=== PATIENT | male | born 1955 | race Caucasian/White ===

== ENCOUNTER → 2020-10-01 14:13 | Outpatient (REF) | payer MEDICARE, SELFPAY ==
--- NOTE | 2020-10-01 15:00 | CA_ITS ---
Transthoracic Echocardiogram Patient (Last, First, Middle): David Gallagher, Gender: Male Date of : 1955 Age: 65 Procedure Date: 10/01/2020 Procedure Type: Transthoracic Echocardiogram Location: OP Height: 167.64 cm Weight: 90.72 kg BSA: 2.00 m2 Heart Rate: bpm BP: 126 / 80 mmHg Abstract Writer: KEYSHAWN Referring MD: Kb Birmingham MD Safety Sealer: Kb Birmingham MD Symptoms: I25.10 CAD I10 HTN E78.5 Study Quality: Fair ECG Rhythm: Sinus Conclusions: - 1. Low normal LV systolic function with mild LVH with underlying wall motion abnormality suggestive of coronary artery disease with impaired relaxation filling pattern 2. Mildly dilated left atrium 3. Trivial aortic regurgitation 4. Normal RV systolic pressure 5. No pericardial effusion Findings Left Ventricle Normal left ventricular cavity size. There is mildly increased left ventricular wall thickness. The left ventricular systolic function is low normal. The visually estimated ejection fraction is between 50-55%. Spectral Doppler is indicative of an impaired relaxation filling pattern. E/E prime ratio is between 8 and 15 consistent with indeterminate filling pressures. Wall Motion Rest Echo Findings The apical inferior and mid inferoseptal segments are hypokinetic. The apical septum is akinetic. All other scored wall segments showed normal motion. Right Ventricle Normal right ventricular cavity size and systolic function. Atria The left atrium is mildly dilated. There is no evidence of interatrial shunt. The right atrium is normal in size. Aortic Valve Normal aortic valve structure and function. There is no aortic valve stenosis. There is trace (trivial) aortic valve regurgitation. Mitral Valve Normal mitral valve structure and function. There is trace mitral valve regurgitation. There is no mitral valve stenosis. Pulmonic Valve The pulmonic valve was not well visualized. Tricuspid Valve Likely normal tricuspid valve structure and function. There is trace tricuspid valve regurgitation. The right ventricular systolic pressure is normal. There is no evidence of pulmonary hypertension. Great Vessels All visible segments of the aorta are normal in size. The pulmonary artery was not well visualized. Venous The inferior vena cava is normal in size and collapses greater than 50% with inspiration. Pericardium/Pleural There is no evidence of pericardial effusion. Prior Study Comparison Changes noted compared to prior study. LV systolic function is marginally reduced Measurements 2D Linear Measurements IVSd: 1.25 0.6-0.9/0.6-1.0 cm LVIDd: 4.08 3.9-5.3/4.2-5.9 cm LVIDd Index: 2.04 2.4-3.2/2.2-3.1 cm/m2 LVIDs: 2.92 2.0-3.6 cm LVPWd: 1.25 0.7-1.1 cm Ao Root: 3.40 2.1-3.5 cm LA Diam: 4.10 2.7-3.8/3.0-4.0 cm LAIDs Index: 2.05 1.5-2.3 cm/m2 LV Mass: 225.65 67-162/88-224 g LV Mass Index: 112.83 43-95/49-115 g/m2 LVOT Diam: 2.00 3.0+(-)1.3 cm 2D Systolic Function EF 4C: 54.90 >55% EF 2C: 53.90 >55% EF BiP: 52.60 >55% Mitral Valve MV Pk E: 0.54 MV PK A: 0.78 MV Decel Time: 187.00 E/A: 0.70 E'Lateral: 9.77 E'Medial: 5.80 E/E' Med: 9.30 E/E' Lat: 5.50 PHT: 55.00 MVA PHT: 4.00 Decel [place]: 2.89 Aortic Valve AoV Pk Carlos: 1.60 AoV Mn Carlos: 1.18 AoV VTI: 0.36 AoV Pk Grad: 10.00 Aov Mn Grad: 6.00 BRAEDEN Cont.VTI: 2.03 LVOT LVOT Pk Carlos: 1.03 LVOT Mn Carlos: 0.73 LVOT VTI: 0.24 LVOT Pk Grad: 4.00 LVOT Mn Grad: 2.00 LVOT Diam: 2.00 LVOT Area: 3.14 Diastolic Function MV Pk E: 0.54 MV Pk A: 0.78 E/A: 0.70 E'Medial: 5.80 E/E' Med: 9.30 E' Laterial: 9.77 E/E' Lat: 5.50 Tricuspid Valve TR Pk Carlos: 1.81 TR Pk Grad: 13.00 RA Press: 3.00 RVSP: 16.00 Great Vessels Aorta Ao Root-2D: 3.40 2.0-3.7 cm Ao Asc: 3.60 2.1-3.4 cm Pulmonary Valve PV Pk Carlos: 1.26 Peak PV Grad: 6.00 Updated in Other Vendor System with Status of Final Kb Birmingham MD electronically signed on 10/02/2020 8:41:57 AM with status of Final
== END ==
LOC: HO.CARD 14:13
PROVIDERS: Visit Provider Internal Medicine Cardiovascular Disease
DX: I25.119 Atherosclerotic heart disease of native coronary artery with unspecified angina pectoris (principal); I10 Essential (primary) hypertension; E78.5 Hyperlipidemia, unspecified
CPT/HCPCS: 93306

== ENCOUNTER → 2021-01-08 12:15 | Outpatient (BNVA) | payer MEDICARE, SELFPAY | PROVIDERS: PCP Internal Medicine; Visit Provider Internal Medicine Cardiovascular Disease | DX: I25.10 Atherosclerotic heart disease of native coronary artery without angina pectoris (principal); I10 Essential (primary) hypertension; R06.02 Shortness of breath | CPT/HCPCS: 93005; 99212 ==

== ENCOUNTER → 2021-03-12 08:57 | Outpatient (BNVA) | payer MEDICARE, SELFPAY | PROVIDERS: PCP Nurse Practitioner Primary Care; Visit Provider Urology | DX: E11.69 Type 2 diabetes mellitus with other specified complication (principal); N52.1 Erectile dysfunction due to diseases classified elsewhere | CPT/HCPCS: 99202 ==

== ENCOUNTER → 2021-03-24 13:38 | Outpatient (BNVA) | payer MEDICARE, MEDICAID, SELFPAY | PROVIDERS: PCP Nurse Practitioner Primary Care; Visit Provider Nurse Practitioner Family | DX: I25.10 Atherosclerotic heart disease of native coronary artery without angina pectoris (principal); I10 Essential (primary) hypertension; R06.02 Shortness of breath; Z86.79 Personal history of other diseases of the circulatory system | CPT/HCPCS: 99212 ==

== ENCOUNTER → 2021-06-11 10:04 | Outpatient (BNVA) | payer MEDICARE, MEDICAID, SELFPAY | PROVIDERS: PCP Nurse Practitioner Primary Care; Visit Provider Urology | DX: N52.9 Male erectile dysfunction, unspecified (principal); I25.10 Atherosclerotic heart disease of native coronary artery without angina pectoris; I25.2 Old myocardial infarction; I10 Essential (primary) hypertension; E11.69 Type 2 diabetes mellitus with other specified complication; I42.9 Cardiomyopathy, unspecified; E78.5 Hyperlipidemia, unspecified; Z87.891 Personal history of nicotine dependence; Z95.5 Presence of coronary angioplasty implant and graft; Z98.890 Other specified postprocedural states; Z79.899 Other long term (current) drug therapy | CPT/HCPCS: 99212 ==

== ENCOUNTER → 2021-09-10 10:51 | Outpatient (BNVA) | payer MEDICARE, MEDICAID, SELFPAY | PROVIDERS: PCP Nurse Practitioner Primary Care; Visit Provider Urology | DX: Z13.89 Encounter for screening for other disorder (principal) | CPT/HCPCS: Q3014 ==

== ENCOUNTER → 2022-01-20 10:20 | Outpatient (BNVA) | payer OTHER, MEDICAID, SELFPAY | PROVIDERS: PCP Nurse Practitioner Primary Care; Referring Provider Nurse Practitioner Primary Care; Visit Provider Internal Medicine Cardiovascular Disease | DX: I25.10 Atherosclerotic heart disease of native coronary artery without angina pectoris (principal); I10 Essential (primary) hypertension | CPT/HCPCS: 93005 ==

== ENCOUNTER 2023-02-09 11:32 | Outpatient (AMB) | payer OTHER, MEDICAID, SELFPAY ==
--- NOTE | 2023-02-09 11:36 | MHC.OFFVIS ---
Intake Vital Signs 02/09/23 11:37 Height 5 ft 6 in Weight 182 lb 15.739 oz BMI 29.5 BP 120/80 Blood Pressure Location Lt brachial Position Sitting Pulse 70 Intake Visit Reasons: 1 year follow up Intake Note: 1 year follow-up with ekg feeling ok [employer] Acquisition Project Manager Required: Yes Talent Acquisition Project Manager Name: daughter Infusion Nurse: Infusion Nurse Present Accompanied by: Daughter Allergies No Known Allergies Allergy (Verified 03/15/22 15:42) Medication List - Last Reconciled 02/09/23 by Kb Birmingham MD albuterol sulfate 90 mcg/actuation 2 puffs PO Q4-6H PRN alcohol swabs (BD Alcohol Swabs) 0 pad topical QID amlodipine 5 mg PO aspirin 81 mg PO DAILY 90 days blood sugar diagnostic (Oppten Ultra Test strips) As directed dulaglutide 0.75 mg subcut QWEEK dulaglutide (Trulicity) mg subcut fenofibrate nanocrystallized 145 mg PO DAILY 30 days insulin aspart U-100 (Novolog FlexPen U-100 Insulin aspart) subcut insulin degludec (Tresiba FlexTouch U-100 insulin) units subcut insulin glargine units subcut insulin lispro units subcut lancets (VoucherlinkTouch Delica Lancets) As directed lisinopril 40 mg PO DAILY 90 days metformin 1,000 mg PO BID metoprolol succinate ER 25 mg PO DAILY 90 days omeprazole 40 mg PO QAM pen needle, diabetic (Comfort EZ Pen [place]) As directed ranolazine ER 1,000 mg PO BID 90 days rosuvastatin 40 mg PO DAILY 90 days sildenafil 100 mg PO DAILY PRN 30 days tadalafil 10 mg PO DAILY 90 days HPI HPI Comments History of Present Illness Details David comes for follow-up, accompanied by her daughter who is traffic controller cable. Did declined a certified traffic controller cable. Patient complains of is significant exertional shortness of breath with walking short distances than before. Says that he was told that he has asthma. He denies any clear anginal symptoms. Denies any orthopnea, PND, leg edema. Denies any prolonged palpitations, lightheadedness, syncope. Takes all his medications. No recent lipid panel. [facility] Medical History CAD (coronary artery disease) History of ischemic cardiomyopathy HTN (hypertension) Hyperlipidemia LVH (left ventricular hypertrophy) Old myocardial infarction Type 2 diabetes mellitus without complications Surgical History History of lung surgery Hx of cardiac cath Stented coronary artery Family History Father Bone cancer Mother No problems noted. Social History Patient Tobacco Use Status: Former Tobacco user Years Smoked: stopped 2011 Review of Systems Const Denies chills, Denies fatigue, Denies fever(s), Denies frequent falls, Denies weakness, Denies weight gain and Denies weight loss ENT Denies dizziness Card Denies chest pain, Denies leg edema, Denies lightheadedness, Denies palpitations, Denies dyspnea, Denies dyspnea on exertion, Denies orthopnea and Denies other (loss of consciousness) Resp Denies cough, Denies dyspnea and Denies dyspnea on exertion GI Denies hematochezia and Denies change in stool character Musc Denies abnormal gait, Denies muscle weakness, Denies numbness, Denies radiating pain into limb and Denies tingling Neuro Denies abnormal gait, Denies dizziness, Denies frequent falls, Denies numbness, Denies tingling and Denies weakness Endo Denies fatigue and Denies palpitations Physical Exam Vital Signs: Last Vital Signs Pulse 70 02/09/23 11:37 BP 120/80 02/09/23 11:37 BMI result Body Mass Index 29.5 Const General: cooperative, comfortable, no acute distress, alert and awake Nutritional Appearance: overweight Orientation/consciousness: patient oriented x3 Limitations: no limitations Neck Neck: Yes trachea midline, Yes supple and Yes no JVD Resp Effort & Inspection: normal respiratory effort Auscultation: clear to auscultation bilaterally Cardio Jugular venous distension: no JVD Palpation: normal PMI Rate: regular rate Rhythm: regular rhythm Heart sounds: S1 normal heart sound present and S2 normal heart sound present GI Auscultation: normal bowel sounds Skin General skin exam: no rashes or lesions noted Neuro General: patient oriented x3 and no focal motor deficits Extrem General: Yes no clubbing, cyanosis or edema Psych Appearance: grossly normal Office Procedures EKG Details: EKG shows normal sinus rhythm with moderate LVH criteria with QS pattern in lead V1 V2 suggestive septal infarct. No acute ST T wave changes [id number], Complete Assessment & Plan Assessment & Plan (1) SOB (shortness of breath) on exertion: Code(s): R06.02 - Shortness of breath Plan: Patient with exertional shortness of breath with prior coronary artery disease with LAD stenting. Possible that this is related to underlying bronchospastic airway disease. Although progressive cardiac issues cannot be entirely ruled out. Will obtain exercise myocardial perfusion imaging to evaluate for myocardial ischemia as well as echocardiogram to evaluate LV systolic and diastolic function to evaluate for pulmonary hypertension. These tests will be scheduled in near future. Further treatment based on the findings. Encouraged to continue to participate in physical activity as tolerated. (2) CAD (coronary artery disease): Code(s): I25.10 - Atherosclerotic heart disease of [place] coronary artery without angina pectoris Plan: CAD with remote stenting of the LAD. Currently no obvious symptoms of angina but having exertional shortness of breath. Advise workup as above. Also advise follow-up lipid panel near future. Continue low-dose aspirin therapy for life. Continue dual therapy with high-intensity statin therapy and fenofibrate therapy. Target goal LDL closer to 60 mg/dL and triglycerides less than 200 mg/dL. Continue aggressive management diabetes. Goal hemoglobin A1c less than 7%. Blood pressure is currently well optimized advised to continue current therapy. Currently on multiple antianginal agents. Advised to monitor blood pressure at home maintain a log. Goal blood pressure less than 130/84. Follow up in the clinic in 1 year's time, sooner p.r.n.. Thank you for allowing me to partake in his care Orders: Orders Lipid Panel Today I25.10 - Atherosclerotic heart disease of [place] coronary artery without angina pectoris CA stress test Today I25.10 - Atherosclerotic heart disease of [place] coronary artery without angina pectoris CA echo transthoracic complete Today I25.10 - Atherosclerotic heart disease of [place] coronary artery without angina pectoris NM cardiolite stress test 2 Weeks I25.10 - Atherosclerotic heart disease of [place] coronary artery without angina pectoris, R07.9 - Chest pain, unspecified Coding Level of Care Code Est Pt Level 4 (88023) Diagnoses SOB (shortness of breath) on exertion R06.02 CAD (coronary artery disease) I25.10 CPT Codes EKG - CPT: 46728-[id number], Complete ([id number])
[2023-02-09 11:37] VITALS: BP 120/80; PULSE 70; BMI 29.5
== END 2023-02-09 11:57 | disposition home or self-care (01) ==
PROVIDERS: PCP Nurse Practitioner Primary Care; Visit Provider Internal Medicine Cardiovascular Disease
DX: R06.02 Shortness of breath (principal); I25.10 Atherosclerotic heart disease of native coronary artery without angina pectoris
CPT/HCPCS: 93010; 99214

== ENCOUNTER → 2023-02-09 11:32 | Outpatient (BNVA) | payer OTHER, MEDICAID, SELFPAY | PROVIDERS: PCP Nurse Practitioner Primary Care; Visit Provider Internal Medicine Cardiovascular Disease | DX: R07.9 Chest pain, unspecified (principal); I25.10 Atherosclerotic heart disease of native coronary artery without angina pectoris; I10 Essential (primary) hypertension; I25.2 Old myocardial infarction; Z87.891 Personal history of nicotine dependence; Z95.5 Presence of coronary angioplasty implant and graft; Z98.890 Other specified postprocedural states | CPT/HCPCS: 93005; 99212 ==

== ENCOUNTER → 2023-03-22 09:09 | Outpatient (REF) | payer OTHER, MEDICAID, SELFPAY ==
--- NOTE | ~2023-03-22 | NM_ITS ---
Lexiscan Myocardial perfusion study Indication: Coronary artery disease, assess for ischemia Technique: The patient was brought in for a Lexiscan perfusion study on 03/22/2023 and was injected 0.4 mg of Lexiscan intravenously. Within a minute of this injection 25 mCi of sestamibi was given intravenously. Images were obtained using the SPECT gamma camera interlaced with the gating device. Images were obtained in supine position. Resting perfusion study was performed on 03/23/2023. Patient was administered 25 mCi of sestamibi intravenously at rest. Images were then obtained in supine position. Images were processed with the software and compared side to side in short axis, horizontal long axis and vertical long axis views. Total DLP 147mGy-cm. Findings: Raw acquisition reviewed. The stress perfusion study showed diminished tracer uptake in the distal part of anterior wall and adjacent apex.. No significant improvement with CT attenuation correction. The gated study shows mildly diminished LV systolic function with calculated LVEF of 45%. LV cavity is normal in size. The gated study shows mildly reduced thickening in the apical part of anterior wall. Resting study shows mildly reduced tracer uptake at the anterior apex and adjacent apex. No significant change with CT attenuation correction. Gating at rest reveals mildly reduced LVEF at 50%. Apical anterior wall with reduced thickening. The findings are consistent with mixed defect in the apical anterior wall with mostly fixed but some reversible components. NM/AK cardiolite stress test Impression: 1. Myocardial perfusion imaging study shows mixed ischemia/infarct pattern in the apical anterior wall, more towards infarct. 2. Gated LVEF is 45% during stress and 50% during rest. 3. Transient ischemic dilatation not present. EKG component of the test reported separately.
--- NOTE | 2023-03-22 09:13 | CA_ITS ---
Acquisition Time: 2023-03-22 09:16:16 Total Exercise Time: 00:05:08 Test Indications: SOB Medications: SEE H Protocol: JOHNATHAN Max HR: 115 BPM 75% of Pred: 153 BPM Max BP: 160/058 mmHG Max Work Load: 6.9 METS Exercise stress test exercise 5 nmin 8 sec of Johnathan protocol achieving 74% MPHR with need to stop due to fatigue and moderate SOB, without arrhythmias, with normotensive response to exercise, without EKG changes. Patient assisted to chair and breathing returned to normal. Test changed to pharmacological stress test with Lexiscan injection. Pharmacolgical stress test with Lexiscan injection while sitting and kicking his legs, without anginal symptoms, with isolated PVC, with normotensive response to injection, with nondiagnositic EKGs. Nuclear images pending, Test reviewed with Dr. Paul. Referred By: Kb Birmingham Overread By: Adriana Rodrigez
== END ==
LOC: HO.CARD 09:09
PROVIDERS: PCP Nurse Practitioner Primary Care; Visit Provider Internal Medicine Cardiovascular Disease
DX: R07.9 Chest pain, unspecified (principal); I25.10 Atherosclerotic heart disease of native coronary artery without angina pectoris
CPT/HCPCS: 78452; 93017; A9500; J0280; J2785

== ENCOUNTER → 2023-03-22 09:13 | Outpatient (BNV) | payer OTHER, MEDICAID, SELFPAY | PROVIDERS: PCP Nurse Practitioner Primary Care; Visit Provider Nurse Practitioner | DX: I25.10 Atherosclerotic heart disease of native coronary artery without angina pectoris (principal) | CPT/HCPCS: 78452; 93016; 93018 ==

== ENCOUNTER 2023-04-14 09:02 | Outpatient (REF) | payer OTHER, MEDICAID, SELFPAY ==
[2023-04-14 12:07] LABS: Alanine Aminotransferase 15 U/L (0-40); Alkaline Phosphatase 27 U/L (39-117); Amylase 85 U/L (28-100); Anion Gap 11 (12-20); Aspartate Amino Transferase 12 U/L (5-37); Bilirubin Total 0.3 mg/dL (0.0-1.0); Blood Urea Nitrogen 19 mg/dL (9-16); Calcium 9.5 mg/dL (8.4-10.2); Carbon Dioxide 24 mmol/L (22-29); Chloride 112 mmol/L (96-108); Cholesterol 97 mg/dL (<200); Estimated Glomerular Filt Rate 58; Glucose Random 138 mg/dL (60-115); HDL Cholesterol 37 mg/dL (>40); LDL Cholesterol Calculated 40 mg/dL (<100); Lipase 20 U/L (8-78); Potassium 4.7 mmol/L (3.3-5.1); Sodium 142 mmol/L (135-145); Total Protein 6.8 g/dL (6.5-8.0); Triglycerides 100 mg/dL (<150)
[2023-04-14 12:46] LABS: Creatinine Urine 108.17 mg/dL; Microalbum/Creatinine Ratio Ur 77.6 ug/mg cr (<30)
== END 2023-04-14 09:03 | disposition home or self-care (01) ==
LOC: HO.HHCL 09:02
PROVIDERS: Visit Provider Nurse Practitioner Primary Care
DX: E11.69 Type 2 diabetes mellitus with other specified complication (principal); R10.12 Left upper quadrant pain; E78.5 Hyperlipidemia, unspecified
CPT/HCPCS: 36415; 80053; 80061; 82043; 82150; 82570; 83690

== ENCOUNTER → 2023-04-15 09:05 | Outpatient (REF) | payer OTHER, MEDICAID, SELFPAY ==
--- NOTE | 2023-04-15 09:07 | CA_ITS ---
Transthoracic Echocardiogram Patient (Last, First, Middle): David Gallagher, Gender: Male Date of : 1955 Age: 67 Procedure Date: 04/15/2023 Procedure Type: Transthoracic Echocardiogram Location: OP Height: 167.64 cm Weight: 86.18 kg BSA: 1.96 m2 Heart Rate: 66 bpm BP: 110 / 55 mmHg Speech Writer: TAMMI Referring MD: Kb Birmingham MD Symptoms: I25.10 - Atherosclerotic heart disease of [place] coronary artery without... Study Quality: Fair ECG Rhythm: Sinus Conclusions: - Normal left ventricular cavity size. There is mildly increased left ventricular wall thickness. The left ventricular systolic function is low normal. The visually estimated ejection fraction is between 50-55%. - The apical anterior, apical inferior, apical septum, and mid anteroseptal segments are hypokinetic. - The apex segment is akinetic. - There is mild dilatation of the ascending aorta measuring 3.60 cm. Findings Left Ventricle Normal left ventricular cavity size. There is mildly increased left ventricular wall thickness. The left ventricular systolic function is low normal. The visually estimated ejection fraction is between 50-55%. There is evidence of regional wall motion abnormalities. Abnormal diastolic function is noted. Spectral Doppler is indicative of an impaired relaxation filling pattern. E/E prime ratio is between 8 and 15 consistent with indeterminate filling pressures. Wall Motion Rest Echo Findings The apical anterior, apical inferior, apical septum, and mid anteroseptal segments are hypokinetic. The apex segment is akinetic. Right Ventricle Normal right ventricular cavity size and systolic function. Atria The left atrium is normal in size. The right atrium is normal in size. Aortic Valve There is a normal trileaflet aortic valve. There is mild calcification of the aortic valve. There is no aortic valve stenosis. There is no aortic valve regurgitation. Mitral Valve Normal mitral valve structure and function. There is no mitral valve regurgitation. There is no mitral valve stenosis. Pulmonic Valve Normal pulmonic valve structure and function. There is trace pulmonic valve regurgitation. Tricuspid Valve Normal tricuspid valve structure and function. There is trace tricuspid valve regurgitation. Normal right atrial pressure. There is no evidence of pulmonary hypertension. Great Vessels There is mild dilatation of the ascending aorta measuring 3.60 cm. The visualized portions of the pulmonary artery and branches are normal. Venous The inferior vena cava is normal in size and collapses greater than 50% with inspiration. Pericardium/Pleural There is no evidence of pericardial effusion. Prior Study Comparison No significant change compared to prior study dated: 10/01/2020. Measurements 2D Linear Measurements IVSd: 1.11 0.6-0.9/0.6-1.0 cm LVIDd: 4.26 3.9-5.3/4.2-5.9 cm LVIDd Index: 2.17 2.4-3.2/2.2-3.1 cm/m2 LVIDs: 2.66 2.0-3.6 cm LVPWd: 1.10 0.7-1.1 cm LA Diam: 4.50 2.7-3.8/3.0-4.0 cm LAIDs Index: 2.30 1.5-2.3 cm/m2 LV Mass: 201.27 67-162/88-224 g LV Mass Index: 102.69 43-95/49-115 g/m2 LVOT Diam: 2.00 3.0+(-)1.3 cm 2D Systolic Function EF 4C: 52.80 >55% EF 2C: 56.50 >55% EF BiP: 55.20 >55% Mitral Valve MV Pk E: 0.60 MV PK A: 0.91 MV Decel Time: 268.00 E/A: 0.70 E'Lateral: 8.92 E'Medial: 6.53 E/E' Med: 9.20 E/E' Lat: 6.80 PHT: 78.00 MVA PHT: 2.82 Decel [place]: 2.26 Aortic Valve AoV Pk Carlos: 1.49 AoV Mn Carlos: 1.06 AoV VTI: 0.35 AoV Pk Grad: 9.00 Aov Mn Grad: 5.00 BRAEDEN Cont.VTI: 2.25 LVOT LVOT Pk Carlos: 1.25 LVOT Mn Carlos: 0.77 LVOT VTI: 0.25 LVOT Pk Grad: 6.00 LVOT Mn Grad: 3.00 LVOT Diam: 2.00 LVOT Area: 3.14 Diastolic Function MV Pk E: 0.60 MV Pk A: 0.91 E/A: 0.70 E'Medial: 6.53 E/E' Med: 9.20 E' Laterial: 8.92 E/E' Lat: 6.80 Right Ventricle TAPSE (mm): 24.00 TVS' Carlos: 13.50 Tricuspid Valve TR Pk Carlos: 2.64 TR Pk Grad: 28.00 RA Press: 3.00 RVSP: 31.00 Great Vessels Aorta Sinus of Valsalva: 3.50 2.0-3.5 cm Ao Asc: 3.60 2.1-3.4 cm Pulmonary Valve PV Pk Carlos: 1.19 Peak PV Grad: 6.00 Updated in Other Vendor System with Status of Final Jett Paul MD electronically signed on 04/17/2023 9:22:56 PM with status of Final
== END ==
LOC: HO.CARD 09:05
PROVIDERS: PCP Nurse Practitioner Primary Care; Visit Provider Internal Medicine Cardiovascular Disease
DX: I25.10 Atherosclerotic heart disease of native coronary artery without angina pectoris (principal)
CPT/HCPCS: 93306

== ENCOUNTER → 2023-04-15 09:07 | Outpatient (BNV) | payer OTHER, MEDICAID, SELFPAY | PROVIDERS: PCP Nurse Practitioner Primary Care; Visit Provider Internal Medicine Cardiovascular Disease | DX: I25.10 Atherosclerotic heart disease of native coronary artery without angina pectoris (principal) | CPT/HCPCS: 93306 ==

== ENCOUNTER 2023-04-18 10:20 | Outpatient (REF) | payer OTHER, MEDICAID, SELFPAY ==
[2023-04-18 11:39] LABS: MANUAL DIFF FLAG NO
[2023-04-18 12:14] LABS: INTERNATIONAL NORM RATIO 0.8 (0.9-1.1); Prothrombin Time 9.9 SEC (11.1-13.3)
[2023-04-18 12:17] LABS: Basophils Absolute Auto 0.1 X10*3/uL (0.0-0.2); Eosinophils Absolute Auto 0.3 X10*3/uL (0.0-0.4); Eosinophils Percent Auto 3.9 % (0-4); Hematocrit 33.1 % (42.0-52.0); Hemoglobin 10.9 g/dl (14.0-18.0); Imm Gran Abs Auto 0.07 X10*3/uL (0.00-0.03); Lymphocytes Absolute Auto 1.8 X10*3/uL (1.2-4.9); Lymphocytes Percent Auto 26.4 % (20-40); Mean Corpuscular HGB Conc 32.9 g/dl (31.0-36.0); Mean Corpuscular Hemoglobin 31.2 pg (27.0-33.0); Mean Corpuscular Volume 94.8 fL (80.0-98.0); Mean Platelet Volume 10.1 fL (9.4-12.4); Monocytes Absolute Auto 0.5 X10*3/uL (0.1-1.2); Monocytes Percent Auto 7.1 % (2-11); Neutrophils Absolute Auto 4.1 x10*3/uL (2.0-8.3); Neutrophils Percent Auto 60.6 % (45-73); Platelet Count 327 X10*3/uL (160-400); Red Blood Count 3.49 X10*6/uL (4.60-5.80); Red Cell Distribution Width 12.8 % (11.0-16.0); White Blood Count 6.7 X10*3/uL (4.8-10.8)
== END 2023-04-18 10:21 | disposition home or self-care (01) ==
LOC: HO.HHCL 10:20
PROVIDERS: Visit Provider Internal Medicine Cardiovascular Disease
DX: I25.10 Atherosclerotic heart disease of native coronary artery without angina pectoris (principal); R06.02 Shortness of breath; I10 Essential (primary) hypertension; Z86.79 Personal history of other diseases of the circulatory system
CPT/HCPCS: 36415; 85025; 85610

== ENCOUNTER → 2023-04-19 23:59 | Outpatient (BNV) | payer OTHER, MEDICAID, SELFPAY | PROVIDERS: PCP Nurse Practitioner Primary Care; Visit Provider Internal Medicine Cardiovascular Disease | DX: I20.8 Other forms of angina pectoris (principal); R93.1 Abnormal findings on diagnostic imaging of heart and coronary circulation | CPT/HCPCS: 93458; 99152 ==

== ENCOUNTER 2023-05-03 14:27 | Outpatient (AMB) | payer OTHER, MEDICAID, SELFPAY ==
[2023-05-03 14:44] VITALS: BP 112/52; PULSE 70; RESP 18; O2SAT 97
--- NOTE | 2023-05-03 14:44 | MHC.OFFVIS ---
Intake Vital Signs 05/03/23 14:44 Height 5 ft 6 in Weight 185 lb 10.067 oz BMI 30.0 BP 112/52 L Blood Pressure Location Rt brachial Position Sitting Respiration 18 Pulse 70 Pulse Source Pulse Oximeter Pulse Oximetry (%) 97 Oxygen Delivery Method Room Air Intake Visit Reasons: Follow up post cardiac cath Pastoral Ministries Professor Required: Yes Pastoral Ministries Professor Language: Eligibility Technician Name: daughter Fabiola - form signed Information Interpreted: non-clinical & clinical Accompanied by: emmett Allergies No Known Allergies Allergy (Verified 05/03/23 14:46) Medication List - Last Reconciled 05/03/23 by Adriana Rodrigez NP albuterol sulfate 90 mcg/actuation 2 puffs PO Q4-6H PRN alcohol swabs (BD Alcohol Swabs) 0 pad topical QID amlodipine 5 mg PO aspirin 81 mg PO DAILY 90 days blood sugar diagnostic ([employer] Ultra Test strips) As directed dulaglutide 0.75 mg subcut QWEEK dulaglutide (Trulicity) mg subcut fenofibrate nanocrystallized 145 mg PO DAILY 30 days insulin aspart U-100 (Novolog FlexPen U-100 Insulin aspart) subcut insulin degludec (Tresiba FlexTouch U-100 insulin) units subcut insulin glargine units subcut insulin lispro units subcut lancets (SpindleTouch Delica Lancets) As directed lisinopril 40 mg PO DAILY 90 days metformin 1,000 mg PO BID metoprolol succinate ER 25 mg PO DAILY 90 days omeprazole 40 mg PO QAM pen needle, diabetic (Comfort EZ Pen [place]) As directed ranolazine ER 1,000 mg PO BID rosuvastatin 40 mg PO DAILY 90 days sildenafil 100 mg PO DAILY PRN 30 days tadalafil 10 mg PO DAILY 90 days HPI HPI Comments History of Present Illness Details 67year-old male presents for a follow-up with his daughter post cardiac cath on 04/19/[address] Paul for shortness of breath on exertion and a nuclear stress test showing abnormalities. Patient has a history of stent placement in LAD. Patient reports his breathing has improved greatly since the cathertization. He reports prior walking even on flat surfaces he would become short of breath but now it is only with stairs which he has had for years. He reports his albuterol inhaler improves the shortness of breath when he walks up stairsa. He continues all medications with no complaints or concerns. He denies chest pain or swelling in his legs. He continues to not smoke and does not drink alcohol. Certified shipping technician declined - daughter is interpreting. Form was signed. Right radial site: healing, with no redness, bruising, or tenderness noted. LMCA - Mild disease LAD: Mild luminal irregularities (<30%). Patent proximal LAD stent. LCx: Mild luminal irregularities (<30%) RCA: Mild luminal irregularities (<30%) COUNT INCLUDES THE [facility] Medical History (Updated 05/03/23 @ 15:19 by Adriana Rodrigez NP) Type 2 diabetes mellitus without complications LVH (left ventricular hypertrophy) History of ischemic cardiomyopathy Hyperlipidemia Old myocardial infarction HTN (hypertension) CAD (coronary artery disease) Surgical History (Updated 05/03/23 @ 15:16 by Adriana Rodrigez NP) Stented coronary artery History of lung surgery Hx of cardiac cath Family History Father Bone cancer Mother No problems noted. Social History Patient Tobacco Use Status: Former Tobacco user Years Smoked: stopped 2011 Review of Systems Const Denies chills, Denies fatigue, Denies fever(s), Denies frequent falls, Denies weakness, Denies weight gain and Denies weight loss ENT Denies dizziness Card Denies chest pain, Denies chest pain with activity, Denies syncope, Denies rapid heart rate, Denies pedal edema, Denies irregular heart rhythm, Denies leg edema, Denies lightheadedness, Denies palpitations, Denies dyspnea, Denies dyspnea on exertion, Denies orthopnea and Denies other (LOC) Resp Denies cough, Denies dyspnea and Denies dyspnea on exertion GI Denies hematochezia and Denies change in bowel habits Musc Denies abnormal gait, Denies arthralgias, Denies muscle weakness, Denies numbness, Denies radiating pain into limb and Denies tingling Neuro Denies abnormal gait, Denies dizziness, Denies syncope, Denies frequent falls, Denies numbness, Denies tingling and Denies weakness Endo Denies fatigue and Denies palpitations Physical Exam Vital Signs: Last Vital Signs Pulse 70 05/03/23 14:44 Resp 18 05/03/23 14:44 BP 112/52 L 05/03/23 14:44 Pulse Ox 97 05/03/23 14:44 Oxygen Delivery Method Room Air 05/03/23 14:44 BMI result Body Mass Index 30.0 Const General: healthy appearing and no acute distress Orientation/consciousness: patient oriented x3 HEENT Head: Yes normal to inspection Eyes General: appearance normal, both eyes and all related structures Neck Neck: Yes normal visual inspection Chest Chest palpation & inspection: normal inspection of the chest Resp Effort & Inspection: normal respiratory effort Auscultation: clear to auscultation bilaterally Cardio Jugular venous distension: no JVD Palpation: normal PMI Rate: regular rate Rhythm: regular rhythm Heart sounds: S1 normal heart sound present, S2 normal heart sound present, no click, no gallops, no murmurs and no rubs GI Inspection: Yes normal to inspection Palpation (GI): Soft to palpation Skin General skin exam: no rashes or lesions noted Neuro General: patient oriented x3 Extrem General: Yes normal to inspection Right upper extremity: normal to inspection, normal capillary refill and wrist Details: normal to inspection and radial pulse present; no tenderness and no swelling; no cyanosis and no edema Psych Appearance: grossly normal Assessment & Plan Assessment & Plan (1) SOB (shortness of breath) on exertion: Code(s): R06.02 - Shortness of breath (2) CAD (coronary artery disease): Code(s): I25.10 - Atherosclerotic heart disease of [place] coronary artery without angina pectoris (3) Type 2 diabetes mellitus without complications: Code(s): E11.9 - Type 2 diabetes mellitus without complications Plan Shortness of breath has improved. Cath showed non-obstructive coronary disease. Continue all medications at this time. Aspirin 81mg will be indefinitely. Discussed with patient and daughter the importance of heart healthy diet, blood sugar control, weight control. and medication compliance. Blood pressure is within goal today. If his shortness of breath worsens to consider pulmonary pathologies. Coding Level of Care Code Est Pt Level 3 (52680) Diagnoses SOB (shortness of breath) on exertion R06.02 CAD (coronary artery disease) I25.10 Type 2 diabetes mellitus without complications E11.9
== END 2023-05-03 15:07 | disposition home or self-care (01) ==
PROVIDERS: PCP Nurse Practitioner Primary Care; Visit Provider Nurse Practitioner
DX: R06.02 Shortness of breath (principal); I25.10 Atherosclerotic heart disease of native coronary artery without angina pectoris; E11.9 Type 2 diabetes mellitus without complications
CPT/HCPCS: 99213

== ENCOUNTER → 2023-05-03 14:27 | Outpatient (BNVA) | payer OTHER, MEDICAID, SELFPAY | PROVIDERS: PCP Nurse Practitioner Primary Care; Visit Provider Nurse Practitioner | DX: I25.10 Atherosclerotic heart disease of native coronary artery without angina pectoris (principal); R06.02 Shortness of breath; E11.9 Type 2 diabetes mellitus without complications; Z79.82 Long term (current) use of aspirin | CPT/HCPCS: 99212 ==

== ENCOUNTER 2023-10-28 09:10 | Outpatient (AMB) | payer OTHER, MEDICAID, SELFPAY ==
--- NOTE | 2023-10-28 08:16 | MHC.OFFVIS ---
Intake Intake Visit Reasons: Former Smoker Allergies No Known Allergies Allergy (Verified 05/03/23 14:46) HPI Former Smoker HPI Details Initial visit for this 68yo former smoker with a 60PYH. Patient started smoking at age 15 for 41years at 1-2ppd. He quit 12 years ago in 2011. . Denies marijuana use. Reports social second hand smoke exposure. 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 . Denies known family history of lung cancer. Denies personal history of cancers. Denies chest CT in last year. . Denies recent travel outside the [place]. Denies recent respiratory illness or recent hospitalization for respiratory issues. Denies testing positive for COVID. Admits receiving COVID Vaccine. . Denies fever, chills, new/worsening cough, hemoptysis, hoarseness or dysphagia. Denies significant chest pain, significant dyspnea or unintentional weight loss. Patient Lung Cancer Screening Questionnaire reviewed with patient by provider. . Shared Decision Making Completed. Patient meets criteria. Discussed in detail with patient, the risk vs benefit of LDCT screening. Patient consents to proceed with scan. Discussed and encouraged continue smoking cessation. PFSH Medical History CAD (coronary artery disease) Old myocardial infarction History of ischemic cardiomyopathy LVH (left ventricular hypertrophy) HTN (hypertension) Hyperlipidemia Type 2 diabetes mellitus without complications Personal history of tobacco use Surgical History (Updated 10/28/23 @ 08:10 by Cortney Carrera PA-C) Stented coronary artery Hx of cardiac cath History of lung surgery Family History Father Bone cancer Mother No problems noted. Social History (Updated 10/28/23 @ 10:07 by Cortney Carrera PA-C) Patient Tobacco Use Status: Former Tobacco user Years Smoked: onset 15yo, 1-2ppd x 41yrs, 60PYH - quit 2011 Assessment & Plan Assessment & Plan (1) Personal history of tobacco use: Comment: (former smoker, onset 15yo, 1-2ppd x 41yrs, 60PYH - quit 2011) Code(s): Z87.891 - Personal history of nicotine dependence Plan: - SDM visit completed today in office. - Patient meets criteria for LDCT for lung cancer screening purposes and is asymptomatic. - Smoking cessation counseling offered. Patients can always call [phone]. - Will arrange for a LDCT scan of the chest for screening purposes at [facility]. - Risks, benefits, and alternatives were discussed in detail and the patient agrees to proceed. - Risks discussed include but are not limited to: radiation exposure, anxiety during testing and while awaiting results, false negatives, false positives and possibility of additional intervention such as further imaging or surgical procedures for benign disease. - Benefits are obviously detection of lung cancer at an early stage which can lead to improved outcomes. - Discussed the importance of screening program compliance with adherence to yearly LDCT scan as scheduled - or sooner interval scans for personalized screening regimen. - Discussed follow up plan. Our office will send a letter discussing results and if needed set up phone call and office visit based on CT findings. - Patient educated on results categorization and the management decisions for suspicious findings potentially found on the screening LDCT scan. Any patient with a Lung RADS score of 3 or 4 will be reviewed by a multidisciplinary team at [facility] to form a plan of action in regards to scan findings. - If further work up is warranted for a suspicious lung finding this will be followed by the Lung Cancer Screening program in conjunction with the Thoracic Surgery Department at [facility]. - A copy of the office note and LDCT will be sent to the patient's PCP - as well as documentation on any associated further plans of care. - Incidental findings on LDCT are the PCP's responsibility. These findings are indicated with an S finding on the LDCT Assessment. A note discussing the findings will be sent to the PCP who is then responsible for further management. - All questions answered.? Coding Level of Care Code Lung Cancer Screening G0296 Diagnoses Personal history of tobacco use Z87.891
== END 2023-10-28 09:38 | disposition home or self-care (01) ==
PROVIDERS: PCP Nurse Practitioner Primary Care; Referring Provider Nurse Practitioner Primary Care; Visit Provider Physician Assistant Medical
DX: Z87.891 Personal history of nicotine dependence (principal)
CPT/HCPCS: G0296

== ENCOUNTER 2023-10-28 09:43 | Outpatient (REF) | payer OTHER, SELFPAY ==
--- NOTE | ~2023-10-28 | CT_ITS ---
EXAMINATION: CT CHEST SCREENING CLINICAL INFORMATION: Personal history of nicotine dependence. The patient has a 40 pack-year history of smoking, having quit 15 years ago. COMPARISON: None available. TECHNIQUE: Multidetector volumetric CT imaging of the chest is performed without contrast using low dose technique. Additional 2D coronal and sagittal reformatted images and axial 3D maximum intensity projection (MIP) images are generated on the CT workstation. This CT examination was performed using dose optimization techniques as appropriate, variously including the following: *Automated exposure control. *Adjustment of mA and/or kV according to patient size (this includes techniques or standardized protocols for targeted exams where dose is matched to indication/reason for exam; i.e. extremities or head). *Use of iterative reconstruction technique. DLP: 51 mGy-cm FINDINGS: LUNGS: Emphysematous changes are present. Mild bronchial thickening is present. Mucous stranding is present in the right mainstem bronchus. There is a 4 mm pleural-based pulmonary nodule in the left lower lobe (5:231). A plaque-like density present along the right upper lobe lateral chest wall measuring 12 x 6 x 4 mm. MEDIASTINUM: The mediastinum is normal. CORONARY ARTERY CALCIFICATION: Extensive. PLEURA: There is no pleural effusion. No pleural mass or thickening. AXILLA: No lymphadenopathy. UPPER ABDOMEN: Hepatic steatosis is present. Fat density left adrenal mass is present consistent with a benign adenoma. OSSEOUS STRUCTURES: Degenerative changes are present in the thoracic spine. CT/CT lung screening IMPRESSION: 1. Emphysema. 2. A 4 mm pleural-based left lower lobe pulmonary nodule. 3. Plaque-like density right upper lobe with maximal dimension of 12 mm. As this is the patient's initial study, I would consider this 4A. 4. Incidental note made of hepatic steatosis and left adrenal adenoma. ASSESSMENT: Lung-RADS category 4A: Suspicious. RECOMMENDATION: Short interval 3 month follow up low dose CT chest.
== END 2023-10-28 09:44 | disposition home or self-care (01) ==
LOC: HO.CT 09:43
PROVIDERS: Visit Provider Nurse Practitioner Family
DX: Z87.891 Personal history of nicotine dependence (principal)
CPT/HCPCS: 71271; G0296

== ENCOUNTER 2024-01-09 14:53 | Outpatient (AMB) | payer OTHER, SELFPAY ==
[2024-01-09 15:37] VITALS: BP 114/58; PULSE 69; BMI 29.5
--- NOTE | 2024-01-09 15:37 | A.OFFVIS_ITS ---
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: Putty And Patch Worker Present Accompanied by: Daughter Allergies No Known Allergies Allergy (Verified 05/03/23 14:46) Medication List - Last Reconciled 01/09/24 by Kb [place] MD albuterol sulfate 90 mcg/actuation 2 puffs PO Q4-6H PRN alcohol swabs (BD Alcohol Swabs) 0 pad topical QID amlodipine 5 mg PO aspirin 81 mg PO DAILY 90 days blood sugar diagnostic ([employer] Ultra Test strips) As directed dulaglutide (Trulicity) mg subcut fenofibrate nanocrystallized 145 mg PO DAILY 30 days insulin aspart U-100 (Novolog FlexPen U-100 Insulin aspart) subcut insulin degludec (Tresiba FlexTouch U-100 insulin) units subcut insulin glargine units subcut insulin lispro units subcut lancets ([employer] Delica Lancets) As directed lisinopril 40 mg PO DAILY 90 days metformin 1,000 mg PO BID metoprolol succinate ER 25 mg PO DAILY 90 days omeprazole 40 mg PO QAM pen needle, diabetic (Comfort EZ Pen [place]) As directed ranolazine ER 1,000 mg PO BID rosuvastatin 40 mg PO DAILY 90 days sildenafil 100 mg PO DAILY PRN 30 days tadalafil 10 mg PO DAILY 90 days HPI Comments Details: David Comes for follow-up. Denies any significant cardiac complaints at this point time. As per the daughter who acts as interpreter deaf, his shortness of breath is improved. He has been active and walking a lot more. Currently not having any chest pain syndrome. Takes all his medications. No orthopnea, PND, leg edema. No prolonged palpitations. Cardiac catheterization showed nonobst ructive CAD with normal filling pressures. PFSH Medical History CAD (coronary artery disease) Old myocardial infarction History of ischemic cardiomyopathy LVH (left ventricular hypertrophy) HTN (hypertension) Hyperlipidemia Type 2 diabetes mellitus without complications Personal history of tobacco use Surgical History (Updated 10/28/23 @ 08:10 by Cortney Carrera PA-C) Stented coronary artery Hx of cardiac cath History of lung surgery Family History Father Bone cancer Mother No problems noted. Social History (Updated 10/28/23 @ 10:07 by Cortney Carrera PA-C) Patient Tobacco Use Status: Former Tobacco user Years Smoked: onset 15yo, 1-2ppd x 41yrs, 60PYH - quit 2011 Review of Systems Const Denies chills, Denies fatigue, Denies fever(s), Denies frequent falls, Denies weakness, Denies weight gain and Denies weight loss ENT Denies dizziness Card Denies chest pain, Denies leg edema, Denies lightheadedness, Denies palpitations , Denies dyspnea, Denies dyspnea on exertion, Denies orthopnea and Denies other (loss of consciousness) Resp Denies cough, Denies dyspnea and Denies dyspnea on exertion GI Denies hematochezia and Denies change in stool character Musc Denies abnormal gait, Denies muscle weakness, Denies numbness, Denies radiating pain into limb and Denies tingling Neuro Denies abnormal gait, Denies dizziness, Denies frequent falls, Denies numbness, Denies tingling and Denies weakness Endo Denies fatigue and Denies palpitations Physical Exam Vital Signs: Last Vital Signs Pulse 69 01/09/24 15:37 BP 114/58 L 01/09/24 15:37 BMI result Body Mass Index 29.5 Const General: cooperative, comfortable, no acute distress, alert and awake Nutritional Appearance: overweight Orientation/consciousness: patient oriented x3 Limitations: no limitations Neck Neck: Yes trachea midline, Yes supple and Yes no JVD Resp Effort & Inspection: normal respiratory effort Auscultation: clear to auscultation bilaterally Cardio Jugular venous distension: no JVD Palpation: normal PMI Rate: regular rate Rhythm: regular rhythm Heart sounds: S1 normal heart sound present and S2 normal heart sound present GI Auscultation: normal bowel sounds Skin General skin exam: no rashes or lesions noted Neuro General: patient oriented x3 and no focal motor deficits Extrem General: Yes no clubbing, cyanosis or edema Psych Appearance: grossly normal Office Procedures EKG Details: EKG shows normal sinus rhythm with LVH with nonspecific ST T wave changes [id number], Complete Assessment & Plan Assessment & Plan (1) CAD (coronary artery disease): Code(s): I25.10 - Atherosclerotic heart disease of [place] coronary artery without angina pectoris Category: Medical Plan: CAD with remote LAD stenting with most recent cardiac catheterization showing nonobstructive CAD. His shortness of breath is improved with increase exercise and most likely suggestive of deconditioning. At this point time there is no role for Ranexa therapy given that he has nonobstructive CAD. Will advised to stop Ranexa therapy. Continue other therapy. Continue lifelong aspirin therapy. Continue high-intensity statin therapy with target goal LDL less than 70 mg/dL. Continue aggressive blood pressure control. Currently well optimized target goal blood pressure less than 130/84. Encouraged to continue to participate in physical activity as tolerated. Will follow up in the clinic in 1 year's time, sooner p.r.n.. Thank you for a llowing me to partake in his care Medications: Discontinued ranolazine ER Discontinued Reason: Doctor's Order 1,000 mg PO BID 180 tabs 3RF Coding Level of Care Code Est Pt Level 4 (23813) Diagnoses CAD (coronary artery disease) I25.10 CPT Codes EKG - CPT: 14983-[id number], Complete ([id number])
== END 2024-01-09 16:02 | disposition home or self-care (01) ==
PROVIDERS: PCP Nurse Practitioner Primary Care; Visit Provider Internal Medicine Cardiovascular Disease
DX: I25.10 Atherosclerotic heart disease of native coronary artery without angina pectoris (principal)
CPT/HCPCS: 93010; 99214

== ENCOUNTER → 2024-01-09 14:53 | Outpatient (BNVA) | payer OTHER, SELFPAY | PROVIDERS: PCP Nurse Practitioner Primary Care; Visit Provider Internal Medicine Cardiovascular Disease | DX: I25.10 Atherosclerotic heart disease of native coronary artery without angina pectoris (principal); I10 Essential (primary) hypertension; I50.1 Left ventricular failure, unspecified; Z98.890 Other specified postprocedural states; Z95.5 Presence of coronary angioplasty implant and graft | CPT/HCPCS: 93005; 99212 ==

== ENCOUNTER 2024-01-31 08:06 | Outpatient (REF) | payer OTHER, SELFPAY ==
--- NOTE | ~2024-01-31 | CT_ITS ---
EXAMINATION: CT LOW-DOSE SCREENING CHEST WITHOUT CONTRAST CLINICAL INFORMATION: Personal history of nicotine dependence. 3 month follow-up. The patient has a 60 pack-year history of smoking, having quit 12 years ago. COMPARISON: CT chest 10/28/2023. TECHNIQUE: Multidetector volumetric CT imaging of the chest is performed on a Siemens SOMATOM Definition scanner without contrast using low dose technique. Additional 2D coronal and sagittal reformatted images and axial 3D maximum intensity projection (MIP) images are generated on the CT workstation. This CT examination was performed using dose optimization techniques as appropriate, variously including the following: *Automated exposure control *Adjustment of mA and/or kV according to patient size (this includes techniques or standardized protocols for targeted exams where dose is matched to indication/reason for exam; i.e. extremities or head) *Use of iterative reconstruction technique TOTAL EXAM DLP: 50 mGy-cm. CTDIvol: 1.66 mGy. FINDINGS: PULMONARY NODULES: Tiny pleural-based 2 mm nodule left upper lobe unchanged (5:105 compare prior 5:98). The plaque-like density seen along the right upper lobe lateral pleura is entirely unchanged measuring 12 x 5 mm (5:213 compare prior 5:182). 4 mm pleural-based left lower lobe nodule is unchanged (5:231 compare prior 5:231). LUNGS: Lungs bilaterally symmetrically expanded. Mild emphysematous changes are present. Diffuse [id number] bronchial thickening is seen without bronchiectasis. There is some dependent mucus seen in the trachea (5:107). No effusion or pneumothorax. Central airways patent. MEDIASTINUM: No mediastinal, hilar or axillary adenopathy or free fluid collection. CORONARY ARTERY CALCIFICATION: Extensive. THYROID GLAND: Unremarkable to the extent seen. CARDIOVASCULAR STRUCTURES: Aortic and heart size normal. No pericardial effusion. CHEST WALL/AXILLA: Unremarkable. UPPER ABDOMEN: There is a 1.6 cm nodule in the left adrenal gland which is unchanged. Included portions of the solid organs in the upper abdomen are otherwise unremarkable on noncontrast imaging. OSSEOUS STRUCTURES: No suspicious focal findings. CT/CT lung screen follow up IMPRESSION: 1. Pulmonary nodules are unchanged. 2. Mild emphysema and bronchial thickening. 3. Stable left adrenal nodule. 4. Incidental findings (s category): No significant new incidental findings. ASSESSMENT: 1. Lung-RADS Category 2: Benign appearance or behavior of nodules. N/A RECOMMENDATION: Continued routine annual low-dose CT lung screening in 1 year is recommended. An order for CT CHEST LOW DOSE CANCER SCREENING ([id number]) can be placed.
[2024-01-31 16:27] LABS: Appearance Urine Clear; Color Urine Yellow; Glucose Urine UA Negative (Negative); Leukocyte Esterase Urine Negative (Negative); Nitrite Urine Negative (Negative); PH 5.5 (5.0-9.0); UMIC TRIGGER UACC YES; Urine Blood Negative (Negative); Urine Ketones Trace mg/dL (Negative); Urine Protein 30 (1+) mg/dL (Neg-Trace)
[2024-01-31 16:29] LABS: Bacteria Urine None Seen (None Seen); RBC Urine 0-2 /HPF (0-2); Squamous Epithelial Cell Urine 0-2 /HPF (0-2); WBC Urine 0-5 /HPF (0-5)
[2024-01-31 17:09] LABS: Creatinine Urine 155.82 mg/dL; Microalbum/Creatinine Ratio Ur 71.8 ug/mg cr (<30)
== END 2024-01-31 08:07 | disposition home or self-care (01) ==
LOC: HO.CT 08:06
PROVIDERS: PCP Nurse Practitioner Primary Care; Visit Provider Physician Assistant Medical
DX: R91.1 Solitary pulmonary nodule (principal); I10 Essential (primary) hypertension; R30.0 Dysuria; R35.1 Nocturia; Z87.891 Personal history of nicotine dependence
CPT/HCPCS: 71250; 81001; 82043; 82570

== ENCOUNTER 2024-01-31 16:17 | Outpatient (REF) | payer OTHER, SELFPAY | END 2024-01-31 16:18 | disposition home or self-care (01) | LOC: HO.HHCLNP 16:17 | PROVIDERS: Visit Provider Nurse Practitioner Primary Care | DX: Z13.89 Encounter for screening for other disorder (principal) ==

== ENCOUNTER 2024-07-03 11:59 | Outpatient (REF) | payer OTHER, SELFPAY ==
[2024-07-03 13:31] LABS: Anion Gap 14 (12-20); Blood Urea Nitrogen 33 mg/dL (9-16); Calcium 10.1 mg/dL (8.4-10.2); Carbon Dioxide 25 mmol/L (22-29); Chloride 105 mmol/L (96-108); Cholesterol 113 mg/dL (<200); Estimated Glomerular Filt Rate 36; Glucose Random 300 mg/dL (60-115); HDL Cholesterol 35 mg/dL (>40); LDL Cholesterol Calculated 49 mg/dL (<100); Potassium 4.9 mmol/L (3.3-5.1); Sodium 139 mmol/L (135-145); Triglycerides 148 mg/dL (<150)
[2024-07-03 13:35] LABS: Estimated Average Glucose 243 mg/dL; Hemoglobin A1C 261.5742 umol/L; Hemoglobin A1c % 10.1 % (<6.0); Total Hemoglobin (HGBA1C) 3024.4647 umol/L
[2024-07-03 13:59] LABS: Prostate Specific Antigen 1.63 ng/mL (<0.05-4.0); Vitamin B12 680 pg/mL (200-900)
--- OUTSIDE RECORDS SUMMARY | 2024-07-04 21:03 | XMS_ITS | Continuity of Care Document ---
Author Organization [facility] ter Address [address] [place] [id number]- Care Team Providers Care Rubber Compounder Mixer Name Role Phone Marlyn WHOLESALE BUYER, Hilda Menard Primary Care Physician [phone] Encounter [facility] Date(s): 06/25/24 - 06/26/[address] [address]- Encounter Diagnosis Asthma exacerbation(Final) - 06/25/24 Hypertension(Final) - 06/25/24 Discharge Disposition: A-D/C Home Attending Physician: Chris Meraz MD Admitting Physician: Gretta Kim MD Referring Physician: Not on Staff, Referring MD Encounter Type: Disch Obv Allergies, Adverse Reactions, Alerts No Known Medication Allergies Immunizations Given and Recorded Vaccine Date Status Refusal Reason SARS-CoV-2 (COVID-19) mRNA-1273 vaccine 10/30/20 G iven SARS-CoV-2 (COVID-19) mRNA-1273 vaccine 10/02/20 G iven influenza virus vaccine, inactivated 05/17/18 Give n influenza virus vaccine, inactivated 10/18/17 Give n influenza virus vaccine, inactivated 06/24/16 Give n influenza virus vaccine, inactivated 05/09/15 Give n influenza virus vaccine, inactivated 05/17/14 Give n influenza virus vaccine, inactivated 10/06/13 Give n Zoster Vaccine Live 1 06/24/16 Given pneumococcal 13-valent vaccine 09/19/15 Given tetanus/diphtheria/pertussis, acel(Tdap) 01/15/14 Given pneumococcal 23-valent vaccine 10/06/13 Given 1Result Comment: [06/24/2016] Sterile Diluent Lot#[id number] Exp: 03/07/2018 Medications Acetaminophen Tablet 650 mg, Tablet, By Mouth, Every 4 hours, PRN for Pain , Mild, Temperature Greater than 100.5, Routine, 06/25/24 3:22:00 PM EST Start Date: 06/25/24 Stop Date: 07/25/24 Status: Ordered Repeat number: 1 Admyasmeenog SoloStar 100 units/mL injectable solution 5 - 17 units, Subcutaneous Infusion, 3 times a day with meals, max 51U daily, E11.9, # 30 mL, 11 Refills, Maintenance, 09/07/19 11:39:00 AM EST, [place], [place] -, E11.65, 167, cm, 07/17/19 12:43:00 EST, Height, 88.5, kg, 04/19/19 23:12:00 EDT, Dry Weight Start Date: 09/07/19 Status: Ordered Quantity: 30.0 Unit: mL Repeat number: 12 amLODIPine 5 mg oral tablet 1 tablet, By Mouth, Daily, # 30 tablet, 11 Refills, Maintenance, 04/09/24 11:25:00 AM EDT, [facility], 167, cm, 04/19/23 9:14:00 EDT, Height Start Date: 04/09/24 Status: Ordered Quantity: 30.0 Unit: tablet Repeat number: 1 amLODIPine 5 mg oral tablet 5 mg, Tablet, By Mouth, 06/26/24 9:00:00 AM EST Start Date: 06/26/24 Stop Date: 06/26/24 Status: Completed Repeat number: 1 Aspir-Low 81 mg oral delayed release tablet 1 tablet = 81 mg, By Mouth, Daily, # 30 tablet, 11 Refills, Maintenance, 11/29/18 5:38:09 PM EDT, EC Tablet, [place], [place] - Start Date: 11/29/18 Status: Ordered Quantity: 30.0 Unit: tablet Repeat number: 12 diclofenac 1% topical gel = 2 Gm, Topically, 2 times a day, PRN Pain , Moderate, # 50 Gm, 0 Refills, Maintenance, 07/05/19 1:42:34 PM EST Start Date: 07/05/19 Status: Ordered Quantity: 50.0 Unit: g Repeat number: 1 fenofibrate 145 mg oral tablet 1 tablet, By Mouth, Daily, # 30 tablet, 11 Refills, Maintenance, 04/09/24 11:25:00 AM EDT, [facility], 167, cm, 04/19/23 9:14:00 EDT, Height Start Date: 04/09/24 Status: Ordered Quantity: 30.0 Unit: tablet Repeat number: 1 Flovent HFA 110 mcg/inh inhalation aerosol 2 puffs, Inhalation, 2 times a day, rinse mouth and throat after use; label in serbian, # 12 Gm, 4 Refills, Maintenance, 10/18/17 1:29:28 PM EDT, Aerosol, [facility] [place], [place] - Start Date: 10/18/17 Status: Ordered Quantity: 12.0 Unit: g Repeat number: 5 Freestyle Lite Test Strips See Instructions, # 150 each, Refills 11, Tot. Refills 11, Maintenance, TEST 4 X A DAY, 09/07/19 11:41:00 AM EST, E11.65, Compound, 167, cm, 07/17/19 12:43:00 EST, Height, 88.5, kg, 04/19/19 23:12:00 EDT, Dry Weight Start Date: 09/07/19 Status: Ordered Quantity: 150.0 Unit: each Repeat number: 12 insulin glargine 100 units/mL subcutaneous solution = 65 units, Subcutaneous Injection, Daily at bedtime, INSTRUCTIONS IN [place], # 30 mL, 11 Refills,Maintenance, 05/31/19 9:31:45 AM EST, Injection, [facility], E11.65 Start Date: 05/31/19 Status: Ordered Quantity: 30.0 Unit: mL Repeat number: 12 Lasix 20 mg oral tablet 20 mg, 1, tablet, By Mouth, Daily, PRN, weight gain of 2 pounds in one day or 5 pounds in 3 days, #10 tablet, Refills 0, Tot. Refills 0, Maintenance, Other, 06/26/24 2:47:00 PM EST, Route to PharmacyElectronically, [facility] 3, Partial fill upon patient request if the prescription is for a schedule II opioid drug., 166, cm, 06/26/24 3:16:00 EST, Height, 82, kg, 06/25/24 9:20:00 EST,Dry Weight Start Date: 06/26/24 Status: Ordered Quantity: 10.0 Unit: tablet Repeat number: 1 lisinopril 20 mg oral tablet 40 mg, Tablet, By Mouth, 06/26/24 9:00:00 AM EST Start Date: 06/26/24 Stop Date: 06/26/24 Status: Completed Repeat number: 1 lisinopril 40 mg oral tablet 1 tablet = 40 mg, By Mouth, Daily, # 30 tablet, 11 Refills, Maintenance, 05/02/18 1:28:23 PM EDT, Tablet, [facility] Start Date: 05/02/18 Status: Ordered Quantity: 30.0 Unit: tablet Repeat number: 12 Medrol 4 mg oral tablet See Instructions, as directed on package labeling, # 1 pack/packet, 0 Refills, Maintenance, :48:00 PM EST, Tablet, [facility], Partial fill upon patient request if the prescription is for a schedule II opioid drug., 166, cm, 06/26/24 3:16:00 EST, Height, 82, kg, 06/25/24 9:20:00 EST, Dry Weight Start Date: 06/26/24 Status: Ordered Quantity: 1.0 Unit: pack/packet Repeat number: 1 metFORMIN 1000 mg oral tablet 1 tablet = 1,000 mg, By Mouth, 2 times a day, serbian label, # 60 tablet, 11 Refills, Maintenance, 09/07/19 11:38:00 AM EST, Tablet, [place], [place] -, E11.65, 167, cm, 07/17/19 12:43:00 EST, Height, 88.5, kg, 04/19/19 23:12:00 EDT, Dry Weight Start Date: 09/07/19 Stop Date: 09/01/20 Status: Ordered Quantity: 60.0 Unit: tablet Repeat number: 12 metoprolol 25 mg oral tablet, extended release 25 mg, XL Tablet, By Mouth, 06/26/24 9:00:00 AM EST Start Date: 06/26/24 Stop Date: 06/26/24 Status: Completed Repeat number: 1 metoprolol 25 mg oral tablet, extended release 25 mg, 1, tablet, By Mouth, Daily, # 30 tablet, Refills 5, Tot. Refills 5, Maintenance, 11/29/18 5:38:10 PM EDT, Route to Pharmacy Electronically, [facility] Start Date: 11/29/18 Stop Date: 05/28/19 Status: Ordered Quantity: 30.0 Unit: tablet Repeat number: 6 omeprazole 40 mg oral enteric coated capsule 1 capsule = 40 mg, By Mouth, Daily, # 30 capsule, 0 Refills, Maintenance, 10/18/18 4:09:02 PM EDT, EC Capsule, [place], [place] - Start Date: 10/18/18 Status: Ordered Quantity: 30.0 Unit: capsule Repeat number: 1 Pen Ovid, 32 G x 4 mm BD Ultra Fine III See Instructions, # 150 each, Refills 11, Tot. Refills 11, Maintenance, 4 X A DAY INJECTOIN OF LANTUS AND ADMELOG, 09/07/19 11:40:00 AM EST, E11.65, Compound, 167, cm, 07/17/19 12:43:00 EST, Height, 88.5, kg, 04/19/19 23:12:00 EDT, Dry Weight Start Date: 09/07/19 Status: Ordered Quantity: 150.0 Unit: each Repeat number: 12 ProAir HFA 90 mcg/inh inhalation aerosol with adapter 2, puffs, Inhalation, Every 4 hours, PRN, # 18 Gm, Refills 0, Tot. Refills 0, Maintenance, 04/22/19 9:20:36 AM EDT, Aerosol, Route to Pharmacy Electronically, [id number], [facility] 3 Start Date: 04/22/19 Stop Date: 05/22/19 Status: Ordered Quantity: 18.0 Unit: g Repeat number: 1 rosuvastatin 40 mg oral tablet See Instructions, # 30 tablet, Refills 4 Tot. Refills 4, TAKE ONE TABLET BY MOUTH DAILY, [place], [place] - Start Date: 04/09/19 Status: Ordered Quantity: 30.0 Unit: tablet Repeat number: 5 Rybelsus 14 mg oral tablet TAKE 1 TABLET BY MOUTH ONCE DAILY 30 MINUTES BEFORE A MEAL OR other medicamentos Start Date: 06/25/24 Status: Ordered Repeat number: 1 Tamiflu 30 mg oral capsule 1 capsule = 30 mg, By Mouth, 2 times a day, for 4 days, # 8 capsule, 0 Refills, Acute 06/30/24 2:49:00 PM EST, 06/26/24 2:49:00 PM EST, Capsule, [facility], Partial fill upon patient request if the prescription is for a schedule II opioid drug., 166, cm, 06/26/24 3:16:00 EST, Height, 82, kg, 06/25/24 9:20:00 EST, Dry Weight Start Date: 06/26/24 Stop Date: 06/30/24 Status: Ordered Quantity: 8.0 Unit: capsule Repeat number: 1 Problem List Condition Confirmation Course Effective Dates Status H ealth Status Informant Adrenal adenoma Confirmed Active Asthma Confirmed Active CAD (coronary artery disease) Confirmed Active Diabetes mellitus Confirmed Active Shortness of breath Confirmed Active Essential hypertension Confirmed Active Radius distal fracture 1 Confirmed Active GERD (gastroesophageal reflux disease) Confirmed Active Ischemic cardiomyopathy Confirmed Active HTN (hypertension) Confirmed Active Obese class I Confirmed Active NATI (obstructive sleep apnea) Confirmed Active Care Management, [facility] Nurse Manager Coding Wilfredo West RN [phone] Confirmed Active *Gurvinder Iraheta, Cra Officer, [facility] [phone] Confirmed Active Fatty liver Confirmed Active 1dec 2013 Results Radiology Reports * Exam Date Time Procedure Performing Provider Status 06/25/24 10:36 AM Chest 2 Views Frontal and Lat Salvatore , Marilia; Auth (Verified) Notes: (Chest 2 Views Frontal and Lat) Reason For Exam: Shortness of Breath, Fever;Other: RESULT: Chest 2 Views Frontal and Lat Chest 2 Views Frontal and Lat Reason: Shortness of Breath, Fever; Clinical Question(s): Pneumonia COMPARISON: Low-dose chest CT-06/20/2020 and chest radiograph-07/02/2019. FINDINGS: LINES AND TUBES: None. LUNGS AND PLEURA: Slightly low lung volumes with mild basilar atelectasis. Lungs are otherwise clear with no consolidation. No pleural effusion. No pneumothorax. HEART, MEDIASTINUM AND MEIR: Heart is normal in size. Normal mediastinal and hilar contour. BONES AND SOFT TISSUES: No acute osseous abnormality. Mild-moderate multilevel degenerative changes of the visualized spine. IMPRESSION: No acute abnormality. I have personally reviewed the images and I agree with this report. WSN: [id number] Ordering Physician: Neil Thompson Dictated By: Jadon Cohen MD Dictated Date/Time: 06/25/24 11:04 a Reviewed By: Esau La MD, V Signed By: Esau La MD, V Signed Date/Time: 06/25/24 11:09 am Transcribed By: TAMMY Transcribed Date/Time: 06/25/24 11:02 am Vital Signs Most recent to oldest [Reference Range]: 1 2 3 Height 166 cm (06/26/24 3:16 AM) 166 cm (06/25/24 9:32 PM) 166 cm (06/25/24 9:20 AM) Weight 85.2 kg (06/25/24 9:32 PM) 82 kg (06/25/24 9:20 AM) Oxygen Saturation [94-100 %] 96 % (06/26/24 3:16 AM) 97 % (06/25/24 9:32 PM) 99 % (06/25/24 7:40 PM) Pulse Rate [55-90 bpm] 80 bpm (06/26/24 8:05 AM) 81 bpm (06/26/24 3:16 AM) 84 bpm (06/25/24 9:32 PM) Body Mass Index [18.5-24.99 kg/m2] 30.92 kg/m2 *>HHI* (06/25/24 9:32 PM) Blood Pressure [90-138/55-84 mm Hg] 142/69mm Hg *H* (06/26/24 8:05 AM) 140/69mm Hg *H* (06/26/24 8:05 AM) 142/69mm Hg *H* (06/26/24 8:04 AM) Respiratory Rate [16-30 br/min] 16 br/min (06/26/24 9:02 AM) 18 br/min (06/26/24 3:16 AM) 20 br/min (06/25/24 9:32 PM) Temperature [96.8-100.4 DegF] 98.1 DegF (06/26/24 3:16 AM) 98.3 DegF (06/25/24 9:32 PM) 98.2 DegF (06/25/24 7:40 PM) Mode of Delivery (Oxygen) Room air (06/26/24 3:16 AM) Room air (06/25/24 9:32 PM) Room air (06/25/24 7:40 PM) Blood pressure sites Arm, right (06/26/24 3:16 AM) Arm, left (06/25/24 9:32 PM) Arm, left (06/25/24 7:40 PM) Temperature Route Oral (06/26/24 3:16 AM) Oral (06/25/24 9:32 PM) Oral (06/25/24 7:40 PM) Dry Weight 82 kg (06/25/24 9:20 AM) Weight Obtained Via Standing scale (06/25/24 9:32 PM) Patient/family stated (06/25/24 9:20 AM) Dry Weight Obtained Via Patient/family s tated (06/25/24 9:20 AM) Social History Social History Type Response Smoking Status Former smoker; Type: Cigarettes; Other: 2012 quit; Tobacco use times per day: 2 ppd; Started at age: 16; Stopped at age: 57; entered on: 05/17/18 Sex Sex Representation Male (finding) History and physical note * Kt PURCELL, Chris: PERFORM Event Display: History and Physical Hospital Authored Date: Patient: ??AMALIA TROTTER ? Age:??69 Years?Sex:??Male?:??1955?? Chief Complaint/Reason for Consultation BIBA from home c/o SOB that began Tuesday night but has since worsened. Hx of asthma. +Tachypnea and 4/10 chest pain with coughing. Reports taking his albuterol inhalers at home but does not say howoften. Coughing up brown thick mucus. History of Present Illness ? 69-year-old male presented to ED with complaint of shortness of breath along with cough and wheezing ?? Patient told me that for past several days he has been having shortness of breath along with cough which is productive of brown phlegm.?? Associate with wheezing.?? Symptoms are progressive without any particular aggravating or relieving factor. About chest pain whenever he coughs on the sides of the chest.?? He denied any numbness, tingling or focal weakness.?? No nausea vomiting.?? No sick contact ?? No dysuria hematuria ?? Review of Systems ?? ROS: All systems reviewed and negative except as in HPI ? Past medical history:, Diabetes mellitus, hyperlipidemia, hypertension, GERD, asthma/COPD ?? Social history: History of smoking and alcohol use in the past ?? : Mother with history of coronary artery disease Objective Vital Signs?? Temperature: 99.6 DegF (06/25/24 09:13:00) Temperature Route: Oral (06/25/24 09:13:00) Pulse Rate:??93 bpm??High (06/25/24 09:20:00) Respiratory Rate: 22 br/min (06/25/24 09:00:00) Systolic Blood Pressure:??148 mm Hg??High (06/25/24 09:20:00) Diastolic Blood Pressure: 77 mm Hg (06/25/24 09:20:00) Blood pressure sites: Arm, right (06/25/24 09:20:00) Mean Arterial Pressure: 101 mm Hg (06/25/24 09:20:00) Pulse Pressure: 71 mm Hg (06/25/24 09:20:00) Oxygen Saturation:??93 %??Low (06/25/24 09:13:00) Mode of Delivery (Oxygen): Room air (06/25/24 09:13:00) Early Warning Score: 4 (06/25/24 14:44:08) ? Physical Exam JOINERS SUPERVISOR: AA0 3, no focal motor or sensory deficit, cranial nerves II to XII intact CVS: RRR, S1, S2, No gallop, murmur or rub Resp: b/l?? wheezing?? GI: Soft, NT, ND, BS +ve EXT: no pedal edema Skin: no rash Neck: supple, Eyes: PERRLA, EOMI?? Head: atraumatic, normocephalic ENMT: moist mucus membranes, nares patent with no discharge Musculoskeletal: no joint tenderness, swelling or limitation of movement ?? Assessment/Plan 69-year-old male with past medical history of coronary artery disease, hypertension, diabetes mellitus and hypertension concern for asthma/COPD exacerbation ? Acute exacerbation of COPD/asthma: Patient presented with complaint of cough and shortness of breath and wheezing Presentation concerning for exacerbation of COPD/asthma Troponin no acute Pulmonary embolism unlikely Chest x-ray no acute Patient has been given nebs and magnesium in the ED I will start patient on DuoNebs were scheduled and as needed IV fluids for now Azithromycin Monitor closely ?? Abnormal creatinine: CKD versus acute kidney injury.?? Last creatinine was several years ago and was 1.1.?? It is likely patient might have developed CKD.?? Avoid NSAIDs.?? Continue with lisinopril.?? Monitor creatinine Advised adequate p.o. hydration ?? History of coronary disease: Aspirin and statin will be continued ?? Hyperlipidemia: Statin along with fenofibrate ?? Hypertension: Metoprolol and lisinopril will be continued along with amlodipine ?? Diabetes mellitus: Lantus and sliding scale insulin GERD: PPI DVT prophylaxis: Pneumoboots ?? CODE STATUS: Full ?? Histories Allergies Allergies ?(Active and Proposed Allergies Only) No Known Medication Allergies? (Severity: Unknown severity, Onset: Unknown) ? Medications Home Medications Albuterol (ProAir HFA 90 mcg/inh inhalation aerosol with adapter)?2?puff(s)?Inhalation?Every 4 hours?as needed?for 30?Days?for wheezing Amlodipine (amLODIPine 5 mg oral tablet)?1?tab(s)?By Mouth?Daily Aspirin (Aspir-Low 81 mg oral delayed release tablet)?1?tab(s)?81?Milligram?By Mouth?Daily Diclofenac Topical (diclofenac 1% topical gel)?2?gram?Topically?2 times a day?as needed?Pain , Moderate Durable Medical Equipment (Pen Ovid, 32 G x 4 mm BD Ultra Fine III)?See Instructions?4 X ADAY INJECTOIN OF LANTUS AND ADMELOG Durable Medical Equipment (Freestyle Lite Test Strips)?See Instructions?TEST 4 X A DAY Fenofibrate (fenofibrate 145 mg oral tablet)?1?tab(s)?By Mouth?Daily Fluticasone (Flovent HFA 110 mcg/inh inhalation aerosol)?2?puff(s)?Inhalation?2 times aday?rinse mouth and throat after use; label in serbian Insulin Glargine (insulin glargine 100 units/mL subcutaneous solution)?74?unit(s)?Subcutaneous Injection?Daily at bedtime?INSTRUCTIONS IN [place]?60 Insulin Lispro (Admelog SoloStar 100 units/mL injectable solution)?5 - 17 units?Subcutaneous Infusion?3 times a day with meals?max 51U daily, E11.9 Lisinopril (lisinopril 40 mg oral tablet)?1?tab(s)?40?Milligram?By Mouth?Daily Metformin (metFORMIN 1000 mg oral tablet)?1?tab(s)?1,000?Milligram?By Mouth?2 times a day?for 30?Days?serbian label Metoprolol (metoprolol 25 mg oral tablet, extended release)?25?Milligram?1?tablet?ByMouth?Daily?for 30?Days Omeprazole (omeprazole 40 mg oral enteric coated capsule)?1?capsule?40?Milligram?By Mouth?Daily Rosuvastatin (rosuvastatin 40 mg oral tablet)?See Instructions?TAKE ONE TABLET BY MOUTH DAILY semaglutide (Rybelsus 14 mg oral tablet)?TAKE 1 TABLET BY MOUTH ONCE DAILY 30 MINUTES BEFORE A MEAL OR other medicamentos ? Results ? CBC, CBC w/Diff?? CBC?? Differential?? WBC: 6.4 k/mm3 (:46) Abs. Neut: 4.8 k/mm3 (:46) RBC:??3.88 m/mm3??Low (:) Abs. Lymph: 1.1 k/mm3 (:46) Hct:??35.3 %??Low (:) Abs. [place]: 0.4 k/mm3 (:46) RDW-SD: 44.2 femtoliters (:) Abs. Eo: 0 k/mm3 (:) Nucleated RBC (Automated): 0 #/100 WBC'S (:) Abs. Baso: 0 k/mm3 (:) Abs. NRBC: 0 k/mm3 (:) Neut %: 74.9 % (:) ?? Lymph %: 17 % (:) ?? [place] %: 6.7 % (:) ?? Eos %: 0.5 % (:) ?? Baso %: 0.6 % (:) ?? Imm Gran: 0.3 % (:) ?? Abs. Imm Gran: 0 k/mm3 (:) ? BMP, Mg, and Phos Anion Gap: 14 () Bicarbonate Level:??20 mmol/L??Low (:) BUN: 17 mg/dL (:46) Calcium: 9.3 mg/dL (:) Chloride: 104 mmol/L (:) Creatinine-Blood:??1.39 mg/dL??High () Estimated GFR Creatinine: 55 ML/MIN/1.73 M2 (:) Glucose Level:??291 mg/dL??High (:) Potassium: 4.3 mmol/L (:) Sodium: 138 mmol/L (:) ?? Coagulation Profile?? No qualifying data available. ?? LFT Albumin: 3.9 Gm/dL (:46) Alkaline Phosphatase: 44 units/L (:46) ALT (SGPT): 17 units/L (:46) AST (SGOT): 14 units/L (:) Bilirubin, Total: 0.2 mg/dL (09:46) ?? Urinalysis Est Creatinine Clearance: 44.21 mL/min (11:04) ?? Microbiology ?? COVID-19 (Novel Coronavirus), Rapid PCR?? Completed?? Source: Nasal Body Site: Nose Collected Dt/Tm: 06/25/2024 09:41 Last Updated Dt/Tm: 06/25/2024 11:11 ? Cardiology Labs High Sensitivity Troponin (HSTnT): 16 ng/L (06/25/24 12:59:00) High Sensitivity Troponin (HSTnT): 17 ng/L (06/25/24 09:46:00) ?? Blood Gases?? No qualifying data available. ?? Uric/LDH?? No qualifying data available. ? EKG study * Event Display: ECG 12-Lead Authored Date: Please click on pdf link to open report * Event Display: ECG 12-Lead Authored Date: Ventricular Rate: 95 BPM Atrial Rate: 95 BPM P-R Interval: 144 ms QRS Duration: 76 ms Q-T Interval: 338 ms QTC Calculation(Bazett): 424 ms P Deridder: 61 degrees R Deridder: -11 degrees T Deridder: 82 degrees Normal sinus rhythm Minimal voltage criteria for LVH, may be normal variant ( R in aVL ) Possible septal infarct Borderline ECG When compared with ECG of 19-Apr-2023 06:44, Possible septal infarct is now present Confirmed by LILLY TAYLOR MD ([id number]) on 06/25/2024 12:34:04 PM [place]: LILLY TAYLOR MD Heart * Event Display: Echocardiogram - Complete Authored Date: Transthoracic Echocardiography Report (TTE) Patient Demographics Patient Name AMALIA TROTTER Date of Study 06/26/2024 Corporate Gender Male Facility Race Ethnicity or Date of 1955 Height: 65.35 inches Age 69 year(s) Weight: 187.39 pounds Accession Number [id number] BSA: 1.93 m2 Room Number [id number] BMI: 30.85 kg/m2 Referring Physician Not on Staff Interpreting Kraig Leon MD Referring MD Physician UNASSIGNED UNASSIGNED Associate Professor Of Biblical Studies Lucas Kaye Indications Chest pain. Clinical History CAD HTN DM COPD Study Data Type of Study TTE procedure:Echo Complete-(Doppler, Colorflow) with Contrast. Procedure Information:Definity was administered by Olive Grower . Study Date06/26/2024 Start Time: 08:51 AM Study Location: [facility] [place] Study Status: Echo lab Patient Status: SACHIN Technical Quality: Fair due to rib artifact. Blood Pressure:140/69 mmHg EKG: Normal sinus rhythm HR: 76 bpm Contrast Medium: Definity. Amount - 2 ml Allergies - No known allergies. 2D Measurements LV Diastolic Dimension: 5.1 cm LV Systolic Dimension: 3.9 cm LV Septum Diastolic: 1 cm LV PW Diastolic: 1 cm AO Root Dimension: 3 cm LA Dimension: 4.5 cm LA ESV (BP):63.2 ml LVOT Stroke Volume: 79.76 ml LA ESV Index: 33 ml/m2 Stroke Volume Index41.33 ml/m2 LVOT: 2 cm Cardiac Index:3.14 l/min/m2 Ascending Aorta:3.4 cm Doppler Measurements AV Peak Velocity: 153 cm/s MV Peak E-Wave: 86.4 cm/s AV Peak Gradient: 9.36 mmHg MV Peak A-Wave: 86.4 cm/s AV Mean Gradient: 6 mmHg MV E/A Ratio: 1 AV VTI:33.7 cm MV P1/2t: 68 msec LVOT Peak Velocity: 110 cm/s LVOT VTI25.4 cm MV Deceleration Time: 232 msec AV Area (Continuity):2.37 cm2 MV Area (PHT): 3.24 cm2 PV Peak Velocity: 147 cm/s PV Peak Gradient: 8.64 mmHg E' Septal Velocity: 8.49 cm/s E' Lateral Velocity: 7.83 cm/s E/Med E':10.93629 E/Lat E':11.31820 Cardiac Anatomy Left Ventricle/Interventricular Septum The left ventricular size is normal. The left ventricular wall thickness is upper normal. The LV systolic function is mildly to moderately reduced . The left ventricular ejection fraction is 35-45 %. The distal septal wall is akinetic. The apex is akinetic . The distal anterior wall is severely hypokinetic . Left Atrium/Interatrial Septum The left atrium is mildly to moderately dilated. Aortic Valve The aortic valve leaflet opening is normal . There is no aortic stenosis. There is no significant aortic regurgitation. Mitral Valve The mitral valve appears mildly thickened. There is mild mitral regurgitation. Aorta The aortic root is normal in size. Right Ventricle The right ventricular size and function appears grossly normal. Right Atrium The right atrial size is at the upper limit of normal. Pulmonic Valve The pulmonic valve velocity is normal. Tricuspid Valve There is trace tricuspid valve regurgitation. Pumonary Artery An accurate pulmonary artery pressure could not be obtained. Venous Structures The inferior vena cava appears mildly dilated. Pericardium/Extracardiac There is no significant pericardial effusion. Summary The left ventricular size is normal. The left ventricular wall thickness is upper normal. The LV systolic function is mildly to moderately reduced . The left ventricular ejection fraction is 35-45 %. The distal septal wall is akinetic. The apex is akinetic . The distal anterior wall is severely hypokinetic . The left atrium is mildly to moderately dilated. The right ventricular size and function appears grossly normal. The right atrial size is at the upper limit of normal. An accurate pulmonary artery pressure could not be obtained. Comparison Comparison is made to the study of February 10, 2022. Mild to moderate LV systolic function abnormality with distal septal and apical regional wall motion abnormality is again noted. Signature * Event Display: Echocardiogram - Complete Authored Date: Hospital Progress note * Kevin MAE, Savannah Pedroza: MODIFY, PERFORM, MODIFY Event Display: Progress Note Hospital Authored Date: Patient: ??AMALIA TROTTER ? Age:??69 Years?Sex:??Male?:??1955?? Paged by ED RN when POC repeatedly came back at >500. Upon review, it appears patient had not had his blood sugar checked since 9am and has not received any mealtime insulin. Ordered 10 units of Lispro and Stat labs, which were concerning for??early DKA--AG 19, Bicarb 17, venous pH 7.29. Beta Hydroxy butyrate was only 0.09. Ordered 1L of NS and another 12 units of Lispro. Repeated labs at 1am, which showed improving anion gap. Will continue checking POC q 4 for two moretimes. Trop is trending up, but patient has not been reporting any chest pain. More likely due to demand in setting of respiratory failure and poor renal clearance. Will continue to trend. ?? Respiratory Panel also came back with indeterminate result for Influenza A-- presence of target cannot be determined . Discussed with ID, will keep on isolation as patient is symptomatic and retest. ? Consult note * Aristeo PURCELL, [place]: PERFORM Event Display: Consultation Note Authored Date: Patient: ??AMALIA TROTTER ? Age:??69 Years?Sex:??Male?:??1955?? Indication for Consult BIBA from home c/o SOB that began Tuesday night but has since worsened. Hx of asthma. +Tachypnea and 4/10 chest pain with coughing. Reports taking his albuterol inhalers at home but does not say howoften. Coughing up brown thick mucus. History of Present Illness/Interval History Pleasant 69-year-old bilingual gentleman with history significant for hypertension, hyperlipidemia, obesity,??type 2 diabetes on insulin,??prior tobacco use, chronic??reactive airway disease/asthma,??known CAD s/p??remote anterior wall ND status post PCI to LAD with no other obstructive coronary disease,??persistent ischemic cardiomyopathy with LV dysfunction with ejection fraction around 40%,??follows up with??Dr. Birmingham in [place] cardiology, presents with progressive??shortness of breath and wheeze. ?? Patient??has been on??good medical regimen. ??Doing well from??CAD??and cardiomyopathy standpoint.?? Tells me he has not required??diuretics lately.?? Denies any worsening lower extremity edema orthopnea or PND symptoms.?? He developed??few days symptoms of??upper respiratory symptoms with cough cor yza??with increased sputum production. ??Denies any??fevers chills.?? Worsening cough with??reproducible precordial pain??with coughing spells with some??chest pressure with wheezing. ??Denies any preceding exertional angina. ??Denies any headache visual changes neurosymptoms. ?? EKG with normal sinus rhythm with anteroseptal Q's??delayed R wave progression with mild IVCD and left axis deviation??and voltage criteria for LVH.?? Troponins are minimally elevated but appear flat.?? Currently denies any??anginal symptoms with improving cough.?? Found to be hyperglycemic with? ?elevated lactate??treated per DKA protocol.?? Echocardiogram with??stable LV function with ejection fraction 40 to 45% with??anteroseptal apical??wall motion abnormalities.?? Creatinine 1.3??with stable LFTs. Review of Systems 12 point review of symptoms as noted in the??HPI and reviewed in detail with the patient; pertinentpositives noted otherwise??negative. Physical Exam Vitals & Measurements Weight lb/oz: 187 lb 13 oz General:??Pleasant, No apparent??distress; VS as noted HEENT: Pupils equal and reactive, extraocular muscles intact, no pallor no icterus Neck:??Supple, no JVD, no adenopathy,??no thyromegaly,??2+ carotid upstroke,??no carotid bruit Lungs:??Poor air entry bilaterally,??no significant crackles, No rales, + wheeze. Chest:??Normal appearance and symmetric??without deformity Cardiac:??Regular rate and rhythm, no significant??murmur, no??rubs, no??gallops Abdomen:??Soft, nontender, nondistended, positive bowel sounds, no significant??guarding rigidity or rebound, no organomegaly appreciated Extremity:??+ distal pulses, no significant clubbing cyanosis, trace??edema Skin:??Warm well perfused, no rashes noted Musculoskeletal:??No significant deformity with normal range of motion, no CVA tenderness Neuro:??Alert awake oriented x3, no focal neuro deficits,??cranial nerves grossly intact,??remainder exam deferred Psych:??Normal affect, cognition grossly intact Assessment/Plan Asthma exacerbation (Provisional) Hypertension (Provisional) + Trop CAD Ischemic CMP ?? Pleasant 69-year-old bilingual gentleman with history significant for hypertension, hyperlipidemia, obesity,??type 2 diabetes on insulin,??prior tobacco use, chronic??reactive airway disease/asthma,??known CAD s/p??remote anterior wall ND status post PCI to LAD with no other obstructive coronary disease,??persistent ischemic cardiomyopathy with LV dysfunction with ejection fraction around 40%,??follows up with??Dr. Birmingham in [place] cardiology, presents with progressive??shortness of breath and wheeze. ?? EKG with normal sinus rhythm with anteroseptal Q's??delayed R wave progression with mild IVCD and left axis deviation??and voltage criteria for LVH.?? Troponins are minimally elevated but appear flat.?? Currently denies any??anginal symptoms with improving cough.?? Found to be hyperglycemic with??el evated lactate??treated per DKA protocol.?? Echocardiogram with??stable LV function with ejection fraction 40 to 45% with??anteroseptal apical??wall motion abnormalities.?? Creatinine 1.3??with stable LFTs. Flu +. ?? Recommendations: 1.?? Positive troponin in the context of acute??asthma exacerbation Flu + with??hypoxemic respiratory failure with wheeze as well as with significant hyperglycemia??question DKA.?? Continue??medications for??asthma as well as diabetes per primary team. 2.?? No evidence of acute coronary syndrome. ??Stable EKG. ??Stable LV function??on??echocardiogramwith known cardiomyopathy.?? No need for systemic heparinization. 3. ??Continue his chronic cardiac meds with aspirin, fenofibrate,??Crestor. 4. ??Known cardiomyopathy with CAD??with prior anterior wall ND. ??Continue??metoprolol as well as lisinopril. 5.?? Check lipids A1c etc.??follow-up??blood sugar.?? Caution with hyperglycemia??given steroid??requirement. 6.?? If blood sugar eventually stabilized he can be considered for outpatient SGLT2 therapy??if no prior history of recurrent??DKA etc. 7.?? Currently appears euvolemic. ??If sent home on steroid taper will discharge on Lasix 20 mg p.o. daily to be used as needed for??weight gain with instructions. ?? Primary wheel truer: Dr. Birmingham in [facility] ?? -- [place] Alberts MD [facility], Interventional Cardiology Beeper: # [phone] Allergies No Known Medication Allergies Home Medications Albuterol: 2 puffs, Inhalation, Every 4 hours, PRN (for wheezing) Amlodipine: 1 tablet, By Mouth, Daily Aspirin: 81 mg = 1 tablet, By Mouth, Daily Diclofenac Topical: 2 Gm, Topically, 2 times a day, PRN (Pain , Moderate) Durable Medical Equipment: See Instructions, 4 X A DAY INJECTOIN OF LANTUS AND ADMELOG Durable Medical Equipment: See Instructions, TEST 4 X A DAY Fenofibrate: 1 tablet, By Mouth, Daily Fluticasone: 2 puffs, Inhalation, 2 times a day, rinse mouth and throat after use; label in serbian Insulin Glargine: 60 units, Subcutaneous Injection, Daily at bedtime, INSTRUCTIONS IN [place] Insulin Lispro: 5 - 17 units, Subcutaneous Infusion, 3 times a day with meals, max 51U daily, E11.9 Lisinopril: 40 mg = 1 tablet, By Mouth, Daily Metformin: 1,000 mg = 1 tablet, By Mouth, 2 times a day, serbian label Metoprolol: 25 mg = 1 tablet, By Mouth, Daily Omeprazole: 40 mg = 1 capsule, By Mouth, Daily Rosuvastatin: See Instructions, TAKE ONE TABLET BY MOUTH DAILY semaglutide: TAKE 1 TABLET BY MOUTH ONCE DAILY 30 MINUTES BEFORE A MEAL OR other medicament[facility] Hospital Medications Medications (26) Active SCHEDULED: (13) Albuterol/Ipratropium Inhalation Jodi 3mL (Duoneb Inhalation Solution) ??1 vials, BAND Nebulizer, 4 times a day Amlodipine 5 mg Tablet (amLODIPine 5 mg oral tablet) ??5 mg, By Mouth, Daily Aspirin 81 mg EC Tablet (aspirin 81 mg oral delayed release tablet) ??81 mg, By Mouth, Daily Fenofibrate 130 mg Capsule (fenofibrate 130 mg oral capsule) ??130 mg, By Mouth, Daily Insulin Glargine 100 units/mL Inj (Insulin Glargine Inj) ??60 units 0.6 mL, Subcutaneous Injection,Daily at bedtime Insulin Lispro 100 units/mL Inj (Insulin LISPRO Sliding Scale) ??3-15 units, Subcutaneous Injection, 3 times a day before meals Lisinopril 20 mg Tablet (lisinopril 20 mg oral tablet) ??40 mg, By Mouth, Daily Metoprolol 25 mg XL Tablet (metoprolol 25 mg oral tablet, extended release) ??25 mg, By Mouth, Daily NaCl 0.9% Flush 3ml (NaCL 0.9% Flush) ??3 mL, IV Push, Every 8 hours Oseltamivir 75 mg Capsule (Tamiflu Capsule) ??75 mg, By Mouth, Daily Pantoprazole 40 mg EC Tablet (Protonix 40 mg oral delayed release tablet) ??40 mg, By Mouth, Daily PredniSONE 50 mg Tablet (predniSONE 50 mg oral tablet) ??50 mg, By Mouth, Daily Rosuvastatin 20 mg Tablet (Crestor 20 mg oral tablet) ??40 mg, By Mouth, Daily CONTINUOUS: (0) PRN: (13) Acetaminophen 325 mg Tablet (Acetaminophen Tablet) ??650 mg, By Mouth, Every 4 hours Albuterol/Ipratropium Inhalation Jodi 3mL (Duoneb Inhalation Solution) ??1 vials, BAND Nebulizer, Every 4 hours Dextromethorphan-Guaifenesin 20 mg-200 mg/10 mL Liqu UD (Robitussin DM Liquid) ??10 mL, By Mouth, Every 4 hours Dextrose Inj Syringe (Dextrose 50% Inj Syringe (25Gm)) ??12.5 Gm, IV Push Slowly, Every 20 minutes Dextrose Inj Syringe (Dextrose 50% Inj Syringe (25Gm)) ??25 Gm, IV Push Slowly, Every 15 minutes Docusate Sodium 100 mg Capsule (Docusate Sodium Capsule) ??100 mg 1 capsule, By Mouth, 2 times a day Glucagon 1 mg Inj (Glucagon Inj) ??1 mg, Intramuscular, Once Glucose 40% Gel (15 Gm) (Glucose Gel) ??15 Gm, By Mouth, Every 20 minutes Glucose 40% Gel (15 Gm) (Glucose Gel) ??30 Gm, By Mouth, Every 20 minutes Melatonin 3 mg Tablet (Melatonin Tablet) ??3 mg, By Mouth, Daily at bedtime NaCl 0.9% Flush 3ml (NaCL 0.9% Flush) ??3 mL, IV Push, Every 8 hours Polyethylene Glycol 17 Gm Powder (MiraLax Powder) ??17 Gm 1 pack/packet, By Mouth, Daily Senna Tablet ??8.6 mg 1 tablet, By Mouth, 2 times a day Lab Results Cardiology Labs WBC: 6.4 k/mm3 (06/25/24) RBC:??3.88 m/mm3??Low (06/25/24) Hgb:??11.4 Gm/dL??Low (06/25/24) Hct:??35.3 %??Low (06/25/24) MCV: 91 femtoliters (06/25/24) MCH: 29.4 pg (06/25/24) MCHC:??32.3 Gm/dL??Low (06/25/24) Platelet Count: 267 k/mm3 (06/25/24) RDW-SD: 44.2 femtoliters (06/25/24) Nucleated RBC (Automated): 0 #/100 WBC'S (06/25/24) Abs. Neut: 4.8 k/mm3 (06/25/24) Abs. Lymph: 1.1 k/mm3 (06/25/24) Abs. [place]: 0.4 k/mm3 (06/25/24) Abs. Eo: 0 k/mm3 (06/25/24) Abs. Baso: 0 k/mm3 (06/25/24) Neut %: 74.9 % (06/25/24) [place] %: 6.7 % (06/25/24) Eos %: 0.5 % (06/25/24) Baso %: 0.6 % (06/25/24) Imm Gran: 0.3 % (06/25/24) Abs. Imm Gran: 0 k/mm3 (06/25/24) Sodium: 139 mmol/L (06/26/24) Potassium: 4.3 mmol/L (06/26/24) Chloride: 106 mmol/L (06/26/24) Bicarbonate Level:??20 mmol/L??Low (06/26/24) Glucose Level:??274 mg/dL??High (06/26/24) BUN:??28 mg/dL??High (06/26/24) Creatinine-Blood:??1.36 mg/dL??High (06/26/24) Calcium: 8.8 mg/dL (06/26/24) Protein, Total: 6.8 Gm/dL (06/25/24) Albumin: 3.9 Gm/dL (06/25/24) Alkaline Phosphatase: 44 units/L (06/25/24) AST (SGOT): 14 units/L (06/25/24) ALT (SGPT): 17 units/L (06/25/24) Bilirubin, Total: 0.2 mg/dL (06/25/24) Diagnostic Impression ECG ECG 12-Lead ?? 09:04:21 Please click on pdf link to open report ?? Signed By: Lilly Taylor MD ?? ECG 12-Lead ?? 09:04:21 Ventricular Rate: 95 BPM Atrial Rate: 95 BPM P-R Interval: 144 ms QRS Duration: 76 ms Q-T Interval: 338 ms QTC Calculation(Bazett): 424 ms P Deridder: 61 degrees R Deridder: -11 degrees T Deridder: 82 degrees Normal sinus rhythm Minimal voltage criteria for LVH, may be normal variant ( R in aVL ) Possible septal infarct Borderline ECG When compared with ECG of 19-Apr-2023 06:44, Possible septal infarct is now present Confirmed by LILLY TAYLOR MD ([id number]) on 06/25/2024 12:34:04 PM ?? [place]: LILLY TAYLOR MD ?? Signed By: Lilly Taylor MD Stress Test NM Myocard Perf SPECT Multi ?? 08:30:00 Summary 1. Myocardial perfusion imaging is abnormal. There are large sized moderate to severe intensity fixed perfusion defects involving majority of the left ventricle with preservation of the lateral wall, and relatively preserved distal inferoseptal wall with corresponding mild to moderate hypokinesis, suggestive of scars. There is no reversible perfusion defect after exercise stress test at a poor functional capacity with modified Herbert protocol. Please note that only 64% of maximum predicted heart rate was achieved reducing the sensitivity of the stress test. 2. LV function is borderline with an E.F. of 55% at rest and 50% with stress. 3. EKG portion of the stress test is reported separately. ?? Signatures _ _ ?? Signed By: Fabian Moncada MD Echo Echocardiogram - Complete ?? 08:51:47 Summary The left ventricular size is normal. The left ventricular wall thickness is upper normal. The LV systolic function is mildly to moderately reduced . The left ventricular ejection fraction is 35-45 %. The distal septal wall is akinetic. The apex is akinetic . The distal anterior wall is severely hypokinetic . The left atrium is mildly to moderately dilated. The right ventricular size and function appears grossly normal. The right atrial size is at the upper limit of normal. An accurate pulmonary artery pressure could not be obtained. ?? Comparison Comparison is made to the study of February 10, 2022. Mild to moderate LV systolic function abnormality with distal septal and apical regional wall motion abnormality is again noted. ?? Signature ?? Signed By: Kraig Leon MD Problem List/Past Medical History Ongoing *Gurvinder Iraheta, Cra Officer, [facility] [phone] Adrenal adenoma Asthma CAD (coronary artery disease) Care Management, [facility] Nurse Manager Coding Wilfredo West, RN [phone] Diabetes mellitus Essential hypertension Fatty liver GERD (gastroesophageal reflux disease) HTN (hypertension) Ischemic cardiomyopathy Obese class I NATI (obstructive sleep apnea) Radius distal fracture Shortness of breath Procedure/Surgical History Colonoscopy: 01/02/15 Social History Alcohol Use: Past. Frequency: 1-2 times per week. Type: Beer. Tobacco Former smoker, Other: 2012 quit. Type: Cigarettes. Tobacco use times per day: 2 ppd. Started at age: 16 Years. Stopped at age: 57 Years. Family History No family history recorded. Note * Julito Flores RN: PERFORM Event Display: Discharge/Transfer Note Hospital Authored Date: [id number] Nursing Discharge Note Entered On: 06/26/2024 16:33 EST Performed On: 06/26/2024 16:32 EST by Julito Flores RN Nursing Discharge Note 2 Discharge Time : 06/25/2024 16:30 EST Discharge Level of Care at Discharge : Home/Retirement/Foster Care Patient Left Unit Via : Ambulatory Patient Accompanied Off Unit with : Responsible adult DC Instructions Provided & Signed by Pt : Yes Patient Understands D/C Instructions : Yes Patient Instructions Discharge Signed : Yes Did Pt have Specialty Bed or Wound Vac : No Julito Flores RN - 06/26/2024 16:32 EST * Chris Meraz MD: PERFORM Event Display: Discharge/Transfer Note Hospital Authored Date: [id number] Patient: ??TROTTER, AMALIA ? Age:??69 Years?Sex:??Male?:??1955?? Patient Information Discharge Location: B Primary Care Physician: Hilda Cline NP Admit Date/Time: 06/25/2024 09:00 Discharge Disposition Discharge Disposition: ?? Discharge Diagnosis General medical ([id number]) Asthma exacerbation (J45.901) Hypertension (I10) FLu _ Discharge Medications Albuterol (ProAir HFA 90 mcg/inh inhalation aerosol with adapter)?2?puff(s)?Inhalation?Every 4 hours?as needed?for 30?Days?for wheezing Amlodipine (amLODIPine 5 mg oral tablet)?1?tab(s)?By Mouth?Daily Aspirin (Aspir-Low 81 mg oral delayed release tablet)?1?tab(s)?81?Milligram?By Mouth?Daily Diclofenac Topical (diclofenac 1% topical gel)?2?gram?Topically?2 times a day?as needed?Pain , Moderate Durable Medical Equipment (Pen Ovid, 32 G x 4 mm BD Ultra Fine III)?See Instructions?4 X ADAY INJECTOIN OF LANTUS AND ADMELOG Durable Medical Equipment (Freestyle Lite Test Strips)?See Instructions?TEST 4 X A DAY Fenofibrate (fenofibrate 145 mg oral tablet)?1?tab(s)?By Mouth?Daily Fluticasone (Flovent HFA 110 mcg/inh inhalation aerosol)?2?puff(s)?Inhalation?2 times aday?rinse mouth and throat after use; label in serbian Furosemide (Lasix 20 mg oral tablet)?20?Milligram?1?tablet?By Mouth?Daily?as needed?weight gain of 2 pounds in one day or 5 pounds in 3 days?Other Insulin Glargine (insulin glargine 100 units/mL subcutaneous solution)?74?unit(s)?Subcutaneous Injection?Daily at bedtime?INSTRUCTIONS IN [place]?60 Insulin Lispro (Admelog SoloStar 100 units/mL injectable solution)?5 - 17 units?Subcutaneous Infusion?3 times a day with meals?max 51U daily, E11.9 Lisinopril (lisinopril 40 mg oral tablet)?1?tab(s)?40?Milligram?By Mouth?Daily Metformin (metFORMIN 1000 mg oral tablet)?1?tab(s)?1,000?Milligram?By Mouth?2 times a day?for 30?Days?serbian label MethylPREDNISolone (Medrol 4 mg oral tablet)?See Instructions?as directed on package labeling Metoprolol (metoprolol 25 mg oral tablet, extended release)?25?Milligram?1?tablet?ByMouth?Daily?for 30?Days Omeprazole (omeprazole 40 mg oral enteric coated capsule)?1?capsule?40?Milligram?By Mouth?Daily Oseltamivir (Tamiflu 30 mg oral capsule)?1?capsule?30?Milligram?By Mouth?2 times a day?for 4?Days Rosuvastatin (rosuvastatin 40 mg oral tablet)?See Instructions?TAKE ONE TABLET BY MOUTH DAILY semaglutide (Rybelsus 14 mg oral tablet)?TAKE 1 TABLET BY MOUTH ONCE DAILY 30 MINUTES BEFORE A MEAL OR other medicamentos ? Medications Started Lasix as needed Tamiflu??renally dosing Medrol Dosepak Medications Discontinued none Doses Changed none Allergies Allergies ?(Active and Proposed Allergies Only) No Known Medication Allergies? (Severity: Unknown severity, Onset: Unknown) ? PCP Follow-Up/Heads-Up Anemia Final results of blood culture Diabetes mellitus Repeat check of BMP Start the Farxiga??if needed Hospital Course ??69-year-old male with past medical history of coronary artery disease, hypertension, diabetes mellitus and hypertension concern for asthma/COPD exacerbation ? Influenza Acute exacerbation of COPD/asthma: Patient presented with complaint of cough and shortness of breath and wheezing Presentation concerning for exacerbation of COPD/asthma??in the setting of flu Respiratory pathogen panel positive for influenza.?? Tamiflu started as per renal dose Pulmonary embolism unlikely Chest x-ray no acute Patient has been given nebs and magnesium in the ED Significant improvement with nebs and steroids Discharging patient on steroids and Tamiflu Discontinued azithromycin??as??flu positive This morning??significantly better with minimal shortness of breath.?? Occasional wheezing on my examination ?? Elevated troponin:??No chest pain.?? Uptrending??troponin likely in the setting of??flu and COPD exacerbation. ??Echo as below ?Summary ??The left ventricular size is normal. The left ventricular wall thickness is ??upper normal. The LV systolic function is mildly to moderately reduced . The ??left ventricular ejection fraction is 35-45 %. The distal septal wall is ??akinetic. The apex is akinetic . The distal anterior wall is severely ??hypokinetic . ??The left atrium is mildly to moderately dilated. ??The right ventricular size and function appears grossly normal. ??The right atrial size is at the upper limit of normal. ??An accurate pulmonary artery pressure could not be obtained. ?Comparison ??Comparison is made to the study of February 10, 2022. ??Mild to moderate LV systolic function abnormality with distal septal and apical regional wall motion abnormality is again noted. Discussed with cardiology. ??No intervention??inpatient but outpatient follow- up. ??As needed Waqar advised Also cardiology advised outpatient follow-up for discussion regarding Farxiga ? Abnormal creatinine: Likely stage III chronic kidney disease.?? Last creatinine was several years ago and was 1.1.?? It is likely patient might have developed CKD.?? Avoid NSAIDs.?? Continue with lisinopril.?? PCP follow-up Advised adequate p.o. hydration ?? History of coronary disease: Aspirin and statin will be continued ?? Hyperlipidemia: Statin along with fenofibrate ?? Hypertension: Metoprolol and lisinopril will be continued along with amlodipine ?? Diabetes mellitus: Blood sugars elevated likely in the setting of steroid use.?? Blood sugars improved today.?? Resumed all home medication and PCP follow-up ?? Today feels much better.?Having stable vitals. ??Occasional??wheezing BL, S1, S2 no GMR.Abd SOft, NT, BS+ve, AAO3. no pedal edema ?? Objective . Physical Exam Pending Results Add On Lab Order ordered on 06/25/2024 Comprehensive Metabolic Panel ordered on 06/25/2024 Patient Education Titles [employer] Patient Education - Methylprednisolone?? [employer] Patient Education - Oseltamivir?? [employer] Patient Education - Chronic Kidney Disease (CKD)?? [employer] Patient Education - Discharge Instructions for Chronic Kidney Disease (CKD)?? [employer] Patient Education - The Flu (Influenza)?? [employer] Patient Education - Influenza (Adult)?? [employer] Patient Education - Understanding Asthma?? Follow-Up Appointments Added Follow Up ?Time Frame ?Comments Prescription has been sent to pharmacy in [place] Dose of Lantus has been increased to 65 units as your blood sugar has been running high. Kb Birmingham?2 to 3 weeks?Also to discuss about Efrem if needed Hilda Cline?1 to 2 weeks?Further follow- upAnemiaRepeat check of kidney functionDiabetes mellitus managementFinal results of blood culture Patient Instructions Please check your weight daily??and take Lasix??20 mg??once??only??if your weight gain is more than2 pounds in 1 day??or more than 5 pounds in 3 days Post Discharge Care Discharge ?06/26/24 14:49:00 EST ?Order Comment:?? Discharge Prescriptions ?ePrescribed, 06/26/24 14:49:00 EST ?Order Comment:?? Home Health Face to Face ^HomeHealthFTF 40??minutes spent on discharge * Julito Flores RN: PERFORM Event Display: Patient Education/Instruction Authored Date: [id number] Inpatient Adult Discharge Instructions. [address] [address] Name: AMALIA TROTTER : 1955?? Visit: 06/25/2024 09:00?? Current Date: 06/26/2024 14:59 ?? Account: [id number]?? Inpatient Adult Discharge Instructions We would like to thank you for allowing us to assist you with your healthcare needs. The following includes patient education materials and information regarding your injury/illness. Our entire staffstrives to provide an excellent experience for our patients and their families. PLEASE ENSURE YOU FOLLOW-UP PER THE INSTRUCTIONS BELOW! ?? YOUR OPINION IS IMPORTANT TO US! Please complete the survey you may receive by mail or email. Your feedback will be used to make improvements to the healthcare experiences of our patients and their families. Surveys are administered by [employer] ?? If further treatment with your primary care physician or another doctor is recommended, it is important for you to keep the appointment. Call your primary care physician or return to the Emergency Department immediately if your condition worsens, fails to improve, or new symptoms develop. If you need to find a doctor, you can call [facility] Link for a referral at [phone] or toll free at [phone]) or log in to [email or web address].. ?? [facility], in keeping with [facility] guidance, no longer requires face masks for staff, patientsor visitors in most situations. Similiar to time spent indoors at other locations, there is the chance that you were exposed to repiratory viruses during your time with us (such as flu or COVID-19). If you develop symptoms concerning for a viral respiratory infection, please seek testing (and treatment if indicated) from your medical provider or home test kit. ?? You can view and manage your care through the patient portal or by using a health care hubert of your choosing. [employer] is a website that allows you to securely view your medical information including your hospital discharge summary, office visit summaries, medications and follow-up visits. You can also request appointments, renew medications, and request access to your medical information using a health care hubert of your choosing, or just ask a question. You can enroll at [email or web address] or register during your next office visit. You have been discharged from [facility], Patient Care Unit: D3B??. If you have any questions regarding these instructions, including results of studies pending, afteryou leave, please call us and we will be happy to assist you 14/02. [facility] Your Care Team Attending Physician Chris Meraz MD?? Consulting Providers Chris Meraz MD?? Discharging Providers Chris Meraz MD Reason for Your Visit BIBCodi from home c/o SOB that began Tuesday night but has since worsened. Hx of asthma. +Tachypnea and 4/10 chest pain with coughing. Reports taking his albuterol inhalers at home but does not say howoften. Coughing up brown thick mucus.?? Your Diagnosis General medical Tests Performed Below is a partial list of the tests performed during your hospitalization. You may have had other tests and procedures not included in this list. Please discuss all test results with your provider. Basic Metabolic Panel BETA HYDROXYBUTYRATE Blood Culture Blood Culture #2 Blood Culture 2 Results Blood Culture Result CBC w/ Differential COMPREHENSIVE METABOLIC PANL COVID-19 (Novel Coronavirus), Rapid PCR Glucose Level GLUCOSE POC High??Sensitivity??Troponin T HOLD LAVENDER TUBE Lactate Level Lytes Osmolality pH Venous Respiratory Pathogen PCR with COVID-19 Troponin T, High Sensitivity XR Chest 2 Views Frontal and Lat Add On Lab Order?? Basic Metabolic Panel?? Beta Hydroxybutyrate?? Blood Culture?? Blood Culture #2?? Blood Culture 2 Results?? Blood Culture Result?? CBC w/ Differential?? COVID-19 (Novel Coronavirus), Rapid PCR?? Comprehensive Metabolic Panel (COMPREHENSIVE METABOLIC PANL)?? Electrolytes (Lytes)?? Glucose Level?? Glucose POC?? High??Sensitivity??Troponin T (Troponin T, High Sensitivity)?? Hold Lavender Top Tube (HOLD LAVENDER TUBE)?? Lactic Acid Level (Lactate Level)?? Osmolality?? Respiratory Pathogen PCR with COVID-19?? Chest 2 Views Frontal and Lat (XR Chest 2 Views Frontal and Lat)?? pH Venous?? Primary Care Provider Marlyn OLEMDO, Hilad Menard? Advance Directive Health Care Proxy on File No Discharge Vitals Temperature: 98.1 DegF Height: 166 cm Pulse Rate: 80 bpm Weight: 85.2 kg Respiratory Rate: 16 br/min Body Mass Index:??30.92 kg/m2??Critical Systolic Blood Pressure:??142 mm Hg??High Body surface area: 1.98 Systolic Blood Pressure:??140 mm Hg??High ?? Diastolic Blood Pressure: 69 mm Hg ?? Diastolic Blood Pressure: 69 mm Hg ?? Oxygen Saturation: 96 % ?? Studies Pending All studies ordered during this hospital stay have been completed unless listed below. Please discuss all pending results with your provider listed above in these instructions. ?? Add On Lab Order?? Comprehensive Metabolic Panel?? What to do next Instructions From Your Doctor Please check your weight daily??and take Lasix??20 mg??once??only??if your weight gain is more than2 pounds in 1 day??or more than 5 pounds in 3 days ?? Orders? 06/26/24 14:49:00 EST?? Prescriptions??, ??06/26/24 14:49:00 EST?? You Need to Schedule the Following Appointments Follow Up with??Prescription has been sent to pharmacy in [place] [facility] Follow Up with??Dose of Lantus has been increased to 65 units as your blood sugar has been running high. Follow Up with??Kb [place] When:??Within 2 to 3 weeks Why: Also to discuss about Farxiga if needed Where: [address] [employer] [place] [address]- [facility] (1) Follow Up with??Hilda Cline When:??Within 1 to 2 weeks Why: Further follow-up Anemia Repeat check of kidney function Diabetes mellitus management Final results of blood culture Where: [address] [facility], [place] [address]- [facility] (1) Discharge Medications AMALIA TROTTER :1955 Visit Date:06/25/2024 Medications: Please continue your medications until treatment is completed or stopped by your provider. Medications not listed below should be discontinued. Discuss any questions related to medications with your provider. What How Much When Instructions Next Dose New Furosemide (Lasix 20 mg oral tablet) 1 tab(s) Oral Daily as needed for Other weight gain of 2 pounds in one day or 5 pounds in 3 days ?? Pickup at [place] [address] As ordered New MethylPREDNISolone (Medrol 4 mg oral tablet) See instructions as directed on package labeling ?? Pickup at [place] [address] As ordered New Oseltamivir (Tamiflu 30 mg oral capsule) 1 capsule Oral Twice a day Duration: 4 Days Pickup at [place] [address] as?? ordered Changed Insulin Glargine (insulin glargine 100 units/ mL subcutaneous solution) 65 unit(s) Subcutaneous Injection Daily at Bedtime INSTRUCTIONS IN [place] ?? tonight Unchanged Albuterol (ProAir HFA 90 mcg/ inh inhalation aerosol with adapter) 2 puff(s) Inhalation Every 4 hours as needed for for wheezing Duration: 30 Days Unchanged Amlodipine (amLODIPine 5 mg oral tablet) 1 tab(s) Oral Daily Unchanged Aspirin (Aspir-Low 81 mg oral delayed release tablet) 1 tab(s) Oral Daily Unchanged Diclofenac Topical (diclofenac 1% topical gel) 2 gram Topically Twice a day as needed for Pain , Moderate Unchanged Durable Medical Equipment (Freestyle Lite Test Strips) See instructions TEST 4 X A DAY ?? Unchanged Durable Medical Equipment (Pen Ovid, 32 G x 4 mm BD Ultra Fine III) See instructions 4 X A DAY INJECTOIN OF LANTUS AND ADMELOG ?? Unchanged Fenofibrate (fenofibrate 145 mg oral tablet) 1 tab(s) Oral Daily Unchanged Fluticasone (Flovent HFA 110 mcg/ inh inhalation aerosol) 2 puff(s) Inhalation Twice a day rinse mouth and throat after use; label in serbian ?? Unchanged Insulin Lispro (Admelog SoloStar 100 units/ mL injectable solution) 5 - 17 units Subcutaneous Infusion 3 times a day with meals max 51U daily, E11.9 ?? Unchanged Lisinopril (lisinopril 40 mg oral tablet) 1 tab(s) Oral Daily Unchanged Metformin (metFORMIN 1000 mg oral tablet) 1 tab(s) Oral Twice a day Duration: 30 Days serbian label ?? Unchanged Metoprolol (metoprolol 25 mg oral tablet, extended release) 1 tab(s) Oral Daily Duration: 30 Days Unchanged Omeprazole (omeprazole 40 mg oral enteric coated capsule) 1 capsule Oral Daily Unchanged Rosuvastatin (rosuvastatin 40 mg oral tablet) See instructions TAKE ONE TABLET BY MOUTH DAILY ?? Unchanged semaglutide (Rybelsus 14 mg oral tablet) TAKE 1 TABLET BY MOUTH ONCE DAILY 30 MINUTES BEFORE A MEAL OR other medicamentos ?? Pharmacy Information [facility]: [address] [place] [address] [phone] ?? What How Much When Comments Stop Taking canagliflozin (Invokana 300 mg oral tablet) 1 tab(s) Oral Daily INSTRUCTIONS IN [place] DRINK PLENTY OF WATER ?? Stop Taking ranolazine (Ranexa 500 mg oral tablet, extended release) 2 tab(s) Oral Twice a day Prescription Given During Visit Furosemide (Lasix 20 mg oral tablet) - 1 tablet = 20 mg, By Mouth, Daily, # 10 tablet, 0 Refills, weight gain of 2 pounds in one day or 5 pounds in 3 days, [facility], [address] [place] [address] [phone]?? MethylPREDNISolone (Medrol 4 mg oral tablet) - , # 1 pack/packet, 0 Refills, as directed on packagelabeling, [place] [address] [phone]?? Oseltamivir (Tamiflu 30 mg oral capsule) - 1 capsule = 30 mg, By Mouth, 2 times a day, # 8 capsule,0 Refills, [facility] [address] [address] [phone]?? Laboratory Results Below is a partial list of the most recent Laboratory test results done prior to this discharge. You may have had other tests and procedures not included in this list. Please discuss all test resultswith your provider. Est Creatinine Clearance - 45.18 mL/min (06/26/2024) Basic Metabolic Panel (06/26/2024) ???Sodium - 140 mmol/L???Potassium - 4.4 mmol/L???Chloride - 106 mmol/L???Bicarbonate Level - 18 mmol/L???Anion Gap - 16???Glucose Level - 274 mg/dL???BUN - 28 mg/dL???Creatinine-Blood - 1.36 mg/dL???Estimated GFR Creatinine - 56 ML/MIN/1.73 M2???Calcium - 8.8 mg/dL BETA HYDROXYBUTYRATE (06/26/2024) ???Beta Hydroxybutyrate - 0.06 mmol/L Blood Culture (06/25/2024) ???Blood Culture Results - Preliminary report???Blood Culture Specimen Source - BLOOD Blood Culture #2 (06/25/2024) ???Blood Cult 2 Results - Preliminary report???Blood Culture 2 Specimen Source - BLOOD Blood Culture 2 Results (06/25/2024) ???Blood Culture 2 Isolate 1 - Comment Blood Culture Result (06/25/2024) ???Blood Culture Isolate 1 - Comment CBC w/ Differential (06/25/2024) ???WBC - 6.4 k/mm3???RBC - 3.88 m/mm3???Hgb - 11.4 Gm/dL???Hct - 35.3 %???MCV - 91.0 femtoliters???MCH - 29.4 pg???MCHC - 32.3 Gm/dL???Platelet Count - 267 k/mm3???RDW-SD - 44.2 femtoliters???MPV - 10.6 femtoliters???Nucleated RBC (Automated) - 0.0 #/100 WBC'S???Abs. NRBC - 0.0 k/mm3???Abs. Neut - 4.8 k/mm3???Abs. Lymph - 1.1 k/mm3???Abs. [place] - 0.4 k/mm3???Abs. Eo - 0.0 k/mm3???Abs. Baso - 0.0 k/mm3???Neut % - 74.9 %???Lymph % - 17.0 %???[place] % - 6.7 %???Eos % - 0.5 %???Baso % - 0.6 %???Imm Gran - 0.3 %???Abs. Imm Gran - 0.0 k/mm3 COMPREHENSIVE METABOLIC PANL (06/25/2024) ???Sodium - 138 mmol/L???Potassium - 4.3 mmol/L???Chloride - 104 mmol/L???Bicarbonate Level - 20 mmol/L???Anion Gap - 14???Glucose Level - 291 mg/dL???BUN - 17 mg/dL???Creatinine-Blood - 1.39 mg/dL???Estimated GFR Creatinine - 55 ML/MIN/1.73 M2???Calcium - 9.3 mg/dL???Protein, Total - 6.8 Gm/dL???Albumin - 3.9 Gm/dL???AG Ratio - 1.3???Alkaline Phosphatase - 44 units/L???AST (SGOT) - 14 units/L???ALT (SGPT) - 17 units/L???Bilirubin, Total - 0.2 mg/dL COVID-19 (Novel Coronavirus), Rapid PCR (06/25/2024) ???COVID-19 by RT-PCR - NEGATIVE Glucose Level (06/25/2024) ???Glucose Level - 517 mg/dL GLUCOSE POC (06/26/2024) ???Glucose, POC - 277 mg/dL High??Sensitivity??Troponin T (06/25/2024) ???High Sensitivity Troponin (HSTnT) - 37 ng/L HOLD LAVENDER TUBE (06/26/2024) ???Hold Lavender Top - SPECIMEN DISCARDED AFTER 24 HOURS. Lactate Level (06/26/2024) ???Lactate - 3.2 mmol/L Lytes (06/26/2024) ???Sodium - 139 mmol/L???Potassium - 4.3 mmol/L???Chloride - 106 mmol/L???Bicarbonate Level - 20 mmol/L???Anion Gap - 13 Osmolality (06/25/2024) ???Osmolality - 311 mOs/kg pH Venous (06/25/2024) ???pH, Venous - 7.29 Respiratory Pathogen PCR with COVID-19 (06/26/2024) ???Adenovirus by PCR - NEGATIVE???Coronavirus 229E by PCR (not COVID-19) - NEGATIVE???Coronavirus HKU1 by PCR (not COVID-19) - NEGATIVE???Coronavirus NL63 by PCR (not COVID-19) - NEGATIVE???Coronavirus OC43 by PCR (not COVID-19) - NEGATIVE???Human Metapneumovirus by PCR - NEGATIVE???Rhinovirus/Enterovirus by PCR - NEGATIVE???Influenza A by PCR - INFLUENZA A H1 2009 TARGET NUCLEIC ACID DETECTED.???Influenza B by PCR - NEGATIVE???Parainfluenza 1 by PCR - NEGATIVE???Parainfluenza 2 by PCR - NEGATIVE???Parainfluenza 3 by PCR - NEGATIVE???Parainfluenza 4 by PCR - NEGATIVE???RSV by PCR - NEGATIVE??? Bordetella Pertussis by PCR - NEGATIVE???Chlamydophila Pneumoniae by PCR - NEGATIVE???Mycoplasma Pneumoniae by PCR - NEGATIVE???COVID-19 (SARS-CoV-2) by PCR - NEGATIVE???Bordetella Parapertussis by PCR - NEGATIVE Troponin T, High Sensitivity (06/26/2024) ???High Sensitivity Troponin (HSTnT) - 75 ng/L You will be contacted within 72 hours with your results. Allergies (NKA means No Known Allergies) No Known Medication Allergies Problems Active Problems??(15) *Gurvinder Iraheta, Cra Officer, [facility] [phone]?? Adrenal adenoma?? Asthma?? CAD (coronary artery disease)?? Care Management, [facility] Nurse Manager Coding Wilfredo West RN [phone]?? Diabetes mellitus?? Essential hypertension?? Fatty liver?? GERD (gastroesophageal reflux disease)?? HTN (hypertension)?? Ischemic cardiomyopathy?? Obese class I?? NATI (obstructive sleep apnea)?? Radius distal fracture?? Shortness of breath?? Education Materials Below is the list of Educational Leaflet Providered with your Discharge Instructions. WebMD Ignite Patient Education - Methylprednisolone?? WebMD Ignite Patient Education - Oseltamivir?? WebMD Ignite Patient Education - Chronic Kidney Disease (CKD)?? WebMD Ignite Patient Education - Discharge Instructions for Chronic Kidney Disease (CKD)?? WebMD Ignite Patient Education - The Flu (Influenza)?? WebMD Ignite Patient Education - Influenza (Adult)?? WebMD Ignite Patient Education - Understanding Asthma?? Valuables and Belongings I fully understand and agree that [facility] accepts no responsibility for all my personal property including clothing, toilet articles, radios, jewelry, dentures, hearing aids, rings, money, or any other property that is in my possession or is brought to me after admission. I understand certain valuables may be placed in a hospital safe for a short period of time. I understand that the hospital is not liable for loss or damage due to accident, fire, or other natural occurrence while said property is in the safe. I accept full responsibility for any personal property that I keep with me, and will not hold the hospital responsible in case of loss or disappearance. I acknowledge that i have been encouraged to send valuables and belongings home. ?? Review of Valuable and Belonging List: With patient Date for Pt to Sign Valuables/Belongings: 06/25/24 19:46:00 ?? Other Discharge Information ? Pulmonary Rehab Status?? Pulmonary Rehab Discharge Status?? Respiratory Rate: 16 br/min ? Common Emergency Awareness Tips IS IT A STROKE? Act FAST and Check for these signs: FACE Does the face look uneven? ARM Does one arm drift down? SPEECH Does their speech sound strange? TIME Call at any sign of stroke ?? Heart Attack Signs Chest discomfort: Most heart attacks involve discomfort in the center of the chest and lasts more than a few minutes, or goes away and comes back. It can feel like uncomfortable pressure, squeezing, fullness or pain. Discomfort in upper body: Symptoms can include pain or discomfort in one or both arms, back, neck, jaw or stomach. Shortness of breath: With or without discomfort. Other signs: Breaking out in a cold sweat, nausea, or lightheaded. Remember, MINUTES DO MATTER. If you experience any of these heart attack warning signs, call to get immediate medical attention! ?? Smoking can increase your chances of developing chronic health problems and can cause harmful effects to other family members in your house. If you smoke, you are strongly encouraged to quit. Please call [facility] Link at [phone] or [phone] ([phone]) or log in to [email or web address] for referrals to smoking cessation programs. ?? 333 Suicide & Crisis Lifeline is available 14/02 if you or someone you know needs to find a reason to keep living. By calling 904 you'll be connected to a skilled, trained counselor at a crisis center in your area. INPATIENT DISCHARGE INSTRUCTIONS SIGNATURE PAGE AMALIA TROTTER Location:[facility] Registration Date and Time:06/25/2024 09:00 EST Primary Care Physician: Hilda Cline NP, Attending Physician: Chris Meraz MD, I RAHEEM TROTTERAIAS, have received the above patient education materials/instructions and have verbalized understanding. If ambulance or transport services are being used I further acknowledge being given a choice of service. ?? If you need to contact me, please call me at this number: . Patient/Credit Collections Specialist Name: Patient/Credit Collections Specialist Signature: Relationship to Patient: Witness Name/Signature: Date: * Chris Meraz MD: SIGN, PERFORM, SIGN, VERIFY Event Display: Patient Education Handout Authored Date: * Chris Meraz MD: PERFORM Event Display: Patient Education Leaflets Authored Date: Methylprednisolone ?? [id number] Metilprednisolona Nombres comercial(es): Medrol?PARA CU? LES condiciones o enfermedades se prescribe blessing medicamento? La metilprednisolona, un corticosteroide, es similar a socrates hormona natural producida por las gl??ndulas suprarrenales. A menudo se utiliza para sustituir a esta sustancia qu??haydee cuando el organismono la produce en cantidad suficiente. Dilma la inflamaci??n (hinchaz??n, calor, enrojecimiento y dolor) y se usa para tratar ciertas formas de artritis; trastornos cut??neos, sangu??neos, renales, oculares, tiroideos e intestinales (por ejemplo, colitis); alergias graves y asma. La metilprednisolona tambi??n se usa para tratar ciertos tipos de c??ncer. A veces se receta blessing medicamento para otros usos; p??darshan m??s informaci??n a thomas m??dico o a thomas farmac??utico. ??C??MO se debe usar blessing medicamento? La presentaci??n de la metilprednisolona es en tabletas para administrarse por v??a oral. Thomas m??dico le recetar?? el programa de dosificaci??n m??s adecuado para usted. Siga cuidadosamente las instrucciones en la etiqueta del medicamento y preg??ntele a thomas m??dico o farmac??utico cualquier cosa queno comprenda. Use el medicamento exactamente gayla se lo indicaron. No tome socrates cantidad mayor ni derrick del medicamento ni lo tome con m??s frecuencia de lo que indica la receta de thomas m??dico. No deje de kandace la metilprednisolona sin consultarlo antes con thomas m??dico. Suspender bruscamente el medicamento puede causar p??rdida de apetito, malestar estomacal, v??mitos, somnolencia, confusi??n, dolor de ronal, fiebre, dolor articular y muscular, descamaci??n de la piel y p??rdida de peso. Si rudolph grandes dosis andrés mucho tiempo, es probable que thomas m??dico disminuya la dosis gradualmente para permitir que thomas cuerpo se adapte antes de dejar de kandace el medicamento por completo. Est?? atento a estos efectos secundarios si disminuye gradualmente la dosis y despu??s de dejar de kandace las tabletas. Si se producen estos problemas, llame a thomas m??dico inmediatamente. Es posible que necesite aumentar temporalmente thomas dosis de tabletas o empezar a tomarla de nuevo. ??Cu??les son las PRECAUCIONES ESPECIALES que mehreen seguir? Antes de kandace metilprednisolona, ??? informe a thomas m??dico y a thomas farmac??utico si es al??rgico a la metilprednisolona, a la aspirina, a la tartrazina (un colorante amarillo presente en algunos alimentos procesados y medicamentos) o a otros medicamentos. ??? informe a thomas m??dico y farmac??utico qu?? medicamentos con y sin receta m?? dica, vitaminas, suplementos nutricionales y productos a base de plantas rudolph o tiene planeado kandace mientras est?? en tratamiento con metilprednisolona. Es posible que thomas m??dico deba cambiar la dosis de tessy medicamentos o mantenerlo bajo socrates cuidadosa supervisi??n en tyrel de que presente efectos secundarios. ??? los siguientes productos de venta sin receta pueden interactuar con la metilprednisolona: aspirirna Aseg??rese de informar a thomas m??dico y farmac??utico que est?? tomando blessing medicamento antes de empezar a kandace metilprednisolona. No empiece a kandace blessing medicamento mientras est?? tomando metilprednisolona sin consultarlo antes con thomas m??dico. ??? si tiene socrates infecci??n tobi??aminah(que no sea en la piel), no tome metilprednisolona sin consultarlo antes con thomas m??dico. ??? informe a thomas m??dico si tiene o loaiza tenido alguna enfermedad hep??aminah, renal, intestinal o card??jen; diabetes; gl??ndula tiroides hipoactiva; presi??n arterial clint; enfermedad mental; miastenia grave; osteoporosis; infecci??n ocular por herpes; convulsiones; tuberculosis (TB) o ??lceras. ??? informe a thomas m??dico si est?? embarazada, planea quedar embarazada o est?? amamantando. Llame a thomas m??dico si queda embarazada mientras rudolph metilprednisolona. ??? si se someter?? a socrates cirug??a, incluida socrates cirug??a dental, informe a thomas m??dico o dentista que rudolph actualmente metilprednisolona. ??? si tiene antecedentes de ??lceras o rudolph grandes dosis de aspirina u otros medicamentos para la artritis, limite el consumo de bebidas alcoh??licas mientras tome blessing f??rmaco. La metilprednisolona hace que suest??keagan e intestinos truman m??s susceptibles a los efectos irritantes del alcohol, la aspirina y ciertos medicamentos para la artritis. Blessing efecto aumenta el riesgo de ??lceras. ??Qu?? DIETA ESPECIAL mehreen seguir mientras monie blessing medicamento? Thomas m??dico puede indicarle que siga socrates dieta baja en sodio, baja en miley, thuan en potasio o thuan enprote??nuha. Siga estas instrucciones. La metilprednisolona puede provocar malestar estomacal. [place] la metilprednisolona con alimentos o leche. ??Qu?? tengo que hacer SI ME OLVIDO de kandace socrates dosis? Cuando empiece a kandace metilprednisolona, pregunte a thomas m??dico qu?? debe hacer si olvida socrates dosis. Escriba estas instrucciones para que pueda consultarlas posteriormente. Si omite socrates dosis de metilprednisolona socrates vez al d??a, tome la dosis que omiti?? guillaume pronto gayla lo recuerde. Sin embargo, si ya maldonado es hora de la dosis siguiente, omita la que olvid?? y contin??econ thomas horario de medicaci??n habitual. No duplique la dosis para compensar la que omiti??. ??Cu??les son los EFECTOS SECUNDARIOS que podr??a provocar blessing medicamento? La metilprednisolona puede ocasionar efectos secundarios. Informe a thomas m??dico si cualquiera de estos s??ntomas se vuelve oniel o no desaparece: ??? molestias estomacales ??? irritaci??n estomacal ??? v??mitos ??? dolor de ronal ??? mareos ???insomnio ??? intranquilidad ??? depresi??n ??? ansiedad ??? acn? crecimiento de vello no deseado ??? formaci??n de hematomas con facilidad ??? periodos menstruales irregulares o ausentes Si experimenta alguno de los s??ntomas siguientes, llame a thomas m??dico inmediatamente: ??? erupci??n cut??carmenza ??? fabrizio, parte inferior de las piernas o tobillos inflamados ??? problemas de la vista ??? resfriado o infecci??n de larga duraci??n ??? debilidad muscular ??? heces negras o alquitranadas Si desarrolla un efecto secundario grave, usted o thomas doctor puede enviar un informe al programa de divulgaci??n de efectos adversos 'MedWatch' de la Administraci??n de Alimentos y Medicamentos (FDA, por thomas sigla en ingl??s) en la p??sue de Internet (https://www.fda.gov/Safety/MedWatch) o por tel??fono al . ??C??mo mehreen ALMACENAR o DISPONER de blessing medicamento? Mantenga blessing medicamento en thomas empaque original, ra cerrado y fuera del alcance de los ni??os. Gu??rdelo a temperatura ambiente y lejos del calor excesivo y la humedad (no en el cuarto de ba??o). Es importante que mantenga todos los medicamentos fuera de la vista y el alcance de los ni??os, debido a que muchos envases (tales gayla los pastilleros de uso semanal, y aquellos que contienen gotas oft??lmicas, cremas, parches e inhaladores) no son a prueba de ni??os lashae??os, quienes pueden abrirlos f??cilmente. Con el fin de protegerlos de socrates intoxicaci??n, siempre use tapaderas de seguridade inmediatamente coloque los medicamentos en un lugar seguro, savanah que se encuentre arriba y lejos de thomas vista y alcance. [email or web address]/es/ Los medicamentos que ya no son necesarios se deben desechar de socrates manera apropiada para asegurarsede que las mascotas, los ni??os y otras personas no puedan consumirlos. Sin embargo, no debe desechar estos medicamentos por el inodoro. En thomas lugar, la mejor manera de deshacerse de tessy medicamentoses a demond??s de un programa de devoluci??n de medicamentos. Hable con thomas farmac??utico o p??ngase en contacto con thomas departamento de basura/reciclaje local para conocer acerca de los programas de devoluci??n de medicamentos de thomas comunidad. Consulte el sitio web de la Administraci??n de Medicamentos y Alimentos (FDA), (https://goo.gl/xRXbPn) para obtener m??s informaci??n de c??mo desechar de forma camarillo los medicamentos, si no tiene acceso al programa de devoluci??n de medicamentos. ??Qu?? mehreen hacer en tyrel de socrates SOBREDOSIS? En tyrel de sobredosis, llame a la l??carmenza de ayuda de control de envenenamiento al . La informaci??n tambi??n est?? disponible en l??carmenza en https://www.poisonhelp.org/help. Si la v??ctima se loaiza derrumbado, loaiza tenido socrates convulsi??n, tiene dificultad para respirar, o no puede despertarse, llame inmediamente a los servicios de emergencia al 911. ??Qu?? OTRA INFORMACI??N de importancia deber??a saber? Asista a todas las citas con thomas m??dico y a las de laboratorio. Thomas m??dico ordenar?? algunas pruebas de laboratorio para comprobar thomas respuesta a la metilprednisolona. Las revisiones son especialmente importantes para los ni??os porque la metilprednisolona puede desacelerar el crecimiento ??anastasia. Si thomas afecci??n empeora, llame a thomas m??dico. Thomas dosis podr??a necesitar ser ajustada. Lleve consigo socrates tarjeta de identificaci??n que indique que puede necesitar kandace dosis suplementarias (anote la dosis completa que dora?? antes de disminuirla gradualmente) de metilprednisolona andrés per??odos de estr??s (lesiones, infecciones y ataques de asma graves). Preg??ntele a thomas farmac??utico o m??dico c??mo obtener esta tarjeta. Indique en la tarjeta thomas nombre, problemas m??dicos, medicamentos y dosis, as?? gayla el nombre y n??qiana de tel??fono del m??dico. Blessing medicamento lo hace m??s susceptible a las enfermedades. Si se expone a la varicela, el sarampi??n o la tuberculosis (TB) mientras rudolph metilprednisolona, llame a thomas m??dico. No se vacune, ni seponga kim??n otro tipo de inmunizaci??n, ni se someta a ninguna prueba cut??carmenza mientras est?? tomando metilprednisolona, a menos que thomas m??dico le diga que puede hacerlo. Informe de cualquier lesi??n o se??al de infecci??n (fiebre, dolor de garganta, dolor al orinar y eulalia musculares) que se produzca andrés el tratamiento. Thomas m??dico puede indicarle que se pese todos los d??as. Inf??rmele de cualquier aumento de peso inusual. Si thomas esputo (la materia que expulsa al toser andrés un ataque de asma) se espesa o cambia de color, de liao cheyanne a amarillo, cathleen o claire, llame a thomas m??dico; estos cambios pueden ser se??ales de socrates infecci??n. Si tiene diabetes, la metilprednisolona podr??a aumentar thomas nivel de az??car en la lucas. Si supervisa thomas az??car en lucas (glucosa) en casa, alexa pruebas en lucas u orina con m??s frecuencia de lo usual. Llame a thomas m??dico si thomas nivel de az??car en la lucas es alto o si hay az??car en thomas orina; es posible que sea necesario modificar thomas dosis de medicaci??n para el control de la diabetes y thomas dieta. No deje que nadie m??s tome thomas medicamento. Preg??ntele a thomas farmac??utico cualquier nazario que tengasobre c??mo volver a surtir thomas receta m??dica. Es importante que Ud. mantenga socrates lista escrita de todas las medicinas que Ud. est?? tomando, incluyendo las que recibi?? con receta m??dica y las que Ud. compr?? sin receta, incluyendo vitaminas y suplementos de dieta. Ud. debe tener la lista cada vez que visita thomas m??dico o cuando es admitido a un hospital. Tambi??n es socrates informaci??n importante en casos de emergencia. Blessing informe sobre medicamentos es solo para thomas informaci??n, y no se considera gayla un consejo para el paciente. Debido a la naturaleza de informaci??n sobre drogas, por favor consulte thomas medico o farmac??utico sobre el uso cl??cristóbal espec??fico. La [employer]., afirma que la informaci??n proporcionada a continuaci??n fue formulada con razonable est??ndar de asistencia, y en conformidad con el rod profesional. La [employer], [place]. no provee representaciones o garant??as, expresas o implicadas, incluyendo, oneil no limitado a, cualquiera garant??a de comercializaci??n y/o apropiado para socrates funci??n particular, con respecto a hever informaci??n y niega espec??ficamente tales garant??as. Se avisa a los usuarios que las decisiones con respecto a terapia de drogas son decisiones m??dicas complejas requiriendo decisiones independientes e informadas de un profesional de belén y que la informaci??n se da para prop??sitos de informaci??n solamente. La entera monograf??a de socrates droga debe ser revisada considerando un comprensivo entendimiento de las acciones, usos, y efectos secundarios de la droga. La [employer], [place]. no endosa o recomienda el uso de ninguna medicina. La informaci??n no es un sustituto de asistencia m??dica. AHFS?? Patient Medication Information???. ?? Derechos reservados, 2023. Documento actualizado 15 Dicmb2022, [employer]?? [address] [facility], [address], [address] Todos los derechos reservados. La duplicaci??n de blessing documento para thomas uso comercial, deber?? ser autorizada por [employer]. AHFS?? Patient Medication Information???. ?? Copyright, 2023 ?? * Chris Meraz MD: PERFORM Event Display: Patient Education Leaflets Authored Date: [id number] Oseltamivir ?? [id number] Oseltamivir [place] comercial(es): Tamiflu?PARA CU? LES condiciones o enfermedades se prescribe blessing medicamento? Oseltamivir se utiliza para tratar algunos tipos de infecci??n por influenza (''gripe'') en adultos, ni??os y beb??s (mayores de 2 semanas de edad) que stallworth tenido s??ntomas de gripe no m??s de 2 d??as. Blessing medicamento tambi??n se utiliza para prevenir algunos tipos de influenza en adultos y ni??os(mayores de 1 a??o de edad) cuando stallworth pasado alg??n tiempo con alguien que tiene gripe o cuando hay un brote de gripe. El oseltamivir pertenece a socrates clase de medicamentos llamados inhibidores de laneuraminidasa. Thomas acci??n consiste en detener la propagaci??n del virus de la influenza en el cuerpo. El oseltamivir ayuda a reducir el tiempo que dhillon los s??ntomas de gripe gayla nariz congestionada o secreci??n nasal, dolor de garganta, tos, dolor de m??sculos o articulaciones, cansancio, dolor de ronal, fiebre y escalofr??os. El oseltamivir no previene las infecciones bacterianas, que puedenocurrir gayla socrates complicaci??n de la gripe. ??C??MO se debe usar blessing medicamento? La presentaci??n del oseltamivir es en forma de c??psula y de suspensi??n (l??quido) para kandace porv??a oral. Cuando se utiliza oseltamivir para tratar los s??ntomas de la gripe, usualmente se rudolph dos veces al d??a (por la ma??casey y por la noche) andrés 5 d??as. Cuando se utiliza oseltamivir para prevenir la gripe, usualmente se rudolph socrates vez al d??a por lo menos andrés 10 d??as o hasta 6 semanas andrés un brote de gripe en la comunidad. El oseltamivir se puede kandace con o sin alimentos, oneil es menos probable que ocasione molestias estomacales si se rudolph con alimentos o leche. Siga atentamente las instrucciones que se encuentran en la etiqueta de thomas medicamento, y pida a thomsa m??dico o fa rmac??utico que le explique cualquier parte que no comprenda. [place] el medicamento exactamente gayla se lo indicaron. No tome socrates cantidad mayor ni derrick del medicamento ni lo tome con m??s frecuencia de lo que indica la receta de thomas m??dico. Es importante conocer la dosis del medicamento que recet?? thomas m??dico y utilizar un dispositivo de medici??n que mida la dosis de manera precisa. Si est?? tomando el medicamento usted mismo o se lo est?? dando a un ni??o mayor de 1 a??o de edad, puede utilizar el dispositivo suministrado por el fabricante para medir la dosis de acuerdo con las instrucciones siguientes. Si est?? dando el medicamento a un ni??o derrick a un a??o de edad, no debe utilizar el dispositivo de medici??n suministrado porel fabricante ya que blessing no medir?? dosis lashae??as de manera precisa. En cambio, use el dispositivo que le proporcione thomas farmaceuta. Si la suspensi??n comercial no est?? disponible y el farmaceuta prepara socrates suspensi??n para usted, ??l o tyra le proporcionar??n un dispositivo para medir la dosis. [place] utilice socrates cuchara para caf?? para medir dosis de la suspensi??n oral de oseltamivir. Si est?? dando la suspensi??n comercial a un adulto o a un ni??o mayor de un a??o, siga estos pasospara medir la dosis con la jeringa que se proporciona: ??? Agite ra la suspensi??n andrés al menos 5 segundos antes de cada uso para mezclar uniformemente el medicamento. ??? Favio la botella presionando la tapa hacia abajo y gir??ndola al mismo tiempo. ??? Empuje el ??mbolo del dispositivo de medici??n completamente hasta la punta. ??? Introduzca firmemente la punta del dispositivo de medici??n en la abertura de la parte superior de la botella. ??? Gire la botella boca abajo (con el dispositivo de medici??n introducido). ??? Tire lentamente del ??mbolo hasta que la cantidad de suspensi??n recetada por thomas m??dico llene el dispositivo de medici??n hasta la erin apropiada. Es posible que algunas dosis mayores deban medirse dos veces con el dispositivo de medici??n. Si no est?? seguro de c??mo medir correctamente la dosis que thomas m??dico le harecetado, preg??ntele a thomas m??dico o farmac??utico. ??? Gire la botella hacia arriba (con el dispositivo de medici??n introducido), y retire lentamente el dispositivo de medici??n. ??? [place] el oseltamivir directamente en thomas boca desde el dispositivo de medici??n, no lo combine con kim??n otro l??qu jones. ??? Vuelva a colocar la tapadera del frasco y ci??rrelo ra. ??? Retire el ??mbolo del jimena del dispositivo de medici??n y enjuague ambas partes bajo el grifo. Deje que las piezas se sequen alaire antes de volver a colocarlas para el siguiente uso. Llame a thomas m??dico o farmaceuta para saber c??mo debe medir socrates dosis de oseltamivir suspensi??n sino tiene el dispositivo de medici??n que vino con blessing medicamento. Si tiene dificultad para tragar c??psulas, thomas m??dico puede indicarle que favio la c??psula y mezcleel contenido con un l??quido endulzado. Para preparar la dosis de oseltamivir para personas que no pueden tragar las c??psulas: ??? Sostenga la c??psula sobre un belia??n lashae??o y cuidadosamente favio la c??psula y vac??e todo el polvo de la c??psula en el belia??n. Si el m??dico le indic?? que tome m??s de socrates c??psula para thomas dosis, entonces favio el n??qiana correcto de c??psulas en el belia??n. ??? Agregue socrates lashae??a cantidad de l??quido endulzado, gayla un jarabe de chocolate sin az??car o regular, jarabe de ma??z, cobertura de caramelo o az??car timoteo disuelta en agua al polvo. ??? Agite la mezcla. ??? Trague todo el contenido de esta mezcla de inmediato. Contin??e tomando oseltamivir hasta que se termine la receta m??dica, incluso si se empieza a sentir mejor. No deje de kandace el oseltamivir sin consultar a thomas m??dico. Si bret de kandace oseltamivir muy pronto o si omite algunas dosis, es posible que thomas infecci??n no sea tratada adecuadamente, o posiblemente no est?? protegido contra la gripe. Si se siente peor o desarrolla nuevos s??ntomas mientras rudolph oseltamivir, o si los s??ntomas de lagripe no empiezan a mejorar, llame a thomas m??dico. P??darshan a thomas farmac??utico o a thomas m??dico socrates copia de la informaci??n del fabricante para el paciente. ??Qu?? OTRO USO se le da a blessing medicamento? El oseltamivir se puede utilizar para tratar y prevenir infecciones de influenza aviar (p??jaros) (un virus que usualmente infecta a los p??jaros oneil tambi??n puede ocasionar enfermedades graves en los humanos). El oseltamivir tambi??n se puede utilizar para tratar y prevenir infecciones de influenza A (H1N1). A veces se receta blessing medicamento para otros usos; p??darshan m??s informaci??n a thomas m??dico o a thomas farmac??utico. ??Cu??les son las PRECAUCIONES ESPECIALES que mehreen seguir? Antes de kandace oseltamivir, ??? informe a thomas m??dico y farmac??utico si es al??rgico al oseltamivir, a cualquier otro medicamento o a alguno de los ingredientes de las c??psulas o suspensi??n de oseltamivir. Consulte con thomas farmac??utico o revise la informaci??n del fabricante para el paciente para obtener socrates lista de los ing redientes. ??? informe a thomas m??dico qu?? medicamentos con y sin receta m??dica, vitaminas, suplementos nutricionales y productos a base de plantas rudolph o tiene planeado kandace mientras est?? en tratamiento con oseltamivir. Es posible que thomas m??dico deba cambiar las dosis de tessy medicamentos o supervisarle atentamente para saber si sufre efectos secundarios. ??? informe a thomas m??dico si alguna vez loaiza tomado oseltamivir para tratar o prevenir la gripe. ??? informe a thomas m??dico si padece alguna enfermedad que afecte thomas sistema inmunitario, gayla el virus de la inmunodeficiencia humana (VIH) o el s??ndrome de inmunodeficiencia adquirida (SIDA), o si tiene alguna enfermedad card??jen, pulmonar o renal. ??? informe a thomas m??dico si est?? embarazada planea quedar embarazada o est?? amamantando. Llame a thomas m??dico si queda embarazada mientras rudolph oseltamivir. ??? debe saber que las personas, especialmente los ni??os y adolescentes que tienen gripe, pueden llegar a sentir confusi??n, agitaci??n oansiedad, y pueden comportarse de forma extra??a, tener convulsiones o alucinar (gudelia cosas o escuchar voces que no existen), o podr??an hacerse da??o o quitarse la aris. Usted o thomas hijo pueden desarrollar estos s??ntomas tanto si utilizan oseltamivir gayla si no, y los s??ntomas pueden comenzar pocodespu??s de iniciar el tratamiento si utilizan el medicamento. Si thomas hijo tiene gripe, debe vigilarsu comportamiento con michelle atenci??n y llamar al m??dico de inmediato si se muestra confuso o se comporta de forma anormal. Si tiene gripe, usted, thomas isaac o thomas encargado del cuidado debe llamar al m??dico de inmediato si se siente confundido, thomas comportamiento es anormal, o piensa en hacerse da??o Aseg??rese de que thoams isaac o cuidador conozcan los s??ntomas que pudieran ser graves para que puedan llamar al m??dico si usted no puede buscar tratamiento por thomas cuenta. ??? pregunte a thomas m??dico si deber??a vacunarse contra la gripe cada a??o. El oseltamivir no sustituye a la vacuna anual contra la gripe. Si loaiza recibido o piensa recibir la vacuna antigripal intranasal (FluMist; vacuna antigripal que se pulveriza en la nariz), debe informarlo a thomas m??dico antes de que tome el oseltamivir.El oseltamivir puede hacer que la vacuna antigripal intranasal sea menos eficaz si se rudolph hasta 2 semanas despu??s o hasta 48 horas antes de la administraci??n de la vacuna antigripal intranasal. ??? Si usted tiene intolerancia a la fructosa (socrates condici??n hereditaria en la que al cuerpo le faltala prote??na necesaria para descomponer la fructosa [az??car de la fruta, gayla el sorbitol]), debe saber que la suspensi??n oral se endulza con oseltamivir. Informe a thomas m??dico si padece de intolerancia a la fructosa. ??Qu?? tengo que hacer SI ME OLVIDO de kandace socrates dosis? Si olvida kandace socrates dosis, t??bharat guillaume pronto gayla recuerde hacerlo. Si faltan menos de 2 horas antes de thomas siguiente dosis programada, omita la dosis que le falt?? y contin??e con thomas programa de dosificaci??n regular. Si bret de kandace varias dosis, llame a thomas m??dico para que le d?? instrucciones.No duplique la dosis para compensar la que omiti??. ??Cu??les son los EFECTOS SECUNDARIOS que podr??a provocar blessing medicamento? El oseltamivir puede ocasionar otros efectos secundarios. Informe a thomas m??dico si cualquiera de estos s??ntomas se vuelve grave o no desaparece: ??? n??useas ??? v??mitos ??? dolor de est??keagan ??? diarrea ??? dolor de ronal Algunos efectos secundarios pueden ser graves. Si experimenta cualquiera de estos s??ntomas o cualquiera de los que se mencionan en la secci??n PRECAUCIONES ESPECIALES, llame a thomas m??dico inmediatamente: ??? erupci??n, urticaria o ampollas en la piel ??? aftas en la boca ??? picaz??n ??? hinchaz??n de la harvey o de la lengua ??? dificultad para respirar o tragar ??? ronquera ??? confusi??n ??? problemas del habla ??? movimientos temblorosos ??? alucinaciones (gudelia cosas o escuchar voces que no existen) Si desarrolla un efecto secundario grave, usted o thomas doctor puede enviar un informe al programa de divulgaci??n de efectos adversos 'MedWatch' de la Administraci??n de Alimentos y Medicamentos (FDA, por thomas sigla en ingl??s) en la p??sue de Internet (https://www.fda.gov/Safety/MedWatch) o por tel??fono al . ??C??mo mehreen ALMACENAR o DISPONER de blessing medicamento? Mantenga blessing medicamento en thomas envase original y fuera del alcance de los ni??os. Almacene las c??psulas a temperatura ambiente y lejos del exceso de calor y humedad (no en el cuarto de ba??o). La suspensi??n de oseltamivir comercial se puede mantener a temperatura ambiente por hasta 10 d??as o enel refrigerador por hasta 17. La suspensi??n de oseltamivir que prepara el farmaceuta se puede mantener a temperatura ambiente por hasta 5 d??as o en el refrigerador por hasta 35. No congele la suspensi??n de oseltamivir. Es importante que mantenga todos los medicamentos fuera de la vista y el alcance de los ni??os, debido a que muchos envases (tales gayla los pastilleros de uso semanal, y aquellos que contienen gotas oft??lmicas, cremas, parches e inhaladores) no son a prueba de ni??os lashae??os, quienes pueden abrirlos f??cilmente. Con el fin de protegerlos de socrates intoxicaci??n, siempre use tapaderas de seguridade inmediatamente coloque los medicamentos en un lugar seguro, savanah que se encuentre arriba y lejos de thomas vista y alcance. [email or web address]/ Los medicamentos que ya no son necesarios se deben desechar de socrates manera apropiada para asegurarsede que las mascotas, los ni??os y otras personas no puedan consumirlos. Sin embargo, no debe desechar estos medicamentos por el inodoro. En thomas lugar, la mejor manera de deshacerse de tessy medicamentoses a demond??s de un programa de devoluci??n de medicamentos. Hable con thomas farmac??utico o p??ngase en contacto con thomas departamento de basura/reciclaje local para conocer acerca de los programas de devoluci??n de medicamentos de thomas comunidad. Consulte el sitio web de la Administraci??n de Medicamentos y Alimentos (FDA), (https://goo.gl/xRXbPn) para obtener m??s informaci??n de c??mo desechar de forma camarillo los medicamentos, si no tiene acceso al programa de devoluci??n de medicamentos. ??Qu?? mehreen hacer en tyrel de socrates SOBREDOSIS? En tyrel de sobredosis, llame a la l??carmenza de ayuda de control de envenenamiento al . La informaci??n tambi??n est?? disponible en l??carmenza en https://www.poisonhelp.org/help. Si la v??ctima se loaiza derrumbado, loaiza tenido socrates convulsi??n, tiene dificultad para respirar, o no puede despertarse, llame inmediamente a los servicios de emergencia al 911. Los s??ntomas de la sobredosis pueden incluir: ??? n??useas ??? v??mitos ??Qu?? OTRA INFORMACI??N de importancia deber??a saber? El oseltamivir no impedir?? que usted contagie la gripe a las dem??s personas. Debe lavarse las albertina con frecuencia y evitar pr??cticas gayla compartir vasos y utensilios que pueden transmitir el virus a otros. No deje que otras personas usen thomas medicamento. Es probable que no pueda volver a surtir thomas receta m??dica. Si a??n tiene s??ntomas de influenza despu??s de terminar de kandace oseltamivir, llame a thomas m??dico. Es importante que Ud. mantenga socrates lista escrita de todas las medicinas que Ud. est?? tomando, incluyendo las que recibi?? con receta m??dica y las que Ud. compr?? sin receta, incluyendo vitaminas y suplementos de dieta. Ud. debe tener la lista cada vez que visita thomas m??dico o cuando es admitido a un hospital. Tambi??n es socrates informaci??n importante en casos de emergencia. Blessing informe sobre medicamentos es solo para thomas informaci??n, y no se considera gayla un consejo para el paciente. Debido a la naturaleza de informaci??n sobre drogas, por favor consulte thomas medico o farmac??utico sobre el uso cl??cristóbal espec??fico. La [employer]., afirma que la informaci??n proporcionada a continuaci??n fue formulada con razonable est??ndar de asistencia, y en conformidad con el rod profesional. La [employer], [place]. no provee representaciones o garant??as, expresas o implicadas, incluyendo, oneil no limitado a, cualquiera garant??a de comercializaci??n y/o apropiado para socrates funci??n particular, con respecto a hever informaci??n y niega espec??ficamente tales garant??as. Se avisa a los usuarios que las decisiones con respecto a terapia de drogas son decisiones m??dicas complejas requiriendo decisiones independientes e informadas de un profesional de belén y que la informaci??n se da para prop??sitos de informaci??n solamente. La entera monograf??a de socrates droga debe ser revisada considerando un comprensivo entendimiento de las acciones, usos, y efectos secundarios de la droga. La [employer], [place]. no endosa o recomienda el uso de ninguna medicina. La informaci??n no es un sustituto de asistencia m??dica. AHFS?? Patient Medication Information???. ?? Derechos reservados, 2023. Documento actualizado 15 Diciembre 2022, [employer]?? [address] [facility] [address], [address], [address] Todos los derechos reservados. La duplicaci??n de blessing documento para thomas uso comercial, deber?? ser autorizada por [employer]. [facility]?? Patient Medication Information???. ?? Copyright, 2023 ?? * Chris Meraz MD: PERFORM Event Display: Patient Education Leaflets Authored Date: [id number] Chronic Kidney Disease (CKD) ?? [id number] Enfermedad cr??rosa de los ri??ones La funci??n de los ri??ones es??eliminar los desechos y el exceso de agua de la lucas.??Cuando losri??ones no funcionan gayla deber??an, los desechos empiezan a acumularse en la lucas. [place] se denomina enfermedad cr??rosa de los ri??ones. Se considera que la enfermedad de los ri??ones es cr??nicacuando el da??o renal o la disminuci??n de la funci??n renal dura, al menos, selwyn meses. La insufici encia renal cr??rosa permite que el exceso de agua, desechos y toxinas se acumule en el cuerpo. Conel tiempo, esta enfermedad puede ser potencialmente mortal. Es posible que necesite di??lisis o un trasplante de ri?n para permanecer vivo. Esta forma m??s grave se denomina enfermedad renal terminal. La diabetes es socrates de las causas principales de la insuficiencia renal cr??rosa. Otras causas incluyen la presi??n arterial clint, el endurecimiento de las arterias (aterosclerosis), el lupus, la inflamaci??n de los vasos sangu??neos (vasculitis) y las infecciones virales o bacterianas previas. Ciertos analg??sicos de venta spencer pueden provocar insuficiencia renal si se sisi a menudo andrés un per??odo prolongado. Estos incluyen la aspirina, el ibuprofeno y los medicamentos antinflamatorios relacionados que se denominan TESSIE (medicamentos antinflamatorios no esteroideos). Cuidados en [facility] [facility] lo ayudar??n a cuidarse en [facility] ??? Si tiene diabetes, hable con thomas proveedor de atenci??n m??dica acerca de c??mo mantener el nivel de az??car en la lucas bajo control. Preg??ntele si necesita realizar alg??n cambio en thomas dieta, thomas estilo de aris o tessy medicamentos. ??? Si tienepresi??n arterial clint, alexa lo siguiente: o [place] el medicamento recetado para bajar la presi??n arterial al objetivo recomendado de menos de 130/80??mm??Hg. o Comience un programa de ejercitaci??n danilo??dica que disfrute.??Consulte a thomas proveedor de atenci??n m??dica para estar seguro de que el programa de ejercicios que planific?? es el adecuado para usted. o Consuma menos miley (sodio).??El proveedor de atenci??n m??dica puede decirle cu??nta miley es seguro que consuma por d??a. ??? Si tiene sobrepeso, hable con thomas proveedor de atenci??n m??dica acerca de un plan para adelgazar. ??? Si fuma, debe dejar de hacerlo. Fumar empeora la enfermedad de los ri??ones y lo pone en riesgo de desarrollar otras enfermedades graves.??Hable con thomas proveedor de atenci??n m??dica acerca de las maneras que e xisten para ayudarle a dejar de fumar.??Para obtener m??s informaci??n, visite los siguientes enlaces: o www.Bapul.gov/sites/default/files/pdf/bntgcxlv-uxx-hoe-accessible.pdf o www.Ensightenfree.gov o www.cancer.org/healthy/stayawayfromtobacco/guidetoquittingsmoking ??? La mayor??a de los pacientescon insuficiencia renal cr??rosa deben seguir socrates dieta especial. Aseg??rese de entender c??mo es la suya. En general, necesitar?? restringir thomas consumo de prote??nuha, miley, potasio y f??sforo.??Tambi??n necesitar?? reducir el consumo de l??quidos. ??? La enfermedad cr??rosa de los ri??ones es un factor de riesgo para la enfermedad del coraz??n. Hable con thomas proveedor de atenci??n m??dica sobre cualquier otro factor de riesgo que pueda tener y sobre qu?? puede hacer para reducirlos. ??? Hable con thomas proveedor de atenci??n m??dica sobre cualquier medicamento que est?? tomando para determinar sitiene que reducir la dosis o dejarlo. ??? Por thomas propia seguridad, consulte al proveedor de atenci??n m??dica antes de kandace cualquier medicamento o suplemento. No use los siguientes medicamentos de venta spencer. O consulte a thomas proveedor de atenci??n m??dica antes de usarlos: o Aspirina y medicamentos antinflamatorios no esteroides (TESSIE), gayla el ibuprofeno o el naproxeno. El uso del paracetamolpara la fiebre o el dolor est?? ra. o Laxantes y anti??cidos que contengan magnesio o aluminio o Enema Fleet o enemas con sales de fosfato que contengan f??sforo o Ciertos medicamentos bloqueadoresdel ??cido estomacal, gayla la cimetidina o la ranitidina?? o Descongestivos que contengan pseudoefed cosmo?? o Suplementos de hierbas ?? Atenci??n de seguimiento Programe socrates stephie de seguimiento con el proveedor de atenci??n m??dica gayla se le indique. Visite las siguientes p??ginas web para obtener m??s informaci??n: ??? Asociaci??n Americana de Pacientes Renales (Spanish Association of Kidney Patients): www.aakp.org ??? Fundaci??n Nacional del Ri?n (National Kidney Foundation): www.kidney.org ??? Fondo Estadounidense del Ri?n (Spanish Kidney Fund): www.kidneyfund.org ??? Programa Nacional de Educaci??nsobre Insuficiencia Renal (National Kidney Disease Education Program): www.nkdep.nih.gov Si le realizaron socrates radiograf??a, un electrocardiograma u otro examen de diagn??stico, se le informar?? de cualquier nuevo resultado que pueda afectar thomas cuidado. ?? Cu??ndo llamar al?? 911 Llame al?? 911 de inmediato si tiene alguno de los siguientes s??ntomas: ??? Debilidad grave, mareos, desmayos, somnolencia o confusi??n ??? Dolor de pecho o falta de aire ??? El coraz??n late r??pido, despacio o de manera irregular ?? Cu??ndo debe buscar atenci??n m??dica Llame al proveedor de atenci??n m??dica de inmediato si tiene alguno de estos s??ntomas: ??? Malestar estomacal (n??useas) o v??mitos ??? Fiebre de 100.4?F??(38?C) o superior, o seg??n le haya indicado el proveedor ??? Aumento de peso inesperado o hinchaz??n de las rodillas, los tobillos o alr ededor de los ojos ??? Orinar poco o no orinar ??? S??ntomas nuevos o que empeoran ?? Last Reviewed Date: 2021 ?? [id number] [employer]. Todos los derechos reservados. Esta informaci??n no pretende sustituir la atenci??n m??dica profesional. S??lo thomas m??dico puede diagnosticar y tratar un problema de belén. ?? * Chris Meraz MD: PERFORM Event Display: Patient Education Leaflets Authored Date: [id number] Discharge Instructions for Chronic Kidney Disease (CKD) ?? [address] Instrucciones de clint para la enfermedad renal cr??rosa (ERC) La funci??n de los ri??ones es eliminar los desechos y el exceso de agua de la lucas. Cuando los ri??ones no funcionan gayla deber??an, los desechos empiezan a acumularse en la lucas. [place] se denomina enfermedad renal cr??orsa (ERC).?? Se considera que la enfermedad renal es cr??rosa cuando el da??o renal o la disminuci??n de la funci??n renal dura, al menos, 3??meses. La ERC permite que el exceso de agua, desechos y toxinas se acumule en el cuerpo. [place] puede llegar a ser mortal con el tiempo. Es posible que necesite di??lisis oun trasplante de ri?n para permanecer vivo. Esta forma m??s grave se denomina enfermedad renal terminal. La enfermedad renal cr??rosa puede ocurrir por muchos factores. Entre ellos, se encuentran los siguientes: ??? Infecciones ??? Diabetes ??? Presi??n arterial clint ??? C??lculos renales ??? Problemas circulatorios ??? Reacciones a medicamentos Tener enfermedad renal significa que deber?? hacer muchos cambios en thomas aris. Aprenda todo lo que pueda acerca de la enfermedad renal para adaptarse mejor a esos cambios. Es importante recordar que el objetivo principal del tratamiento es detener la ERC para que no se convierta en insuficiencia renal. Los tratamientos pueden variar seg??n el avance de esta afecci??n. As?? que siga siempre las indicaciones del proveedor de atenci??n m??dica respecto al manejo de la afecci??n. A continuaci??n se detallan algunas cosas que puede hacer para controlar la ERC. Cambios en lo que come y compa Si tiene ERC, el cuerpo tampoco puede procesar ciertas cosas. Necesita hacer cambios en lo que comey compa. Coma comidas lashae??as y frecuentes que tengan michelle fibra y calor??as. Tambi??n es posibleque le recomienden limitar el consumo de l??quidos. Hable con el proveedor de atenci??n m??dica antes de hacer cambios en lo que come y compa. Cualquiercambio en la alimentaci??n puede resultar abrumador y confuso. Puede pedirle al proveedor que lo derive a un nutricionista registrado. Esta persona puede ayudar a planificar y gestionar los cambios en la alimentaci??n. Reduzca el consumo de miley (sodio) Es posible que le indiquen que consuma 1500??mg o menos de sodio al d??a. En esta secci??n encontrar?? informaci??n para lograrlo. Cuando compre alimentos, alexa lo siguiente: ??? Compre gwen y pescados frescos, y verduras y frutas frescas. No tienen sodio a??adido. ??? Nocompre alimentos procesados. Por ejemplo, comidas congeladas y precocidas, carne de res y pescado enlatados y embutidos. ??? No compre alimentos salados, gayla queso, encurtidos o refrigerios salados.??? Hoa todas las etiquetas de los alimentos para verificar el nivel de sodio. ??? No coma comida chatarra. Suele tener un alto contenido de sodio. Al cocinar en el hogar, alexa lo siguiente: ??? No agregue miley a los alimentos mientras cocina ni antes de comer. ??? Sazone los alimentos con hierbas frescas, ajo, cebolla, c??tricos y vinagre aromatizado. Use mezclas de especias sin miley. ???No use sustitutos de la miley con alto contenido de potasio. Preg??ntele al proveedor de atenci??n m??dica o nutricionista qu?? sustitutos de la miley puede usar. Otras duckworth de sodio oculto incluyen las siguientes: ??? Agua ablandada. No elida agua que haya pasado por un ablandador de agua. Tiene sodio. ??? Agua embotellada. Algunos tipos de agua mineral tienen sodio. Hoa las etiquetas. ??? Algunos medicamentos.Algunos medicamentos de venta spencer que contienen bicarbonato de sodio o carbonato de sodio. Hoa las etiquetas atentamente. Si no est?? seguro acerca de un medicamento, consulte al farmac??utico antes de tomarlo. Controle la cantidad de potasio ?? Es posible que le indiquen que consuma menos de 1,500??mg a 2,700??mg de potasio por d??a. Para mantenerse en el objetivo, alexa lo siguiente: ??? Consulte todas las etiquetas de los alimentos para gudelia cu??nto potasio contienen. ??? Escurra siempre los alimentos enlatados antes de servirlos. [place] incluye verduras, frutas y gwen enlatadas.??? No coma albert integral, salvado de marychuy ni granola. ??? No consuma leche, sunny de leche ni yogur. ??? No coma taras secos, semillas, mantequilla de man??, frijoles secos ni guisantes. ??? No coma galletas de higos, chocolate ni melaza. ??? No use sustitutos de la miley con contenido alto de potasio. Preg??ntele al proveedor de atenci??n m??dica o nutricionista qu?? sustitutos de la miley puede usar. Limite el consumo de prote??na Seg??n thomas afecci??n, el proveedor de atenci??n m??dica le explicar?? por qu?? debe limitar las prote??nuha en thomas dieta. Para esto, alexa lo siguiente: ??? Coma menos carne, productos l??cteos, yogur, huevos y queso. ??? Consulte todas las etiquetas de los alimentos para gudelia cu??nta prote??na contienen. Evite el f??sforo Si tiene ERC, los ri??ones no pueden eliminar muy ra el f??sforo de la lucas. Un nivel alto de f??sforo puede causar da??os en el cuerpo y debilitar los huesos. Para evitar el f??sforo en la alimentaci??n, siga los siguientes consejos: ??? No elida cerveza, cacao, refrescos de cola, cerveza tipo carlos eduardo, bebidas de chocolate o t??s fr??os en ishan. ??? No consuma queso, leche, helado, pud??n, yogur ni caramelo. ??? No consuma h??gado (carne de res, armando), gwen de ??rganos (v??sceras), ostras, cangrejos ni sanjana. ??? No coma frijoles (soja, ri?n, annemarie, garbanzo y del norte), arvejas (garbanzos y guisantes partidos), cereales de salvado ni taras secos. ?? Cuidados generales en el hogar ??? Evite fatigarse en exceso o cansarse demasiado. ??? Descanse mucho y aumente la cantidad de horas de ramon??o nocturno. ??? Doble y mueva las piernas con frecuencia. [place] previene la formaci??n de co??gulos de lucas cuando descansa andrés mucho tiempo. ??? Controle thomas peso todos los d??as. H??brittni siempre a la misma hora y con el mismo tipo de ropa. Lleve un registro escrito de thomas peso diario. ??? [place] los medicamentos exactamente gayla se le haya indicado. ???Asista a todas tessy visitas de control. ??? [place] medidas para controlar la presi??n arterial clint??alena diabetes. P??darshan recomendaciones al proveedor de atenci??n m??dica. ??? Hable con el proveedor a cerca de la di??lisis. Es posible que se beneficie de blessing procedimiento si thomas enfermedad renal cr??rosa avanza hacia socrates etapa terminal. ?? Atenci??n de seguimiento Alexa un seguimiento con el proveedor de atenci??n m??dica seg??n le hayan indicado. ?? Cu??ndo debe llamar al proveedor de atenci??n m??dica Llame de inmediato al proveedor de atenci??n m??dica si presenta cualquiera de los siguientes s??ntomas: ??? Dificultad para comer o beber ??? P??rdida de peso mayor a?? 1??kg (2??libras) en?? 24??horas o mayor a los?? 2.25??kg (5??libras) en?? 7 d??as ??? Aumento de peso mayor a los 1.3 kg (3??libras) en 2 d??as o 2.25 kg (5??libras) en 3 d??as ??? Poco o nada de orina ??? Dificultad para respirar ??? Eulalia musculares ??? Fiebre de?? 100.4??F ( 38??C) o superior, o seg??n lo que le haya indicado el proveedor ??? Lucas en la orina o en las heces ??? Secreci??n de l??quidos con lucas que sale de la nariz, la boca o los o??dos ??? Dolor de ronal intenso o convulsiones; ??? V??mitos ??? Hinchaz??n en las piernas o en los tobillos ??? Sentirse deprimido o ansioso ?? Cu??ndo llamar al 911 Llame al 911 de inmediato si presenta los siguientes s??ntomas: ??? Dolor de pecho ?? Last Reviewed Date: 2021 ?? [id number] [employer]. Todos los derechos reservados. Esta informaci??n no pretende sustituir la atenci??n m??dica profesional. S??lo thomas m??dico puede diagnosticar y tratar un problema de belén. ?? Patient Care team information Care Team Personnel Name: Osman Taylor RN Position: [facility] RN Member Role: Primary Care Nurse Name: Jayden Jameson RN Position: [facility] Outreach Member Role: Primary Care Nurse Name: Rani Camacho RN Position: [facility] RN Member Role: Primary Care Nurse Name: Liliane Jacobs RN Position: [facility] RN Member Role: Primary Care Nurse Name: Hilda Cline NP Position: [facility] Outreach Member Role: PCP Address: [address] [place] [address] Telecom: Care Team Related Persons Name: RADHA TROTTER Name: VAUGHN TROTTER Insurance Providers Guarantor name: AMALIA TROTTER Health Plan Information #: 1 Payer: NA Member Number: [id number] Policy Number: NA Group Number: [facility] Plan Information #: 2 Payer: NA Member Number: [id number] Policy Number: NA Group Number: [id number]
== END 2024-07-03 12:00 | disposition home or self-care (01) ==
LOC: HO.HHCL 11:59
PROVIDERS: Visit Provider Nurse Practitioner Primary Care
DX: Z12.5 Encounter for screening for malignant neoplasm of prostate (principal); E11.69 Type 2 diabetes mellitus with other specified complication; I10 Essential (primary) hypertension; R35.1 Nocturia; E78.5 Hyperlipidemia, unspecified
CPT/HCPCS: 36415; 80048; 80061; 82607; 83036; 84153

== ENCOUNTER → 2024-09-04 14:46 | Outpatient (REF) | payer OTHER, SELFPAY ==
--- OUTSIDE RECORDS SUMMARY | 2024-09-04 15:37 | XMS_ITS | Clinical Summary ---
Author Organization [facility] Address [address] [place] [address] Care Team Providers Care Paginator Name Role Phone Unavailable Primary Care Provider Unavailabl e Source Comments PLEASE NOTE, if this patient is a minor, it may be UNLAWFUL to discuss sensitive information that is contained in these records (such as FAMILY PLANNING, MENTAL HEALTH or SUBSTANCE ABUSE) with the minor patient's parent or other person without the patient's specific authorization.[facility] Medications albuterol sulfate 90 mcg/actuation inhalerIndication s:Moderate persistent asthma without complication Inhale 2 Puffs into the lungs every 4 to 6 (four to six) hours as needed for shortness of breath or wheezing 1 Inhaler 3 9 Active insulin glargine (LANTUS SOLOSTAR U-100 INSULIN) 100 unit/mL (3 mL) injection penIndications:Ty pe 2 diabetes mellitus without complication, with long-term current use of insulin ([facility]) Inject 74 Units into the skin once daily 24 mL 5 9 Active fluticasone propionate (FLOVENT HFA) 110 mcg/actuation inhalerIndication s:Moderate persistent asthma without complication Inhale 1 Puff into the lungs 2 (two) times daily 1 Inhaler 3 9 Active insulin lispro (ADMELOG SOLOSTAR U-100 INSULIN) 100 unit/mL injectionIndicati ons:Type 2 diabetes mellitus without complication, with long-term current use of insulin ([facility]) 10 Syringe 3 9 Active canagliflozin 100 mg tabIndications:Ty pe 2 diabetes mellitus without complication, with long-term current use of insulin ([facility]) Take 300 mg by mouth every morning 30 Tab 3 [address] Active [address] tabletIndications :Coronary artery disease of [place] heart with stable angina pectoris, unspecified vessel or lesion type ([facility]),PA, old TAKE ONE TABLET BY MOUTH DAILY 30 Tab 11 0 Active EASY TOUCH LANCETS 28 gauge USE TO TEST FINGER STICK BLOOD SUGAR 3 (THREE) TIMES A DAY 150 Each 11 0 Active ALCOHOL PADS USE 4 (FOUR) TIMES DAILY 100 Each 11 0 Active rosuvastatin (CRESTOR) 40 mg tablet TAKE ONE TABLET BY MOUTH DAILY 30 Tablet 3 1 Active lisinopriL 40 mg tablet TAKE ONE TABLET BY MOUTH DAILY 30 Tablet 3 1 Active metFORMIN (GLUCOPHAGE) 1,000 mg tablet TAKE ONE TABLET BY MOUTH 2 (two) times a day WITH A MEAL 60 Tablet 1 1 Active ranolazine (RANEXA) 1,000 mg 12 hr tablet TAKE ONE TABLET BY MOUTH EVERY TWELVE HOURS 60 Tablet 1 1 Active metoprolol succinate (TOPROL-XL) 25 mg 24 hr tablet TAKE ONE TABLET BY MOUTH DAILY 30 Tablet 3 1 Active omeprazole (PRILOSEC) [address] capsule TAKE ONE CAPSULE BY MOUTH EVERY MORNING BEFORE BREAKFAST 30 Capsule 3 1 Active Active Problems Problem Noted Date Diagnosed Date Moderate persistent asthma without complication 04/24/2019 Heart murmur 04/24/2019 PA, old 04/24/2019 Overview (04/24/2019): 2013 x3 with 2 [address] Type 2 diabetes mellitus wit hout complication, with long-term current use of insulin ([facility]) 04/24/2019 Hearing loss of right ear 04/24/2019 Vision loss 04/24/2019 Class 1 obesity due to exces s calories with serious comorbidity and body mass index (BMI) of 30.0 to 30.9 in adult 04/24/2019 Immunizations Name Administration Dates Next Due Flu, Preservative Free 04/24/2019 PNEUMOCOCCAL POLYSACCHARIDE PPV23 07/30/2019 TDAP 04/24/2019 Social History Tobacco Use Types Packs/Day Years Used Date Smoking Tobacco: Former Cigarettes 2 40 Smokeless Tobacco: Never Tobacco Cessation:Counseling Given: Yes Alcohol Use Standard Drinks/Week Comments Not Currently 0 (1 standard drink = 0.6 oz pur e alcohol) Social Connections Answer Date Recorded Social Connections and Isolation 0 07/19/2019 Financial Resource Strain Answer Date R ecorded Financial Resource Strain 0 2018 Stress Answer Date Recorded Stress 0 07/19/2019 Physical Activity Answer Date Recorded Physical Activity 0 07/19/2019 Food Insecurity Answer Date Recorded Food 0 07/19/2019 Transportation Needs Answer Date Record ed Transportation 0 07/19/2019 Housing Stability Answer Date Recorded Housing 0 07/19/2019 Safety and Environment Answer Date Rudy rded Safety 0 07/19/2019 Utilities Answer Date Recorded Utilities 0 07/19/2019 Employment Answer Date Recorded Employment 0 07/19/2019 Sex and Gender Information Value Date Recorded Sex Assigned at Male 09/25/2019 12:05 PM PST Legal Sex Male 12:43 PM PST Gender Identity Male 09/25/2019 12:05 PM PST Sexual Orientation Straight 09/25/2019 12 :05 PM PST Occupation Industry Job Start Date Job End Date Disable Not on file Not on file Not on file Last Filed Vital Signs Vital Sign Reading Time Taken Comments Blood Pressure 110/62 07/30/2019 1:05 PM EST Pulse 79 07/30/2019 1:05 PM EST Temperature 36.7 ??C (98 ??F) 07/30/2019 1:05 PM EST Respiratory Rate 16 07/30/2019 1:05 PM EST Oxygen Saturation - - Inhaled Oxygen Concentration - - Weight 88.5 kg (195 lb) 07/30/2019 1:05 PM EST Height 167.6 cm (5' 6 ) 07/30/2019 1:05 PM EST Body Mass Index 31.47 07/30/2019 1:05 PM EST Plan of Treatment Not on file Insurance [facility]
--- OUTSIDE RECORDS SUMMARY | 2024-09-04 15:38 | XMS_ITS | Encounter Summary ---
Author Organization [facility] Address [address] [place] [address] [address], [place] [address] Care Team Providers Care Perinatal Nurse Name Role Phone Hilda Cline Primary Care Provider [phone] Todd Figueroa PharmD Unavailable [phone] Reason for Visit * Reason Comments Med Refill Encounter Details Date Type Department Care Team (Late st Contact Info) Description 11/22/[address] [facility] MEDICINE [address] [place] [address] Hilda Cline ANP [address] [place] [address] Social History Tobacco Use Types Packs/Day Years Used Date Smoking Tobacco: Former Cigarettes Smokeless Tobacco: Never Alcohol Use Standard Drinks/Week Comments Not Currently 0 (1 standard drink = 0.6 oz pur e alcohol) Sex and Gender Information Value Date Recorded Sex Assigned at Male 05/24/2022 10:37 AM EDT Legal Sex Male 10:37 AM EDT Gender Identity Male 05/24/2022 10:37 AM EDT Sexual Orientation Don't know 05/24/2022 10 :37 AM EDT documented as of this encounter Plan of Treatment Not on file documented as of this encounter Visit Diagnoses Not on filedocumented in this encounter Care Teams Perinatal Nurse Relationship Specialty Start Date End Date Hilda Cline ANP [address] [place] [address] PCP - General Family Medicine 11/17/20 Todd Figueroa, PharmD [address] [place] [address] Pharmacist Internal Medicine 11/24/23 documented as of this encounter
--- OUTSIDE RECORDS SUMMARY | 2024-09-04 15:38 | XMS_ITS | Encounter Summary ---
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 [employer] Name Role Phone Hilda Cline Primary Care Provider [phone] Todd Figueroa PharmD Unavailable [phone] Reason for Visit * Reason Onset Date Comments Med Refill 09/13/2023 Encounter Details Date Type Department Care Team (Late st Contact Info) Description 09/13/2023 Telephone [facility] MEDICINE [address] [place], [place] [phone] Hilda Cline ANP [address] [place], [place] [phone] Med Refill Social History Tobacco Use Types Packs/Day Years Used Date Smoking Tobacco: Former Cigarettes Smokeless Tobacco: Never Alcohol Use Standard Drinks/Week Comments Not Currently 0 (1 standard drink = 0.6 oz pur e alcohol) PHQ-2 Answer Date Recorded Patient Health Questionnaire-2 Score 0 01/27/2023 Housing Stability Answer Date Recorded What is your housing situation today? I have alfonso rodriguez 06/02/[address] you li ve. Do you have problems with any of the following? None of the above 06/02/2023 Food Insecurity Answer Date Recorded Within the past 12 months, y ou worried that your food would run out before you got money to buy more: Never True 06/02/2023 Within the past 12 months,th e food you bought just didn't last and you didn't have enough money to get more: Never True 03/2023 Transportation Answer Date Recorded In the past 12 months, has l ack of transportation kept you from medical appts, meetings, work or from getting things needed for daily living? No 06/02/2023 Utilities Answer Date Recorded In the past 12 months, has t he electric, gas, oil or water company threatened to shut off services in your home? No 06/02/2023 Depression Answer Date Recorded Patient Health Questionnaire-2 Score 0 01/27/2023 Sex and Gender Information Value Date Recorded Sex Assigned at Male 05/24/2022 10:37 AM EDT Legal Sex Male 10:37 AM EDT Gender Identity Male 05/24/2022 10:37 AM EDT Sexual Orientation Don't know 05/24/2022 10 :37 AM EDT documented as of this encounter Miscellaneous Notes * Telephone Encounter - Dara Negrete LPN - 09/13/2023 9:36 AM EST Medication pended to PCP. * Telephone Encounter - Anahy Rodriguez - 09/13/2023 9:23 AM EST TC from pt requesting medication refill. Medications needing refill : semaglutide (Rybelsus) 7 MG tablet To be sent to: [facility] - [place], [place] - [phone] [place] - [address] Blank [facility] informs pt is out of meds and would like to know if medication can be sent out today to finish pt bubble pack . documented in this encounter Plan of Treatment Not on file documented as of this encounter Goals Goal Patient Goal Type Associated Problems Recent Progress Patient-Stated? Author Hemoglobin A1c < 7 Result Component 10.1( 12:03 PM EST) No Declan Kauffman documented as of this encounter Visit Diagnoses Not on filedocumented in this encounter Care Teams Laborer [employer] Relationship Specialty Start Date End Date Hilda Cline ANP [address] [place] [address] PCP - General Family Medicine 11/17/20 Todd Figueroa, PharmD [address] [place] [id number] Pharmacist Internal Medicine 11/24/23 documented as of this encounter
--- OUTSIDE RECORDS SUMMARY | 2024-09-04 15:38 | XMS_ITS | Encounter Summary ---
Author Organization [employer] Address [address] [place] [address] Care Team Providers Care Accounts Payable Payroll Coordinator Name Role Phone Hilda Cline Primary Care Provider [phone] Todd Figueroa PharmD Unavailable [phone] Reason for Visit * Reason Comments Med Refill Encounter Details Date Type Department Care Team (Late st Contact Info) Description 09/12/2023 Refill [facility] MED[facility]INE [address] [place], [place] [phone] Hilda Cline ANP [address] [place], [place] [phone] Type 2 diabetes mellitus with hyperlipidemia ([facility]/H[facility]) Social History Tobacco Use Types Packs/Day Years [...] Hemoglobin A1c < 7 Result Component 10.1( 4 12:03 PM EST) No Declan Kauffman documented as of this encounter Visit Diagnoses Diagnosis Type 2 diabetes mellitus with hyperlipidemia (CMS/HCC) (CMS/HCC) documented in this encounter Care Teams Accounts Payable Payroll Coordinator Relationship Specialty Start Date End Date Hilda Cline ANP [address] [place] [address] PCP - General Family Medicine 11/17/20 Todd Figueroa, Ceferino [address] [place] [address] Pharmacist Internal Medicine 11/24/23 documented as of this encounter
--- OUTSIDE RECORDS SUMMARY | 2024-09-04 15:38 | XMS_ITS | Data Portability ---
Author Organization [employer] Address [address] [place] [id number] Care Team Providers Care Consultant Dietitian Name Role Phone SCHMIDTJOVANI Primary Care Provider [phone] HIM [facility] OTHER Assessment Encounter Date Assessment Date Assessment LastModified by Organization Details LastModified Time 07/05/2024 07/05/2024 I have reviewed and agree with the assessment and plan as documented by the pharmacology associate. I provided real-time medical direction for this encounter and was immediately available to provide additional phone-based assistance as needed. History as noted in EMR and by pharmacology associate. I would add / emphasize: Patient seen for report of URI sxs. AVSS afebrile and well appearing per report. Has medication to manage coexisting RAD and feels comfortable with plan for monitoring of sxs at home. Lungs clear per report without wheezing or increased WOB. pallfather Not available 07/08/2024 10:17:59 Plan of Treatment Reminders Order Date Submit Date Provider Last Modified By Organization Details Last Modified Time Details Appointments None record ed. Lab None record ed. Referral None record ed. Procedures None record ed. Surgeries None record ed. Imaging None record ed. Medication Orders None record ed. Patient TargetsNo targets recorded. Patient InstructionsNo instructions recorded. Reason for Referral None Reported. Medical Equipment None Reported. Allergies No known drug allergies Medications Name Sig Start Date Stop Date Status Note LastModified by Organization Details LastModified Time Alcohol Pads USE DIRECTED two (2) times a day active Not Available Not Available Not Available amlodipine 5 mg tablet TAKE 1 TABLET BY MOUTH ONCE DAILY active Not Available Not Available No t Available aspirin 81 mg tablet,delay ed release TAKE 1 TABLET BY MOUTH ONCE DAILY active Not Available Not Available No t Available metformin 1,000 mg tablet TAKE 1 TABLET BY MOUTH two (2) times a day WITH A MEAL active Not Available Not Available No t Available furosemide 20 mg tablet CAT 1 TABLETA POR LA BOCA CADA KUSH CUANDO SEA NECESARIO POR AUMENTO EN PESO AUMENTA 2 LBS EN OSVALDO KUSH O 5 LBS EN 3 BLAKCBURN. active Not Available Not Available N ot Available metoprolol succinate ER 25 mg tablet,exten ded release 24 hr TAKE 1 TABLET BY MOUTH ONCE DAILY active Not Available Not Available No t Available methylpredni solone 4 mg tablets in a dose pack CAT BRANDIN INDICADO EN EL PAQUETE POR 6 BLACKBURN CON COMIDA. active Not Available Not Available Not Available albuterol sulfate HFA 90 mcg/actuatio n aerosol inhaler INHALE 2 PUFF BY MOUTH EVERY 4 TO 6 HOURS NEEDED FOR SHORTNESS OF BREATH OR FOR WHEEZING active Not Available Not Available No t Available lisinopril 40 mg tablet TAKE 1 TABLET BY MOUTH ONCE DAILY active Not Available Not Available No t Available Novolog FlexPen U-100 Insulin aspart 100 unit/mL (3 mL) subcutaneous INJECT 9 UNITS SUBCUTANEOU SLY if bg > 200. +2 units for every 50 pts > 200. maximum 18 units daily active Not Available Not Available Not Available rosuvastatin 40 mg tablet TAKE 1 TABLET BY MOUTH ONCE DAILY active Not Available Not Available No t Available fenofibrate nanocrystall ized 145 mg tablet TAKE 1 TABLET BY MOUTH ONCE DAILY active Not Available Not Available No t Available cholecalcife rol (vitamin D3) 1,250 mcg (50,000 unit) capsule TAKE 1 CAPSULE BY MOUTH EVERY WEEK active Not Available Not Available No t Available ranolazine ER 1,000 mg tablet,exten ded release,12 hr TAKE 1 TABLET BY MOUTH two (2) times a day active Not Available Not Available No t Available oseltamivir 30 mg capsule CAT 1 CAPSULA POR LA BOCA DOS VECES AL KUSH POR 4 BLACKBURN. active Not Available Not Available No t Available Comfort EZ Pen Sandy 32 gauge x 5/16 USE FOR INJECT insulin 4 (FOUR) TIMES DAILY active Not Available Not Available Not Available Arnuity Ellipta 100 mcg/actuatio n powder for inhalation INHALE 1 PUFF BY MOUTH ONCE DAILY. rinse mouth and throat after use active Not Available Not Available No t Available Tresiba FlexTouch U-100 insulin 100 unit/mL (3 mL) subcutaneous pen INJECT 60 UNITS SUBCUTANEOU SLY ONCE DAILY active Not Available Not Available No t Available FreeStyle Precision Claudio Strips USE TO TEST FINGER STICK BLOOD SUGAR NEEDED FOR hypoglycemi a active Not Available Not Available No t Available OneTouch Delica Plus Lancet 33 gauge USE TO TEST FINGER STICK BLOOD SUGAR 3 (THREE) TIMES A DAY active Not Available Not Available Not Available Rybelsus 14 mg tablet TAKE 1 TABLET BY MOUTH ONCE DAILY 30 MINUTES BEFORE A MEAL OR other medicamento s active Not Available Not Available No t Available Rybelsus 7 mg tablet TAKE 1 TABLET BY MOUTH ONCE DAILY 30 MINUTES BEFORE A MEAL OR other medication active Not Available Not Available N ot Available FreeStyle Mary 2 Sensor kit USE 1 sensor EVERY 14 DAYS active Not Available Not Available No t Available FreeStyle Mary 2 [place] USE DIRECTED EVERY 8 HOURS active Not Available Not Available No t Available Flowflex COVID-19 Antigen Home Test kit USE DIRECTED NEEDED active Not Available Not Available No t Available Vitals Date Recorded Oxygen saturation Oxygen saturation in Arterial blood by Pulse oximetry Body weight Body temperature Respiratory rate Heart rate Systolic blood pressure Diastolic blood pressure Provider Name and Address Organization Details Last Updated DateTime 4 97 % 97 % 05861.7 44 g 97.6 [degF] 16 /min 76 /min 110 mm[Hg] 60 mm[Hg] Not Available [employer] - production 4 11:15:02 Social History None recorded. Functional Status None recorded. Mental Status None recorded. Family History Nothing Reported. Medical History No medical history recorded. Past Encounters Encounter ID Performer Location Encounter Start Date Encounter Closed Date Diagnosis/Indication Diagnosis SNOMED-CT Code Diagnosis ICD10 Code Diagnosis Note [id number] Adams Cuevas MD Main - [address] [id number] 07/05/2024 11:15:00 07/09/2024 11:32:59 Upper respiratory infection 56083669 J06.9 Health Concerns Section Related Observation LastModified by Organization Detai ls LastModified Time None Recorded Concern Status LastModified by Organization Details LastModified Time None Recorded Advance Directives Directive None Recorded Payers Encounter Date Sequence Insurance Name Policy Number Policy Whelan Covered Member ID Whelan Member ID Guarantor Name 07/05/2024 1 [facility] - DOS ON OR AFTER 2022 - DUAL ELIGIBLE - [employer] OPTIONS AND ONE CARE (MEDICARE REPLACEMENT/ADV ANTAGE - HMO) David Mercado [id number] David Mercado Notes Date Note Type Note Provider Name and Address Organization Details Recorded Time 07/05/2024 text/html [facility] Nurse Triage Notes (Kyler Matrinez): Reason For Request: AsthmaDenies: Increased work of breathing/labored ? with or without fever Unable to speak in full sentences without distress Discoloration of skin -cyanosis Needs to sleep sitting up, can? t catch breath Shortness of breath in setting of confusion Chief Complaints: Asthma, Common cold symptoms, CoughPMH: Asthma, Myocardial InfarctionComments : Commissary Steward verified the patient's name//address and phone number. Returned called to pt's daughter at 0950 to complete triage assessment. Pt's daughter reports pt was recently admitted to the hospital for observation for flu with asthma exacerbation. Daughter reports pt reporting pt feeling warm to the touch, increased cough & SOB. Daughter reports pt unable to sleep last night due to cough. Pt has hx of asthma and taking medications as prescribed. Daughter reports pt is speaking in full, complete sentences at time of call, just in Pashto . Education provided on the response time and the patient was advised to monitor reported s/s and seek emergency treatment if needed -Roxane Martinez RN .................. .................. .................. .................. .................. .................. .................. ............... [employer] Candy Batch Mixer Note From Jayant Singh: Pt co continued cough and cold symptoms. Pt was seen in ER and given a care plan/antibiotics/i nhaler. Pt daughter? s sts nebulizer machine and albuterol bullets are being picked up today. Pt able to speak in full sentences. Lungs clear bilaterally, good skin color and turgid, afebrile, baseline vitals assessed, WNL . [facility] contacted and advised to co time with current care plan. Pt and daughter educated on signs indicating the ER. Advised if symptoms persist to contact pcp. .................. .................. .................. .................. .................. .................. .................. ............... [facility] Consulted: Adams Cuevas .................. .................. .................. .................. .................. .................. .................. ............... Disposition: Fulfilled Adams Cuevas MD [address] [facility], [place], [address], [employer] 07/08/2024 10:18:16
--- OUTSIDE RECORDS SUMMARY | 2024-09-04 15:38 | XMS_ITS | Encounter Summary ---
Author Organization [employer] [facility] Address [address] [facility] 7 [place] [address] Care Team Providers Care Forest Pathologist Name Role Phone Hilda Cline Primary Care Provider [phone] Todd Figueroa PharmD Unavailable [phone] Reason for Visit * Reason Onset Date Comments Med Refill 03/15/2024 Encounter Details Date Type Department Care Team (Late st Contact Info) Description 03/15/2024 Refill [facility] MEDICINE [address] [place], [place] [phone] Lili Johnston MD [address] [place], [place] [phone] Hypertension associated with diabetes (CMS/HCC) (CMS/HCC) Social History Tobacco Use Types Packs/Day Years [...] Type Associated Problems Recent Progress Patient-Stated? Author Blood Pressure < 140/90 Blood Pressure 131/70(2024 11:14 AM EST) No Todd Figueroa PharmD Hemoglobin A1c < 7 Result Component 10.1(07/03/20 12:03 PM EST) No Declan Kauffman documented as of this encounter Visit Diagnoses Diagnosis Hypertension associated with diabetes (CMS/HCC) (CMS/HCC) Unspecified essential hypertension documented in this encounter Care Teams Forest Pathologist Relationship Specialty Start Date End Date Hilda Cline ANP [address] [place] [address] PCP - General Family Medicine 11/17/20 Todd Figueroa, LindsayD [address] [place] [address] Pharmacist Internal Medicine 11/24/23 documented as of this encounter
--- OUTSIDE RECORDS SUMMARY | 2024-09-04 15:38 | XMS_ITS | Encounter Summary ---
Author Organization [employer] Address [address] [facility] [address] [place] [address] Care Team Providers Care Manager Harbor Name Role Phone Hilda Cline Primary Care Provider [phone] Todd Figueroa PharmD Unavailable [phone] Encounter Details Date Type Department Care Team (Latest Contact Info) Description 08/08/2024 Travel Social History Tobacco Use Types Packs/Day Years Used Date Smoking Tobacco: Former Cigarettes Smokeless Tobacco: Never Alcohol Use Standard Drinks/Week Comments Not Currently 0 (1 standard drink = 0.6 oz pur e alcohol) Depression Answer Date Recorded Patient Health Questionnaire-9 Score 7 07/03/2024 Patient Health Questionnaire-9 Score 7 07/03/2024 Last PHQ-9: Questionnaire Data Not on file 1 09/03/2023 Housing Stability Answer Date Recorded What is [...] the past 12 months, has t he [employer], gas, oil or water company threatened to shut off services in your home? No 06/02/2023 Depression Answer Date Recorded Patient Health Questionnaire-2 Score 0 07/03/2024 Internet Access Answer Date Recorded Internet Access Q1 Yes 03/26/2024 Internet Access Q2 Not on file 03/26/2024 Sex and Gender Information Value Date Recorded [...] Diagnoses Not on filedocumented in this encounter Additional Health Concerns Assessment Noted Time PHQ-9 Depression Total Score: 7 07/03/20 11:53 AM EST documented as of this encounter Care Teams Manager Harbor Relationship Specialty Start Date End Date Hilda Cline ANP [address] [place] [address] PCP - General Family Medicine 11/17/20 Todd Figueroa, Ceferino [address] [place] [address] Pharmacist Internal Medicine 11/24/23 documented as of this encounter
--- OUTSIDE RECORDS SUMMARY | 2024-09-04 15:38 | XMS_ITS | Encounter Summary ---
Author Organization [employer] [facility] Address [address] [facility] [address] [place] [address] Care Team Providers Care Release Coordinator Name Role Phone Hilda Cline Primary Care Provider [phone] Todd Figueroa PharmD Unavailable [phone] Reason for Visit * Reason Onset Date Comments Med Refill 03/15/2024 Encounter Details Date Type Department Care Team (Late st Contact Info) Description 03/15/2024 Refill [facility] MEDICINE [address] [place], [place] [phone] Hilda Cline ANP [address] [place], [place] [phone] Type 2 diabetes mellitus with hyperlipidemia (CMS/HCC) ([facility]) Social History Tobacco Use Types Packs/Day Years [...] Pressure 131/70(2024 11:14 AM EST) No Todd Figueroa, Ceferino Hemoglobin A1c < 7 Result Component 10.1(07/03/20 12:03 PM EST) No Declan Kauffman documented as of this encounter Visit Diagnoses Diagnosis Type 2 diabetes mellitus with hyperlipidemia (CMS/HCC) (CMS/HCC) documented in this encounter Care Teams Release Coordinator Relationship Specialty Start Date End Date Hilda Cline ANP [address] [place] [address] PCP - General Family Medicine 11/17/20 Todd Figueroa, Ceferino [address] [place] [address] Pharmacist Internal Medicine 11/24/23 documented as of this encounter
--- OUTSIDE RECORDS SUMMARY | 2024-09-04 15:38 | XMS_ITS | Encounter Summary ---
Author Organization [employer] Address [address] [facility] [address] [place] [address] Care Team Providers Care Crocheter Name Role Phone Hilda Cline Primary Care Provider [phone] Todd Figueroa PharmD Unavailable [phone] Encounter Details Date Type Department Care Team (Latest Contact Info) Description 08/23/2024 Travel Social History Tobacco Use Types Packs/Day [...] the past 12 months, has t he [employer], gas, oil or water company threatened to [...] documented as of this encounter Care Teams Crocheter Relationship Specialty Start Date End Date Hilda Cline ANP [address] [place] [address] PCP - General Family Medicine 11/17/20 Todd Figueroa, Ceferino [address] [place] [address] Pharmacist Internal Medicine 11/24/23 documented as of this encounter
--- OUTSIDE RECORDS SUMMARY | 2024-09-04 15:38 | XMS_ITS | Encounter Summary ---
Author Organization [employer] Address [address] [facility] [address] [place] [address] Care Team Providers Care Slot Operations Manager Name Role Phone Hilda Cline Primary Care Provider [phone] Todd Figueroa PharmD Unavailable [phone] Reason for Visit * Reason Comments Med Refill Encounter Details Date Type Department Care Team (Late st Contact Info) Description 10/10/2023 Refill [facility] MEDICINE [address] [place], [place] [phone] Hilda Cline ANP [address] [place], [place] [phone] Social History Tobacco Use Types Packs/Day Years [...] on filedocumented in this encounter Care Teams Slot Operations Manager Relationship Specialty Start Date End Date Hilda Cline, MAURICE [address] [place] [address] PCP - General Family Medicine 11/17/20 Todd Figueroa, Ceferino [address] [place] [address] Pharmacist Internal Medicine 11/24/23 documented as of this encounter
--- OUTSIDE RECORDS SUMMARY | 2024-09-04 15:38 | XMS_ITS | Encounter Summary ---
Author Organization [employer] Address [address] [facility] [facility] [address] [facility] [address] [place] [address] Care Team Providers Care Ore Roaster Name Role Phone Hilda Cline Primary Care Provider [phone] Todd Figueroa PharmD Unavailable [phone] Reason for Visit * Reason Comments Follow-up Encounter Details Date Type Department Care Team (Latest Contact Info) Description 08/23/2024 11:15 AM EST Office Visit [facility] MEDICINE [address] [place], [place] [phone] Hilda Cline ANP [address] [place], [place] [phone] Type 2 diabetes mellitus with hyperlipidemia (CMS/HCC) (Primary Dx); Primary hypertension; Vasculogenic erectile dysfunction, unspecified vasculogenic erectile dysfunction type; Gastroesophageal reflux disease, unspecified whether esophagitis present Social History Tobacco Use Types Packs/Day Years [...] AM EDT documented as of this encounter Last Filed Vital Signs Vital Sign Reading Time Taken Comments Blood Pressure 131/70 08/23/2024 11:14 AM EST Pulse 74 08/23/2024 11:14 AM EST Temperature 35.4 ??C (95.7 ??F) 08/23/2024 11:[address] Respiratory Rate 16 08/23/2024 11:14 AM EST Oxygen Saturation 98% 08/23/2024 11:14 AM EST Inhaled Oxygen Concentration - - Weight 87.7 kg (193 lb 6.4 oz) 08/23/2024 11:14 AM EST Height - - Body Mass Index 31.22 01/31/2024 1:16 PM EDT documented in this encounter Patient Instructions * Patient Instructions* MAURICE Thomson - 08/23/2024 11:15 AM EST Si herbert nivel de az??car en valorie vuelve a ser bajo por la ma??casey (por debajo de 70), reduzca herbert dosis de Tresiba en 4 unidades por d??a. If your blood sugar is low in the morning ( under 70) again, please decrease your Tresiba dose by 4units daily. documented in this encounter Plan of Treatment [...] Diagnosis Type 2 diabetes mellitus with hyperlipidemia ([facility])- Primary Primary hypertension Unspecified essential hypertension Vasculogenic erectile dysfunction, unspecified vasculogenic erectile dysfunction type Gastroesophageal reflux disease, unspecified whether esophagitis present documented in this encounter Additional Health Concerns Assessment Noted Time PHQ-9 Depression Total Score: 7 07/03/20 11:53 AM EST documented as of this encounter Care Teams Ore Roaster Relationship Specialty Start Date End Date Hilda Cline ANP [address] [place] [address] PCP - General Family Medicine 11/17/20 Todd Figueroa, Ceferino [address] [place] [address] Pharmacist Internal Medicine 11/24/23 documented as of this encounter
--- OUTSIDE RECORDS SUMMARY | 2024-09-04 15:38 | XMS_ITS | Clinical Summary ---
Author Organization [employer] Address [address] [facility] [address] [place] [address] Care Team Providers Care Supervisor Of Officials Name Role Phone Cline Hilda RICHARDS Primary Care Provider Todd Figueroa PharmD Unavailable [phone] Allergies No known active allergies Medications metoprolol succinate XL (Toprol-XL) 25 MG 24 hr tablet metoprolol succinate ER 25 mg tablet,extended release 24 hr 10/10/19 21 Active fenofibrate (Tricor) 145 MG tablet Take 145 mg by mouth in the morning. 09/20/19 23 Active amLODIPine (Norvasc) 5 MG tablet Take 5 mg by mouth in the morning. 09/20/19 23 Active Diclofenac Sodium 1 % gel APPLY 2gramos TOPICALLY 4 (FOUR) TIMES DAILY NEEDED FOR PAIN 100 g 12/23/19 23 Active Continuous Blood Gluc Associate Professor Of Chemistry (FreeStyle Mary 2 [place]) deviceIndications :Type 2 diabetes mellitus with hyperlipidemia (CMS/HCC) ([facility]) Scan sensor every 8 hours 1 each 07/14/20 23 Active Lancets (OneTouch Delica Plus [id number]) miscIndications:T ype 2 diabetes mellitus with hyperlipidemia (CMS/HCC) ([facility]) USE TO TEST FINGER STICK BLOOD SUGAR 3 (THREE) TIMES A DAY 100 each 09/14/19 24 Active Alcohol Swabs (Alcohol Pads) 70 % pads USE DIRECTED two (2) times a day 100 each 11/08/19 24 Active Continuous Glucose Sensor (FreeStyle Mary 2 Sensor) miscIndications:T ype 2 diabetes mellitus with hyperlipidemia (CMS/HCC) ([facility]) APPLY 1 sensor EVERY 14 DAYS 2 each 5 01/13/20 24 Active Comfort EZ Pen [place] 32G X 8 MM [facility] [place] USE TO INJECT INSULIN 4 (FOUR) TIMES DAILY 100 each 8 03/09/20 24 Active NovoLOG FLEXPEN 100 UNIT/ML penIndications:Ty pe 2 diabetes mellitus with hyperlipidemia (CMS/HCC) ([facility]) INJECT 9 UNITS SUBCUTANEOUSLY if bg > 200. +2 units for every 50 pts > 200. maximum 18 units daily 6 mL 04/09/20 24 Active Tresiba FlexTouch 100 UNIT/ML injectionIndicati ons:Type 2 diabetes mellitus with hyperlipidemia (CMS/HCC) ([facility]) INJECT 60 UNITS SUBCUTANEOUSLY ONCE DAILY 15 mL 04/09/20 24 Active lisinopril 40 MG tabletIndications :Hypertension associated with diabetes (CMS/HCC) ([facility]) TAKE 1 TABLET BY MOUTH ONCE DAILY 90 tablet 1 05/08/20 24 Active Lasix 20 MG tablet Take 1 tablet by mouth if needed each day (weight gain of 2 pounds in one day or 5 pounds in 3 days). 06/26/20 24 Active albuterol 108 (90 Base) MCG/ACT inhaler INHALE 2 PUFF BY MOUTH EVERY 4 TO 6 HOURS NEEDED FOR SHORTNESS OF BREATH OR FOR WHEEZING 8.5 g 5 07/04/20 24 Active Aspirin Low Dose 81 MG EC tablet TAKE 1 TABLET BY MOUTH ONCE DAILY 30 tablet 5 07/04/20 24 Active cholecalciferol (Vitamin D-3) 1.25 MG (20780 UT) capsule TAKE 1 CAPSULE BY MOUTH EVERY WEEK 4 capsule 5 07/04/20 24 Active fluticasone furoate (Arnuity Ellipta) 100 MCG/ACT inhalerIndication s:Moderate persistent asthma without complication Inhale 1 puff Once per day. Rinse mouth with water after use to reduce aftertaste and incidence of candidiasis. Do not swallow. 30 each 2 07/03/20 24 Active rosuvastatin (Crestor) 40 MG tablet TAKE 1 TABLET BY MOUTH ONCE DAILY 30 tablet 8 07/16/20 24 Active glucose blood (FreeStyle Precision Claudio Test) test stripIndications: Type 2 diabetes mellitus with hyperlipidemia (CMS/HCC) ([facility]) USE TO TEST FINGER STICK BLOOD SUGAR NEEDED FOR hypoglycemia 50 strip 5 08/02/19 25 Active metFORMIN XR (Glucophage-XR) 500 MG 24 hr tabletIndications :Type 2 diabetes mellitus with hyperlipidemia (CMS/HCC) (CMS/HCC) Take one tablet by mouth twice daily. Do not crush, chew, or split. 180 tablet 3 08/09/19 25 Active Tirzepatide (Mounjaro) 2.5 MG/0.5ML solution auto-injectorIndi cations:Type 2 diabetes mellitus with hyperlipidemia (CMS/HCC) (CMS/HCC) Inject 2.5 mg under the skin 1 (one) time per week. 2 mL 08/14/19 25 Active sildenafil (Viagra) 50 MG tabletIndications :Vasculogenic erectile dysfunction, unspecified vasculogenic erectile dysfunction type Take 1 tablet (50 mg) by mouth if needed each day for erectile dysfunction. 20 tablet 1 08/23/19 25 Active omeprazole (PriLOSEC) [address] capsuleIndication s:Gastroesophagea l reflux disease, unspecified whether esophagitis present Take 1 capsule (40 mg) by mouth before breakfast. Do not crush or chew. 90 capsule 1 08/23/19 25 026 Active semaglutide (Rybelsus) 14 MG tabletIndications :Type 2 diabetes mellitus with hyperlipidemia (CMS/HCC) (CMS/HCC) TAKE 1 TABLET BY MOUTH ONCE DAILY 30 MINUTES BEFORE A MEAL OR other medicamentos 30 tablet 8 03/09/20 24 025 Disconti nued(Alt ernate therapy) metFORMIN (Glucophage) 1000 MG tabletIndications :Type 2 diabetes mellitus with hyperlipidemia (CMS/HCC) (CMS/HCC) TAKE 1 TABLET BY MOUTH two (2) times a day WITH A MEAL 180 tablet 1 05/08/20 24 025 Disconti nued(Dos e adjustme nt) Active Problems Problem Noted Date Diagnosed Date Former heavy cigarette smoker (20-39 per day) Overview (09/08/2023): Referred 05/2023 for LDCT Steatosis of liver 07/14/2023 07/14/2023 Shortness of breath 07/14/2023 07/14/2023 Obstructive sleep apnea syndrome 07/14/2023 07/14/2023 Generalized ischemic myocardial dysfunction 06/2507/14/2023 Gastroesophageal reflux disease 07/14/2023 07/14/2023 Fracture of distal end of radius 07/14/2023 07/14/2023 Overview (07/14/2023): jun Atherosclerosis of coronary artery 07/14/2023 07/14/2023 Moderate persistent asthma with acute exacerbati on 07/14/2023 07/14/2023 Overview (07/03/2024): [facility] ED visit 06/25/24 for SOB, wheezing. Dx'd w/ flu. Needs nebulizer for home use. Consider need for Arnuity initiation. Adrenal adenoma 07/14/2023 07/14/2023 Diverticulosis 01/27/2023 Overview (01/27/2023): Images from the original note were not included. Coronary arteriosclerosis in patient with history of previous myocardial infarction 12/08/2020 Primary hypertension 12/08/2020 Hearing loss of right ear 04/24/2019 Heart murmur 04/24/2019 [place], old 04/24/2019 Overview (10/21/2022): 2013 x3 with 2 stents placement Moderate persistent asthma without complication 04/24/2019 Vision loss 04/24/2019 Dystrophia unguium 10/19/2018 Onychomycosis 10/19/2018 Pain in toe 10/19/2018 Type 2 diabetes mellitus with hyperlipidemia (CM S/HCC) 10/19/2018 Callus of toe 10/19/2018 07/14/2023 Encounters Date Type Department Care Team Description 08/23/2024 11:15 AM EST Office Visit [facility] [address] [place] [address] Hilda Cline ANP Type 2 diabetes mellitus with hyperlipidemia (CMS/HCC) (Primary Dx); Primary hypertension; Vasculogenic erectile dysfunction, unspecified vasculogenic erectile dysfunction type; Gastroesophageal reflux disease, unspecified whether esophagitis present 08/23/2024 Travel 08/22/2024 Telephone [facility] [address] [place] [address] Lin Bhandari MA chart prep 08/08/2024 Travel 08/02/2024 Refill [facility] [place] [address] Hilda Cline ANP Type 2 diabetes mellitus with hyperlipidemia ([facility]/HCC) ([facility]) 07/15/2024 Refill [facility] [place] [address] Constantino Carson MD 07/04/2024 Telephone [facility] [place] [address] Hilda Cline ANP 07/03/2024 10:30 AM EST Office Visit [facility] [place] [address] Hilda Cline ANP Moderate persistent asthma with acute exacerbation (Primary Dx); Obstructive sleep apnea syndrome; Type 2 diabetes mellitus with hyperlipidemia ([facility]) ; Moderate persistent asthma without complication; JENA (acute kidney injury) ([facility]) 07/03/2024 Telephone [facility] [place] [address] Sima Eubanks RN Results 07/03/2024 Refill [facility] [place] [address] Hilda Cline ANP 07/03/2024 Travel 06/28/2024 Telephone [facility] [place] [address] Hilda Cline ANP Durable Medical Equipment 06/28/[address] [address] Hilda Cline ANP Nurse Triage from Last 3 Months Immunizations Name Administration Dates Next Due Hep B, adult 03/06/2024,10/28/2023,09/08/2023 Influenza High-dose Quadriva lent Preservative Free 05/06/2023,04/24/2021 Influenza injectable quadriv alent preservative free 04/24/2019 Influenza, IIV3, injectable 05/17/2018,0 10/18/2017,06/24/2016,05/09,05/17/2014,10/06/2013 Pfizer Covid-19 Vaccine 12+ 10/28/2023 Pneumococcal Conjugate PCV 13 04/24/2021, 016 Pneumococcal Conjugate PCV 20 08/04/2023 Pneumococcal Polysaccharide PPSV23 07/30/2019, RSV Bivalent 09/08/2023 Tdap 02/10/2022,04/24/2019,01/15/2014 Zoster, Recombinant 09/08/2023 Zoster, live 06/24/2016 Family History Medical History Relation Name Comments Heart disease Brother ICD (2 brother s) Bone cancer Father Diabetes Mother Glaucoma Mother Alzheimer's disease Sister Arthritis Sister Relation Name Status Comments Brother Father Mother Sister Social History Tobacco Use Types Packs/Day Years Used Date Smoking Tobacco: Former Cigarettes Smokeless Tobacco: Never Tobacco Cessation:Counseling Given: Not Answered Alcohol Use Standard Drinks/Week Comments Not Currently [...] Don't know 05/24/2022 10 :37 AM EDT Last Filed Vital Signs Vital Sign Reading [...] 6.4 oz) 08/23/2024 11:14 AM EST Height 167.6 cm (5' 6 ) 01/31/2024 1:16 PM EDT Body Mass Index 31.22 01/31/2024 1:16 PM EDT Plan of Treatment Health Maintenance Due Date Last Done Comments CT Colonography 1955 FIT DNA/Cologuard 1955 FIT 1955 FOBT 1955 Sigmoidoscopy 1955 Eye Exam 1965 Hepatitis A Vaccines (1 of 2 - Risk 2-dose series) 1974 Zoster Vaccines (3 of 3) 11/03/2023 09/08/2023, 12/0 07/2015 COVID-19 Vaccine ( season) 2024 10/28/2023, 01/12/2022, 04/29/2021, Additional history exists Influenza Vaccine (#1) 2024 3, 04/24/2021, 04/24/2019, Additional history exists Diabetes: Hemoglobin A1C 10/01/20242 024, 01/31/2024, 11/18/2023, Additional history exists SDOH Screening 10/24/2024 10/25/2023 Diabetes: Foot Exam 01/30/2025 01/31/2024, 01/31/2024, 01/31/2024 Diabetes: Urine Protein Screening 01/30/2025 01/31/2024, 04/14/2023, 10/21/2021, Additional history exists Depression Screening 07/03/2025 07/03/2024, 07/03/20 Lipid Panel 07/03/2025 07/03/2024, 03/26, 04/29/2021 Alcohol/Substance Use Screening 08/23/2025 08/23/2024 Tobacco Screening 08/23/2025 08/23/2024 Colonoscopy 07/17/2029 07/17/2019 Colorectal Cancer Screening 07/17/2029 DTaP/Tdap/Td Vaccines (4 - Td or Tdap) 02/11/2032 02/10/2022, 04/24/2019, 01/15/2014 Hepatitis C Screening Completed 04/29/2021 Pneumococcal Vaccine: 50+ Years Completed 08/04/2023, 04/24/2021, 07/30/2019, Additional history exists RSV Patients and Patients Aged 60 years or older Completed 09/08/2023 Hepatitis B Vaccines Completed 03/06/2024, 10/28/2023, 09/08/2023 HIB Vaccines Aged Out No longer eligi ble based on patient's age to complete this topic HPV Vaccines Aged Out No longer eligi ble based on patient's age to complete this topic IPV Vaccines Aged Out No longer eligi ble based on patient's age to complete this topic Meningococcal Vaccine Aged Out No mario corinna eligible based on patient's age to complete this topic RSV under 20 months Aged Out No longe r eligible based on patient's age to complete this topic Rotavirus Vaccines Aged Out No longer eligible based on patient's age to complete this topic Goals Goal Patient Goal Type Associated Problems Recent Progress Patient-Stated? Author Blood Pressure < 140/90 Blood Pressure 131/70(2024 11:14 AM EST) No Todd Figueroa, PharmPranay Hemoglobin A1c < 7 Result Component 10.1(07/03/20 12:03 PM EST) No Declan Kauffman Procedures Procedure Name Priority Date/Time Associated Diagnosis Comments LIPID PANEL, STANDARD Routine 07/03/2024 12:03 PM EST Type 2 diabetes mellitus with hyperlipidemia (CMS/HCC) HEMOGLOBIN A1C Routine 07/03/2024 12:03 PM EST Type 2 diabetes mellitus with hyperlipidemia (CMS/HCC) VITAMIN B12 Routine 07/03/2024 12:03 PM EST Type 2 diabetes mellitus with hyperlipidemia (CMS/HCC) (CMS/HCC) BASIC METABOLIC PANEL Routine 07/03/2024 12:03 PM EST Primary hypertension PSA, TOTAL Routine 07/03/2024 12:03 PM EST Nocturia ALBUMIN, RANDOM URINE W/CREATININE Routine 01/31/2024 11:17 AM EDT Primary hypertension ZZZ HISTORICAL HEPATITIS C AB W/REFL TO HCV RNA, QN, PCR Routine 04/29/2021 9:10 AM EDT HM COLONOSCOPY Routine 07/17/2019 from Last 3 Months or Most Recently Relevant to Health Maintenance Results * PSA,Total (07/03/2024 12:03 PM EST) Prostate Specific Antigen 1.63 <0.05 - 4.0 ng/mL LABS Comment:PSA methodology: Robert Johnson i ChemiluminescentMicroparticle Immunoassay (CMIA) Blood Venous blood specimen / Unknown 07/03/2024 12:03 PM EST 07/03/2024 1:03 PM EST [facility] LAB BLOOD ORDERABLES Final Resul t LABS [address] [place] [phone] * (ABNORMAL) Hemoglobin A1c (07/03/2024 12:03 PM EST) Hemoglobin A1c 10.1(H) <6.0 % [facility] Comment:Hemoglobin A1C Refer ence Range Adults: 4.8 - 6.0 % Non diabetic: < 6.0 % Goal: < 7.0 %Additional Action Suggested: > 8.0 %Note: Hemoglobin A1c results are invalid for patients with abnormal amounts of HbF. Blood transfusions may impact the HbA1c concentration in the patient sample. Estimated Average Glucose 243 mg/dL LABS Comment:eAG = Estimated ave rage glucose which is %A1C expressed asaverage glucose, using the formula of the G1W-RlykkbyUtlwwsk Glucose study (ADAG), Diabetes Care, Vol.31,#8,2007 Blood Venous blood specimen / Unknown 07/03/2024 12:03 PM EST 07/03/2024 1:03 PM EST Hilda Cline ANP LAB BLOOD ORDERABLES Final Resul t Performing Organization Address [facility]/ZIP Co de Phone Number LABS [address] [place] [phone] * Vitamin B12 (07/03/2024 12:03 PM EST) Vitamin B12 680 200 - 900 pg/mL LABS Comment:NORMAL 200-900 PG/ML INDETERMINATE 160-199 PG/ML DEFICIENT < 160 PG/ML Blood Venous blood specimen / Unknown 07/03/2024 12:03 PM EST 07/03/2024 1:03 PM EST Hilda Cline ANP LAB BLOOD ORDERABLES Final Resul t Performing Organization Address [facility] Co de Phone Number LABS [address] [place] [phone] * (ABNORMAL) Lipid Panel, Standard (07/03/2024 12:03 PM EST) Triglycerides 148 <150 mg/dL [facility] Comment:Desirable Triglyceri de: less than 150 mg/dLBorderline High Triglyceride 150-199 mg/dLHigh Triglyceride: 200-499 mg/dLVery High Triglyceride: greater than or equal to 5OO mg/dL Cholesterol 113 <200 mg/dL LABS Comment:Desirable Cholestero l: less than 200 mg/dLBorderline High Cholesterol: 200-239 mg/dLHigh Cholesterol: greater than 239 mg/dL LDL Cholesterol Calculated 49 <100 mg/dL LABS Comment:Desirable LDL: less than 100 mg/dLNear Optimal/Above Optimal LDL: 110- 129 mg/dLBorderline High LDL: 130-159 mg/dLHigh LDL: 160-189 mg/dLVery High LDL: greater than or equal to 190 mg/dL HDL Cholesterol 35(L) >40 mg/dL [facility] Comment:Desirable HDL: great er than 40 mg/dL Note: This HDL assay may give artificially low results in patients with liver disease. Blood Venous blood specimen / Unknown 07/03/2024 12:03 PM EST 07/03/2024 1:03 PM EST Hilda Cline ANP LAB BLOOD ORDERABLES Final Resul t LABS [address] [place] [phone] [phone] * (ABNORMAL) Basic Metabolic Panel (07/03/2024 12:03 PM EST) Sodium 139 135 - 145 mmol/L LABS Potassium 4.9 3.3 - 5.1 mmol/L LABS Chloride 105 96 - 108 mmol/L LABS Carbon Dioxide 25 22 - 29 mmol/L LABS Anion Gap 14 12 - 20 LABS Urea Nitrogen (BUN) 33(H) 9 - 16 mg/dL LABS Creatinine, Serum 1.86(H) 0.5 - 1.4 mg/dL LABS Estimated Glomerular Filt Rate 36 LABS Comment:Chronic Kidney Disea se: Estimated GFR < 60 mL/min/1.16o9Rvaygs Kidney Disease: Estimated GFR < 15 mL/min/1.73m2 Glucose 300(H) 60 - 115 mg/dL LABS Calcium 10.1 8.4 - 10.2 mg/dL LABS Blood Venous blood specimen / Unknown 07/03/2024 12:03 PM EST 07/03/2024 1:03 PM EST us Hilda Cline ANP LAB BLOOD ORDERABLES Final Resul t Performing Organization Address [facility] Co de Phone Number LABS [address] [place] [phone] [phone] * (ABNORMAL) Albumin, Random Urine W/Creatinine (01/31/2024 11:17 AM EDT) Creatinine, Urine 155.82 mg/dL [facility] Microalbumin Urine 112.0 mg/L H [facility] LABS Microalbum Creatinine Ratio Ur 71.8(H) <30 ug/mg cr LABS Comment:Albumin/Creatinine R atio Reference Ranges: Normal: < 30 ug/mg creatinine Microalbuminuria: 30 - 300 ug/mg creatinineClinical Albuminuria: > 300 ug/mg creatinine Urine (Urine, Random) 01/31/2024 11:17 AM EDT 01/31/2024 4:19 PM EDT [facility] Cline [facility] LAB URINE ORDERABLES Final Resul t Performing Organization Address [facility] Co de Phone Number LABS [address] [place] [phone] * HEPATITIS C AB W/REFL TO HCV RNA, QN, PCR (04/29/2021 9:10 AM EDT) HEPATITIS C ANTIBODY NON-REACT TRUE NON-REACT TRUE [facility] INDEX 0.01 <1.00 [facility] Comment: ?? HCV antibody was non-reactive. There is no laboratory ?? evidence of HCV infection. ?? In most cases, no further action is required. However, if recent HCV exposure is suspected, a test for HCV RNA (test code 54017) is suggested. ?? For additional information please refer to http://education.[employer]/faq/YLU01b1 (This link is being provided for informational/ educational purposes only.) ?? 04/29/2021 9:10 AM EDT Hilda Cline ANP HISTORICAL/NON ORDERABLE LABS Fi nal Result [facility] [address] * Colonoscopy (07/17/2019) Colonoscopy Normal Normal us Historical Provider HEALTH MAINTENANCE Final Result from Last 3 Months or Most Recently Relevant to Health Maintenance [place] [address] [place] [address] - [employer] Care Teams Supervisor Of Officials Relationship Specialty Start Date End Date Hilda Cline ANP [address] [place] [address] PCP - General Family Medicine 11/17/20 Todd Figueroa, LindsayD [address] [place] [phone] Pharmacist Internal Medicine 11/24/23
--- OUTSIDE RECORDS SUMMARY | 2024-09-04 15:38 | XMS_ITS | Encounter Summary ---
Author Organization [employer] [facility] Address [address] [facility] 7t [place] [address] Care Team Providers Care Pedodontist Name Role Phone Hilda Cline Primary Care Provider [phone] Todd Figueroa PharmD Unavailable [phone] Reason for Visit * Reason Onset Date Comments Med Refill 12/01/2023 Encounter Details Date Type Department Care Team (Late st Contact Info) Description 12/01/2023 Telephone [facility] [address] [place], [place] [phone] Hilda Cline ANP [address] [place], [place] [phone] Med Refill Social History Tobacco Use Types [...] Telephone Encounter - Dara Negrete LPN - 12/01/2023 1:11 PM EDT Medication pended to PCP. * Telephone Encounter - Kristin Moreno - 12/01/2023 11:54 AM EDT TC from pt requesting medication refill. Pt will be traveling out of state tomorrow (12/01) Medications needing refill : semaglutide (Rybelsus) 14 MG tablet To be sent to: [facility] - [place] - [id number] [place] - [address] [place] documented in this encounter Plan of Treatment [...] on filedocumented in this encounter Care Teams Pedodontist Relationship Specialty Start Date End Date Hilda Cline ANP [address] [place] [phone] PCP - General Family Medicine 11/17/20 Todd Figueroa, PharmD [address] [place], [place] [address] [address] Pharmacist Internal Medicine 11/24/23 documented as of this encounter
--- OUTSIDE RECORDS SUMMARY | 2024-09-04 15:38 | XMS_ITS | Encounter Summary ---
Author Organization [email or web address] [facility] Address [address] [facility] [address] [place] [address] Care Team Providers Care Manager Telemarketing Name Role Phone Hilda Cline Primary Care Provider [phone] Todd Figueroa PharmD Unavailable [phone] Reason for Visit * Reason Comments Med Refill Encounter Details Date Type Department Care Team (Late st Contact Info) Description 02/13/2024 Refill [facility] [address] [place], [place] [phone] Hilda Cline ANP [address] [place], [place] [phone] Type 2 diabetes mellitus with hyperlipidemia ([facility]/HCC) ([facility]) Social History Tobacco Use Types Packs/Day Years [...] (CMS/HCC) documented in this encounter Care Teams Manager Telemarketing Relationship Specialty Start Date End Date Hilda Cline ANP [address] [place] [address] PCP - General Family Medicine 11/17/20 Todd Figueroa, LindsayD [address] [place] [address] Pharmacist Internal Medicine 11/24/23 documented as of this encounter
--- OUTSIDE RECORDS SUMMARY | 2024-09-04 15:38 | XMS_ITS | Encounter Summary ---
Author Organization [employer] Address [address] [facility] 7[address] [place] [address] Care Team Providers Care Surveyor Helper Name Role Phone Hilda Cline Primary Care Provider [phone] Todd Figueroa PharmD Unavailable [phone] Reason for Visit * Reason Onset Date Comments chart prep 08/22/2024 Encounter Details Date Type Department Care Team ([facility] st Contact Info) Description 08/22/2024 Telephone [facility] [address] [place] [address] Lin Bhandari MA chart prep Social History Tobacco Use Types Packs/Day Years [...] encounter Miscellaneous Notes * Telephone Encounter - Lin Bhandari MA - 08/22/2024 11:14 AM EST Chart Prep Labs: not done Images: request 01/31/24 Vaccines due: yes [place] [facility] [place] [place] Screenings: none Overdue care gaps: Sbirt documented in this encounter Plan of Treatment [...] documented as of this encounter Care Teams Surveyor Helper Relationship Specialty Start Date End Date Hilda Cline ANP [address] [place] [phone] PCP - General Family Medicine 11/17/20 Todd Figueroa, PharmD [address] [place] [address] Pharmacist Internal Medicine 11/24/23 documented as of this encounter
== END ==
LOC: HO.SL 14:46
PROVIDERS: PCP Nurse Practitioner Primary Care; Visit Provider Nurse Practitioner Primary Care
DX: G47.33 Obstructive sleep apnea (adult) (pediatric) (principal)
CPT/HCPCS: 95806

== ENCOUNTER → 2024-09-04 19:00 | Outpatient (BNV) | payer OTHER, SELFPAY | PROVIDERS: PCP Nurse Practitioner Primary Care; Visit Provider Internal Medicine | DX: G47.33 Obstructive sleep apnea (adult) (pediatric) (principal) | CPT/HCPCS: 95806 ==

== ENCOUNTER 2024-10-04 13:33 | Outpatient (REF) | payer OTHER, SELFPAY ==
--- NOTE | 2024-10-04 13:55 | PFT_ITS ---
Flows: FEV1: 89 % of predicted at 2.54 L FVC: 102 % of predicted at 3.80 L FEV1/FVC: 67 % Bronchodilator response: Absent Volumes: Total lung capacity: 93 % of predicted at 5.82 L Residual volume: 87 % of predicted at 1.91 L Slow vital capacity: 97 % of predicted at 3.91 L Expiratory reserve volume: 111 % of predicted at 1.14 L Diffusion capacity: Moderately decreased, adjusts to being mildly decreased after correction for alveolar ventilation. Impression: Mild obstructive ventilatory defect with no bronchodilator response. Decreased diffusion capacity suggests emphysema. MTDD
[2024-10-04 14:38] VITALS: PULSE 81
--- OUTSIDE RECORDS SUMMARY | 2024-10-04 17:06 | XMS_ITS | Encounter Summary ---
Author Organization [employer] [facility] Address [address] [facility] 7 [place] [address] Care Team Providers Care Olap Developer Name Role Phone Hilda Cline Primary Care Provider [phone] Todd Figueroa PharmD Unavailable [phone] Reason for Visit * Reason Onset Date Comments Med Refill 03/15/2024 Encounter Details Date Type Department Care Team (Late st Contact Info) Description 03/15/2024 Refill [facility] [address] [place], [place] [phone] Lili Johnston MD [address] [place], [place] [phone] Hypertension associated with diabetes (CMS/HCC) (CMS/HCC) Social [...] as of this encounter Plan of Treatment Upcoming Encounters Date Type Department Care Team (Late st Contact Info) Description 10/08/2024 11:30 AM EDT Medication Management [facility] [address] [place] [phone] Todd Figueroa PharmD [address] [place] [phone] 12/04/2024 11:30 AM EDT Office Visit [facility] [address] [place] [phone] Hilda Cline ANP [address] [place] [phone] documented as of this encounter Goals Goal [...] hypertension documented in this encounter Care Teams Olap Developer Relationship Specialty Start Date End Date Hilda Cline ANP [address] [place] [phone] PCP - General Family Medicine 11/17/20 Todd Figueroa, PharmD [address] [place] [address] Pharmacist Internal Medicine 11/24/23 documented as of this encounter
--- OUTSIDE RECORDS SUMMARY | 2024-10-04 17:06 | XMS_ITS | Data Portability ---
Author Organization [employer] [facility] Address [address] [place] [phone] Care Team Providers Care Cryptologic Technician Operator/Analyst Name Role Phone SCHMIDTJOVANI Primary Care Provider HIM [facility] OTHER Assessment Encounter Date Assessment Date Assessment LastModified by Organization Details LastModified Time 07/05/2024 07/05/2024 I have reviewed and agree with the assessment and plan as documented by the housing project manager. I provided real-time medical direction for this encounter and was immediately available to provide additional phone-based assistance as needed. History as noted in EMR and by housing project manager. I would add / emphasize: Patient seen [...] OSVALDO KUSH O 5 LBS EN 3 [place]. active Not Available Not Available N ot [...] Available No t Available Comfort EZ Pen [place] 32 gauge x 5/16 USE FOR INJECT [...] Available No t Available FreeStyle Mary 2 [place] USE DIRECTED EVERY 8 HOURS active Not [...] Updated DateTime 4 97 % 97 % 58787.7 44 g 97.6 [degF] 16 /min 76 /min 110 mm[Hg] 60 mm[Hg] Not Available [employer] - production 4 11:15:02 Social History None recorded. Functional Status None recorded. Mental Status None recorded. Family History Nothing Reported. Medical History No medical history recorded. Past Encounters Encounter ID Performer Location Encounter Start Date Encounter Closed Date Diagnosis/Indication Diagnosis SNOMED-CT Code Diagnosis ICD10 Code Diagnosis Note [id number] Adams Cuevas MD Main - [address] [phone] 07/05/2024 11:15:00 07/09/2024 11:32:59 Upper respiratory infection 83106632 J06.9 Health Concerns Section Related Observation LastModified by Organization Detai ls LastModified Time None Recorded Concern Status LastModified by Organization Details LastModified Time None Recorded Advance Directives Directive None Recorded Payers Encounter Date Sequence Insurance Name Policy Number Policy Whelan Covered Member ID Whelan Member ID Guarantor Name 07/05/2024 1 [facility] - DOS ON OR AFTER 2022 - DUAL ELIGIBLE - [employer] AND ONE CARE (MEDICARE REPLACEMENT/ADV ANTAGE - HMO) David Mercado [id number] David Mercado Notes Date Note Type Note Provider Name and Address Organization Details Recorded Time 07/05/2024 text/html [facility] Nurse Triage Notes (Kyler Martinez): Reason For Request: AsthmaDenies: Increased work of breathing/labored ? with or without fever Unable to speak in full sentences without distress Discoloration of skin -cyanosis Needs to sleep sitting up, can? t catch breath Shortness of breath in setting of confusion Chief Complaints: Asthma, Common cold symptoms, CoughPMH: Asthma, Myocardial InfarctionComments : Precipitator Supervisor verified the patient's name//address and phone number. [...] sentences at time of call, just in [place]an . Education provided on the response time and the patient was advised to monitor reported s/s and seek emergency treatment if needed -Roxane Martinez RN .................. .................. .................. .................. .................. .................. .................. ............... Damage Assessor Note From Jayant Singh: Pt co continued cough and cold symptoms. Pt was seen in ER and given a care plan/antibiotics/i nhaler. Pt daughter? s sts nebulizer machine and albuterol bullets are being picked up today. Pt able to speak in full sentences. Lungs clear bilaterally, good skin color and turgid, afebrile, baseline vitals assessed, WNL . [facility] contacted and advised to co time with current care plan. Pt and daughter educated on signs indicating the ER. Advised if symptoms persist to contact pcp. .................. .................. .................. .................. .................. .................. .................. ............... [facility] Consulted: Adams Cuevas .................. .................. .................. .................. .................. .................. .................. ............... Disposition: Fulfilled Adams Cuevas MD [address] [facility],[address], [place], [address], [email or web address], [place] 07/08/2024 10:18:16
--- OUTSIDE RECORDS SUMMARY | 2024-10-04 17:06 | XMS_ITS | Encounter Summary ---
Author Organization [employer] [facility] Address [address] [facility] 7 [place] [address] Care Team Providers Care Deposition Reporter Name Role Phone Hilda Cline Primary Care Provider [phone] Todd Figueroa PharmD Unavailable [phone] Reason for Visit * Reason Comments Med Refill Encounter Details Date Type Department Care Team (Late st Contact Info) Description 09/11/2024 Refill [facility] [address] [place], [place] [phone] Hilda Cline ANP [address] [place], [place] [phone] Type 2 diabetes mellitus with hyperlipidemia ([facility]/HCC) ([facility]) Social History Tobacco Use Types Packs/Day Years [...] Description 10/08/2024 11:30 AM EDT Medication Management [facility] [address] [place] [phone] Todd Figueroa PharmD [address] [place] [address] 12/04/2024 11:30 AM EDT Office Visit [facility] [address] [place] [phone] Hilda Cline ANP [address] [place] [address] documented as of this encounter Goals Goal Patient Goal Type Associated Problems Recent Progress Patient-Stated? Author Blood Pressure < 140/90 Blood Pressure 131/70(2024 11:14 AM EST) No Todd Figueroa PharmD Hemoglobin A1c < 7 Result Component 10.1(07/03/20 12:03 PM EST) No Declan Kauffman documented as of this encounter Visit Diagnoses Diagnosis Type 2 diabetes mellitus with hyperlipidemia (CMS/HCC) (CMS/HCC) documented in this encounter Additional Health Concerns Assessment Noted Time PHQ-9 Depression Total Score: 7 07/03/20 24 11:53 AM EST documented as of this encounter Care Teams Deposition Reporter Relationship Specialty Start Date End Date Hilda Cline ANP [address] [place] [address] PCP - General Family Medicine 11/17/20 Todd Figueroa PharmD [address] [place] [address] Pharmacist Internal Medicine 11/24/23 documented as of this encounter
--- OUTSIDE RECORDS SUMMARY | 2024-10-04 17:06 | XMS_ITS | Encounter Summary ---
Author Organization [facility] Address [address] [facility] [address] [place] [address] Care Team Providers Care Manager Office Services Name Role Phone Hilda Cline Primary Care Provider [phone] Todd Figueroa PharmD Unavailable [phone] Reason for Visit * Reason Onset Date Comments Med Refill 12/01/2023 Encounter Details Date Type Department Care Team (Late st Contact Info) Description 12/01/2023 Telephone [facility] [address] [place], [place] [phone] Hilda Cline ANP [address] [place], [place] [phone] Med Refill Social History Tobacco Use Types [...] 14 MG tablet To be sent to: [facility] - [place], [place] - [phone] [place] - [address] documented in this encounter Plan of Treatment Upcoming Encounters Date Type Department Care Team (Late st Contact Info) Description 10/08/2024 11:30 AM EDT Medication Management [facility] [address] [place] [phone] Todd Figueroa, LindsayD [address] [place] [address] 12/04/2024 11:30 AM EDT Office Visit [facility] [address] [place] [phone] Hilda Cline, ANP [address] [place] [address] documented as of this encounter Goals Goal Patient Goal Type Associated Problems Recent Progress Patient-Stated? Author Blood Pressure < 140/90 Blood Pressure 131/70(2024 11:14 AM EST) No Todd Figueroa, Ceferino Hemoglobin A1c < 7 Result Component 10.1(07/03/20 12:03 PM EST) No Declan Kauffman documented as of this encounter Visit Diagnoses Not on filedocumented in this encounter Care Teams Manager Office Services Relationship Specialty Start Date End Date Hilda Cline ANP [address] [place] [address] PCP - General Family Medicine 11/17/20 Todd Figueroa, PharmD [address] [place] [address] Pharmacist Internal Medicine 11/24/23 documented as of this encounter
--- OUTSIDE RECORDS SUMMARY | 2024-10-04 17:06 | XMS_ITS | Clinical Summary ---
Author Organization [employer] Address [address] [facility] 7t [place] [address] Care Team Providers Care Tube Coremaker Name Role Phone Hilda Cline Primary Care Provider [phone] Todd Figueroa PharmD Unavailable [phone] Allergies No known active allergies Medications metoprolol succinate XL (Toprol-XL) 25 MG 24 hr tablet metoprolol succinate ER 25 mg tablet,extended release 24 hr 021 Active fenofibrate (Tricor) 145 MG tablet Take 145 mg by mouth in the morning. 023 Active amLODIPine (Norvasc) 5 MG tablet Take 5 mg by mouth in the morning. 023 Active Diclofenac Sodium 1 % gel APPLY 2gramos TOPICALLY 4 (FOUR) TIMES DAILY NEEDED FOR PAIN 100 g 023 Active Continuous Blood Gluc Checkman (FreeStyle Mary 2 [place]) deviceIndications :Type 2 diabetes mellitus with hyperlipidemia (CMS/HCC) ([facility]) Scan sensor every 8 hours 1 each 023 Active Alcohol Swabs (Alcohol Pads) 70 % pads USE DIRECTED two (2) times a day 100 each 11 024 Active Comfort EZ Pen [place] 32G X 8 MM misc USE TO INJECT INSULIN 4 (FOUR) TIMES DAILY 100 each 8 024 Active lisinopril 40 MG tabletIndications :Hypertension associated with diabetes (CMS/HCC) (CMS/HCC) TAKE 1 TABLET BY MOUTH ONCE DAILY 90 tablet 1 024 Active Lasix 20 MG tablet Take 1 tablet by mouth if needed each day (weight gain of 2 pounds in one day or 5 pounds in 3 days). 024 Active albuterol 108 (90 Base) MCG/ACT inhaler INHALE 2 PUFF BY MOUTH EVERY 4 TO 6 HOURS NEEDED FOR SHORTNESS OF BREATH OR FOR WHEEZING 8.5 g 5 024 Active Aspirin Low Dose 81 MG EC tablet TAKE 1 TABLET BY MOUTH ONCE DAILY 30 tablet 5 024 Active cholecalciferol (Vitamin D-3) 1.25 MG (31076 UT) capsule TAKE 1 CAPSULE BY MOUTH EVERY WEEK 4 capsule 5 024 Active rosuvastatin (Crestor) 40 MG tablet TAKE 1 TABLET BY MOUTH ONCE DAILY 30 tablet 8 024 Active glucose blood (FreeStyle Precision Claudio Test) test stripIndications: Type 2 diabetes mellitus with hyperlipidemia (CMS/HCC) ([facility]) USE TO TEST FINGER STICK BLOOD SUGAR NEEDED FOR hypoglycemia 50 strip 5 025 Active metFORMIN XR (Glucophage-XR) 500 MG 24 hr tabletIndications :Type 2 diabetes mellitus with hyperlipidemia (CMS/HCC) ([facility]) Take one tablet by mouth twice daily. Do not crush, chew, or split. 180 tablet 3 025 Active sildenafil (Viagra) 50 MG tabletIndications :Vasculogenic erectile dysfunction, unspecified vasculogenic erectile dysfunction type Take 1 tablet (50 mg) by mouth if needed each day for erectile dysfunction. 20 tablet 1 025 Active omeprazole (PriLOSEC) [address] capsuleIndication s:Gastroesophagea l reflux disease, unspecified whether esophagitis present Take 1 capsule (40 mg) by mouth before breakfast. Do not crush or chew. 90 capsule 1 025 2025 Active Tirzepatide (Mounjaro) 5 MG/0.5ML solution auto-injectorIndi cations:Type 2 diabetes mellitus with hyperlipidemia (CMS/HCC) ([facility]) Inject 5 mg under the skin 1 (one) time per week. 2 mL 025 Active Insulin Degludec FlexTouch 100 UNIT/ML solution pen-injectorIndic ations:Type 2 diabetes mellitus with hyperlipidemia (CMS/HCC) ([facility]) INJECT 60 UNITS SUBCUTANEOUSLY ONCE DAILY 15 mL 025 Active Continuous Glucose Sensor (FreeStyle Mary 2 Sensor) miscIndications:T ype 2 diabetes mellitus with hyperlipidemia (CMS/HCC) ([facility]) USE 1 sensor EVERY 14 DAYS 2 each 025 Active insulin aspart FlexPen (NovoLOG) 100 UNIT/ML penIndications:Ty pe 2 diabetes mellitus with hyperlipidemia (CMS/HCC) ([facility]) INJECT 9 UNITS SUBCUTANEOUSLY if bg > 200. +2 units for every 50 pts > 200. maximum 18 units daily 6 mL 025 Active Lancets (OneTouch Delica Plus [id number]) miscIndications:T ype 2 diabetes mellitus with hyperlipidemia (CMS/HCC) ([facility]) USE TO TEST FINGER STICK BLOOD SUGAR 3 (THREE) TIMES A DAY 100 each 025 Active Arnuity Ellipta 100 MCG/ACT inhalerIndication s:Moderate persistent asthma without complication INHALE 1 PUFF BY MOUTH ONCE DAILY. rinse mouth and throat after use 30 each 025 Active Lancets (OneTouch Delica Plus [id number]) miscIndications:T ype 2 diabetes mellitus with hyperlipidemia (CMS/HCC) ([facility]) USE TO TEST FINGER STICK BLOOD SUGAR 3 (THREE) TIMES A DAY 100 each 024 2024 Discontinued Continuous Glucose Sensor (FreeStyle Mary 2 Sensor) miscIndications:T ype 2 diabetes mellitus with hyperlipidemia (CMS/HCC) ([facility]) APPLY 1 sensor EVERY 14 DAYS 2 each 024 2024 Discontinued NovoLOG FLEXPEN 100 UNIT/ML penIndications:Ty pe 2 diabetes mellitus with hyperlipidemia (CMS/HCC) ([facility]) INJECT 9 UNITS SUBCUTANEOUSLY if bg > 200. +2 units for every 50 pts > 200. maximum 18 units daily 6 mL 024 2024 Discontinued Tresiba FlexTouch 100 UNIT/ML injectionIndicati ons:Type 2 diabetes mellitus with hyperlipidemia (CMS/HCC) ([facility]) INJECT 60 UNITS SUBCUTANEOUSLY ONCE DAILY 15 mL 024 2024 Discontinued fluticasone furoate (Arnuity Ellipta) 100 MCG/ACT inhalerIndication s:Moderate persistent asthma without complication Inhale 1 puff Once per day. Rinse mouth with water after use to reduce aftertaste and incidence of candidiasis. Do not swallow. 30 each 2 024 2024 Discontinued Tirzepatide (Mounjaro) 2.5 MG/0.5ML solution auto-injectorIndi cations:Type 2 diabetes mellitus with hyperlipidemia (CMS/HCC) ([facility]) Inject 2.5 mg under the skin 1 (one) time per week. 2 mL 025 2024 Discontinued Active Problems Problem Noted Date Diagnosed Date [...] acute exacerbati on 07/14/2023 07/14/2023 Overview (07/03/2024): [facility] ED visit 06/25/24 for SOB, wheezing. Dx'd w/ flu. Needs nebulizer for home use. Consider need for Arnuity initiation. Adrenal adenoma 07/14/2023 07/14/2023 Diverticulosis 01/27/2023 Overview (01/27/2023): Images from the original note were not included. Coronary arteriosclerosis in patient with history of previous myocardial infarction 12/08/2020 Primary hypertension 12/08/2020 Hearing loss of right ear 04/24/2019 Heart murmur 04/24/2019 [place], old 04/24/2019 Overview (10/21/2022): 2013 x3 with 2 [address] placement Moderate persistent asthma without complication 04/24/2019 Vision loss 04/24/2019 Dystrophia unguium 10/19/2018 Onychomycosis 10/19/2018 Pain in toe 10/19/2018 Type 2 diabetes mellitus with hyperlipidemia (CM S/HCC) 10/19/2018 Callus of toe 10/19/2018 07/14/2023 Encounters Date Type Department Care Team Description 10/04/2024 Refill [facility] [address] [place] [address] Hilda Cline ANP Type 2 diabetes mellitus with hyperlipidemia (CMS/HCC) (CMS/HCC); Moderate persistent asthma without complication 10/01/2024 Refill [facility] [address] [place] [address] Hilda Cline ANP Type 2 diabetes mellitus with hyperlipidemia (CMS/HCC) (CMS/HCC) 09/14/2024 Refill [facility] [address] [place] [address] Hilda Cline ANP Type 2 diabetes mellitus with hyperlipidemia (CMS/HCC) (CMS/HCC) 09/11/2024 Refill [facility] [address] [place] [address] Hilda Cline ANP Type 2 diabetes mellitus with hyperlipidemia (CMS/HCC) (CMS/HCC) 09/07/2024 Refill [facility] [address] [place] [address] Todd Figueroa, PharmD Type 2 diabetes mellitus with hyperlipidemia (CMS/HCC) 08/23/2024 11:15 AM EST Office Visit [facility] [address] [place] [address] Hilda Cline ANP Type 2 diabetes mellitus with hyperlipidemia (CMS/HCC) (Primary Dx); Primary hypertension; Vasculogenic erectile dysfunction, unspecified vasculogenic erectile dysfunction type; Gastroesophageal reflux disease, unspecified whether esophagitis present; Screening for malignant neoplasm of colon 08/23/2024 Travel 08/22/2024 Telephone [facility] [address] [place] [address] Lin Bhandari [place] chart prep 08/08/2024 Travel 08/02/2024 Refill [facility] [address] [place] [address] Hilda Cline ANP Type 2 diabetes mellitus with hyperlipidemia ([facility]/HCC) ([facility]) 07/15/2024 Refill [facility] [address] [facility] [place] [address] Constantino Carson MD from Last 3 Months Immunizations Name Administration [...] 01/31/2024 1:16 PM EDT Plan of Treatment Upcoming Encounters Date Type Department Care Team (Late st Contact Info) Description 10/08/2024 11:30 AM EDT Medication Management [facility] [address] [place], [place] [phone] Todd Figueroa, PharmD [address] [place] [address] 12/04/2024 11:30 AM EDT Office Visit [facility] [address] [place], [place] [phone] Hilda Cline, ANP [address] [place], [place] [phone] Health Maintenance Due Date Last Done Comments CT Colonography 1955 FIT DNA/Cologuard 1955 FIT 1955 FOBT 1955 Sigmoidoscopy 1955 Eye Exam 1965 Hepatitis A Vaccines (1 of 2 - Risk 2-dose series) 1974 Zoster Vaccines (3 of 3) 11/03/2023 09/08/2023, 1207/2015 COVID-19 Vaccine ( season) 2024 10/28/2023, 01/12/2022, 04/29/2021, Additional history exists Influenza Vaccine (#1) 2024 , 04/24/2021, 04/24/2019, Additional history exists Diabetes: Hemoglobin A1C 10/01/2024 024, 01/31/2024, 11/18/2023, Additional history exists SDOH Screening 10/24/2024 10/25/2023 Diabetes: Foot Exam 01/30/2025 01/31/2024, 01/31/2024, 01/31/2024 Diabetes: Urine Protein Screening 01/30/2025 01/31/2024, 04/14/2023, 10/21/2021, Additional history exists Depression Screening 07/03/2025 07/03/2024, 07/03/20 24 Lipid Panel 07/03/2025 07/03/2024, 03/26, 04/29/2021 Alcohol/Substance [...] 131/70(2024 11:14 AM EST) No Todd Figueroa, LindsayD Hemoglobin A1c < 7 Result Component 10.1(07/03/20 12:03 PM EST) No Declan Kauffman Procedures Procedure Name Priority Date/Time Associated Diagnosis Comments HEMOGLOBIN A1C Routine 07/03/2024 12:03 PM EST Type 2 diabetes mellitus with hyperlipidemia (CMS/HCC) LIPID PANEL, STANDARD Routine 07/03/2024 12:03 PM EST Type 2 diabetes mellitus with hyperlipidemia (CMS/HCC) ALBUMIN, RANDOM URINE W/CREATININE Routine 01/31/2024 11:17 AM EDT Primary hypertension ZZZ HISTORICAL HEPATITIS C AB W/REFL TO HCV RNA, QN, PCR Routine 04/29/2021 9:10 AM EDT HM COLONOSCOPY Routine 07/17/2019 from Last 3 Months or Most Recently Relevant to Health Maintenance Results * (ABNORMAL) Hemoglobin A1c (07/03/2024 12:03 PM EST) Hemoglobin A1c 10.1(H) <6.0 % [facility] Comment:Hemoglobin A1C Refer ence Range Adults: 4.8 - 6.0 % Non diabetic: < 6.0 % Goal: < 7.0 %Additional Action Suggested: > 8.0 %Note: Hemoglobin A1c results are invalid for patients with abnormal amounts of HbF. Blood transfusions may impact the HbA1c concentration in the patient sample. Estimated Average Glucose 243 mg/dL [facility] Comment:eAG = Estimated ave rage glucose which is %A1C expressed asaverage glucose, using the formula of the [id number] Glucose study (ADAG), Diabetes Care, Vol.31,#8,Feb. 2007 Blood Venous blood specimen / Unknown 07/03/2024 12:03 PM EST 07/03/2024 1:03 PM EST [facility] LAB BLOOD ORDERABLES Final Resul t [facility] [address] [place] [address] [phone] * (ABNORMAL) Lipid Panel, Standard (07/03/2024 12:03 PM EST) Triglycerides 148 <150 mg/dL [facility] Comment:Desirable Triglyceri de: less than 150 mg/dLBorderline High Triglyceride 150-199 mg/dLHigh Triglyceride: 200-499 mg/dLVery High Triglyceride: greater than or equal to 5OO mg/dL Cholesterol 113 <200 mg/dL [facility] Comment:Desirable Cholestero l: less than 200 mg/dLBorderline High Cholesterol: 200-239 mg/dLHigh Cholesterol: greater than 239 mg/dL LDL Cholesterol Calculated 49 <100 mg/dL [facility] Comment:Desirable LDL: less than 100 mg/dLNear Optimal/Above Optimal LDL: 110- 129 mg/dLBorderline High LDL: 130-159 mg/dLHigh LDL: 160-189 mg/dLVery High LDL: greater than or equal to 190 mg/dL HDL Cholesterol 35(L) >40 mg/dL [facility] Comment:Desirable HDL: great er than 40 mg/dL Note: This HDL assay may give artificially low results in patients with liver disease. Blood Venous blood specimen / Unknown 07/03/2024 12:03 PM EST 07/03/2024 1:03 PM EST Hilda Cline [facility] BLOOD ORDERABLES Final Resul t Performing Organization Address [facility] de Phone Number [facility] [address] [place] [phone] * (ABNORMAL) Albumin, Random Urine W/Creatinine (01/31/2024 11:17 AM EDT) Creatinine, Urine 155.82 mg/dL [facility] Microalbumin Urine 112.0 mg/L [facility] Microalbum Creatinine Ratio Ur 71.8(H) <30 ug/mg cr [facility] Comment:Albumin/Creatinine R atio Reference Ranges: Normal: < 30 ug/mg creatinine Microalbuminuria: 30 - 300 ug/mg creatinineClinical Albuminuria: > 300 ug/mg creatinine Urine (Urine, Random) 01/31/2024 11:17 AM EDT 01/31/2024 4:19 PM EDT Hilda Cline [facility] URINE ORDERABLES Final Resul t Performing Organization Address [facility] de Phone Number [facility] [address] [place] [phone] * HEPATITIS C AB W/REFL TO HCV RNA, QN, PCR (04/29/2021 9:10 AM EDT) HEPATITIS C ANTIBODY NON-REACT TRUE NON-REACT TRUE [facility] INDEX 0.01 <1.00 [facility] Comment: ?? HCV antibody was non-reactive. There is no laboratory ?? evidence of HCV infection. ?? In most cases, no further action is required. However, if recent HCV exposure is suspected, a test for HCV RNA (test code 88765) is suggested. ?? For additional information please refer to http://education.Aptana/faq/HVZ08n4 (This link is being provided for informational/ educational purposes only.) ?? 04/29/2021 9:10 AM EDT us Hilda Cline ANP HISTORICAL/NON ORDERABLE LABS Fi nal Result [facility] [address] * Colonoscopy (07/17/2019) Pathologist [facility] Colonoscopy Normal Normal Historical Provider HEALTH MAINTENANCE Final Result from Last 3 Months or Most Recently Relevant to Health Maintenance Insurance [address] [place] [phone] [facility] Care Teams Tube Coremaker Relationship Specialty Start Date End Date Hilda Cline ANP [address] [place] [address] PCP - General Family Medicine 11/17/20 Todd Figueroa, LindsayD [address] [place] [address] Pharmacist Internal Medicine 11/24/23
--- OUTSIDE RECORDS SUMMARY | 2024-10-04 17:06 | XMS_ITS | Clinical Summary ---
Author Organization [facility] Address [address] [place] [address] Care Team Providers Care Corn Miller Name Role Phone Unavailable Primary Care Provider [...] complication, with long-term current use of insulin ([facility]) Inject 74 Units into the skin once daily 24 mL 5 9 Active fluticasone propionate (FLOVENT HFA) 110 mcg/actuation inhalerIndication s:Moderate persistent asthma without complication Inhale 1 Puff into the lungs 2 (two) times daily 1 Inhaler 3 9 Active insulin lispro (ADMELOG SOLOSTAR U-100 INSULIN) 100 unit/mL injectionIndicati ons:Type 2 diabetes mellitus without complication, with long-term current use of insulin ([facility]) 10 Syringe 3 9 Active canagliflozin 100 mg tabIndications:Ty pe 2 diabetes mellitus without complication, with long-term current use of insulin ([facility]) Take 300 mg by mouth every morning 30 Tab 3 [address] Active [address] tabletIndications :Coronary artery disease of [place] heart with stable angina pectoris, unspecified vessel or lesion type ([facility]),[place], old TAKE ONE TABLET BY MOUTH DAILY [...] asthma without complication 04/24/2019 Heart murmur 04/24/2019 [place], old 04/24/2019 Overview (04/24/2019): 2013 x3 with 2 stents placement Type 2 diabetes mellitus wit hout complication, with long-term current use of insulin ([facility]) 04/24/2019 Hearing loss of right ear [...] of Treatment Not on file [facility]
--- OUTSIDE RECORDS SUMMARY | 2024-10-04 17:06 | XMS_ITS | Encounter Summary ---
Author Organization [employer] Address [address] [facility] 7t [place] [address] Care Team Providers Care Exercise Scientist Name Role Phone Hilda Cline Primary Care Provider [phone] Todd Figueroa PharmD Unavailable [phone] Reason for Visit * Reason Comments Med Refill Encounter Details Date Type Department Care Team (Late st Contact Info) Description 09/12/2023 Refill [facility] [address] [place], [place] [phone] Hilda Cline ANP [address] [place], [place] [phone] Type 2 diabetes mellitus with hyperlipidemia ([facility]/HCC) Social History Tobacco Use Types Packs/Day [...] Description 10/08/2024 11:30 AM EDT Medication Management [facility] [address] [place] [phone] Todd Figueroa, Ceferino [address] [place] [phone] 12/04/2024 11:30 AM EDT Office Visit [address] [address] Hilda Cline ANP [address] [place] [phone] documented as of this encounter Goals Goal Patient Goal Type Associated Problems Recent Progress Patient-Stated? Author Hemoglobin A1c < 7 Result Component 10.1( 4 12:03 PM EST) No Decaln Kauffman documented as of this encounter Visit Diagnoses Diagnosis Type 2 diabetes mellitus with hyperlipidemia (CMS/HCC) (CMS/HCC) documented in this encounter Care Teams Exercise Scientist Relationship Specialty Start Date End Date Hilda Cline ANP [address] [place] [phone] PCP - General Family Medicine 11/17/20 Todd Figueroa, PharmD [address] [place] [phone] Pharmacist Internal Medicine 11/24/23 documented as of this encounter
--- OUTSIDE RECORDS SUMMARY | 2024-10-04 17:06 | XMS_ITS | Encounter Summary ---
Author Organization [employer] Address [address] [facility] 7t [place] [address] Care Team Providers Care Rolling Attendant Name Role Phone Hilda Cline Primary Care Provider [phone] Todd Figueroa PharmD Unavailable [phone] Reason for Visit * Reason Comments Med Refill Encounter Details Date Type Department Care Team (Late st Contact Info) Description 10/10/2023 Refill [facility] [address] [place], [place] [phone] Hilda Cline ANP [address] [place], [place] [phone] Social History Tobacco Use Types Packs/Day Years [...] Description 10/08/2024 11:30 AM EDT Medication Management [address] [address] Todd Figueroa, Ceferino [address] [place] [phone] 12/04/2024 11:30 AM EDT Office Visit [facility] [address] [place] [address] Hilda Cline ANP [address] [place] [phone] documented as of this encounter Goals Goal Patient Goal Type Associated Problems Recent Progress Patient-Stated? Author Hemoglobin A1c < 7 Result Component 10.1( 12:03 PM EST) No Declan Kauffman documented as of this encounter Visit Diagnoses Not on filedocumented in this encounter Care Teams Rolling Attendant Relationship Specialty Start Date End Date Hilda Cline ANP [address] [place] [phone] PCP - General Family Medicine 11/17/20 Todd Figueroa, PharmD [address] [place] [phone] Pharmacist Internal Medicine 11/24/23 documented as of this encounter
--- OUTSIDE RECORDS SUMMARY | 2024-10-04 17:06 | XMS_ITS | Encounter Summary ---
Author Organization [facility] Address [address] [facility] 7 [place] [address] Care Team Providers Care Psychology Intern Name Role Phone Marlyn Hilda RICHARDS Primary Care Provider [phone] Todd Figueroa PharmD Unavailable [phone] Reason for Visit * Reason Comments Med Refill Encounter Details Date Type Department Care Team ([facility] st Contact Info) Description 09/07/2024 Refill [facility] [address] [place], [place] [phone] Todd Figueroa, PharmD [address] [place] [address] Type 2 diabetes mellitus with hyperlipidemia (CMS/HCC) Social History Tobacco Use Types Packs/Day [...] encounter Miscellaneous Notes * Telephone Encounter - Todd Figueroa PharmD - 09/13/2024 9:02 AM EST Patient completed 4 weeks of initial 2.5 mg weekly dose of Mounjaro. Indicated for titration to initial therapeutic dose. Prescription sent for Mounjaro 5 mg subcutaneously weekly. Pharmacy [facility] to schedule CDTM FU in 3-4 weeks. documented in this encounter Plan of Treatment Upcoming Encounters Date Type Department Care Team (Late st Contact Info) Description 10/08/2024 11:30 AM EDT Medication Management [facility] [address] [place] [phone] Todd Figueroa PharmD [address] [place] [address] 12/04/2024 11:30 AM EDT Office Visit [facility] [address] [place] [phone] Hilda Cline ANP [address] [place] [address] documented as of this encounter Goals Goal Patient Goal Type Associated Problems Recent Progress Patient-Stated? Author Blood Pressure < 140/90 Blood Pressure 131/70(2024 11:14 AM EST) No Todd Figueroa PharmD Hemoglobin A1c < 7 Result Component 10.1(07/03/20 12:03 PM EST) No Declan Kauffman documented as of this encounter Visit Diagnoses Diagnosis Type 2 diabetes mellitus with hyperlipidemia ([facility]) documented in this encounter Additional Health Concerns Assessment Noted Time PHQ-9 Depression Total Score: 7 07/03/20 11:53 AM EST documented as of this encounter Care Teams Psychology Intern Relationship Specialty Start Date End Date Hilda Cline ANP [address] [place] [address] PCP - General Family Medicine 11/17/20 Todd Figueroa, Ceferino [address] [place] [address] Pharmacist Internal Medicine 11/24/23 documented as of this encounter
--- OUTSIDE RECORDS SUMMARY | 2024-10-04 17:06 | XMS_ITS | Encounter Summary ---
Author Organization [employer] Address [address] [facility] 7t [place] [address] Care Team Providers Care Tester Electronic Scale Name Role Phone Hilda Cline Primary Care Provider [phone] Todd Figueroa PharmD Unavailable [phone] Reason for Visit * Reason Comments Med Refill Encounter Details Date Type Department Care Team (Late st Contact Info) Description 10/04/2024 Refill [facility] [address] [place], [place] [phone] Hilda Cline ANP [address] [place] [address] Type 2 diabetes mellitus with hyperlipidemia (CMS/HCC) ([facility]); Moderate persistent asthma without complication Social History Tobacco Use Types Packs/Day Years [...] Description 10/08/2024 11:30 AM EDT Medication Management [facility] [address] [place] [address] Todd Figueroa PharmD [address] [place] [address] 12/04/2024 11:30 AM EDT Office Visit [facility] [address] [place] [address] Hilda Cline ANP [address] [place] [address] documented as of this encounter Goals Goal Patient Goal Type Associated Problems Recent Progress Patient-Stated? Author Blood Pressure < 140/90 Blood Pressure 131/70(2024 11:14 AM EST) No Todd Figueroa, Ceferino Hemoglobin A1c < 7 Result Component 10.1(07/03/20 24 12:03 PM EST) No Declan Kauffman documented as of this encounter Visit Diagnoses Diagnosis Type 2 diabetes mellitus with hyperlipidemia (CMS/HCC) ([facility]) Moderate persistent asthma without complication documented in this encounter Additional Health Concerns Assessment Noted Time PHQ-9 Depression Total Score: 7 07/03/20 24 11:53 AM EST documented as of this encounter Care Teams Tester Electronic Scale Relationship Specialty Start Date End Date Hilda Cline ANP [address] [place] [address] PCP - General Family Medicine 11/17/20 Todd Figueroa PharmD [address] [place] [address] Pharmacist Internal Medicine 11/24/23 documented as of this encounter
--- OUTSIDE RECORDS SUMMARY | 2024-10-04 17:06 | XMS_ITS | Encounter Summary ---
Author Organization [employer] [facility] Address [address] [facility] 7 [place] [address] Care Team Providers Care Gun Numberer Name Role Phone Hilda Cline Primary Care Provider [phone] Todd Figueroa PharmD Unavailable [phone] Reason for Visit * Reason Onset Date Comments Med Refill 03/15/2024 Encounter Details Date Type Department Care Team (Late st Contact Info) Description 03/15/2024 Refill [facility] [address] [place], [place] [phone] Hilda Cline ANP [address] [place], [place] [phone] Type 2 diabetes mellitus with hyperlipidemia (CMS/HCC) ([facility] Social History Tobacco Use Types [...] Description 10/08/2024 11:30 AM EDT Medication Management [facility] [address] [place] [phone] Todd Figueroa PharmD [address] [place] [address] 12/04/2024 11:30 AM EDT Office Visit [facility] [address] [place] [address] Hilda Cline ANP [address] [place] [address] documented as of this encounter Goals Goal [...] (CMS/HCC) documented in this encounter Care Teams Gun Numberer Relationship Specialty Start Date End Date Hilda Cline ANP [address] [place] [address] PCP - General Family Medicine 11/17/20 Todd Figueroa, PharmD [address] [place] [address] Pharmacist Internal Medicine 11/24/23 documented as of this encounter
--- OUTSIDE RECORDS SUMMARY | 2024-10-04 17:06 | XMS_ITS | Encounter Summary ---
Author Organization [email or web address] [facility] Address [address] [facility] 7 [place] [address] Care Team Providers Care Geothermal Hvac Technician Name Role Phone Hilda Cline Primary Care Provider [phone] Todd Figueroa PharmD Unavailable [phone] Reason for Visit * Reason Comments Med Refill Encounter Details Date Type Department Care Team (Late st Contact Info) Description 02/13/2024 Refill [facility] 230 [place], [place] [phone] Hilda Cline ANP 230 [place], [place] [phone] Type 2 diabetes mellitus with hyperlipidemia ([facility]/HCC) ([facility]) Social History Tobacco Use Types Packs/Day Years [...] Description 10/08/2024 11:30 AM EDT Medication Management [address] [address] Todd Figueroa PharmD [address] [place] [address] 12/04/2024 11:30 AM EDT Office Visit [address] [address] Hilda Cline ANP [address] [place] [address] documented as of this encounter Goals Goal [...] (CMS/HCC) documented in this encounter Care Teams Geothermal Hvac Technician Relationship Specialty Start Date End Date Hilda Cline ANP [address] [place] [address] PCP - General Family Medicine 11/17/20 Todd Figueroa, PharmD [address] [place] [address] Pharmacist Internal Medicine 11/24/23 documented as of this encounter
--- OUTSIDE RECORDS SUMMARY | 2024-10-04 17:06 | XMS_ITS | Encounter Summary ---
Author Organization [employer] [facility] Address [address] [facility] 7 [place] [address] Care Team Providers Care Sales Representative Aircraft Name Role Phone Hilda Cline Primary Care Provider [phone] Todd Figueroa PharmD Unavailable [phone] Reason for Visit * Reason Comments Med Refill Encounter Details Date Type Department Care Team (Late st Contact Info) Description 10/01/2024 Refill [facility] 230 [place], [place] [phone] Hilda Cline ANP [address] [place], [place] [phone] Type 2 diabetes mellitus with hyperlipidemia ([facility]/HCC) ([facility]) Social History Tobacco Use Types Packs/Day Years [...] Description 10/08/2024 11:30 AM EDT Medication Management [facility] MED[facility]INE [address] [place] [address] Todd Figueroa PharmD [address] [place] [address] 12/04/2024 11:30 AM EDT Office Visit [facility] [address] [place] [address] Hilda Cline ANP [address] [place] [address] documented as of this encounter Goals Goal [...] documented as of this encounter Care Teams Sales Representative Aircraft Relationship Specialty Start Date End Date Hilda Cline ANP [address] [place] [address] PCP - General Family Medicine 11/17/20 Todd Figueroa PharmD [address] [place] [address] Pharmacist Internal Medicine 11/24/23 documented as of this encounter
--- OUTSIDE RECORDS SUMMARY | 2024-10-04 17:06 | XMS_ITS | Encounter Summary ---
Author Organization [employer] [facility] Address [address] [facility] 7 [place] [address] Care Team Providers Care Relief Worker Name Role Phone Hilda Cline Primary Care Provider [phone] Todd Figueroa PharmD Unavailable [phone] Reason for Visit * Reason Comments Med Refill Encounter Details Date Type Department Care Team (Late st Contact Info) Description 09/14/2024 Refill [facility] 230 [place], [place] [phone] Hilda Cline ANP [address] [place], [place] [phone] Type 2 diabetes mellitus with hyperlipidemia ([facility]/HCC) ([facility]) Social History Tobacco Use Types [...] Description 10/08/2024 11:30 AM EDT Medication Management [facility] [address] [place] [address] Todd Figueroa PharmD [address] [place] [address] 12/04/2024 11:30 AM EDT Office Visit [facility] [address] [place] [address] Hilda Cline ANP [address] [place] [address] documented as of this encounter Goals Goal [...] documented as of this encounter Care Teams Relief Worker Relationship Specialty Start Date End Date Hilda Cline ANP [address] [place] [address] PCP - General Family Medicine 11/17/20 Todd Figueroa PharmD [address] [place] [address] Pharmacist Internal Medicine 11/24/23 documented as of this encounter
--- OUTSIDE RECORDS SUMMARY | 2024-10-04 17:06 | XMS_ITS | Encounter Summary ---
Author Organization [facility] Address [address] [facility] 7t [place] [address] Care Team Providers Care Vending Machine Mechanic Name Role Phone Hilda Cline Primary Care Provider [phone] Todd Figueroa PharmD Unavailable [phone] Reason for Visit * Reason Onset Date Comments Med Refill 09/13/2023 Encounter Details Date Type Department Care Team (Late st Contact Info) Description 09/13/2023 Telephone [facility] 230 [place], [place] [phone] Hilda Cline ANP [address] [place], [place] [phone] Med Refill Social History Tobacco Use Types [...] 7 MG tablet To be sent to: [facility] - [place], [place] - [phone] [place] - [phone] from [facility] informs pt is out of meds and would like to know if medication can be sent out today to finish pt bubble pack . documented in this encounter Plan of Treatment Upcoming Encounters Date Type Department Care Team (Late st Contact Info) Description 10/08/2024 11:30 AM EDT Medication Management [facility] [address] [place] [phone] Todd Figueroa, PharmD [address] [place] [address] 12/04/2024 11:30 AM EDT Office Visit [facility] [address] [place] [address] Hilda Cline ANP [address] [place] [address] documented as of this encounter Goals Goal Patient Goal Type Associated Problems Recent Progress Patient-Stated? Author Hemoglobin A1c < 7 Result Component 10.1( 4 12:03 PM EST) No Declan Kauffman documented as of this encounter Visit Diagnoses Not on filedocumented in this encounter Care Teams Vending Machine Mechanic Relationship Specialty Start Date End Date Hilda Cline ANP [address] [place] [address] PCP - General Family Medicine 11/17/20 Todd Figueroa, LindsayD [address] [place] [address] Pharmacist Internal Medicine 11/24/23 documented as of this encounter
--- OUTSIDE RECORDS SUMMARY | 2024-10-04 17:06 | XMS_ITS | Encounter Summary ---
Author Organization [employer] [facility] Address [address] [place] [address] 7 [place] [address] Care Team Providers Care Master Black Belt Name Role Phone Hilda Cline Primary Care Provider [phone] Todd Figueroa PharmD Unavailable [phone] Reason for Visit * Reason Comments Med Refill Encounter Details Date Type Department Care Team (Late st Contact Info) Description 11/22/2022 Refill [facility] [address] [place] [address] Hilda Clnie ANP [address] [place] [address] Social History Tobacco Use Types Packs/Day Years [...] Description 10/08/2024 11:30 AM EDT Medication Management [facility] [address] [place], [place] [phone] Todd Figueroa, PharmD [address] [place] [address] 12/04/2024 11:30 AM EDT Office Visit [facility] [address] [place] [address] Hilda Cline ANP [address] [place] [address] documented as of this encounter Visit Diagnoses Not on filedocumented in this encounter Care Teams Master Black Belt Relationship Specialty Start Date End Date Hilda Cline ANP [address] [place] [address] PCP - General Family Medicine 11/17/20 Todd Figueroa, LindsayD [address] [place] [address] Pharmacist Internal Medicine 11/24/23 documented as of this encounter
== END 2024-10-04 13:34 | disposition home or self-care (01) ==
LOC: HO.RESP 13:33
PROVIDERS: PCP Nurse Practitioner Primary Care; Visit Provider Nurse Practitioner Primary Care
DX: J45.909 Unspecified asthma, uncomplicated (principal); R60.0 Localized edema
CPT/HCPCS: 94010; 94640; 94727; 94729

== ENCOUNTER → 2024-10-04 13:55 | Outpatient (BNV) | payer OTHER, SELFPAY | PROVIDERS: PCP Nurse Practitioner Primary Care; Visit Provider Internal Medicine Pulmonary Disease | DX: J45.909 Unspecified asthma, uncomplicated (principal) | CPT/HCPCS: 94060; 94727; 94729 ==

== ENCOUNTER → 2024-11-27 20:30 | Outpatient (BNV) | payer OTHER, SELFPAY | PROVIDERS: PCP Nurse Practitioner Primary Care; Visit Provider Internal Medicine | DX: G47.33 Obstructive sleep apnea (adult) (pediatric) (principal); G47.61 Periodic limb movement disorder; R06.83 Snoring | CPT/HCPCS: 99499 ==

== ENCOUNTER → 2024-11-27 20:30 | Outpatient (REF) | payer OTHER, SELFPAY ==
--- OUTSIDE RECORDS SUMMARY | 2024-11-27 20:43 | XMS_ITS | Clinical Summary ---
Author Organization [employer] Address [address] [facility] 7t [place] [address] Care Team Providers Care House Decorator Name Role Phone Hilda Cline Primary Care Provider [phone] Todd Figueroa PharmD Unavailable [phone] Allergies No known active allergies Medications metoprolol [...] 100 g 023 Active Continuous Blood Gluc Cd Storage And Materials Make Up Helper (FreeStyle Mary 2 [place]) deviceIndications :Type 2 diabetes mellitus with hyperlipidemia (CMS/HCC) ([facility]) Scan sensor every 8 hours 1 each 023 Active Alcohol Swabs (Alcohol Pads) 70 % pads USE DIRECTED two (2) times a day 100 each 11 024 Active Comfort EZ Pen [place] 32G X 8 MM misc USE TO INJECT INSULIN 4 (FOUR) TIMES DAILY 100 each 8 024 Active Lasix 20 MG tablet Take 1 tablet by mouth if needed each day (weight gain of 2 pounds in one day or 5 pounds in 3 days). 024 Active Aspirin Low Dose 81 MG EC tablet TAKE 1 TABLET BY MOUTH ONCE DAILY 30 tablet 5 024 Active cholecalciferol (Vitamin D-3) 1.25 MG (48663 UT) capsule TAKE 1 CAPSULE BY MOUTH EVERY WEEK 4 capsule 5 024 Active rosuvastatin (Crestor) 40 MG tablet TAKE 1 TABLET BY MOUTH ONCE DAILY 30 tablet 8 024 Active glucose blood (FreeStyle Precision Claudio Test) test stripIndications: Type 2 diabetes mellitus with hyperlipidemia (CMS/HCC) ([facility]) USE TO TEST FINGER STICK BLOOD SUGAR NEEDED FOR hypoglycemia 50 strip 5 025 Active metFORMIN XR (Glucophage-XR) 500 MG 24 hr tabletIndications :Type 2 diabetes mellitus with hyperlipidemia (CMS/HCC) ([facility]) Take one tablet by mouth twice daily. Do not crush, chew, or split. 180 tablet 3 025 Active omeprazole (PriLOSEC) [address] capsuleIndication s:Gastroesophagea l reflux disease, unspecified whether esophagitis present Take 1 capsule (40 mg) by mouth before breakfast. Do not crush or chew. 90 capsule 1 025 2025 Active Continuous Glucose Sensor (FreeStyle Mary 2 Sensor) miscIndications:T ype 2 diabetes mellitus with hyperlipidemia (CMS/HCC) ([facility]) USE 1 sensor EVERY 14 DAYS 2 each 5 025 Active insulin aspart FlexPen (NovoLOG) 100 UNIT/ML penIndications:Ty pe 2 diabetes mellitus with hyperlipidemia (CMS/HCC) ([facility]) INJECT 9 UNITS SUBCUTANEOUSLY if bg > 200. +2 units for every 50 pts > 200. maximum 18 units daily 6 mL 5 025 Active Lancets (OneTouch Delica Plus Dufigd90B) miscIndications:T ype 2 diabetes mellitus with hyperlipidemia (CMS/HCC) ([facility]) USE TO TEST FINGER STICK BLOOD SUGAR 3 (THREE) TIMES A DAY 100 each 025 Active Arnuity Ellipta 100 MCG/ACT inhalerIndication s:Moderate persistent asthma without complication INHALE 1 PUFF BY MOUTH ONCE DAILY. rinse mouth and throat after use 30 each 025 Active empagliflozin (Jardiance) 10 MGIndications:Typ e 2 diabetes mellitus with hyperlipidemia (CMS/HCC) ([facility]) Take 1 tablet (10 mg) by mouth Once per day. 30 tablet 11 025 Active Tirzepatide (Mounjaro) 7.5 MG/0.5ML solution auto-injectorIndi cations:Type 2 diabetes mellitus with hyperlipidemia ([facility]/HCC) ([facility]) Inject 7.5 mg under the skin 1 (one) time per week. 2 mL 5 025 Active Insulin Degludec FlexTouch 100 UNIT/ML solution pen-injectorIndic ations:Type 2 diabetes mellitus with hyperlipidemia ([facility]/HCC) ([facility]) Inject 54 Units under the skin Once per day. 15 mL 5 025 Active sildenafil (Viagra) 50 MG tabletIndications :Vasculogenic erectile dysfunction, unspecified vasculogenic erectile dysfunction type TAKE 1 TABLET BY MOUTH NEEDED ONCE DAILY FOR erectile dysfunction 20 tablet 1 025 Active lisinopril 40 MG tabletIndications :Hypertension associated with diabetes ([facility]) TAKE 1 TABLET BY MOUTH ONCE DAILY 30 tablet 11 025 Active albuterol 108 (90 Base) MCG/ACT inhaler INHALE 2 PUFF BY MOUTH EVERY 4 TO 6 HOURS NEEDED FOR SHORTNESS OF BREATH OR FOR WHEEZING 8.5 g 5 025 Active lisinopril 40 MG tabletIndications :Hypertension associated with diabetes ([facility]) TAKE 1 TABLET BY MOUTH ONCE DAILY 90 tablet 1 024 2024 Discontinued albuterol 108 (90 Base) MCG/ACT inhaler INHALE 2 PUFF BY MOUTH EVERY 4 TO 6 HOURS NEEDED FOR SHORTNESS OF BREATH OR FOR WHEEZING 8.5 g 5 024 2024 Discontinued Active Problems Problem Noted Date Diagnosed Date Former heavy cigarette smoker (20-39 per day) Overview (09/08/2023): Referred 05/2023 for LDCT Steatosis of liver 07/14/2023 07/14/2023 Shortness of breath 07/14/2023 07/14/2023 Obstructive sleep apnea syndrome 07/14/2023 07/14/2023 Generalized ischemic myocardial dysfunction 12/2 07/2022 07/14/2023 Gastroesophageal reflux disease 07/14/2023 07/14/2023 Fracture of distal end of radius 07/14/2023 07/14/2023 Overview (07/14/2023): jun Atherosclerosis of coronary artery 07/14/2023 07/14/2023 Moderate persistent asthma with acute exacerbati on 07/14/2023 07/14/2023 Overview (07/03/2024): [facility] ED visit 06/25/24 for SOB, wheezing. Dx'd w/ flu. Needs nebulizer for home use. Consider need for Arnuity initiation. Adrenal adenoma 07/14/2023 07/14/2023 Diverticulosis 01/27/2023 Overview (01/27/2023): Images from the original note were not included. Coronary arteriosclerosis in patient with history of previous myocardial infarction 12/08/2020 Primary hypertension 12/08/2020 Hearing loss of right ear 04/24/2019 Heart murmur 04/24/2019 NH, old 04/24/2019 Overview (10/21/2022): 2012 x3 with 2 stents placement Moderate persistent asthma without complication 04/24/2019 Vision loss 04/24/2019 Dystrophia unguium 10/19/2018 Onychomycosis 10/19/2018 Pain in toe 10/19/2018 Type 2 diabetes mellitus with hyperlipidemia (CM S/HCC) 10/19/2018 Callus of toe 10/19/2018 07/14/2023 Encounters Date Type Department Care Team Description 11/16/2024 Refill [facility] [address] [place] [address] Hilda Cline ANP 10/30/2024 Refill [facility] [address] [place] [address] Hilda Cline ANP Hypertension associated with diabetes (CMS/HCC) 10/26/2024 Telephone [facility] [address] [place] [address] Hilda Cline ANP Durable Medical Equipment 10/21/2024 Orders Only [facility] [address] [place] [address] Hilda Cline ANP NATI (obstructive sleep apnea) (Primary Dx) 10/11/2024 Refill [facility] [address] [place] [address] Hilda Cline ANP Vasculogenic erectile dysfunction, unspecified vasculogenic erectile dysfunction type 10/08/2024 Travel 10/04/2024 Refill [facility] [address] [place] [address] Hilda Cline ANP Type 2 diabetes mellitus with hyperlipidemia ([facility]/HCC) ([facility]); Moderate persistent asthma without complication 10/01/2024 Refill [facility] [address] [place] [address] Hilda Cline ANP Type 2 diabetes mellitus with hyperlipidemia (CMS/HCC) ([facility]) 09/14/2024 Refill [facility] [address] [place] [address] Hilda Cline ANP Type 2 diabetes mellitus with hyperlipidemia ([facility]/HCC) ([facility]) 09/11/2024 Refill [facility] [address] [place] [address] Hilda Cline ANP Type 2 diabetes mellitus with hyperlipidemia ([facility]/HCC) ([facility]) 09/07/2024 Refill [facility] [address] [place] [address] Todd Figueroa, PharmD Type 2 diabetes mellitus with hyperlipidemia ([facility]) from Last 3 Months Immunizations Name Administration [...] Sign Reading Time Taken Comments Blood Pressure 116/60 10/08/2024 11:49 AM EDT Pulse 82 10/08/2024 11:49 AM EDT Temperature 35.4 ??C (95.7 ??F) 08/23/2024 11:14 [...] Care Team (Late st Contact Info) Description 12/04/2024 11:30 AM EDT Office Visit [facility] [address] [place] [phone] Hilda Cline, ANP [address] [place] [address] 12/31/2024 11:30 AM EDT Medication Management [facility] [address] [place] [phone] Todd Figueroa, PharmD [address] [place] [address] Health Maintenance Due Date Last Done Comments CT Colonography 1955 FIT DNA/Cologuard 1955 FIT 1955 FOBT 1955 Sigmoidoscopy 1955 Hepatitis A Vaccines (1 of 2 - Risk 2-dose series) 1974 Zoster Vaccines (3 of 3) 11/03/2023 09/08/2023, 1207/2015 COVID-19 Vaccine ( season) 2024 10/28/2023, 01/12/2022, 04/29/2021, Additional history exists Influenza Vaccine (#1) 2024 3, 04/24/2021, 04/24/2019, Additional history exists SDOH Screening 10/24/2024 10/25/2023 Diabetes: Hemoglobin A1C 01/08/2025 025, 07/03/2024, 01/31/2024, Additional history exists Diabetes: Foot Exam 01/30/2025 01/31/2024, 01/31/2024, 01/31/2024 Diabetes: Urine Protein Screening 01/30/2025 01/31/2024, 04/14/2023, 10/21/2021, Additional history exists Depression Screening 07/03/2025 07/03/2024, 07/03/20 Lipid Panel 07/03/2025 07/03/2024, 03/26, 04/29/2021 Alcohol/Substance Use Screening 08/23/2025 08/23/2024 Tobacco Screening 08/23/2025 08/23/2024 Eye Exam 10/11/2026 10/11/2024, 09/13/2024 Colonoscopy 07/17/2029 07/17/2019 Colorectal Cancer Screening 07/17/2029 [...] Author Blood Pressure < 140/90 Blood Pressure 116/60(2024 11:49 AM EDT) No Todd Figueroa, Ceferino Hemoglobin A1c < 7 Result Component 8.5( 11:56 AM EDT) No Declan Kauffman Procedures Procedure Name Priority Date/Time Associated Diagnosis Comments POCT GLYCATED HEMOGLOBIN, TOTAL Routine 10/08/2024 11:56 AM EDT Type 2 diabetes mellitus with hyperlipidemia (CMS/HCC) ([facility]/HCC) LIPID PANEL, STANDARD Routine 07/03/2024 12:03 PM EST Type 2 diabetes mellitus with hyperlipidemia (CMS/HCC) ALBUMIN, RANDOM URINE W/CREATININE Routine 01/31/2024 11:17 AM EDT Primary hypertension ZZZ HISTORICAL HEPATITIS C AB W/REFL TO HCV RNA, QN, PCR Routine 04/29/2021 9:10 AM EDT HM COLONOSCOPY Routine 07/17/2019 from Last 3 Months or Most Recently Relevant to Health Maintenance Results * (ABNORMAL) POCT HGB A1C (10/08/2024 11:56 AM EDT) Hemoglobin A1C 8.5(A) 4.0 - 6.0 % QC Media Lot # [id number] Lot# Expiration Date ,941 Blood 10/08/2024 11:5 6 AM EDT [facility] POINT OF CARE TEST ENTER/EDIT OR DERABLES Final Result * (ABNORMAL) Lipid Panel, Standard (07/03/2024 12:03 PM EST) Triglycerides 148 <150 mg/dL [facility] Comment:Desirable Triglyceri de: less than 150 mg/dLBorderline High Triglyceride 150-199 mg/dLHigh Triglyceride: 200-499 mg/dLVery High Triglyceride: greater than or equal to 5OO mg/dL Cholesterol 113 <200 mg/dL [facility] Comment:Desirable Cholestero l: less than 200 mg/dLBorderline High Cholesterol: 200-239 mg/dLHigh Cholesterol: greater than 239 mg/dL LDL Cholesterol Calculated 49 <100 mg/dL [facility] Comment:Desirable LDL: less than 100 mg/dLNear Optimal/Above Optimal LDL: 110- 129 mg/dLBorderline High LDL: 130-159 mg/dLHigh LDL: 160-189 mg/dLVery High LDL: greater than or equal to 190 mg/dL HDL Cholesterol 35(L) >40 mg/dL [facility] Comment:Desirable HDL: great er than 40 mg/dL Note: This HDL assay may give artificially low results in patients with liver disease. Blood Venous blood specimen / Unknown 07/03/2024 12:03 PM EST 07/03/2024 1:03 PM EST us Hilda Cline ANP LAB BLOOD ORDERABLES Final Resul t Performing Organization Address [facility] Co de Phone Number [facility] [address] [place] [phone] * (ABNORMAL) Albumin, Random Urine W/Creatinine (01/31/2024 11:17 AM EDT) Creatinine, Urine 155.82 mg/dL [facility] Microalbumin Urine 112.0 mg/L [facility] Microalbum Creatinine Ratio Ur 71.8(H) <30 ug/mg cr [facility] Comment:Albumin/Creatinine R atio Reference Ranges: Normal: < 30 ug/mg creatinine Microalbuminuria: 30 - 300 ug/mg creatinineClinical Albuminuria: > 300 ug/mg creatinine Urine (Urine, Random) 01/31/2024 11:17 AM EDT 01/31/2024 4:19 PM EDT us Hilda Cline ANP LAB URINE ORDERABLES Final Resul t Performing Organization Address [facility] Co de Phone Number [facility] [address] [place] [phone] * HEPATITIS C AB W/REFL TO HCV RNA, QN, PCR (04/29/2021 9:10 AM EDT) HEPATITIS C ANTIBODY NON-REACT TRUE NON-REACT TRUE [facility] INDEX 0.01 <1.00 [facility] Comment: ?? HCV antibody was non-reactive. There is no laboratory ?? evidence of HCV infection. ?? In most cases, no further action is required. However, if recent HCV exposure is suspected, a test for HCV RNA (test code 87841) is suggested. ?? For additional information please refer to http://education.[employer]/faq/JNF14h5 (This link is being provided for informational/ educational purposes only.) ?? 04/29/2021 9:10 AM EDT us Hilda Cline ANP HISTORICAL/NON ORDERABLE LABS Fi nal Result [facility] [address] * Colonoscopy (07/17/2019) Colonoscopy Normal Normal Historical Provider HEALTH MAINTENANCE Final Result from Last 3 Months or Most Recently Relevant to Health Maintenance Insurance [id number] [employer] OPTIONS (O D-SNP) [place] [id number] Care Teams House Decorator Relationship Specialty Start Date End Date Hilda Cline ANP [address] [place] [address] PCP - General Family Medicine 11/17/20 Todd Figueroa, LindsayD [address] [place] [address] Pharmacist Internal Medicine 11/24/23
--- OUTSIDE RECORDS SUMMARY | 2024-11-27 20:43 | XMS_ITS | Encounter Summary ---
Author Organization [employer] Address [address] [place] [address] [address] [place] [address] Care Team Providers Care Spanish Translator Name Role Phone Hilda Cline Primary Care Provider [phone] Todd Figueroa PharmD Unavailable [phone] Reason for Visit * Reason Comments Med Refill Encounter Details Date Type Department Care Team (Late st Contact Info) Description 11/22/2022 Refill [facility] [address] [place] [address] Hilda Cline ANP [address] [place] [address] Social History Tobacco Use Types Packs/Day Years [...] Description 12/04/2024 11:30 AM EDT Office Visit [facility] [address] [place], [place] [phone] Hilda Cline ANP [address] [place], [place] [phone] 12/31/2024 11:30 AM EDT Medication Management [facility] [address] [place] [address] Todd Figueroa, Ceferino [address] [place] [address] documented as of this encounter Visit Diagnoses Not on filedocumented in this encounter Care Teams Spanish Translator Relationship Specialty Start Date End Date Hilda Cline ANP [address] [place] [phone] PCP - General Family Medicine 11/17/20 Todd Figueroa, LindsayD [address] [place] [phone] Pharmacist Internal Medicine 11/24/23 documented as of this encounter
--- OUTSIDE RECORDS SUMMARY | 2024-11-27 20:44 | XMS_ITS | Encounter Summary ---
Author Organization [employer] Address [address] [facility] 7t [place] [address] Care Team Providers Care Bartender Server Name Role Phone Hilda Cline Primary Care Provider [phone] Todd Figueroa PharmD Unavailable [phone] Reason for Visit * Reason Comments Med Refill Encounter Details Date Type Department Care Team (Late st Contact Info) Description 02/13/2024 Refill [facility] [address] [place], [place] [phone] Hilda Cline ANP [address] [place], [place] [phone] Type 2 diabetes mellitus with hyperlipidemia ([facility]/HCC) ([facility]) Social History Tobacco Use Types Packs/Day [...] Description 12/04/2024 11:30 AM EDT Office Visit [facility] [address] [place] [phone] Hilda Cline ANP [address] [place] [phone] 12/31/2024 11:30 AM EDT Medication Management [address] [address] Todd Figueroa PharmD [address] [place] [phone] documented as of this encounter Goals Goal Patient Goal Type Associated Problems Recent Progress Patient-Stated? Author Blood Pressure < 140/90 Blood Pressure 116/60(2024 11:49 AM EDT) No Todd Figueroa, PharmPranay Hemoglobin A1c < 7 Result Component 8.5( 11:56 AM EDT) No Declan Kauffman documented as of this encounter Visit Diagnoses Diagnosis Type 2 diabetes mellitus with hyperlipidemia (CMS/HCC) (CMS/HCC) documented in this encounter Care Teams Bartender Server Relationship Specialty Start Date End Date Hilda Cline ANP [address] [place] [phone] PCP - General Family Medicine 11/17/20 Todd Figueroa, PharmD [address] [place] [phone] Pharmacist Internal Medicine 11/24/23 documented as of this encounter
--- OUTSIDE RECORDS SUMMARY | 2024-11-27 20:44 | XMS_ITS | Encounter Summary ---
Author Organization [employer] Address [address] [facility] 7t [place] [address] Care Team Providers Care Filter Tip Inspector Name Role Phone Hilda Cline Primary Care Provider [phone] Todd Figueroa PharmD Unavailable [phone] Reason for Visit * Reason Comments Med Refill Encounter Details Date Type Department Care Team ([facility] st Contact Info) Description 09/12/2023 Refill [facility] [address] [place], [place] [phone] Hilda Cline ANP [address] [place], [place] [phone] Type 2 diabetes mellitus with hyperlipidemia ([facility]/HCC) Social History Tobacco Use Types Packs/Day Years [...] Description 12/04/2024 11:30 AM EDT Office Visit [facility] [address] [place] [address] Hilda Cline ANP [address] [place] [phone] 12/31/2024 11:30 AM EDT Medication Management [address] [address] Todd Figueroa, Ceferino [address] [place] [address] documented as of this encounter Goals Goal Patient Goal Type Associated Problems Recent Progress Patient-Stated? Author Hemoglobin A1c < 7 Result Component 8.5(10/08/2024 11:56 AM EDT) No Declan Kauffman documented as of this encounter Visit Diagnoses Diagnosis Type 2 diabetes mellitus with hyperlipidemia (CMS/HCC) (CMS/HCC) documented in this encounter Care Teams Filter Tip Inspector Relationship Specialty Start Date End Date Hilda Cline ANP [address] [place] [phone] PCP - General Family Medicine 11/17/20 Todd Figueroa, PharmD [address] [place] [phone] Pharmacist Internal Medicine 11/24/23 documented as of this encounter
--- OUTSIDE RECORDS SUMMARY | 2024-11-27 20:44 | XMS_ITS | Encounter Summary ---
Author Organization [employer] Address [address] [facility] 7 [place] [address] Care Team Providers Care Escrow Representative Name Role Phone Hilda Cline Primary Care Provider [phone] Todd Figueroa PharmD Unavailable [phone] Reason for Visit * Reason Onset Date Comments Med Refill 03/15/2024 Encounter Details Date Type Department Care Team (Late st Contact Info) Description 03/15/2024 Refill [facility] [address] [place], [place] [phone] Hilda Cline ANP [address] [place], [place] [phone] Type 2 diabetes mellitus with hyperlipidemia (CMS/HCC) ([facility]/HCC) Social History Tobacco Use Types [...] Description 12/04/2024 11:30 AM EDT Office Visit [address] [address] Hilda Cline ANP [address] [place] [phone] 12/31/2024 11:30 AM EDT Medication Management [address] [address] Todd Figueroa PharmD [address] [place] [phone] documented as of this encounter Goals Goal [...] (CMS/HCC) documented in this encounter Care Teams Escrow Representative Relationship Specialty Start Date End Date Hilda Cline ANP [address] [place] [phone] PCP - General Family Medicine 11/17/20 Todd Figueroa, PharmD [address] [place] [phone] Pharmacist Internal Medicine 11/24/23 documented as of this encounter
--- OUTSIDE RECORDS SUMMARY | 2024-11-27 20:44 | XMS_ITS | Data Portability ---
Author Organization [employer] Address [address] [place] [address] Care Team Providers Care Treasury Manager Name Role Phone BRAYAN JOVANI Primary Care Provider [phone] HIM [facility] OTHER Assessment Encounter Date Assessment Date Assessment LastModified by Organization Details LastModified Time 07/05/2024 07/05/2024 I have reviewed and agree with the assessment and plan as documented by the block sawyer. I provided real-time medical direction for this encounter and was immediately available to provide additional phone-based assistance as needed. History as noted in EMR and by block sawyer. I would add / emphasize: Patient seen [...] Available No t Available Comfort EZ Pen [place] 32 gauge x 5/16 USE FOR INJECT [...] Available No t Available FreeStyle Mary 2 [place] USE DIRECTED EVERY 8 HOURS active Not [...] Updated DateTime 4 97 % 97 % 30600.7 44 g 97.6 [degF] 16 /min 76 /min 110 mm[Hg] 60 mm[Hg] Not Available [facility] - production 4 11:15:02 Social History None recorded. Functional Status None recorded. Mental Status None recorded. Family History Nothing Reported. Medical History No medical history recorded. Past Encounters Encounter ID Performer Location Encounter Start Date Encounter Closed Date Diagnosis/Indication Diagnosis SNOMED-CT Code Diagnosis ICD10 Code Diagnosis Note [id number] Adams Cuevas MD Main - [address] [address] 07/05/2024 11:15:00 07/09/2024 11:32:59 Upper respiratory infection 58004483 J06.9 Health Concerns Section Related Observation LastModified by Organization Detai ls LastModified Time None Recorded Concern Status LastModified by Organization Details LastModified Time None Recorded Advance Directives Directive None Recorded Payers Encounter Date Sequence Insurance Name Policy Number Policy Whelan Covered Member ID Whelan Member ID Guarantor Name 07/05/2024 1 [facility] - DOS ON OR AFTER 2022 - DUAL ELIGIBLE - [facility] OPTIONS AND ONE CARE (MEDICARE REPLACEMENT/ADV ANTAGE - HMO) David Mercado [id number] David Mercado Notes Date Note Type Note [...] cold symptoms, CoughPMH: Asthma, Myocardial InfarctionComments : Filler Feeder verified the patient's name//address and phone number. [...] .................. .................. .................. .................. .................. .................. ............... Valve Machine Operator Note From Jayant Singh: Pt co continued cough and cold symptoms. Pt was seen in ER and given a care plan/antibiotics/i nhaler. Pt daughter? s sts nebulizer machine and albuterol bullets are being picked up today. Pt able to speak in full sentences. Lungs clear bilaterally, good skin color and turgid, afebrile, baseline vitals assessed, WNL . [facility] contacted and advised to co time with current care plan. Pt and daughter educated on signs indicating the ER. Advised if symptoms persist to contact pcp. .................. .................. .................. .................. .................. .................. .................. ............... [facility] Consulted: Adams Cuevas .................. .................. .................. .................. .................. .................. .................. ............... Disposition: Fulfilled Adams Cuevas MD [address] [facility],[address], [place], [address], [employer] 07/08/2024 10:18:16
--- OUTSIDE RECORDS SUMMARY | 2024-11-27 20:44 | XMS_ITS | Encounter Summary ---
Author Organization [employer] Address [address] [facility] 7t [place] [address] Care Team Providers Care Dump Motorman Name Role Phone Hilda Cline Primary Care Provider [phone] Todd Figueroa PharmD Unavailable [phone] Reason for Visit * Reason Onset Date Comments Med Refill 12/01/2023 Encounter Details Date Type Department Care Team (Late st Contact Info) Description 12/01/2023 Telephone [facility] [address] [place], [place] [phone] Hilda Cline ANP [address] [place], [place] [phone] Med Refill Social History Tobacco Use Types [...] 14 MG tablet To be sent to: [facility] - [place] - [id number] [place] - [address] documented in this encounter Plan of Treatment Upcoming Encounters Date Type Department Care Team (Late st Contact Info) Description 12/04/2024 11:30 AM EDT Office Visit [facility] MEDICINE [address] [place] [address] Hilda Cline, ANP [address] [place] [address] 12/31/2024 11:30 AM EDT Medication Management [facility] MEDICINE [address] [place] [address] Todd Figueroa, PharmD [address] [place] [address] documented as of this encounter Goals Goal Patient Goal Type Associated Problems Recent Progress Patient-Stated? Author Blood Pressure < 140/90 Blood Pressure 116/60(2024 11:49 AM EDT) No Todd Figueroa, Ceferino Hemoglobin A1c < 7 Result Component 8.5( 11:56 AM EDT) No Declan Kauffman documented as of this encounter Visit Diagnoses Not on filedocumented in this encounter Care Teams Dump Motorman Relationship Specialty Start Date End Date Hilda Cline ANP [address] [place] [address] PCP - General Family Medicine 11/17/20 Todd Figueroa, LindsayD [address] [place] [address] Pharmacist Internal Medicine 11/24/23 documented as of this encounter
--- OUTSIDE RECORDS SUMMARY | 2024-11-27 20:44 | XMS_ITS | Encounter Summary ---
Author Organization [employer] Address [address] [facility] 7 [place] [address] Care Team Providers Care Ships Or Barges Loader Name Role Phone Hilda Cline Primary Care Provider [phone] Todd Figueroa PharmD Unavailable [phone] Reason for Visit * Reason Comments Med Refill Encounter Details Date Type Department Care Team (Late st Contact Info) Description 10/10/2023 Refill [facility]INE [address] [place], [place] [phone] Hilda Cline ANP [address] [place], [place] [phone] Social History Tobacco Use Types Packs/Day Years [...] Description 12/04/2024 11:30 AM EDT Office Visit [facility] MED[facility]INE [address] [place] [address] Hilda Cline ANP [address] [place] [address] 12/31/2024 11:30 AM EDT Medication Management [address] [address] Todd Figueroa PharmD [address] [place] [address] documented as of this encounter Goals Goal Patient Goal Type Associated Problems Recent Progress Patient-Stated? Author Hemoglobin A1c < 7 Result Component 8.5(10/08/2024 11:56 AM EDT) No Declan Kauffman documented as of this encounter Visit Diagnoses Not on filedocumented in this encounter Care Teams Ships Or Barges Loader Relationship Specialty Start Date End Date Hilda Cline ANP [address] [place] [address] PCP - General Family Medicine 11/17/20 Todd Figueroa, LindsayD [address] [place] [address] Pharmacist Internal Medicine 11/24/23 documented as of this encounter
--- OUTSIDE RECORDS SUMMARY | 2024-11-27 20:44 | XMS_ITS | Encounter Summary ---
Author Organization [employer] Address [address] [facility] 7t [place] [address] Care Team Providers Care Painter Helper Spray Name Role Phone Hilda Cline Primary Care Provider [phone] Todd Figueroa PharmD Unavailable [phone] Reason for Visit * Reason Onset Date Comments Med Refill 09/13/2023 Encounter Details Date Type Department Care Team (Late st Contact Info) Description 09/13/2023 Telephone [facility]INE [address] [place], [place] [phone] Hilda Cline ANP [address] [place], [place] [phone] Med Refill Social History Tobacco Use Types [...] 7 MG tablet To be sent to: [facility] - [place], [place] - [phone] - [place] - [address] Blank from [facility] informs pt is out of meds and would like to know if medication can be sent out today to finish pt bubble pack . documented in this encounter Plan of Treatment Upcoming Encounters Date Type Department Care Team (Late st Contact Info) Description 12/04/2024 11:30 AM EDT Office Visit [facility] [address] [place] [address] [phone] Hilda Cline ANP [address] [place] [address] 12/31/2024 11:30 AM EDT Medication Management [facility] [address] [place] [address] Todd Figueroa, PharmD [address] [place] [address] documented as of this encounter Goals Goal Patient Goal Type Associated Problems Recent Progress Patient-Stated? Author Hemoglobin A1c < 7 Result Component 8.5(10/08/2024 11:56 AM EDT) No Declan Kauffman documented as of this encounter Visit Diagnoses Not on filedocumented in this encounter Care Teams Painter Helper Spray Relationship Specialty Start Date End Date Hilda Cline ANP [address] [place] [address] PCP - General Family Medicine 11/17/20 Todd Figueroa, PharmD [address] [place] [address] Pharmacist Internal Medicine 11/24/23 documented as of this encounter
--- OUTSIDE RECORDS SUMMARY | 2024-11-27 20:44 | XMS_ITS | Encounter Summary ---
Author Organization [employer] Address [address] [facility] [address] [place] [address] Care Team Providers Care Supply Officer Name Role Phone Hilda Cline Primary Care Provider [phone] Todd Figueroa PharmD Unavailable [phone] Reason for Visit * Reason Onset Date Comments Med Refill 03/15/2024 Encounter Details Date Type Department Care Team (Late st Contact Info) Description 03/15/2024 Refill [facility] MED[facility]INE [address] [place], [place] [phone] Lili Johnston MD [address] [place], [place] [phone] Hypertension associated with diabetes (CMS/HCC) ([facility]/HCC) Social History Tobacco Use Types Packs/Day Years Used Date Smoking Tobacco: Former Cigarettes Smokeless Tobacco: Never Alcohol Use Standard Drinks/Week Comments Not Currently 0 (1 standard drink = 0.6 oz pur e alcohol) PHQ-2 Answer Date Recorded Patient Health Questionnaire-2 Score 0 01/27/2023 Housing Stability Answer Date Recorded What is your housing situation today? I have alfonsowojciech rodriguez 06/02/[address] you [...] Description 12/04/2024 11:30 AM EDT Office Visit [address] [address] Hilda Cline ANP [address] [place] [address] 12/31/2024 11:30 AM EDT Medication Management [address] [address] Todd Figueroa PharmD [address] [place] [address] documented as of this encounter Goals Goal Patient Goal Type Associated Problems Recent Progress Patient-Stated? Author Blood Pressure < 140/90 Blood Pressure 116/60(2024 11:49 AM EDT) No Todd Figueroa, Ceferino Hemoglobin A1c < 7 Result Component 8.5( 11:56 AM EDT) No Declan Kauffman documented as of this encounter Visit Diagnoses Diagnosis Hypertension associated with diabetes (CMS/HCC) Unspecified essential hypertension documented in this encounter Care Teams Supply Officer Relationship Specialty Start Date End Date Hilda Cline ANP [address] [place] [address] PCP - General Family Medicine 11/17/20 Todd Figueroa, PharmD [address] [place] [address] Pharmacist Internal Medicine 11/24/23 documented as of this encounter
== END ==
LOC: HO.SL 20:30
PROVIDERS: PCP Nurse Practitioner Primary Care; Visit Provider Nurse Practitioner Primary Care
DX: G47.33 Obstructive sleep apnea (adult) (pediatric) (principal)
CPT/HCPCS: 95811

== ENCOUNTER 2025-01-22 13:23 | Outpatient (REF) | payer OTHER, SELFPAY ==
--- NOTE | ~2025-01-22 | US_ITS ---
EXAMINATION: US LOWER EXTREMITY VEINS BILATERAL HISTORY: BLE swelling, L > R COMPARISON: There are no prior studies available for comparison. TECHNIQUE: Duplex and color Doppler sonographic examination of the deep venous system of the bilateral lower extremities was performed. FINDINGS: The right common femoral, superficial femoral, and popliteal veins are patent demonstrating normal compressibility, spontaneous flow, and augmentation. There is a normal color and spectral Doppler waveform appearance of the visualized deep venous system above the knee. The posterior tibial and peroneal veins are patent. The left common femoral and superficial femoral veins are patent demonstrating normal compressibility, spontaneous flow, and augmentation. There is an eccentric filling defect in the left popliteal vein which is not expanded. The appearance is that of subacute or chronic thrombus. The posterior tibial and peroneal veins are patent. 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 No evidence of DVT in the right lower extremity. Findings were sent to Dr. Cline by secure text message on 01/22/2025 at 2:32 PM. Electronically signed by: Jake Story MD 01/22/2025 02:35 PM EDT
--- OUTSIDE RECORDS SUMMARY | 2025-01-22 14:34 | XMS_ITS | Clinical Summary ---
Author Organization [facility] Address [address] [place] [address] Care Team Providers Care Contractor Broomcorn Threshing Name Role Phone Unavailable Primary Care Provider [...] mcg/actuation inhalerIndication s:Moderate persistent asthma without complication ([facility]) Inhale 2 Puffs into the lungs every 4 to 6 (four to six) hours as needed for shortness of breath or wheezing 1 Inhaler 3 9 Active insulin glargine (LANTUS SOLOSTAR U-100 INSULIN) 100 unit/mL (3 mL) injection penIndications:Ty pe 2 diabetes mellitus without complication, with long-term current use of insulin ([facility]) Inject 74 Units into the skin once daily 24 mL 5 9 Active fluticasone propionate (FLOVENT HFA) 110 mcg/actuation inhalerIndication s:Moderate persistent asthma without complication ([facility]) Inhale 1 Puff into the lungs 2 (two) times daily 1 Inhaler 3 9 Active insulin lispro (ADMELOG SOLOSTAR U-100 INSULIN) 100 unit/mL injectionIndicati ons:Type 2 diabetes mellitus without complication, with long-term current use of insulin ([facility]) 10 Syringe 3 9 Active canagliflozin 100 mg tabIndications:Ty pe 2 diabetes mellitus without complication, with long-term current use of insulin ([facility]) Take 300 mg by mouth every morning 30 Tab 3 [address] Active aspirin [address] tabletIndications :Coronary artery disease of [place] heart with stable angina pectoris, unspecified vessel or lesion type ([facility]),CT, old TAKE ONE TABLET BY MOUTH DAILY [...] Diagnosed Date Moderate persistent asthma without complication ([facility]) 04/24/2019 Heart murmur 04/24/2019 CT, old 04/24/2019 Overview (04/24/2019): 2013 x3 with 2 stents placement Type 2 diabetes mellitus wit hout complication, with long-term current use of insulin ([facility]) 04/24/2019 Hearing loss of right ear 04/24/2019 Vision loss 04/24/2019 Class 1 obesity due to exces s calories with serious comorbidity and body mass index (BMI) of 30.0 to 30.9 in adult 04/24/2019 Immunizations Immunization Administration Dates Next Due Flu, Preservative Free 04/24/2019 PNEUMOCOCCAL POLYSACCHARIDE PPV23 (Pneumovax 23) 07/30/2019 TDAP 04/24/2019 Social History Tobacco Use [...] 79 07/30/2019 1:05 PM EST Temperature 36.7 C (98 F) 07/30/2019 1:05 PM EST Respiratory Rate 16 07/30/2019 1:05 PM EST Oxygen Saturation - - Inhaled Oxygen Concentration - - Weight 88.5 kg (195 lb) 07/30/2019 1:05 PM EST Height 167.6 cm (5' 6 ) 07/30/2019 1:05 PM EST Body Mass Index 31.47 07/30/2019 1:05 PM EST Plan of Treatment Not on file Insurance [employer]
--- OUTSIDE RECORDS SUMMARY | 2025-01-22 14:34 | XMS_ITS | Data Portability ---
Author Organization [employer] Address [address] [place] [address] Care Team Providers Care Docking Saw Operator Name Role Phone JOVANI SCHMIDT Primary Care Provider [phone] HIM PABLO OTHER Assessment Encounter Date Assessment Date Assessment LastModified by Organization Details LastModified Time 07/05/2024 07/05/2024 I have reviewed and agree with the assessment and plan as documented by the auto mechanic supervisor. I provided real-time medical direction for this encounter and was immediately available to provide additional phone-based assistance as needed. History as noted in EMR and by auto mechanic supervisor. I would add / emphasize: Patient seen [...] EN PESO AUMENTA 2 LBS EN OSVALDO KUHS O 5 LBS EN 3 [place]ACK[place]URN. active [...] Available No t Available Comfort EZ Pen [place] 32 gauge x 5/16 USE FOR INJECT [...] Available No t Available FreeStyle Mary 2 [place] USE DIRECTED EVERY 8 HOURS active Not [...] Updated DateTime 4 97 % 97 % 32068.7 44 g 97.6 [degF] 16 /min 76 /min 110 mm[Hg] 60 mm[Hg] Not Available [facility] - production 4 11:15:02 Social History None recorded. Functional Status None recorded. Mental Status None recorded. Family History Nothing Reported. Medical History No medical history recorded. Past Encounters Encounter ID Performer Location Encounter Start Date Encounter Closed Date Diagnosis/Indication Diagnosis SNOMED-CT Code Diagnosis ICD10 Code Diagnosis Note [id number] Adams Cuevas MD Main - [facility] [address] [place] [phone] 07/05/2024 11:15:00 07/09/2024 11:32:59 Upper respiratory infection [id number] J06.9 Health Concerns Section Related Observation LastModified by Organization Detai ls LastModified Time None Recorded Concern Status LastModified by Organization Details LastModified Time None Recorded Advance Directives Directive None Recorded Payers Insurance Date Sequence Insurance Name Policy Number Policy Whelan Covered Member ID Whelan Member ID Guarantor Name 07/05/2024 1 [facility] - DOS ON OR AFTER 2022 - DUAL ELIGIBLE - NURSING HOME OPTIONS AND ONE CARE (MEDICARE REPLACEMENT/ADV ANTAGE - HMO) David Mercado [id number] David Mercado Notes Date Note Type Note Provider Name and Address Organization Details Recorded Time 07/05/2024 text/html [facility] Nurse Triage Notes (Kyelr Martinez): Reason For Request: AsthmaDenies: Increased work of breathing/labored with or without fever Unable to speak in full sentences without distress Discoloration of skin -cyanosis Needs to sleep sitting up, can t catch breath Shortness of breath in setting of confusion Chief Complaints: Asthma, Common cold symptoms, CoughPMH: Asthma, Myocardial InfarctionComments : Computing Services Director verified the patient's name//address and phone number. [...] sentences at time of call, just in [place] . Education provided on the response time and the patient was advised to monitor reported s/s and seek emergency treatment if needed -Roxane Martinez RN .................. .................. .................. .................. .................. .................. .................. ............... Barge Pilot Note From Jayant Singh: Pt co continued cough and cold symptoms. Pt was seen in ER and given a care plan/antibiotics/i nhaler. Pt daughter s sts nebulizer machine and albuterol bullets are being picked up today. Pt able to speak in full sentences. Lungs clear bilaterally, good skin color and turgid, afebrile, baseline vitals assessed, WNL . [facility] contacted and advised to co time with current care plan. Pt and daughter educated on signs indicating the ER. Advised if symptoms persist to contact pcp. .................. .................. .................. .................. .................. .................. .................. ............... [facility] Consulted: Adams Cuevas .................. .................. .................. .................. .................. .................. .................. ............... Disposition: Fulfilled Adams Cuevas MD [address] [facility],[address], [place], [address], [employer], [employer] 07/08/2024 10:18:16
--- OUTSIDE RECORDS SUMMARY | 2025-01-22 14:34 | XMS_ITS | Encounter Summary ---
Author Organization [employer] Address [address] [place] [address] Care Team Providers Care Destination Coordinator Name Role Phone Hilda Cline Primary Care Provider [phone] Todd Figueroa PharmD Unavailable [phone] Reason for Visit * Reason Comments Med Refill Encounter Details Date Type Department Care Team (Late st Contact Info) Description 11/22/2022 Refill [facility]INE [address] [place] [address] Hilda Cline ANP [address] [place] [address] Social History Tobacco Use Types Packs/Day Years [...] on filedocumented in this encounter Care Teams Destination Coordinator Relationship Specialty Start Date End Date Hilda Cline ANP [address] [place] [address] PCP - General Family Medicine 11/17/20 Todd Figueroa, PharmD [address] [place] [address] Pharmacist Internal Medicine 11/24/23 documented as of this encounter
== END 2025-01-22 13:24 | disposition home or self-care (01) ==
LOC: HO.US 13:23
PROVIDERS: PCP Nurse Practitioner Primary Care; Visit Provider Nurse Practitioner Primary Care
DX: R60.0 Localized edema (principal)
CPT/HCPCS: 93970

== ENCOUNTER → 2025-01-22 13:26 | Outpatient (BNV) | payer OTHER, SELFPAY | PROVIDERS: PCP Nurse Practitioner Primary Care; Visit Provider Radiology Diagnostic Radiology | DX: R22.43 Localized swelling, mass and lump, lower limb, bilateral (principal) | CPT/HCPCS: 93970 ==

== ENCOUNTER → 2025-02-15 14:13 | Outpatient (BNV) | payer OTHER, SELFPAY | PROVIDERS: PCP Nurse Practitioner Primary Care; Visit Provider Internal Medicine | DX: I82.432 Acute embolism and thrombosis of left popliteal vein (principal) | CPT/HCPCS: 99204; G2211 ==

== ENCOUNTER 2025-02-18 10:58 | Outpatient (AMB) | payer OTHER, SELFPAY ==
--- NOTE | 2025-02-18 11:10 | A.OFFVIS_ITS ---
Intake Visit Reasons: erectile dysfunction Intake Note: New patient presents today for initial visit for erectile dysfunction Urology Medication:Sildenafil, Tadalafil Blood Thinner:Aspirin, Apixaban Antibiotic Allergies:None Family Centered Specialist Required: Yes Family Centered Specialist Language: Sports Cartoonist Name: [id number] Allergies No Known Allergies Allergy (Verified 02/18/25 11:19) HPI Comments Details: David is a new patient evaluation for erectile dysfunction. PFSH Medical History CAD (coronary artery disease) Old myocardial infarction History of ischemic cardiomyopathy LVH (left ventricular hypertrophy) HTN (hypertension) Hyperlipidemia Type 2 diabetes mellitus without complications Personal history of tobacco use Surgical History Stented coronary artery Hx of cardiac cath History of lung surgery Family History Father Bone cancer Mother No problems noted. Brother Heart problem Brother Heart problem Brother Diabetes Social History Household Members: None Patient Tobacco Use Status: Former Tobacco user Tobacco use type: Cigarette Years Smoked: onset 15yo, 1-2ppd x 41yrs, 60PYH - quit 2011 service: No Current occupational status: unemployed Results AMB Urinalysis, Automated UA Leukoctes 0 Jasper/uL Last Edit by Isabelle Antonio on 02/18/25 12:01 UA Nitrite Negative Last Edit by Isabelle Antonio on 02/18/25 12:01 UA Urobilinogen 3.5 mg/dL Last Edit by Isabelle Antonio on 02/18/25 12:01 UA Protein 0 mg/dL Last Edit by Isabelle Antonio on 02/18/25 12:01 UA pH 6.0 Last Edit by Isabelle Antonio on 02/18/25 12:01 UA Blood 0 Oziel/uL Last Edit by Isabelle Antonio on 02/18/25 12:01 UA Specific Siler 1.010 Last Edit by Isabelle Antonio on 02/18/25 12:01 UA Ketone Negative Last Edit by Isabelle Antonio on 02/18/25 12:01 UA Bilirubin 0 mg/dL Last Edit by Isabelle Antonio on 02/18/25 12:01 UA Glucose 60 mg/dL Last Edit by Isabelle Antonio on 02/18/25 12:01 Assessment & Plan Assessment & Plan Orders: Orders AMB Urinalysis Automated Today E11.69 - Type 2 diabetes mellitus with other specified complication, N52.1 - Erectile dysfunction due to diseases classified elsewhere Coding
--- OUTSIDE RECORDS SUMMARY | 2025-02-18 12:19 | XMS_ITS | Clinical Summary ---
Author Organization [employer] Address [address] [facility] [address] [place] [address] Care Team Providers Care Production Supervisor Name Role Phone Jovani cShmidt Primary Care Provider [phone] Todd Figueroa PharmD Unavailable [phone] Allergies No known active allergies Medications metoprolol [...] g 12/23/19 23 Active Continuous Blood Gluc Switchboard Clerk (GanjiStyle Mary 2 [place]) deviceIndications: Type 2 diabetes mellitus with hyperlipidemia (CMS/HCC) ([facility]) Scan sensor every 8 hours 1 each 07/14/20 23 Active Lasix 20 MG tablet Take 1 tablet by mouth if needed each day (weight gain of 2 pounds in one day or 5 pounds in 3 days). 06/26/20 24 Active rosuvastatin (Crestor) 40 MG tablet TAKE 1 TABLET BY MOUTH ONCE DAILY 30 tablet 8 07/16/20 24 Active glucose blood (FreeStyle Precision Claudio Test) test stripIndications:T ype 2 diabetes mellitus with hyperlipidemia (CMS/HCC) ([facility]) USE TO TEST FINGER STICK BLOOD SUGAR NEEDED FOR hypoglycemia 50 strip 5 08/02/19 25 Active metFORMIN XR (Glucophage-XR) 500 MG 24 hr tabletIndications: Type 2 diabetes mellitus with hyperlipidemia (CMS/HCC) ([facility]) Take one tablet by mouth twice daily. Do not crush, chew, or split. 180 tablet 3 08/09/19 25 Active omeprazole (PriLOSEC) [address] capsuleIndications :Gastroesophageal reflux disease, unspecified whether esophagitis present Take 1 capsule (40 mg) by mouth before breakfast. Do not crush or chew. 90 capsule 1 08/23/19 25 026 Active Continuous Glucose Sensor (FreeStyle Mary 2 Sensor) miscIndications:Ty pe 2 diabetes mellitus with hyperlipidemia (CMS/HCC) ([facility]) USE 1 sensor EVERY 14 DAYS 2 each 09/14/19 25 Active insulin aspart FlexPen (NovoLOG) 100 UNIT/ML penIndications:Typ e 2 diabetes mellitus with hyperlipidemia (CMS/HCC) ([facility]) INJECT 9 UNITS SUBCUTANEOUSLY if bg > 200. +2 units for every 50 pts > 200. maximum 18 units daily 6 mL 10/03/19 25 Active Lancets (OneTouch Delica Plus [id number]) miscIndications:Ty pe 2 diabetes mellitus with hyperlipidemia (CMS/HCC) ([facility]) USE TO TEST FINGER STICK BLOOD SUGAR 3 (THREE) TIMES A DAY 100 each 10/05/19 25 Active Arnuity Ellipta 100 MCG/ACT inhalerIndications :Moderate persistent asthma without complication INHALE 1 PUFF BY MOUTH ONCE DAILY. rinse mouth and throat after use 30 each 10/05/19 25 Active Tirzepatide (Mounjaro) 7.5 MG/0.5ML solution auto-injectorIndic ations:Type 2 diabetes mellitus with hyperlipidemia (CMS/HCC) ([facility]) Inject 7.5 mg under the skin 1 (one) time per week. 2 mL 10/09/19 25 Active Insulin Degludec FlexTouch 100 UNIT/ML solution pen-injectorIndica tions:Type 2 diabetes mellitus with hyperlipidemia (CMS/HCC) (CMS/[facility]) Inject 54 Units under the skin Once per day. 15 mL 10/09/19 25 Active lisinopril 40 MG tabletIndications: Hypertension associated with diabetes (CMS/HCC) TAKE 1 TABLET BY MOUTH ONCE DAILY 30 tablet 11 11/01/19 25 Active albuterol 108 (90 Base) MCG/ACT inhaler INHALE 2 PUFF BY MOUTH EVERY 4 TO 6 HOURS NEEDED FOR SHORTNESS OF BREATH OR FOR WHEEZING 8.5 g 5 11/17/19 25 Active Umeclidinium [place] 62.5 MCG/ACT aerosol powderIndications: Pulmonary emphysema, unspecified emphysema type ([facility]) Inhale 1 Act (62.5 mcg) Once daily. 30 each 11 11/29/19 25 Active tadalafil (Cialis) 10 MG tabletIndications: Vasculogenic erectile dysfunction, unspecified vasculogenic erectile dysfunction type Take 1 tab 60 minutes before sexual intercourse 20 tablet 12/05/19 25 Active empagliflozin (Jardiance) 25 MGIndications:Type 2 diabetes mellitus with hyperlipidemia ([facility]) ([facility]) Take 1 tablet (25 mg) by mouth Once daily. 90 tablet 3 12/05/19 25 026 Active Alcohol Swabs (Alcohol Prep) 70 % pads USE DIRECTED two (2) times a day 100 each 12/20/19 25 Active BD Pen Needle Marichuy Ultrafine 32G X 4 MM misc USE FOR INJECT insulin 4 (FOUR) TIMES DAILY 100 each 8 01/03/20 25 Active cholecalciferol (Vitamin D-3) 1.25 MG (53325 UT) capsule TAKE 1 CAPSULE BY MOUTH EVERY WEEK 4 capsule 1 01/03/20 25 Active aspirin (Aspirin Low Dose) 81 MG EC tablet TAKE 1 TABLET BY MOUTH ONCE DAILY 30 tablet 1 01/03/20 25 Active Apixaban Starter Pack (Eliquis DVT/PE Starter Pack) 5 MG tablet therapy packIndications:Ch ronic deep vein thrombosis (DVT) of left popliteal vein ([facility]) Follow instructions on box, 10mg BID for 7d, then 5mg BID 60 each 01/23/20 25 Active Active Problems Problem Noted Date Diagnosed Date COPD (chronic obstructive pulmonary disease) wit h emphysema 11/28/2024 Overview (11/28/2024): PFTs 10/04/24 Impression: Mild obstructive ventilatory defect with no bronchodilator response. Decreased diffusion capacity suggests emphysema. Former heavy cigarette smoker (20-39 per day) Overview (09/08/2023): Referred 05/2023 for LDCT Steatosis of liver 07/14/2023 07/14/2023 Shortness of breath 07/14/2023 07/14/2023 Obstructive sleep apnea syndrome 07/14/2023 07/14/2023 Generalized ischemic myocardial dysfunction 06/2507/14/2023 Gastroesophageal reflux disease 07/14/2023 07/14/2023 Fracture of distal end of radius 07/14/2023 07/14/2023 Overview (07/14/2023): jun Atherosclerosis of coronary artery 07/14/2023 07/14/2023 Adrenal adenoma 07/14/2023 07/14/2023 Diverticulosis 01/27/2023 Overview (01/27/2023): Images from the original note were not included. Coronary arteriosclerosis in patient with history of previous myocardial infarction 12/08/2020 Primary hypertension 12/08/2020 Hearing loss of right ear 04/24/2019 Heart murmur 04/24/2019 CA, old 04/24/2019 Overview (10/21/2022): 2013 x3 with 2 stents placement Moderate persistent asthma without complication 04/24/2019 Vision loss 04/24/2019 Dystrophia unguium 10/19/2018 Onychomycosis 10/19/2018 Pain in toe 10/19/2018 Type 2 diabetes mellitus with hyperlipidemia (CM S/HCC) 10/19/2018 Callus of toe 10/19/2018 07/14/2023 Resolved Problems Problem Noted Date Diagnosed Date Resolved Date Moderate persistent asthma w ith acute exacerbation 07/14/2023 07/14/2023 11/28/2024 Overview (07/03/2024): [facility] ED visit 06/25/24 for SOB, wheezing. Dx'd w/ flu. Needs nebulizer for home use. Consider need for Arnuity initiation. Encounters Date Type Department Care Team Description 02/15/2025 Telephone [facility] [address] [place] [id number] Jovani Schmidt ANP FYI 01/30/2025 Telephone [facility] [place] [address] Jovani Schmidt ANP Durable Medical Equipment 01/23/2025 Orders Only [facility] [place] [address] Jovani Schmidt ANP Coronary arteriosclerosis in patient with history of previous myocardial infarction (Primary Dx) 01/22/2025 Orders Only [facility] [place] [address] Jovani Schmidt ANP Chronic deep vein thrombosis (DVT) of left popliteal vein (CMS/HCC) (Primary Dx) 01/22/2025 Telephone [facility] [place] [address] Jovani Schmidt ANP Call Back Request 01/21/2025 Telephone [facility] [place] [address] Jovani Schmidt ANP Durable Medical Equipment 01/21/2025 Telephone [facility] [place] [address] Jovani Schmidt ANP 01/16/2025 Telephone [facility] [place] [address] Jovani Schmidt ANP 01/15/2025 Telephone [facility] [place] [address] Jovani Schmidt ANP 01/14/2025 Telephone [facility] [place] [address] Jovani Schmidt ANP called back needed 01/01/2025 Telephone [facility] [place] [address] Jovani Schmidt ANP 01/01/2025 Refill [facility] [place] [address] Jovani Schmidt ANP 12/19/2024 Refill [facility] [place], ABHIJEET [address] Lili Johnston MD 12/04/2024 11:30 AM EDT Office Visit [facility] [place] [address] Jovani Schmidt ANP Bilateral edema of lower extremity (Primary Dx); Type 2 diabetes mellitus with hyperlipidemia (CMS/HCC) ([facility]); Vasculogenic erectile dysfunction, unspecified vasculogenic erectile dysfunction type; JENA (acute kidney injury) ([facility]); Diabetic nephropathy associated with type 2 diabetes mellitus ([facility]/HCC) 12/04/2024 Travel 12/03/[address] [address] Jovani Schmidt ANP CHART PREP 11/29/[address] [address] Jovani Schmidt ANP Med Refill 11/28/2024 Orders Only [address] [phone] Jovani Schmidt ANP Pulmonary emphysema, unspecified emphysema type ([facility]) (Primary Dx) from Last 3 Months Immunizations Immunization Administration Dates Next Due Hep B, adult [...] housing situation today? I have alfonso rodriguez 12/04/[address] you li ve. Do you have problems with any of the following? None of the above 12/04/2024 Food Insecurity Answer Date Recorded Within the past 12 months, y ou worried that your food would run out before you got money to buy more: Never True 12/04/2024 Within the past 12 months,th e food you bought just didn't last and you didn't have enough money to get more: Never True Transportation Answer Date Recorded In the past 12 months, has l ack of transportation kept you from medical appts, meetings, work or from getting things needed for daily living? No 12/04/2024 Utilities Answer Date Recorded In the past 12 months, has t he electric, gas, oil or water company threatened to shut off services in your home? Yes 12/04/2024 Depression Answer Date Recorded Patient Health Questionnaire-2 [...] Sign Reading Time Taken Comments Blood Pressure 118/65 12/04/2024 11:54 AM EDT Pulse 75 12/04/2024 11:54 AM EDT Temperature 35.4 C (95.7 F) 08/23/2024 11:14 AM EST Respiratory Rate 16 12/04/2024 11:54 AM EDT Oxygen Saturation 98% 08/23/2024 11:14 AM EST Inhaled Oxygen Concentration - - Weight 84.8 kg (187 lb) 12/04/2024 11:54 AM EDT Height 167.6 cm (5' 6 ) 12/04/2024 11:54 AM EDT Body Mass Index 30.18 12/04/2024 11:54 AM EDT Plan of Treatment Health Maintenance Due Date Last Done Comments CT Colonography 1955 FIT DNA/Cologuard 1955 FIT 1955 FOBT 1955 Sigmoidoscopy 1955 Hepatitis A Vaccines (1 of 2 - Risk 2-dose series) 1974 Zoster Vaccines (3 of 3) 11/03/2023 09/08/2023, 1207/2015 COVID-19 Vaccine ( season) 2024 10/28/2023, 01/12/2022, 04/29/2021, Additional history exists Diabetes: Foot Exam 01/30/2025 01/31/2024, 01/31/2024, 01/31/2024 Diabetes: Hemoglobin A1C 03/06/2025 025, 10/08/2024, 07/03/2024, Additional history exists Influenza Vaccine (#1) 2025 , 04/24/2021, 04/24/2019, Additional history exists Depression Screening 07/03/2025 07/03/2024, 07/03/20 Lipid Panel 07/03/2025 07/03/2024, 0907/2022, 04/29/2021 Alcohol/Substance Use Screening 08/23/2025 08/23/2024 SDOH Screening 12/04/2025 12/04/2024 Tobacco Screening 01/22/2026 01/22/2025 Eye Exam 10/11/2026 10/11/2024, 09/13/2024 Colonoscopy 07/17/2029 [...] patient's age to complete this topic Meningococcal B Vaccine Aged Out No l onger eligible based on patient's age to complete [...] Author Blood Pressure < 140/90 Blood Pressure 118/65(2024 11:54 AM EDT) No Todd Figueroa, LindsayD Hemoglobin A1c < 7 Result Component 8.8( 12:00 PM EDT) No Declan Kauffman Procedures Procedure Name Priority Date/Time Associated Diagnosis Comments [facility] US LOWER EXTREMITY VENOUS DUPLEX BILATERAL Routine 01/22/2025 1:50 PM EDT Bilateral edema of lower extremity POCT GLYCATED HEMOGLOBIN, TOTAL Routine 12/04/2024 12:00 PM EDT Type 2 diabetes mellitus with hyperlipidemia (CMS/HCC) (CMS/HCC) LIPID PANEL, STANDARD Routine 07/03/2024 12:03 PM EST Type 2 diabetes mellitus with hyperlipidemia (CMS/HCC) ZZZ HISTORICAL HEPATITIS C AB W/REFL TO HCV RNA, QN, PCR Routine 04/29/2021 9:10 AM EDT HM COLONOSCOPY Routine 07/17/2019 from Last 3 Months or Most Recently Relevant to Health Maintenance Results * [facility] US Lower Extremity Venous Duplex Bilateral (01/22/2025 1:50 PM EDT) 01/22/2025 1:50 PM EDT Narrative [facility] - 01/22/2025 2:38 PM EDT [address] [address] Ultrasound Report Signed with Cameron Patient: David Gallagher MR#: [id number] 3 : 1955 Acct:[id number] Age/Sex: 69 / M ADM Date: 01/22/25 Loc: .US Attending Dr: Jovani Schmidt NP Ordering Physician: JOVANI SCHMIDT NP Date of Service: 01/22/25 Procedure(s): US venous duplex LE BI Accession Number(s): [id number] cc: JOVANI SCHMIDT NP ADDENDUM ADDENDUM #[address] Schmidt on 01/22/2025 at 3:11 PM. Electronically signed by: Jake Story MD 01/22/2025 03:12 PM EDT Addendum Dictated By: Jake Story MD Addendum Signed By: <Electronically signed by Jake Story MD in OV> 01/22/25 1512 Addendum Cosigned By: DD/ /18/1349 TD/TT: 01/22/2508/18/1426 EXAMINATION: US LOWER EXTREMITY VEINS BILATERAL HISTORY: BLE swelling, L > R COMPARISON: There are no prior studies available for comparison. TECHNIQUE: Duplex and color Doppler sonographic examination of the deep venous system of the bilateral lower extremities was performed. FINDINGS: The right common femoral, superficial femoral, and popliteal veins are patent demonstrating normal compressibility, spontaneous flow, and augmentation. There is a normal color and spectral Doppler waveform appearance of the visualized deep venous system above the knee. The posterior tibial and peroneal veins are patent. The left common femoral and superficial femoral veins are patent demonstrating normal compressibility, spontaneous flow, and augmentation. There is an eccentric filling defect in the left popliteal vein which is not expanded. The appearance is that of subacute or chronic thrombus. The posterior tibial and peroneal veins are patent. 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 No evidence of DVT in the right lower extremity. Findings were sent to Dr. Schmidt by secure text message on 01/22/2025 at 2:32 PM. Electronically signed by: Jake Story MD 01/22/2025 02:35 PM EDT RP Dictated By: Jake Story MD Signed By: <Electronically signed by Jake Story MD in OV> 01/22/255 DD/ 49 TD/TT: 01/22/251426 Educational Technician: Procedure Note Donotuseinterpreter, Image - 01/22/2025 [place] [address] Ultrasound Report Signed with Addenda Patient: Ismael Gallagher#: [id number] 3 : 5Acct:[id number] Age/Sex: 69 / MADM Date: 01/22/25 Loc: .[place] Attending Dr: Jovani Schmidt NP Ordering Physician: JOVANI SCHMIDT NP Date of Service: 01/22/25 Procedure(s): US venous duplex LE BI Accession Number(s): [id number] cc: JOVANI SCHMIDT NP ADDENDUM ADDENDUM #[address] Schmidt on 01/22/2025 at 3:11 PM. Electronically signed by: Jake Story MD 01/22/2025 03:12 PM EDT RP Addendum Dictated By: Jake Story MD Addendum Signed By: <Electronically signed by MD Nathaly in OV> 01/22/25 151 Addendum Cosigned By: DD/ /18/1349 TD/TT: 01/22/2508/18/1426 EXAMINATION: US LOWER EXTREMITY VEINS BILATERAL HISTORY: BLE swelling, L > R COMPARISON: There are no prior studies available for comparison. TECHNIQUE: Duplex and color Doppler sonographic examination of the deep venous system of the bilateral lower extremities was performed. FINDINGS: The right common femoral, superficial femoral, and popliteal veins are patent demonstrating normal compressibility, spontaneous flow, and augmentation. There is a normal color and spectral Doppler waveform appearance of the visualized deep venous system above the knee. The posterior tibial and peroneal veins are patent. The left common femoral and superficial femoral veins are patent demonstrating normal compressibility, spontaneous flow, and augmentation. There is an eccentric filling defect in the left popliteal vein which is not expanded. The appearance is that of subacute or chronic thrombus. The posterior tibial and peroneal veins are patent. 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 No evidence of DVT in the right lower extremity. Findings were sent to Dr. Schmidt by secure text message on 01/22/2025 at 2:32 PM. Electronically signed by: Jake Story MD 01/22/2025 02:35 PM EDT Dictated By: Jake Story MD Signed By: <Electronically signed by Jake Story MD in OV> 01/22/25 1435 DD/ 1350 TD/TT: 01/22/25 1427 Educational Technician: us Jovani RICHARDS CV VASCULAR PROCEDURES Edited Re sult - Final [facility] [address] [place] [phone] * (ABNORMAL) POCT HGB A1C (12/04/2024 12:00 PM EDT) Hemoglobin A1C 8.8(A) 4.0 - 6.0 % QC Media Lot # [id number] Lot# Expiration Date Blood 12/04/2024 12:0 0 PM EDT us Jovani RICHARDS POINT OF CARE TEST ENTER/EDIT OR DERABLES Final Result * (ABNORMAL) Lipid Panel, Standard (07/03/2024 12:03 PM EST) Triglycerides 148 <150 mg/dL [facility] Comment:Desirable Triglyceri de: less than 150 mg/dLBorderline High Triglyceride 150-199 mg/dLHigh Triglyceride: 200-499 mg/dLVery High Triglyceride: greater than or equal to 5OO mg/dL Cholesterol 113 <200 mg/dL [facility] Comment:Desirable Cholestero l: less than 200 mg/dLBorderline High Cholesterol: 200-239 mg/dLHigh Cholesterol: greater than 239 mg/dL LDL Cholesterol Calculated 49 <100 mg/dL [facility] Comment:Desirable LDL: less than 100 mg/dLNear Optimal/Above Optimal LDL: 110- 129 mg/dLBorderline High LDL: 130-159 mg/dLHigh LDL: 160-189 mg/dLVery High LDL: greater than or equal to 190 mg/dL HDL Cholesterol 35(L) >40 mg/dL [facility] Comment:Desirable HDL: great er than 40 mg/dL Note: This HDL assay may give artificially low results in patients with liver disease. Blood Venous blood specimen / Unknown 07/03/2024 12:03 PM EST 07/03/2024 1:03 PM EST [facility] LAB BLOOD ORDERABLES Final Resul t [facility] [address] [place] [phone] * HEPATITIS C AB W/REFL TO HCV RNA, QN, PCR (04/29/2021 9:10 AM EDT) HEPATITIS C ANTIBODY NON-REACT TRUE NON-REACT TRUE [facility] INDEX 0.01 <1.00 [facility] Comment: HCV antibody was non-reactive. There is no laboratory evidence of HCV infection. In most cases, no further action is required. However, if recent HCV exposure is suspected, a test for HCV RNA (test code 26576) is suggested. For additional information please refer to http://education.[employer]atts[employer].com/faq/VVB88x4 (This link is being provided for informational/ educational purposes only.) 04/29/2021 9:10 AM EDT us Jovani Marlyn RICHARDS HISTORICAL/NON ORDERABLE LABS Fi nal Result [facility] [address] [place] [address], * Colonoscopy (07/17/2019) Colonoscopy Normal Normal Historical Provider HEALTH MAINTENANCE Final Result from Last 3 Months or Most Recently Relevant to Health Maintenance Insurance [address] [place] [id number] [facility] ASSISTED OPTIONS (HMO D-SNP) [place] [id number] Care Teams Production Supervisor Relationship Specialty Start Date End Date Jovani Schmidt ANP [address] [place] [address] PCP - General Family Medicine 11/17/20 Todd Figueroa, Ceferino [address] [place] [address] Pharmacist Internal Medicine 11/24/23
--- OUTSIDE RECORDS SUMMARY | 2025-02-18 12:19 | XMS_ITS | Data Portability ---
Author Organization [employer] Address [address] [place] [address] Care Team Providers Care Gauge Maker Apprentice Name Role Phone JOVANI SCHMIDT Primary Care Provider HIM PABLO OTHER Assessment Encounter Date Assessment Date Assessment LastModified by Organization Details LastModified Time 07/05/2024 07/05/2024 I have reviewed and agree with the assessment and plan as documented by the oyster farmer. I provided real-time medical direction for this encounter and was immediately available to provide additional phone-based assistance as needed. History as noted in EMR and by oyster farmer. I would add / emphasize: Patient seen [...] Available No t Available Comfort EZ Pen [place] 32 gauge x 5/16 USE FOR INJECT [...] Available No t Available FreeStyle Mary 2 [place] USE DIRECTED EVERY 8 HOURS active Not Available Not Available No t Available Flowflex COVID-19 Antigen Home Test kit USE DIRECTED NEEDED active Not Available Not Available No t Available Vitals Date Recorded Oxygen saturation Oxygen saturation in Arterial blood by Pulse oximetry Body weight Body temperature Respiratory rate Heart rate Systolic And Diastolic Provider Name and Address Organization Details Last Updated DateTime 4 97 % 97 % [address].7 44 g 97.6 [degF] 16 /min 76 /min 110/60 mm[Hg] Not Available [facility] - production 4 11:15:02 Social History None recorded. Functional Status None recorded. Mental Status None recorded. Family History Nothing Reported. Medical History No medical history recorded. Past Encounters Encounter ID Performer Location Encounter Start Date Encounter Closed Date Diagnosis/Indication Diagnosis SNOMED-CT Code Diagnosis ICD10 Code Diagnosis Note [id number] Adams Cuevas MD Main - [address] [phone] 07/05/2024 11:15:00 07/09/2024 11:32:59 Upper respiratory infection 57554799 J06.9 Health Concerns Section Related Observation LastModified by Organization Detai ls LastModified Time None Recorded Concern Status LastModified by Organization Details LastModified Time None Recorded Advance Directives Directive None Recorded Payers Insurance Date Sequence Insurance Name Policy Number Policy Whelan Covered Member ID Whelan Member ID Guarantor Name 07/05/2024 1 [facility] - DOS ON OR AFTER 2022 - DUAL ELIGIBLE - SHELTER OPTIONS AND ONE CARE (MEDICARE REPLACEMENT/ADV ANTAGE - HMO) David Mercado [id number] David Mercado
--- OUTSIDE RECORDS SUMMARY | 2025-02-18 12:19 | XMS_ITS | Clinical Summary ---
Author Organization [facility] Address [address] [place] [address] Care Team Providers Care Tax Lawyer Name Role Phone Unavailable Primary Care Provider [...] mcg/actuation inhalerIndication s:Moderate persistent asthma without complication ([facility]) Inhale 2 Puffs into the lungs every 4 to 6 (four to six) hours as needed for shortness of breath or wheezing 1 Inhaler 3 9 Active insulin glargine (LANTUS SOLOSTAR U-100 INSULIN) 100 unit/mL (3 mL) injection penIndications:Ty pe 2 diabetes mellitus without complication, with long-term current use of insulin ([facility]) Inject 74 Units into the skin once daily 24 mL 5 9 Active fluticasone propionate (FLOVENT HFA) 110 mcg/actuation inhalerIndication s:Moderate persistent asthma without complication ([facility]) Inhale 1 Puff into the lungs 2 (two) times daily 1 Inhaler 3 9 Active insulin lispro (ADMELOG SOLOSTAR U-100 INSULIN) 100 unit/mL injectionIndicati ons:Type 2 diabetes mellitus without complication, with long-term current use of insulin ([facility]) 10 Syringe 3 9 Active canagliflozin 100 mg tabIndications:Ty pe 2 diabetes mellitus without complication, with long-term current use of insulin ([facility]) Take 300 mg by mouth every morning 30 Tab 3 0 Active aspirin [address] tabletIndications :Coronary artery disease of [place] heart with stable angina pectoris, unspecified vessel or lesion type ([facility], old TAKE ONE TABLET BY MOUTH DAILY [...] Diagnosed Date Moderate persistent asthma without complication ([facility]) 04/24/2019 Heart murmur 04/24/2019 [place], old 04/24/2019 Overview (04/24/2019): 2013 x3 with 2 stents placement Type 2 diabetes mellitus wit hout complication, with long-term current use of insulin ([facility]) 04/24/2019 Hearing loss of right ear 04/24/2019 [...]
== END 2025-02-18 12:20 | disposition home or self-care (01) ==
LOC: HO.HUSH 10:59
PROVIDERS: PCP Nurse Practitioner Primary Care; Visit Provider Urology
DX: E11.69 Type 2 diabetes mellitus with other specified complication (principal); N52.1 Erectile dysfunction due to diseases classified elsewhere

== ENCOUNTER → 2025-02-18 10:58 | Outpatient (BNVA) | payer OTHER, SELFPAY | PROVIDERS: PCP Nurse Practitioner Primary Care; Visit Provider Urology | DX: E11.69 Type 2 diabetes mellitus with other specified complication (principal); N52.1 Erectile dysfunction due to diseases classified elsewhere | CPT/HCPCS: 81003 ==

== ENCOUNTER 2025-02-22 09:46 | Outpatient (REF) | payer OTHER, SELFPAY ==
--- OUTSIDE RECORDS SUMMARY | 2025-02-22 09:57 | XMS_ITS | Clinical Summary ---
Author Organization [facility] Address [address] [place] [address] Care Team Providers Care Top Cleaner Name Role Phone Unavailable Primary Care Provider [...] mcg/actuation inhalerIndication s:Moderate persistent asthma without complication ([facility]) Inhale 2 Puffs into the lungs every 4 to 6 (four to six) hours as needed for shortness of breath or wheezing 1 Inhaler 3 9 Active insulin glargine (LANTUS SOLOSTAR U-100 INSULIN) 100 unit/mL (3 mL) injection penIndications:Ty pe 2 diabetes mellitus without complication, with long-term current use of insulin ([facility]) Inject 74 Units into the skin once daily 24 mL 5 9 Active fluticasone propionate (FLOVENT HFA) 110 mcg/actuation inhalerIndication s:Moderate persistent asthma without complication ([facility]) Inhale 1 Puff into the lungs 2 (two) times daily 1 Inhaler 3 9 Active insulin lispro (ADMELOG SOLOSTAR U-100 INSULIN) 100 unit/mL injectionIndicati ons:Type 2 diabetes mellitus without complication, with long-term current use of insulin ([facility]) 10 Syringe 3 9 Active canagliflozin 100 mg tabIndications:Ty pe 2 diabetes mellitus without complication, with long-term current use of insulin ([facility]) Take 300 mg by mouth every morning 30 Tab 3 0 Active aspirin [address] tabletIndications :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
--- OUTSIDE RECORDS SUMMARY | 2025-02-22 09:57 | XMS_ITS | Clinical Summary ---
Author Organization [employer] Address [address] [facility] [address] [place] [address] Care Team Providers Care Director Of Flight Operations Name Role Phone Jovani Schmidt Primary Care Provider [phone] Todd Figueroa PharmD Unavailable [phone] Allergies No known active allergies Medications metoprolol [...] g 12/23/19 23 Active Continuous Blood Gluc Flight Dispatcher (PolarizonicsStyle Mary 2 [place]) deviceIndications: Type 2 diabetes mellitus with hyperlipidemia (CMS/HCC) ([facility]) Scan sensor every 8 [...] ype 2 diabetes mellitus with hyperlipidemia (CMS/HCC) ([facility]) USE TO TEST FINGER STICK BLOOD SUGAR NEEDED FOR hypoglycemia 50 strip 5 08/02/19 25 Active metFORMIN XR (Glucophage-XR) 500 MG 24 hr tabletIndications: Type 2 diabetes mellitus with hyperlipidemia (CMS/HCC) ([facility]) Take one tablet by [...] pe 2 diabetes mellitus with hyperlipidemia (CMS/HCC) ([facility]) USE 1 sensor EVERY 14 DAYS 2 each 09/14/19 25 Active insulin aspart FlexPen (NovoLOG) 100 UNIT/ML penIndications:Typ e 2 diabetes mellitus with hyperlipidemia (CMS/HCC) ([facility]) INJECT 9 UNITS SUBCUTANEOUSLY if bg > 200. +2 units for every 50 pts > 200. maximum 18 units daily 6 mL 10/03/19 25 Active Lancets (OneTouch Delica Plus [id number]) miscIndications:Ty pe 2 diabetes mellitus with hyperlipidemia (CMS/HCC) ([facility]) USE TO TEST FINGER STICK BLOOD SUGAR 3 (THREE) TIMES A DAY 100 each 10/05/19 25 Active Arnuity Ellipta 100 MCG/ACT inhalerIndications :Moderate persistent asthma without complication INHALE 1 PUFF BY MOUTH ONCE DAILY. rinse mouth and throat after use 30 each 10/05/19 25 Active Tirzepatide (Mounjaro) 7.5 MG/0.5ML solution auto-injectorIndic ations:Type 2 diabetes mellitus with hyperlipidemia (CMS/HCC) ([facility]) Inject 7.5 mg under the skin 1 (one) time per week. 2 mL 10/09/19 25 Active Insulin Degludec FlexTouch 100 UNIT/ML solution pen-injectorIndica tions:Type 2 diabetes mellitus with hyperlipidemia (CMS/HCC) ([facility]) Inject 54 Units under [...] 8.5 g 5 11/17/19 25 Active Umeclidinium [place] 62.5 MCG/ACT aerosol powderIndications: Pulmonary emphysema, unspecified emphysema type ([facility]) Inhale 1 Act (62.5 mcg) Once daily. 30 each 11 11/29/19 25 Active tadalafil (Cialis) 10 MG tabletIndications: Vasculogenic erectile dysfunction, unspecified vasculogenic erectile dysfunction type Take 1 tab 60 minutes before sexual intercourse 20 tablet 12/05/19 25 Active empagliflozin (Jardiance) 25 MGIndications:Type 2 diabetes mellitus with hyperlipidemia ([facility]) ([facility]) Take 1 tablet (25 mg) by mouth [...] 25 Active cholecalciferol (Vitamin D-3) 1.25 MG (87902 UT) capsule TAKE 1 CAPSULE BY MOUTH EVERY WEEK 4 capsule 1 01/03/20 25 Active aspirin (Aspirin Low Dose) 81 MG EC tablet TAKE 1 TABLET BY MOUTH ONCE DAILY 30 tablet 1 01/03/20 25 Active Apixaban Starter Pack (Eliquis DVT/PE Starter Pack) 5 MG tablet therapy packIndications:Ch ronic deep vein thrombosis (DVT) of left popliteal vein ([facility]) Follow instructions on box, 10mg BID for [...] murmur 04/24/2019 [place], old 04/24/2019 Overview (10/21/2022): 2013 x3 with 2 stents placement Moderate persistent asthma without complication 04/24/2019 Vision loss 04/24/2019 Dystrophia unguium 10/19/2018 Onychomycosis 10/19/2018 Pain in toe 10/19/2018 Type 2 diabetes mellitus with hyperlipidemia ([facility] S/HCC) 10/19/2018 Callus of toe 10/19/2018 07/14/2023 Resolved Problems Problem Noted Date Diagnosed Date Resolved Date Moderate persistent asthma w ith acute exacerbation 07/14/2023 07/14/2023 11/28/2024 Overview (07/03/2024): [facility] ED visit 06/25/24 for SOB, wheezing. Dx'd w/ flu. Needs nebulizer for home use. Consider need for Arnuity initiation. Encounters Date Type Department Care Team Description 02/15/2025 Telephone [facility] [address] [place] [id number] Jovani Schmidt ANP FYI 01/30/2025 Telephone [facility] [place] [address] Jovani Schmidt ANP Durable Medical Equipment 01/23/2025 Orders Only [facility] [place] [address] Jovani Schmidt ANP Coronary arteriosclerosis in patient with history of previous myocardial infarction (Primary Dx) 01/22/2025 Orders Only [facility] [place] [address] Jovani Schmidt ANP Chronic deep vein thrombosis (DVT) of left popliteal vein (CMS/HCC) (Primary Dx) 01/22/2025 Telephone [facility] [place] [address] Jovani Schmidt ANP Call Back Request 01/21/2025 Telephone [facility] [place] [address] Jovani Schmidt ANP Durable Medical Equipment 01/21/2025 Telephone [facility] [place] [address] Jovani Schmidt ANP 01/16/2025 Telephone [facility] [place] [address] Jovani Schmidt ANP 01/15/2025 Telephone [facility] [place] [address] Jovani Schmidt ANP 01/14/2025 Telephone [facility] [place] [address] Jovani Schmidt ANP called back needed 01/01/2025 Telephone [facility] [place] [address] Jovani Schmidt ANP 01/01/2025 Refill [facility] [place] [address] Jovani Schmidt ANP 12/19/2024 Refill [facility] [place], ABHIJEET [address] Lili Johnston MD 12/04/2024 11:30 AM EDT Office Visit [facility] [place] [address] Jovani Schmidt ANP Bilateral edema of lower extremity (Primary Dx); Type 2 diabetes mellitus with hyperlipidemia (CMS/HCC) ([facility]); Vasculogenic erectile dysfunction, unspecified vasculogenic erectile dysfunction type; JENA (acute kidney injury) ([facility]); Diabetic nephropathy associated with type 2 diabetes mellitus ([facility]/H[facility]) 12/04/2024 Travel 12/03/[address] [address] Jovani Schmidt ANP CHART PREP 11/29/[address] [address] Jovani Schmidt ANP Med Refill 11/28/2024 Orders Only [address] [phone] Jovani Schmidt ANP Pulmonary emphysema, unspecified emphysema type ([facility]) (Primary Dx) from Last 3 Months Immunizations [...] Procedure Name Priority Date/Time Associated Diagnosis Comments [facility] US LOWER EXTREMITY VENOUS DUPLEX BILATERAL Routine [...] Recently Relevant to Health Maintenance Results * [facility] US Lower Extremity Venous Duplex Bilateral (01/22/2025 1:50 PM EDT) 01/22/2025 1:50 PM EDT Narrative [facility] - 01/22/2025 2:38 PM EDT [address] [address] Ultrasound Report Signed with Cameron Patient: David Gallagher MR#: [id number] 3 : 1955 Acct:[id number] Age/Sex: 69 / M ADM Date: 01/22/25 Loc: .US Attending Dr: Jovani Schmidt NP Ordering Physician: JOVANI SCHMIDT NP Date of Service: 01/22/25 Procedure(s): US venous duplex LE BI Accession Number(s): [id number] cc: JOVANI SCHMIDT NP ADDENDUM ADDENDUM #1 [...] in OV> 01/22/255 DD/ 49 TD/TT: 01/22/251426 Customer Technical Services Manager: Procedure Note Donotuseinterpreter, Image - 01/22/2025 [place] [address] Ultrasound Report Signed with Addenda Patient: Ismael Gallagher#: [id number] 3 : 5Acct:[id number] Age/Sex: 69 / MADM Date: 01/22/25 Loc: .[place] Attending Dr: Jovani Schmidt NP Ordering Physician: JOVANI SCHMIDT NP Date of Service: 01/22/25 Procedure(s): US venous duplex LE BI Accession Number(s): [id number] cc: JOVANI SCHMIDT NP ADDENDUM ADDENDUM #1 [...] 01/22/2025 at 2:32 PM. Electronically signed by: Jkae Story MD 01/22/2025 02:35 PM EDT Dictated By: Jake Story MD Signed By: <Electronically signed by Jake Story MD in OV> 01/22/25 1435 DD/ 1350 TD/TT: 01/22/25 1427 Customer Technical Services Manager: us Jovani RICHARDS CV VASCULAR PROCEDURES Edited Re sult - Final [facility] [address] [place] [address] [phone] * (ABNORMAL) POCT HGB A1C (12/04/2024 12:00 PM EDT) Hemoglobin A1C 8.8(A) 4.0 - 6.0 % QC Media Lot # [id number] Lot# Expiration Date Blood 12/04/2024 12:0 0 PM EDT us Jovani RICHARDS POINT OF CARE TEST ENTER/EDIT OR DERABLES Final Result * (ABNORMAL) Lipid Panel, Standard (07/03/2024 12:03 PM EST) Triglycerides 148 <150 mg/dL [facility] Comment:Desirable Triglyceri de: less than 150 mg/dLBorderline High Triglyceride 150-199 mg/dLHigh Triglyceride: 200-499 mg/dLVery High Triglyceride: greater than or equal to 5OO mg/dL Cholesterol 113 <200 mg/dL [facility] Comment:Desirable Cholestero l: less than 200 mg/dLBorderline High Cholesterol: 200-239 mg/dLHigh Cholesterol: greater than 239 mg/dL LDL Cholesterol Calculated 49 <100 mg/dL [facility] Comment:Desirable LDL: less than 100 mg/dLNear Optimal/Above Optimal LDL: 110- 129 mg/dLBorderline High LDL: 130-159 mg/dLHigh LDL: 160-189 mg/dLVery High LDL: greater than or equal to 190 mg/dL HDL Cholesterol 35(L) >40 mg/dL [facility] Comment:Desirable HDL: great er than 40 mg/dL Note: This HDL assay may give artificially low results in patients with liver disease. Blood Venous blood specimen / Unknown 07/03/2024 12:03 PM EST 07/03/2024 1:03 PM EST [facility] LAB BLOOD ORDERABLES Final Resul t [facility] [address] [place] [phone] * HEPATITIS C AB W/REFL TO [...] a test for HCV RNA (test code 40457) is suggested. For additional information please refer to http://education.Amitive/faq/LPI97y2 (This link is being provided for informational/ educational purposes only.) 04/29/2021 9:10 AM EDT us Jovani Marlyn RICHARDS HISTORICAL/NON ORDERABLE LABS Fi nal Result [facility] [address] [place] [address], * Colonoscopy (07/17/2019) Colonoscopy Normal Normal Historical Provider HEALTH MAINTENANCE Final Result from Last 3 Months or Most Recently Relevant to Health Maintenance Insurance [address] [place] [id number] [facility] SKILLED NURSING OPTIONS (HMO D-SNP) [place] [id number] Care Teams Director Of Flight Operations Relationship Specialty Start Date End Date Jovani Schmidt ANP [address] [place] [address] PCP - General Family Medicine 11/17/20 Todd Figueroa, Ceferino [address] [place] [address] Pharmacist Internal Medicine 11/24/23
[2025-02-22 10:05] LABS: MANUAL DIFF FLAG NO
[2025-02-22 10:57] LABS: Hematocrit 35.5 % (42.0-52.0); Hemoglobin 11.5 g/dl (14.0-18.0); Imm Gran Abs Auto 0.02 X10*3/uL (0.00-0.03); Imm Gran Pct Auto 0.3 % (0.0-0.4); Lymphocytes Absolute Auto 1.9 X10*3/uL (1.2-4.9); Mean Corpuscular HGB Conc 32.4 g/dl (31.0-36.0); Mean Corpuscular Hemoglobin 28.6 pg (27.0-33.0); Mean Corpuscular Volume 88.3 fL (80.0-98.0); NRBC Abs Auto 0.000 X10*3/uL (0.0-0.012); NRBC Pct Auto 0.0 /100WBC (0.0-0.2); Platelet Count 389 X10*3/uL (160-400); Red Blood Count 4.02 X10*6/uL (4.60-5.80); White Blood Count 7.3 X10*3/uL (4.8-10.8)
[2025-02-22 11:15] LABS: B Type Natriuretic Peptide 19 pg/mL (<100)
[2025-02-22 11:32] LABS: Alanine Aminotransferase 17 U/L (0-40); Albumin Level 4.3 g/dL (3.5-5.0); Alkaline Phosphatase 49 U/L (39-117); Anion Gap 12 (12-20); Aspartate Amino Transferase 32 U/L (5-37); Blood Urea Nitrogen 31 mg/dL (9-16); Calcium 9.3 mg/dL (8.4-10.2); Carbon Dioxide 23 mmol/L (22-29); Chloride 111 mmol/L (96-108); Estimated Glomerular Filt Rate 38; Potassium 4.9 mmol/L (3.3-5.1); Sodium 141 mmol/L (135-145); Total Protein 7.3 g/dL (6.5-8.0)
== END 2025-02-22 09:47 | disposition home or self-care (01) ==
LOC: HO.LAB 09:46
PROVIDERS: PCP Nurse Practitioner Primary Care; Visit Provider Nurse Practitioner Primary Care
DX: I25.10 Atherosclerotic heart disease of native coronary artery without angina pectoris (principal); I25.2 Old myocardial infarction; R60.0 Localized edema
CPT/HCPCS: 36415; 80048; 80076; 83880; 85025

== ENCOUNTER 2025-02-26 08:44 | Outpatient (REF) | payer OTHER, SELFPAY ==
[2025-02-26 13:15] LABS: Appearance Urine Clear; Glucose Urine UA >=1000 mg/dL (Negative); PH 6.0 (5.0-9.0); Specific Gravity - Urine 1.025 (1.005-1.025); UMIC TRIGGER UA YES
[2025-02-26 14:23] LABS: Anion Gap 11 (12-20); Blood Urea Nitrogen 31 mg/dL (9-16); Calcium 9.1 mg/dL (8.4-10.2); Carbon Dioxide 22 mmol/L (22-29); Chloride 115 mmol/L (96-108); Estimated Glomerular Filt Rate 30; Potassium 4.9 mmol/L (3.3-5.1); Sodium 143 mmol/L (135-145)
[2025-02-26 14:24] LABS: Parathyroid Hormone Intact 55.8 pg/mL (8.7-77.1)
[2025-02-26 14:27] LABS: HBS Num1 1.45 mIU/mL (0-7.99); HBc Num1 0.06 S/CO (0.00-0.79); HBsAGNum1 0.42 S/CO (0.00-0.99); HIV Num 1 0.05 S/CO (0.00-0.99); Hepatitis B Surface Antigen Negative (Negative); ~HepC Num1 0.15 S/CO (0.00-0.79); ~Hepatitis B Surface Antibody NONREACTIVE (Nonreactive); ~Hepatitis C Antibody Nonreactive (Nonreactive)
[2025-02-26 14:36] LABS: Microalbum/Creatinine Ratio Ur 11.7 ug/mg cr (<30); Total Protein Urine Random < 7 mg/dL (<12)
[2025-02-27 23:48] LABS: Proteinase 3 PR3 Antibodies <1.0 AI
[2025-02-28 13:33] LABS: Anti Nuclear Antibody Screen NEGATIVE (NEGATIVE)
[2025-02-28 22:18] LABS: Prot Elec - Albumin 3.9 g/dL (3.8-4.8); Prot Elec - Alpha1 0.2 g/dL (0.2-0.3); Prot Elec - Alpha2 0.7 g/dL (0.5-0.9); Prot Elec - Beta 1 0.6 g/dL (0.4-0.6); Prot Elec - Beta 2 0.4 g/dL (0.2-0.5); Prot Elec - Gamma 1.0 g/dL (0.8-1.7); Prot Elec - Total Protein 6.8 g/dL (6.1-8.1)
[2025-03-03 14:05] LABS: PSA, Ultra Sensitive 1.60 ng/mL
[2025-03-04 16:28] LABS: Kappa, Serum 235 mg/dL (176-443); Kappa/Lambda Ratio, Serum 1.40 (1.29-2.55); Lambda, Serum 168 mg/dL (91-240)
== END 2025-02-26 08:45 | disposition home or self-care (01) ==
LOC: HO.HKASLDS 08:44
PROVIDERS: PCP Nurse Practitioner Primary Care; Referring Provider Nurse Practitioner Primary Care; Visit Provider Internal Medicine Critical Care Medicine
DX: I25.10 Atherosclerotic heart disease of native coronary artery without angina pectoris (principal); I12.9 Hypertensive chronic kidney disease with stage 1 through stage 4 chronic kidney disease, or unspecified chronic kidney disease; N18.32 Chronic kidney disease, stage 3b; E11.22 Type 2 diabetes mellitus with diabetic chronic kidney disease; D63.1 Anemia in chronic kidney disease; Z12.5 Encounter for screening for malignant neoplasm of prostate; Z11.4 Encounter for screening for human immunodeficiency virus [HIV]; Z13.21 Encounter for screening for nutritional disorder; Z87.891 Personal history of nicotine dependence; Z79.899 Other long term (current) drug therapy; Z01.84 Encounter for antibody response examination; Z79.4 Long term (current) use of insulin; Z79.84 Long term (current) use of oral hypoglycemic drugs
CPT/HCPCS: 36415; 80048; 81001; 81241; 82043; 82306; 82570; 83883; 83970; 84100; 84153; 84156; 84165; 86021; 86038; 86160; 86704; 86706; 86803; 87340; 87389; 99202

== ENCOUNTER 2025-02-26 08:44 | Outpatient (AMB) | payer OTHER, SELFPAY ==
--- OUTSIDE RECORDS SUMMARY | 2025-02-26 08:56 | XMS_ITS | Clinical Summary ---
Author Organization [employer] Address [address] [facility] [address] [place] [address] Care Team Providers Care Respiratory Support Technician Name Role Phone Jovani Schmidt Primary Care Provider [phone] Todd Figueroa PharmD Unavailable [phone] Allergies No known active allergies Medications metoprolol [...] g 12/23/19 23 Active Continuous Blood Gluc Burner Hand (SwippStyle Mary 2 Pearblossom) deviceIndications: Type 2 diabetes mellitus with hyperlipidemia (CMS/HCC) ([facility]) Scan sensor every 8 hours 1 each [...] ype 2 diabetes mellitus with hyperlipidemia (CMS/HCC) ([facility]) USE TO TEST FINGER STICK BLOOD SUGAR NEEDED FOR hypoglycemia 50 strip 5 08/02/19 25 Active metFORMIN XR (Glucophage-XR) 500 MG 24 hr tabletIndications: Type 2 diabetes mellitus with hyperlipidemia (CMS/HCC) ([facility]) Take one tablet by mouth twice daily. [...] pe 2 diabetes mellitus with hyperlipidemia (CMS/HCC) ([facility]) USE 1 sensor EVERY 14 DAYS 2 each 09/14/19 25 Active insulin aspart FlexPen (NovoLOG) 100 UNIT/ML penIndications:Typ e 2 diabetes mellitus with hyperlipidemia (CMS/HCC) ([facility]) INJECT 9 UNITS SUBCUTANEOUSLY if bg > 200. +2 units for every 50 pts > 200. maximum 18 units daily 6 mL 10/03/19 25 Active Lancets (OneTouch Delica Plus [id number]) miscIndications:Ty pe 2 diabetes mellitus with hyperlipidemia (CMS/HCC) ([facility]) USE TO TEST FINGER STICK BLOOD SUGAR 3 (THREE) TIMES A DAY 100 each 10/05/19 25 Active Arnuity Ellipta 100 MCG/ACT inhalerIndications :Moderate persistent asthma without complication INHALE 1 PUFF BY MOUTH ONCE DAILY. rinse mouth and throat after use 30 each 10/05/19 25 Active Tirzepatide (Mounjaro) 7.5 MG/0.5ML solution auto-injectorIndic ations:Type 2 diabetes mellitus with hyperlipidemia (CMS/HCC) ([facility]) Inject 7.5 mg under the skin 1 (one) time per week. 2 mL 10/09/19 25 Active Insulin Degludec FlexTouch 100 UNIT/ML solution pen-injectorIndica tions:Type 2 diabetes mellitus with hyperlipidemia (CMS/HCC) ([facility]) Inject 54 Units under the skin Once [...] 8.5 g 5 11/17/19 25 Active Umeclidinium [place] 62.5 MCG/ACT aerosol powderIndications: Pulmonary emphysema, unspecified emphysema type ([facility]) Inhale 1 Act (62.5 mcg) Once daily. 30 each 11 11/29/19 25 Active tadalafil (Cialis) 10 MG tabletIndications: Vasculogenic erectile dysfunction, unspecified vasculogenic erectile dysfunction type Take 1 tab 60 minutes before sexual intercourse 20 tablet 12/05/19 25 Active empagliflozin (Jardiance) 25 MGIndications:Type 2 diabetes mellitus with hyperlipidemia ([facility]) ([facility]) Take 1 tablet (25 mg) by mouth [...] 25 Active cholecalciferol (Vitamin D-3) 1.25 MG (97293 UT) capsule TAKE 1 CAPSULE BY MOUTH EVERY WEEK 4 capsule 1 01/03/20 25 Active aspirin (Aspirin Low Dose) 81 MG EC tablet TAKE 1 TABLET BY MOUTH ONCE DAILY 30 tablet 1 01/03/20 25 Active Apixaban Starter Pack (Eliquis DVT/PE Starter Pack) 5 MG tablet therapy packIndications:Ch ronic deep vein thrombosis (DVT) of left popliteal vein ([facility]) Follow instructions on box, 10mg BID for [...] of right ear 04/24/2019 Heart murmur 04/24/2019 DC, old 04/24/2019 Overview (10/21/2022): 2013 x3 with 2 [address] Moderate persistent asthma without complication 04/24/2019 Vision loss 04/24/2019 Dystrophia unguium 10/19/2018 Onychomycosis 10/19/2018 Pain in toe 10/19/2018 Type 2 diabetes mellitus with hyperlipidemia ([facility] S/HCC) 10/19/2018 Callus of toe 10/19/2018 07/14/2023 Resolved Problems Problem Noted Date Diagnosed Date Resolved Date Moderate persistent asthma w ith acute exacerbation 07/14/2023 07/14/2023 11/28/2024 Overview (07/03/2024): [facility] ED visit 06/25/24 for SOB, wheezing. Dx'd w/ flu. Needs nebulizer for home use. Consider need for Arnuity initiation. Encounters Date Type Department Care Team Description 02/22/2025 Results Follow-Up [facility] [address] [place] [address] Jovani Schmidt ANP CBC auto differential 02/22/2025 Results Follow-Up [facility] [address], [place] [address] Jovani Schmidt ANP B Type Natriuretic Peptide (BNP), Hepatic Function Panel, Basic Metabolic Panel 02/15/2025 Telephone [place] [address] Jovani Schmidt ANP FYI 01/30/2025 Telephone [place] [address] Jovani Schmidt ANP Durable Medical Equipment 01/23/2025 Orders Only [place] [address] Jovani Schmidt ANP Coronary arteriosclerosis in patient with history of previous myocardial infarction (Primary Dx) 01/22/2025 Orders Only [place] [address] Jovnai Schmidt ANP Chronic deep vein thrombosis (DVT) of left popliteal vein (CMS/HCC) (Primary Dx) 01/22/2025 Telephone [place] [address] Jovani Schmidt ANP Call Back Request 01/21/2025 Telephone [place] [address] Jovani Schmidt ANP Durable Medical Equipment 01/21/2025 Telephone [place] [address] Jovani Schmidt ANP 01/16/2025 Telephone [place] [address] Jovani Schmidt ANP 01/15/2025 Telephone [place] [address] Jovani Schmidt ANP 01/14/2025 Telephone [place] [address] Jovani Schmidt ANP called back needed 01/01/2025 Telephone [place] [address] Jovani Schmidt ANP 01/01/2025 Refill [place] [address] Jovani Schmidt ANP 12/19/[address] [address] Lili Johnston MD 12/04/2024 11:30 AM EDT Office Visit [address] [address] Jovani Schmidt ANP Bilateral edema of lower extremity (Primary Dx); Type 2 diabetes mellitus with hyperlipidemia ([facility]) ([facility]); Vasculogenic erectile dysfunction, unspecified vasculogenic erectile dysfunction type; JENA (acute kidney injury) ([facility]); Diabetic nephropathy associated with type 2 diabetes mellitus ([facility]) 12/04/2024 Travel 12/03/[address] [address] Jovani Schmidt ANP CHART PREP 11/29/[address] [address] Jovani Schmidt ANP Med Refill 11/28/2024 Orders Only [address] [address] Jovani Schmidt ANP Pulmonary emphysema, unspecified emphysema type ([facility]) (Primary Dx) from Last 3 Months Immunizations [...] your housing situation today? I have alfonso jennifer 12/04/[address] you li [...] 07/03/2025 07/03/2024, 07/03/20 Lipid Panel 07/03/2025 07/03/2024, 09/2 07/2022, 04/29/2021 Alcohol/Substance Use Screening 08/23/2025 08/23/2024 SDOH [...] 118/65(2024 11:54 AM EDT) No Todd Figueroa, Ceferino Hemoglobin A1c < 7 Result Component 8.8( 12:00 PM EDT) No Declan Kauffman Procedures Procedure Name Priority Date/Time Associated Diagnosis Comments CBC WITH AUTO DIFFERENTIAL Routine 02/22/2025 10:04 AM EDT Coronary arteriosclerosis in patient with history of previous myocardial infarction BASIC METABOLIC PANEL Routine 02/22/2025 10:04 AM EDT Bilateral edema of lower extremity HEPATIC FUNCTION PANEL Routine 02/22/2025 10:04 AM EDT Bilateral edema of lower extremity B TYPE NATRIURETIC PEPTIDE (BNP) Routine 02/22/2025 10:04 AM EDT Bilateral edema of lower extremity VASC US LOWER EXTREMITY VENOUS DUPLEX BILATERAL Routine [...] Relevant to Health Maintenance Results * (ABNORMAL) CBC auto differential (02/22/2025 10:04 AM EDT) White Blood Count 7.3 4.8 - 10.8 X10*3/uL [facility] Red Blood Count 4.02(L) 4.60 - 5.80 X10*6/uL [facility] Hemoglobin 11.5(L) 14.0 - 18.0 g/dl [facility] Hematocrit 35.5(L) 42.0 - 52.0 % [facility] Mean Corpuscular Volume 88.3 80.0 - 98.0 fL [facility] Mean Corpuscular Hemoglobin 28.6 27.0 - 33.0 pg [facility] Mean Corpuscular HGB Conc 32.4 31.0 - 36.0 g/dl [facility] Red Cell Distribution Width 14.0 11.0 - 16.0 % [facility] Platelet Count 389 160 - 400 X10*3/uL [facility] Mean Platelet Volume 10.0 9.4 - 12.4 fL [facility] Neutrophils Percent Auto 64.5 45 - 73 % [facility] Imm Gran Pct Auto 0.3 0.0 - 0.4 % [facility] Lymphocytes Percent Auto 26.3 20 - 40 % [facility] Monocytes Percent Auto 6.2 2 - 11 % [facility] Eosinophils Percent Auto 1.5 0 - 4 % [facility] Basophils Percent Auto 1.2 0 - 2 % [facility] NRBC Pct Auto 0.0 0.0 - 0.2 /100WBC [facility] Neutrophils Absolute Auto 4.7 2.0 - 8.3 x10*3/uL [facility] Imm Gran Abs Auto 0.02 0.00 - 0.03 X10*3/uL [facility] Lymphocytes Absolute Auto 1.9 1.2 - 4.9 X10*3/uL [facility] Monocytes Absolute Auto 0.5 0.1 - 1.2 X10*3/uL [facility] Eosinophils Absolute Auto 0.1 0.0 - 0.4 X10*3/uL [facility] Basophils Absolute Auto 0.1 0.0 - 0.2 X10*3/uL [facility] NRBC Abs Auto 0.000 0.0 - 0.012 X10*3/uL [facility] Blood Venous blood specimen / Unknown 02/22/2025 10:04 AM EDT 02/22/2025 10:04 AM EDT Jovani Schmidt ANP LAB BLOOD ORDERABLES Final Resul t Performing Organization Address City/[facility]/ZIP Co de Phone Number [facility] [address] [place] [phone] * B Type Natriuretic Peptide (BNP) (02/22/2025 10:04 AM EDT) B Type Natriuretic Peptide 19 <100 pg/mL [facility] Blood Venous blood specimen / Unknown 02/22/2025 10:04 AM EDT 02/22/2025 10:04 AM EDT Jovani Schmidt ANP LAB BLOOD ORDERABLES Final Resul t Performing Organization Address City/[facility]/ZIP Co de Phone Number [facility] [address] [place] [phone] * Hepatic Function Panel (02/22/2025 10:04 AM EDT) Pathologist [facility] Bilirubin, Total 0.2 0.0 - 1.0 mg/dL [facility] Bilirubin, Direct <0.2 0.0 - 0.5 mg/dL [facility] Aspartate Amino Transferase 32 5 - 37 U/L [facility] Alanine Aminotransferase 17 0 - 40 U/L [facility] Total Protein 7.3 6.5 - 8.0 g/dL [facility] Albumin Level 4.3 3.5 - 5.0 g/dL [facility] Alkaline Phosphatase 49 39 - 117 U/L [facility] Blood Venous blood specimen / Unknown 02/22/2025 10:04 AM EDT 02/22/2025 10:04 AM EDT [facility] LAB BLOOD ORDERABLES Final Resul t [facility] [address] [place] [phone] * (ABNORMAL) Basic Metabolic Panel (02/22/2025 10:04 AM EDT) [facility] Sodium 141 135 - 145 mmol/L [facility] Potassium 4.9 3.3 - 5.1 mmol/L [facility] Chloride 111(H) 96 - 108 mmol/L [facility] Carbon Dioxide 23 22 - 29 mmol/L [facility] Anion Gap 12 12 - 20 [facility] Urea Nitrogen (BUN) 31(H) 9 - 16 mg/dL [facility] Creatinine, Serum 1.78(H) 0.5 - 1.4 mg/dL [facility] Estimated Glomerular Filt Rate 38 [facility] Comment:Chronic Kidney Disea se: Estimated GFR < 60 mL/min/1.97a2Xomlbk Kidney Disease: Estimated GFR < 15 mL/min/1.73m2 Glucose 182(H) 60 - 115 mg/dL [facility] Calcium 9.3 8.4 - 10.2 mg/dL [facility] Blood Venous blood specimen / Unknown 02/22/2025 10:04 AM EDT 02/22/2025 10:04 AM EDT us Jovani Schmidt ANP LAB BLOOD ORDERABLES Final Resul t Performing Organization Address City/State/[facility] Co de Phone Number [facility] [address] [place] [phone] * VASC US Lower Extremity Venous Duplex Bilateral (01/22/2025 1:50 PM EDT) 01/22/2025 1:50 PM EDT Narrative [facility] - 01/22/2025 2:38 PM EDT [address] [address] Ultrasound Report Signed with Addenda Patient: David Gallagher MR#: [id number] 3 : 1955 Acct:[id number] Age/Sex: 69 / M ADM Date: 01/22/25 Loc: HO.US Attending Dr: Jovani Schmidt NP Ordering Physician: JOVANI SCHMIDT NP Date of Service: 01/22/25 Procedure(s): US venous duplex LE BI Accession Number(s): [id number] cc: JOVANI SCHMIDT NP ADDENDUM ADDENDUM #1 [...] 01/22/25 1435 DD/ 1350 TD/TT: 01/22/25 1427 Salvage Engineer: Procedure Note Donotuseinterpreter, Image - 01/22/2025 [place] [address] Ultrasound Report Signed with Cameron Patient: Ismael Gallagher#: [id number] 3 : 5Acct:[id number] Age/Sex: 69 / MADM Date: 01/22/25 Loc: HO.US Attending Dr: Jovani Schmidt NP Ordering Physician: JOVANI SCHMIDT NP Date of Service: 01/22/25 Procedure(s): US venous duplex LE BI Accession Number(s): [id number] cc: JOVANI SCHMIDT NP ADDENDUM ADDENDUM #[address] Schmidt on 01/22/2025 at 3:11 PM. Electronically signed by: Jake Story MD 01/22/2025 03:12 PM EDT RP Addendum Dictated By: Jake Story MD Addendum Signed By: <Electronically signed by MD Nathaly in OV> 01/22/25 1512 Addendum Cosigned By: [...] Story MD in OV> 01/22/25 1435 DD/ 49 TD/TT: 01/22/251426 Salvage Engineer: us Jovani Schmidt ANP CV VASCULAR PROCEDURES Edited Re sult - Final [facility] [address] [place] [address] * (ABNORMAL) POCT HGB A1C (12/04/2024 12:00 PM EDT) Hemoglobin A1C 8.8(A) 4.0 - 6.0 % QC Media Lot # [id number] Lot# Expiration Date Blood 12/04/2024 12:0 0 PM EDT us Jovani Schmidt ANP POINT OF CARE TEST ENTER/EDIT OR DERABLES Final Result * (ABNORMAL) Lipid Panel, Standard (07/03/2024 12:03 PM EST) Triglycerides 148 <150 mg/dL [facility] Comment:Desirable Triglyceri de: less than 150 mg/dLBorderline High Triglyceride 150-199 mg/dLHigh Triglyceride: 200-499 mg/dLVery High Triglyceride: greater than or equal to 5OO mg/dL Cholesterol 113 <200 mg/dL [facility] Comment:Desirable Cholestero l: less than 200 mg/dLBorderline High Cholesterol: 200-239 mg/dLHigh Cholesterol: greater than 239 mg/dL LDL Cholesterol Calculated 49 <100 mg/dL [facility] Comment:Desirable LDL: less than 100 mg/dLNear Optimal/Above Optimal LDL: 110- 129 mg/dLBorderline High LDL: 130-159 mg/dLHigh LDL: 160-189 mg/dLVery High LDL: greater than or equal to 190 mg/dL HDL Cholesterol 35(L) >40 mg/dL [facility] Comment:Desirable HDL: great er than 40 mg/dL Note: This HDL assay may give artificially low results in patients with liver disease. Blood Venous blood specimen / Unknown 07/03/2024 12:03 PM EST 07/03/2024 1:03 PM EST us Jovani Schmidt ANP LAB BLOOD ORDERABLES Final Resul t [facility] [address] [place] [phone] * HEPATITIS C AB W/REFL TO HCV RNA, QN, PCR (04/29/2021 9:10 AM EDT) HEPATITIS C ANTIBODY NON-REACT TRUE NON-REACT RTUE [facility] INDEX 0.01 <1.00 [facility] Comment: HCV antibody was non-reactive. There is no laboratory evidence of HCV infection. In most cases, no further action is required. However, if recent HCV exposure is suspected, a test for HCV RNA (test code 19092) is suggested. For additional information please refer to http://education.[employer]/faq/GLV25i7 (This link is being provided for informational/ educational purposes only.) 04/29/2021 9:10 AM EDT us Jovani Schmidt ANP HISTORICAL/NON ORDERABLE LABS Fi nal Result [facility] [address] * Colonoscopy (07/17/2019) Colonoscopy Normal Normal Historical Provider HEALTH MAINTENANCE Final Result from Last 3 Months or Most Recently Relevant to Health Maintenance Insurance [address] [place] [address] [facility] HOME OPTIONS (O D-SNP) [place] [id number] Care Teams Respiratory Support Technician Relationship Specialty Start Date End Date Jovani Schmidt ANP [address] [place] [address] PCP - General Family Medicine 11/17/20 Todd Figueroa, LindsayD [address] [place] [address] Pharmacist Internal Medicine 11/24/23
--- OUTSIDE RECORDS SUMMARY | 2025-02-26 08:56 | XMS_ITS | Clinical Summary ---
Author Organization [facility] Address [address] [place] [address] Care Team Providers Care Charhouse Worker Name Role Phone Unavailable Primary Care Provider [...] mcg/actuation inhalerIndication s:Moderate persistent asthma without complication ([facility]) Inhale 2 Puffs into the lungs every 4 to 6 (four to six) hours as needed for shortness of breath or wheezing 1 Inhaler 3 9 Active insulin glargine (LANTUS SOLOSTAR U-100 INSULIN) 100 unit/mL (3 mL) injection penIndications:Ty pe 2 diabetes mellitus without complication, with long-term current use of insulin ([facility]) Inject 74 Units into the skin once daily 24 mL 5 9 Active fluticasone propionate (FLOVENT HFA) 110 mcg/actuation inhalerIndication s:Moderate persistent asthma without complication ([facility]) Inhale 1 Puff into the lungs 2 (two) times daily 1 Inhaler 3 9 Active insulin lispro (ADMELOG SOLOSTAR U-100 INSULIN) 100 unit/mL injectionIndicati ons:Type 2 diabetes mellitus without complication, with long-term current use of insulin ([facility]) 10 Syringe 3 9 Active canagliflozin 100 mg tabIndications:Ty pe 2 diabetes mellitus without complication, with long-term current use of insulin ([facility]) Take 300 mg by mouth every morning 30 Tab 3 [address] Active [address] tabletIndications :Coronary artery disease of [place] heart with stable angina pectoris, unspecified vessel or lesion type ([facility] V24),[place], old TAKE ONE TABLET BY MOUTH DAILY [...] Diagnosed Date Moderate persistent asthma without complication ([facility]) 04/24/2019 Heart murmur 04/24/2019 NV, old 04/24/2019 Overview (04/24/2019): 2013 x3 with 2 stents placement Type 2 diabetes mellitus wit hout complication, with long-term current use of insulin ([facility]) 04/24/2019 Hearing loss of right ear [...]
--- NOTE | 2025-02-26 09:33 | HO.NEPHOV ---
Vital Signs 02/26/25 09:36 Height 5 ft 6 in Weight 174 lb 8 oz BMI 28.2 BP 110/70 Blood Pressure Location Lt brachial Position Sitting Intake Visit Reasons: ENP: JENA/Urgent Referral-Conf Senior Net Web Developer Required: No Accompanied by: Daughter Allergies No Known Allergies Allergy (Verified 02/26/25 09:35) HPI Comments Details: 69-year-old gentleman with past medical history of hypertension, diabetes mellitus, coronary artery disease is here to establish care for CKD. Here with daughter Fabiola. Hypertension: on metoprolol succinate 25, lisinopril 40 and amlodipine 5 Diabetes mellitus: since 2011, on degludec and aspart along with metformin. Doesnt check sugars at home, dont have a HbA1c on file. Says the sugars are crazy Coronary artery disease: cardiac catherterization in 2023 showed non obstructive CAD. TTE in 2022 showed EF 50-55%, akinetic apex, mild hypokinetic other fong. DVT: in January 2025, on apixaban 2.5mg He enjoys fishing alot and spends most of summer fishing. PFSH Medical History COPD (chronic obstructive pulmonary disease) Adrenal adenoma GERD (gastroesophageal reflux disease) Fracture of distal end of radius Generalized ischemic myocardial dysfunction Obstructive sleep apnea syndrome Steatosis of liver Diverticulosis Coronary arteriosclerosis in patient with history of previous myocardial infarction Vision loss Moderate persistent asthma without complication Heart murmur Hearing loss of right ear Callus of toe Pain in toe Onychomycosis Dystrophia unguium CAD (coronary artery disease) Old myocardial infarction History of ischemic cardiomyopathy LVH (left ventricular hypertrophy) HTN (hypertension) Hyperlipidemia Type 2 diabetes mellitus without complications Personal history of tobacco use Surgical History Stented coronary artery Hx of cardiac cath History of lung surgery Family History Father Bone cancer Mother No problems noted. Brother Heart problem Brother Heart problem Brother Diabetes Social History Household Members: None Patient Tobacco Use Status: Former Tobacco user Tobacco use type: Cigarette Years Smoked: onset 15yo, 1-2ppd x 41yrs, 60PYH - quit 2011 service: No Current occupational status: unemployed Review of Systems Const Details: Const Denies body aches, Denies chills, Eyes Denies blurry vision and Denies change in vision ENT Denies bleeding gums and Denies change in voice Card Denies chest pain and Denies leg ulcers Resp Denies cough and Denies excessive phlegm production GI Denies abdominal pain and Denies bloating Denies hematuria, Denies urinary frequency Musc Denies abnormal gait Neuro Denies Neuro-related abnormal movements, Denies abnormal gait and Denies behavioral changes Psych Denies behavioral changes and Denies change in appetite Endo Denies excessive sweating and Denies fatigue Physical Exam Vital Signs: Last Vital Signs BP 110/70 02/26/25 09:36 BMI result Body Mass Index 28.2 General: healthy appearing male, pleasant not in any distress, comfortable, sitting on the chair Nutritional Appearance: well nourished and overweight Eyes: appearance normal, both eyes and all related structures; Alignment and Position: alignment normal and position normal Neck: No lymphadenopathy, no thyromegaly Resp: bilateral air entry equal, no added sounds present Cardio: Regular rate, regular rhythm; normal S1 S2, no edema GI: soft, nontender, no guarding, no hepatosplenomegaly : bladder normal to inspection, bladder normal to palpation, no renal angle tenderness Skin: no rashes or lesions noted and elasticity normal Neuro: oriented to person, oriented to place, oriented to time and moves all extremities Results Reviewed Nephrology Results: Hgb, (14.0-18.0) 11.5 g/dl L 02/22/25 WBC, (4.8-10.8) 7.3 X10*3/uL 02/22/25 Plt Count, (160-400) 389 X10*3/uL 02/22/25 Sodium, (135-145) 141 mmol/L 02/22/25 Potassium, (3.3-5.1) 4.9 mmol/L 02/22/25 Chloride, (96-108) 111 mmol/L H 02/22/25 Carbon Dioxide, (22-29) 23 mmol/L 02/22/25 BUN, (9-16) 31 mg/dL H 02/22/25 Creatinine, (0.5-1.4) 1.78 mg/dL H 02/22/25 Calcium, (8.4-10.2) 9.3 mg/dL 02/22/25 Assessment & Plan Assessment & Plan (1) HTN (hypertension): Code(s): I10 - Essential (primary) hypertension Category: Medical (2) CAD (coronary artery disease): Code(s): I25.10 - Atherosclerotic heart disease of [place] coronary artery without angina pectoris Category: Medical (3) Type 2 diabetes mellitus without complications: Code(s): E11.9 - Type 2 diabetes mellitus without complications Category: Medical (4) Chronic kidney disease: Code(s): N18.9 - Chronic kidney disease, unspecified Category: Medical Plan Chronic kidney disease stage IIIb : possibly secondary to diabetic kidney disease - mother, 2 brother had kidney problems but all of them had diabetes too, no history of renal stones in the past, NSAID use. - creatinine 1.78 , GFR 38 - urine microalbumin creatinine ratio: 71.8 - Urinalysis shows - avoid nephrotoxic medications not limited to NSAIDs, contrast etc. - importance of diet, weight loss, adequate blood pressure control, well explained to patient; stopped smoking 2011. - will get hepatitis panel, HIV, RAGHAVENDRA, ANCA, complements, SPEP, UPEP, serum free light chains, PLA2R Hypertension: - target blood pressures less than 130/90 mm Hg - compliance: good - continue on lisinopril 40mg, amlodipine 5mg, metoprolol succinate ER 25 - will stop amlodipine Anemia of chronic kidney disease: - Hb 11.5 - will get iron, TIBC, ferritin levels Mineral bone disease: - will get calcium, phos, vitamin-D and PTH levels Total time spent in the clinic is about 40 minutes, 10 minutes on chart review, review of data, 20 minutes on encounter, physical examination, counseling, answering all the questions, 10 minutes on documentation. Orders: Orders PSA, Ultra Sensitive Today E11.9 - Type 2 diabetes mellitus without complications, I10 - Essential (primary) hypertension, I25.10 - Atherosclerotic heart disease of [place] coronary artery without angina pectoris, N18.9 - Chronic kidney disease, unspecified Basic Metabolic Panel Today E11.9 - Type 2 diabetes mellitus without complications, I10 - Essential (primary) hypertension, I25.10 - Atherosclerotic heart disease of [place] coronary artery without angina pectoris, N18.9 - Chronic kidney disease, unspecified Total Protein Urine Random Today E11.9 - Type 2 diabetes mellitus without complications, I10 - Essential (primary) hypertension, I25.10 - Atherosclerotic heart disease of [place] coronary artery without angina pectoris, N18.9 - Chronic kidney disease, unspecified Phosphorus Today E11.9 - Type 2 diabetes mellitus without complications, I10 - Essential (primary) hypertension, I25.10 - Atherosclerotic heart disease of [place] coronary artery without angina pectoris, N18.9 - Chronic kidney disease, unspecified Hepatitis B,C Profile Today E11.9 - Type 2 diabetes mellitus without complications, I10 - Essential (primary) hypertension, I25.10 - Atherosclerotic heart disease of [place] coronary artery without angina pectoris, N18.9 - Chronic kidney disease, unspecified RAGHAVENDRA Reflex Titer and Pattern Today E11.9 - Type 2 diabetes mellitus without complications, I10 - Essential (primary) hypertension, I25.10 - Atherosclerotic heart disease of [place] coronary artery without angina pectoris, N18.9 - Chronic kidney disease, unspecified Protein Electrophoresis, Serum Today E11.9 - Type 2 diabetes mellitus without complications, I10 - Essential (primary) hypertension, I25.10 - Atherosclerotic heart disease of [place] coronary artery without angina pectoris, N18.9 - Chronic kidney disease, unspecified Complement C3 Today E11.9 - Type 2 diabetes mellitus without complications, I10 - Essential (primary) hypertension, I25.10 - Atherosclerotic heart disease of [place] coronary artery without angina pectoris, N18.9 - Chronic kidney disease, unspecified [place]/Lambda Light Chain Serum Today E11.9 - Type 2 diabetes mellitus without complications, I10 - Essential (primary) hypertension, I25.10 - Atherosclerotic heart disease of [place] coronary artery without angina pectoris, N18.9 - Chronic kidney disease, unspecified Basic Metabolic Panel 3 Months I25.10 - Atherosclerotic heart disease of [place] coronary artery without angina pectoris, N18.9 - Chronic kidney disease, unspecified Microalbumin, Random (w Creat) 3 Months I25.10 - Atherosclerotic heart disease of [place] coronary artery without angina pectoris, N18.9 - Chronic kidney disease, unspecified Total Protein Urine Random 3 Months I25.10 - Atherosclerotic heart disease of [place] coronary artery without angina pectoris, N18.9 - Chronic kidney disease, unspecified Factor V Leiden Today E11.9 - Type 2 diabetes mellitus without complications, I10 - Essential (primary) hypertension, I25.10 - Atherosclerotic heart disease of [place] coronary artery without angina pectoris, N18.9 - Chronic kidney disease, unspecified UA and rflx microscopic Today E11.9 - Type 2 diabetes mellitus without complications, I10 - Essential (primary) hypertension, I25.10 - Atherosclerotic heart disease of [place] coronary artery without angina pectoris, N18.9 - Chronic kidney disease, unspecified Microalbumin, Random (w Creat) Today E11.9 - Type 2 diabetes mellitus without complications, I10 - Essential (primary) hypertension, I25.10 - Atherosclerotic heart disease of [place] coronary artery without angina pectoris, N18.9 - Chronic kidney disease, unspecified Parathyroid Hormone Intact Today E11.9 - Type 2 diabetes mellitus without complications, I10 - Essential (primary) hypertension, I25.10 - Atherosclerotic heart disease of [place] coronary artery without angina pectoris, N18.9 - Chronic kidney disease, unspecified Vitamin D 25-OH Total Today E11.9 - Type 2 diabetes mellitus without complications, I10 - Essential (primary) hypertension, I25.10 - Atherosclerotic heart disease of [place] coronary artery without angina pectoris, N18.9 - Chronic kidney disease, unspecified HIV Ab/Ag Today E11.9 - Type 2 diabetes mellitus without complications, I10 - Essential (primary) hypertension, I25.10 - Atherosclerotic heart disease of [place] coronary artery without angina pectoris, N18.9 - Chronic kidney disease, unspecified ANCA Vasculitides Today E11.9 - Type 2 diabetes mellitus without complications, I10 - Essential (primary) hypertension, I25.10 - Atherosclerotic heart disease of [place] coronary artery without angina pectoris, N18.9 - Chronic kidney disease, unspecified Complement C4 Today E11.9 - Type 2 diabetes mellitus without complications, I10 - Essential (primary) hypertension, I25.10 - Atherosclerotic heart disease of [place] coronary artery without angina pectoris, N18.9 - Chronic kidney disease, unspecified Hemoglobin A1c Today E11.9 - Type 2 diabetes mellitus without complications Coding Level of Care Code New Pt Level 4 (64974) Diagnoses HTN (hypertension) I10 CAD (coronary artery disease) I25.10 Type 2 diabetes mellitus without complications E11.9 Chronic kidney disease N18.9
[2025-02-26 09:36] VITALS: BP 110/70; BMI 28.2
== END 2025-02-26 10:11 | disposition home or self-care (01) ==
LOC: HO.HKAS 08:45
PROVIDERS: PCP Nurse Practitioner Primary Care; Referring Provider Nurse Practitioner Primary Care; Visit Provider Internal Medicine Critical Care Medicine
DX: I12.9 Hypertensive chronic kidney disease with stage 1 through stage 4 chronic kidney disease, or unspecified chronic kidney disease (principal); I25.10 Atherosclerotic heart disease of native coronary artery without angina pectoris; E11.9 Type 2 diabetes mellitus without complications; N18.9 Chronic kidney disease, unspecified
CPT/HCPCS: 99204

== ENCOUNTER 2025-02-26 12:56 | Outpatient (REF) | payer OTHER, SELFPAY | END 2025-02-26 12:57 | disposition home or self-care (01) | LOC: HO.LAB 12:56 | PROVIDERS: Visit Provider Internal Medicine Critical Care Medicine | DX: Z13.89 Encounter for screening for other disorder (principal) ==

== ENCOUNTER 2025-03-06 09:52 | Outpatient (REF) | payer OTHER, SELFPAY ==
--- OUTSIDE RECORDS SUMMARY | 2025-03-06 10:27 | XMS_ITS | Encounter Summary ---
Author Organization [employer] Address [address] [place] [address] Care Team Providers Care Devops Solutions Architect Name Role Phone Hilda Cline Primary Care Provider [phone] Todd Figueroa PharmD Unavailable Encounter Details Date Type Department Care Team (Late st Contact Info) Description 03/05/2025 Telephone [facility] [address] [place], [place] [phone] Todd Figueroa, PharmD [address] [place] [address] Social History Tobacco Use Types Packs/Day Years [...] Telephone Encounter - Todd Figueroa PharmD - 03/05/2025 12:21 PM EDT Pharmacist contacted patient to confirm awareness of plan for monitoring of kidney function and CDTM appointment 03/15/2025. Patient denies speaking to nephrology office since visit 02/26/2025. Patient reports they told him they would call if labs were abnormal, and since he did not hear from them he assumed laboratory results were fine. Pharmacist reminded the patient to hydrate well and patientagrees to present to lab tomorrow for repeat BMP ordered by PCP. documented in this encounter Plan of Treatment Upcoming Encounters Date Type Department Care Team (Late st Contact Info) Description 03/15/2025 1:30 PM EDT Medication Management [facility] [address] [place] [address] Todd Figueroa PharmD [address] [place] [address] documented as of this encounter Goals Goal Patient Goal Type Associated Problems Recent Progress Patient-Stated? Author Blood Pressure < 140/90 Blood Pressure 118/65(2024 11:54 AM EDT) No Todd Figueroa PharmD Hemoglobin A1c < 7 Result Component 8.8( 5 12:00 PM EDT) No Declan Kauffman documented as of this encounter Visit Diagnoses Not on filedocumented in this encounter Additional Health Concerns Assessment Noted Time PHQ-9 Depression Total Score: 7 07/03/20 24 11:53 AM EST documented as of this encounter Care Teams Devops Solutions Architect Relationship Specialty Start Date End Date Hilda Cline, MAURIEC [address] [place] [address] PCP - General Family Medicine 11/17/20 Todd Figueroa, Ceferino [address] [place] [address] Pharmacist Internal Medicine 11/24/23 documented as of this encounter
--- OUTSIDE RECORDS SUMMARY | 2025-03-06 10:27 | XMS_ITS | Clinical Summary ---
Author Organization [facility] Address [address] [place] [address] Care Team Providers Care Chief Growth Officer Name Role Phone Unavailable Primary Care Provider [...] mcg/actuation inhalerIndication s:Moderate persistent asthma without complication ([facility]) Inhale 2 Puffs into the lungs every 4 to 6 (four to six) hours as needed for shortness of breath or wheezing 1 Inhaler 3 9 Active insulin glargine (LANTUS SOLOSTAR U-100 INSULIN) 100 unit/mL (3 mL) injection penIndications:Ty pe 2 diabetes mellitus without complication, with long-term current use of insulin ([facility]) Inject 74 Units into the skin once daily 24 mL 5 9 Active fluticasone propionate (FLOVENT HFA) 110 mcg/actuation inhalerIndication s:Moderate persistent asthma without complication ([facility]) Inhale 1 Puff into the lungs 2 (two) times daily 1 Inhaler 3 9 Active insulin lispro (ADMELOG SOLOSTAR U-100 INSULIN) 100 unit/mL injectionIndicati ons:Type 2 diabetes mellitus without complication, with long-term current use of insulin ([facility]) 10 Syringe 3 9 Active canagliflozin 100 mg tabIndications:Ty pe 2 diabetes mellitus without complication, with long-term current use of insulin ([facility]) Take 300 mg by mouth every morning 30 Tab 3 0 Active aspirin [address] tabletIndications :Coronary artery disease of [place] heart with stable angina pectoris, unspecified vessel or lesion type ([facility], old TAKE ONE TABLET BY MOUTH [...] Diagnosed Date Moderate persistent asthma without complication ([facility]) 04/24/2019 Heart murmur 04/24/2019 [place], old 04/24/2019 Overview (04/24/2019): 2013 x3 with 2 stents placement Type 2 diabetes mellitus wit hout complication, with long-term current use of insulin ([facility]) 04/24/2019 Hearing loss of right ear 04/24/2019 [...]
[2025-03-06 11:28] LABS: Appearance Urine Clear; Glucose Urine UA >=1000 mg/dL (Negative); PH 6.0 (5.0-9.0); Specific Gravity - Urine 1.020 (1.005-1.025); UMIC TRIGGER UA YES
[2025-03-06 11:59] LABS: Anion Gap 14 (12-20); Blood Urea Nitrogen 38 mg/dL (9-16); Calcium 9.5 mg/dL (8.4-10.2); Carbon Dioxide 22 mmol/L (22-29); Chloride 110 mmol/L (96-108); Estimated Glomerular Filt Rate 36; Iron 48 mcg/dL (45-160); Percent Iron Saturation 11 % (15-50); Potassium 4.9 mmol/L (3.3-5.1); Sodium 141 mmol/L (135-145); Total Iron Binding Capacity 427 mcg/dL (228-428); Unsaturated Iron Binding 379 ug/dL
[2025-03-06 12:05] LABS: Ferritin 31 ng/mL (20-250)
[2025-03-06 12:18] LABS: Hemoglobin A1C 192.9937 umol/L; Total Hemoglobin (HGBA1C) 3013.7547 umol/L
== END 2025-03-06 09:53 | disposition home or self-care (01) ==
LOC: HO.HHCL 09:52
PROVIDERS: PCP Nurse Practitioner Primary Care; Referring Provider Internal Medicine Critical Care Medicine; Visit Provider Nurse Practitioner Primary Care
DX: I12.9 Hypertensive chronic kidney disease with stage 1 through stage 4 chronic kidney disease, or unspecified chronic kidney disease (principal); N18.9 Chronic kidney disease, unspecified; E11.22 Type 2 diabetes mellitus with diabetic chronic kidney disease; D63.1 Anemia in chronic kidney disease; I25.10 Atherosclerotic heart disease of native coronary artery without angina pectoris; N17.9 Acute kidney failure, unspecified
CPT/HCPCS: 36415; 80048; 81001; 82728; 83036; 83540

== ENCOUNTER 2025-04-16 12:29 | Outpatient (AMB) | payer OTHER, SELFPAY ==
--- NOTE | 2025-04-16 12:30 | MHC.OFFVIS ---
Intake Visit Reasons: 8w/discuss med injection ED Intake Note: Patient is present for 8w/discuss med injection ed Urology Medication:none Antibiotic Allergy:none Blood Thinner:aspirin,apixaban Public Relations Assistant Required: No Public Relations Assistant Name: Viola [phone] Allergies No Known Allergies Allergy (Verified 04/16/25 12:55) Medication List - Last Reconciled 04/16/25 by TALIA MarieeP- albuterol sulfate 90 mcg/actuation 2 puffs PO Q4-6H PRN alcohol swabs (BD Alcohol Swabs) 0 pad topical QID amlodipine 5 mg PO DAILY apixaban (Eliquis) 2.5 mg PO BID aspirin 81 mg PO DAILY 90 days blood sugar diagnostic (Axtriauch Ultra Test strips) As directed dulaglutide (Trulicity) mg subcut fenofibrate nanocrystallized 145 mg PO DAILY 30 days insulin aspart U-100 (Novolog FlexPen U-100 Insulin aspart) subcut insulin degludec (Tresiba FlexTouch U-100 insulin) units subcut lancets (GenasysTouch Delica Lancets) As directed lisinopril 40 mg PO DAILY 90 days metformin ER 500 mg PO BID metoprolol succinate ER 25 mg PO DAILY omeprazole 40 mg PO QAM pen needle, diabetic (Comfort EZ Pen [place]) As directed rosuvastatin 40 mg PO DAILY 90 days sildenafil 100 mg PO DAILY PRN 30 days tadalafil 10 mg PO DAILY 90 days HPI Comments Details: David is a 69 year old Maori speaking male patient of Dr. Cline. He has a past medical history of COPD, adrenal adenoma, GERD, generalized ischemic myocardial dysfunction, obstructive sleep apnea, diverticulosis, CAD, moderate persistent asthma, hypertension, hyperlipidemia, and type 2 diabetes. He is being followed up on today via video telehealth for his erectile dysfunction. Of note, patient was seen approximately 1 month [address] Dr. Efrain Tyler at which time discussion regarding treatment options for erectile dysfunction were discussed. Patient with a longstanding history of ED and has failed oral therapy. In discussion with the patient today he reports he is unable to obtain and or maintain erections. He reports symptoms have been present for many years. We did discuss potential causes of ED as well as further treatment options and risks and benefits of these treatment options. In review of patient's chart it appears A1c these are as follows: A1c 07/17 10.1, 03/18 8.0 We discuss the importance of management and diabetes for improvement in ED as well as overall health and well-being. In review of patient's chart it appears PSA 03/18 1.6. He otherwise denies any bothersome urinary issues. He denies urinary urgency, urinary frequency, incontinence, nocturia, hematuria, dysuria, foul smelling urine, changes to urinary stream, flank pain, fever, and or chills. He is happy with his current voiding parameters. We discussed at length the importance of lifestyle modifications to assist with ED as well as overall health and well-being. All questions were answered. He otherwise offers no other issues or concerns at this time. PFSH Medical History COPD (chronic obstructive pulmonary disease) Adrenal adenoma GERD (gastroesophageal reflux disease) Fracture of distal end of radius Generalized ischemic myocardial dysfunction Obstructive sleep apnea syndrome Steatosis of liver Diverticulosis Coronary arteriosclerosis in patient with history of previous myocardial infarction Vision loss Moderate persistent asthma without complication Heart murmur Hearing loss of right ear Callus of toe Pain in toe Onychomycosis Dystrophia unguium CAD (coronary artery disease) Old myocardial infarction History of ischemic cardiomyopathy LVH (left ventricular hypertrophy) HTN (hypertension) Hyperlipidemia Type 2 diabetes mellitus without complications Personal history of tobacco use Surgical History Stented coronary artery Hx of cardiac cath History of lung surgery Family History Father Bone cancer Mother No problems noted. Brother Heart problem Brother Heart problem Brother Diabetes Social History Household Members: None Patient Tobacco Use Status: Former Tobacco user Tobacco use type: Cigarette Years Smoked: onset 15yo, 1-2ppd x 41yrs, 60PYH - quit 2011 service: No Current occupational status: unemployed Review of Systems Const All systems reviewed & are unremarkable except as noted in HPI and below Physical Exam Const General: cooperative Orientation/consciousness: patient oriented x3 Limitations: language barrier Resp Effort & Inspection: able to speak in complete sentences Neuro General: patient oriented x3 Psych Attitude: cooperative Thought content: Normal thought content present Insight: Fair insight present (Psych) Judgement: Fair judgement present (Psych) Telehealth Telehealth Telehealth Platform: Telephone Location of provider rendering services: practice address Location of patient: address on file Patient Identification confirmed using: Name, : Yes Telehealth method: voice only Patient verbally consented to treatment: Yes Patient verbally consented to billing insurance company: Yes Patient informed of any privacy concerns related to visit: Yes Minutes spent on Phone/Video with Pt.: 25 Assessment & Plan Assessment & Plan (1) Erectile dysfunction associated with type 2 diabetes mellitus: Code(s): E11.69 - Type 2 diabetes mellitus with other specified complication; N52.1 - Erectile dysfunction due to diseases classified elsewhere Category: Medical Plan We discussed at length potential causes of ED as wellAs further treatment options and risks and benefits of these treatment options. We discussed lifestyle modifications to assist with ED as well as overall health and well-being. We also discussed the importance of maintaining diabetes in relation to urological condition as well as overall health and well-being. He currently denies any bothersome urinary issues or concerns. He reports be happy with current voiding parameters. Will trial penile injection therapy at this time; prescriptions sent. Patient will call for penile injection teaching Medications: Discontinued sildenafil administer 60 minutes before activity - intended as top up to daily medication Discontinued Reason: Doctor's Order 100 mg PO DAILY 30 days PRN 30 tabs 1RF sexual activity E11.69 - Type 2 diabetes mellitus with other specified complication, N52.1 - Erectile dysfunction due to diseases classified elsewhere tadalafil Take daily for baseline therapy Discontinued Reason: Patient Completed Course 10 mg PO DAILY 90 days 90 tabs 1RF sexual activity E11.69 - Type 2 diabetes mellitus with other specified complication, N52.1 - Erectile dysfunction due to diseases classified elsewhere Patient Instructions: The patient had an opportunity to ask questions regarding the treatment plan. All questions were answered. Physical exam, labs, and imaging were discussed and reviewed in detail. As well as risks, benefits, and discussion of treatment choices. No major barriers to understanding were identified. The patient expressed understanding and agreement with the above treatment plan. The patient was made aware they should contact our office by phone for worsening of their current condition, the appearance of new symptoms, or with any questions or concerns. Compliance is encouraged with any medications and follow up testing that is ordered. It is a privilege to be allowed the opportunity to participate in? your urological care.? Again, if you have any questions or concerns If you have any questions or concerns please do not hesitate to contact me. The office is [phone]. This note is constructed using voice recognition software. While every effort has been made to ensure accuracy occupational safety and health manager errors may have been included. Yours sincerely, LOLITA Mariee Coding Level of Care Code Tele Est Pt Level 4 (56217) Diagnoses Erectile dysfunction associated with type 2 diabetes mellitus E11.69; N52.1
--- OUTSIDE RECORDS SUMMARY | 2025-04-16 15:20 | XMS_ITS | Encounter Summary ---
Author Organization [employer] Address 75 [facility] 7 [place] [address] Care Team Providers Care Stem Lead Former Name Role Phone Hilda Cline Primary Care Provider [phone] Todd Figueroa PharmD Unavailable [phone] Reason for Visit * Reason Onset Date Comments Med Refill 03/15/2024 Encounter Details Date Type Department Care Team (Late st Contact Info) Description 03/15/2024 Refill [facility] MEDICINE 230 [place], [place] [phone] Hilda Cline ANP 230 [place], [place] [phone] Type 2 diabetes mellitus with hyperlipidemia (CMS/HCC) ([facility]) Social History Tobacco Use Types Packs/Day Years [...] Care Team (Late st Contact Info) Description 05/13/2025 10:30 AM EDT Medication Management [facility] MEDICINE 230 [place], [place] [phone] Todd Figueroa PharmD 230 [place] [address] documented as of this encounter Goals Goal Patient Goal Type Associated Problems Recent Progress Patient-Stated? Author Blood Pressure < 140/90 Blood Pressure 118/65(2024 11:54 AM EDT) No Todd Figueroa, Ceferino Hemoglobin A1c < 7 Result Component 8(03/06/2025 9:57 AM EDT) No Declan Kauffman documented as of this encounter Visit Diagnoses Diagnosis Type 2 diabetes mellitus with hyperlipidemia (CMS/HCC) (CMS/HCC) documented in this encounter Care Teams Stem Lead Former Relationship Specialty Start Date End Date Hilda Cline ANP [address] [place] [address] [phone] PCP - General Family Medicine 11/17/20 Todd Figueroa, LindsayD [address] [place] [address] [phone] Pharmacist Internal Medicine 11/24/23 documented as of this encounter
--- OUTSIDE RECORDS SUMMARY | 2025-04-16 15:20 | XMS_ITS | Encounter Summary ---
Author Organization [employer] Address 75 [facility] 7 [place] [address] Care Team Providers Care Card Grinder Name Role Phone Hilda Cline Primary Care Provider [phone] Todd Figueroa PharmD Unavailable [phone] Reason for Visit * Reason Comments Med Refill Encounter Details Date Type Department Care Team ([facility] st Contact Info) Description 04/03/2025 Refill [facility] MEDICINE 230 [place], [place] [phone] Hilda Cline ANP [address] [place] [address] Social History Tobacco Use Types Packs/Day Years [...] Description 05/13/2025 10:30 AM EDT Medication Management [facility] MEDICINE [address] [place] [address] Todd Figueroa PharmD [address] [place] [address] documented as of this encounter Goals Goal Patient Goal Type Associated Problems Recent Progress Patient-Stated? Author Blood Pressure < 140/90 Blood Pressure 118/65(2024 11:54 AM EDT) No Todd Figueroa PharmD Hemoglobin A1c < 7 Result Component 8(03/06/2025 9:57 AM EDT) No Declan Kauffman documented as of this encounter Visit Diagnoses Not on filedocumented in this encounter Additional Health Concerns Assessment Noted Time PHQ-9 Depression Total Score: 7 07/03/20 24 11:53 AM EST documented as of this encounter Care Teams Card Grinder Relationship Specialty Start Date End Date Hilda Cline ANP [address] [place] [address] PCP - General Family Medicine 11/17/20 Todd Figueroa PharmD [address] [place] [phone] Pharmacist Internal Medicine 11/24/23 documented as of this encounter
--- OUTSIDE RECORDS SUMMARY | 2025-04-16 15:20 | XMS_ITS | Encounter Summary ---
Author Organization [employer] Address [address] [place] [address] Care Team Providers Care Loss Control Consultant Name Role Phone Hilda Cline Primary Care Provider [phone] Todd Figueroa PharmD Unavailable [phone] Reason for Visit * Reason Onset Date Comments Med Refill 03/15/2024 Encounter Details Date Type Department Care Team (Late st Contact Info) Description 03/15/2024 Refill [facility] MEDICINE 230 [place], [place] [phone] Lili Johnston MD 230 [place], [place] [phone] Hypertension associated with diabetes (CMS/HCC) ([facility]/HCC) Social History Tobacco Use Types Packs/Day Years [...] Description 05/13/2025 10:30 AM EDT Medication Management [facility] MEDICINE 230 [place] [address] Todd Figueroa PharmD 230 [place] [address] documented as of this encounter Goals Goal Patient Goal Type Associated Problems Recent Progress Patient-Stated? Author Blood Pressure < 140/90 Blood Pressure 118/65(2024 11:54 AM EDT) No Todd Figueroa PharmD Hemoglobin A1c < 7 Result Component 8(03/06/2025 9:57 AM EDT) No Declan Kauffman documented as of this encounter Visit Diagnoses Diagnosis Hypertension associated with diabetes (CMS/[facility]) Unspecified essential hypertension documented in this encounter Care Teams Loss Control Consultant Relationship Specialty Start Date End Date Hilda Cline ANP [address] [place] [address] [phone] PCP - General Family Medicine 11/17/20 Todd Figueroa, LindsayD [address] [place] [address] [phone] Pharmacist Internal Medicine 11/24/23 documented as of this encounter
--- OUTSIDE RECORDS SUMMARY | 2025-04-16 15:20 | XMS_ITS | Encounter Summary ---
Author Organization [employer] Address 75 [facility] 7 [place] [address] Care Team Providers Care Surgical Specialist Name Role Phone Hilda Cline Primary Care Provider [phone] Todd Figueroa PharmD Unavailable [phone] Reason for Visit * Reason Onset Date Comments Med Refill 09/13/2023 Encounter Details Date Type Department Care Team (Late st Contact Info) Description 09/13/2023 Telephone [facility] MEDICINE 230 [place], [place] [phone] Hilda Cline ANP 230 [place], [place] [phone] Med Refill Social History Tobacco Use Types [...] 7 MG tablet To be sent to: [facility] - [place] - [id number] [place] - [address] Olena Blank from [facility] informs pt is out of meds and would like to know if medication can be sent out today to finish pt bubble pack . documented in this encounter Plan of Treatment Upcoming Encounters Date Type Department Care Team (Late st Contact Info) Description 05/13/2025 10:30 AM EDT Medication Management [facility] MEDICINE 230 [place] [address] Todd Figueroa, PharmD 230 [place] [address] documented as of this encounter Goals Goal Patient Goal Type Associated Problems Recent Progress Patient-Stated? Author Hemoglobin A1c < 7 Result Component 8(03/06/2025 9:57 AM EDT) No Declan Kauffman documented as of this encounter Visit Diagnoses Not on filedocumented in this encounter Care Teams Surgical Specialist Relationship Specialty Start Date End Date Hilda Cline ANP 230 [place] [address] PCP - General Family Medicine 11/17/20 Todd Figueroa PharmD 230 [place] [address] Pharmacist Internal Medicine 11/24/23 documented as of this encounter
--- OUTSIDE RECORDS SUMMARY | 2025-04-16 15:20 | XMS_ITS | Clinical Summary ---
Author Organization [facility] Address [address] [place] [address] Care Team Providers Care Assistant To The President Name Role Phone Unavailable Primary Care Provider [...] without complication ([facility]) Inhale 2 Puffs into the lungs every 4 to 6 (four to six) hours as needed for shortness of breath or wheezing 1 Inhaler 3 9 Active insulin glargine (LANTUS SOLOSTAR U-100 INSULIN) 100 unit/mL (3 mL) injection penIndications:Ty pe 2 diabetes mellitus without complication, with long-term current use of insulin ([facility]) Inject 74 Units into the skin once daily 24 mL 5 9 Active fluticasone propionate (FLOVENT HFA) 110 mcg/actuation inhalerIndication s:Moderate persistent asthma without complication ([facility]) Inhale 1 Puff into the lungs 2 (two) times daily 1 Inhaler 3 9 Active insulin lispro (ADMELOG SOLOSTAR U-100 INSULIN) 100 unit/mL injectionIndicati ons:Type 2 diabetes mellitus without complication, with long-term current use of insulin ([facility]) 10 Syringe 3 9 Active canagliflozin 100 mg tabIndications:Ty pe 2 diabetes mellitus without complication, with long-term current use of insulin ([facility]) Take 300 mg by mouth every morning 30 Tab 3 0 Active aspirin [address] tabletIndications :Coronary artery disease of [place] heart with stable angina pectoris, unspecified vessel or lesion type ([facility] V[facility]),[place], old TAKE ONE TABLET BY MOUTH DAILY [...] [facility]) 04/24/2019 Heart murmur 04/24/2019 [place], old 04/24/2019 Overview (04/24/2019): 2013 x3 with 2 stents placement Type 2 diabetes mellitus wit hout complication, with long-term current use of insulin ([facility]) 04/24/2019 Hearing [...]
--- OUTSIDE RECORDS SUMMARY | 2025-04-16 15:20 | XMS_ITS | Encounter Summary ---
Author Organization [employer] Address 75 [facility] [place] [facility] 7 [place] [address] Care Team Providers Care Permaculture Contractor Name Role Phone Hilda Cline Primary Care Provider [phone] Todd Figueroa PharmD Unavailable [phone] Reason for Visit * Reason Comments Med Refill Encounter Details Date Type Department Care Team (Late st Contact Info) Description 02/13/2024 Refill [facility] MEDICINE 230 [place], [place] [phone] Hilda Cline ANP 230 [place], [place] [phone] Type 2 diabetes mellitus with hyperlipidemia ([facility]) ([facility]) Social History Tobacco Use [...] Description 05/13/2025 10:30 AM EDT Medication Management [facility] MEDICINE 230 [place], [place] [phone] Todd Figueroa PharmD [address] [place] [address] [phone] documented as of this encounter Goals Goal Patient Goal Type Associated Problems Recent Progress Patient-Stated? Author Blood Pressure < 140/90 Blood Pressure 118/65(2024 11:54 AM EDT) No Todd Figueroa, Ceferino Hemoglobin A1c < 7 Result Component 8(03/06/2025 9:57 AM EDT) No Declan Kauffman documented as of this encounter Visit Diagnoses Diagnosis Type 2 diabetes mellitus with hyperlipidemia (CMS/HCC) ([facility]) documented in this encounter Care Teams Permaculture Contractor Relationship Specialty Start Date End Date Hilda Cline ANP [address] [place] [address] [phone] PCP - General Family Medicine 11/17/20 Todd Figueroa, LindsayD [address] [place] [address] [phone] Pharmacist Internal Medicine 11/24/23 documented as of this encounter
--- OUTSIDE RECORDS SUMMARY | 2025-04-16 15:20 | XMS_ITS | Encounter Summary ---
Author Organization [employer] Address 75 [facility] 7 [place] [address] Care Team Providers Care Animal Maintenance Supervisor Name Role Phone Hilda Cline Primary Care Provider [phone] Todd Figueroa PharmD Unavailable [phone] Reason for Visit * Reason Comments Med Refill Encounter Details Date Type Department Care Team (Late st Contact Info) Description 03/29/2025 Refill [facility] MEDICINE 230 [place], [place] [phone] Hilda Cline ANP 230 [place] [address] Social History Tobacco Use Types Packs/Day Years [...] Description 05/13/2025 10:30 AM EDT Medication Management [facility] MEDICINE [address] [place] [address] Todd Figueroa PharmD [address] [place] [phone] documented as of this encounter Goals Goal [...] documented as of this encounter Care Teams Animal Maintenance Supervisor Relationship Specialty Start Date End Date Hilda Cline ANP [address] [place] [phone] PCP - General Family Medicine 11/17/20 Todd Figueroa PharmD [address] [place] [phone] Pharmacist Internal Medicine 11/24/23 documented as of this encounter
--- OUTSIDE RECORDS SUMMARY | 2025-04-16 15:20 | XMS_ITS | Encounter Summary ---
Author Organization [employer] Address [address] [place] [address], [place] [address] Care Team Providers Care Nautical Instrument Mechanic Name Role Phone Hilda Cline Primary Care Provider [phone] Todd Figueroa PharmD Unavailable [phone] Reason for Visit * Reason Comments Med Refill Encounter Details Date Type Department Care Team (Late st Contact Info) Description 11/22/2022 Refill [facility] MEDICINE 230 [place] [address] Hilda Cline ANP [address] [place] [address] Social History Tobacco Use Types Packs/Day Years [...] Description 05/13/2025 10:30 AM EDT Medication Management [facility] MEDICINE 230 [place] [address] Todd Figueroa, PharmD 230 [place] [address] documented as of this encounter Visit Diagnoses Not on filedocumented in this encounter Care Teams Nautical Instrument Mechanic Relationship Specialty Start Date End Date Hilda Cline ANP 230 [place], [place] [phone] PCP - General Family Medicine 11/17/20 Todd Figueroa PharmD 230 [place] [address] Pharmacist Internal Medicine 11/24/23 documented as of this encounter
--- OUTSIDE RECORDS SUMMARY | 2025-04-16 15:20 | XMS_ITS | Encounter Summary ---
Author Organization [employer] Address 75 [facility] 7 [place] [address] Care Team Providers Care Slate Roofer Helper Name Role Phone Hilda Cline Primary Care Provider [phone] Todd Figueroa PharmD Unavailable [phone] Reason for Visit * Reason Comments Med Refill Encounter Details Date Type Department Care Team ([facility] st Contact Info) Description 09/12/2023 Refill [facility] MEDICINE 230 [place], [place] [phone] Hilda Cline ANP 230 [place], [place] [phone] Type 2 diabetes mellitus with hyperlipidemia ([facility]/H[facility]) Social History Tobacco Use Types Packs/Day Years [...] Description 05/13/2025 10:30 AM EDT Medication Management [facility] MEDICINE 230 [place] [address] Todd Figueroa, Ceferino [address] [place] [address] documented as of this encounter Goals Goal Patient Goal Type Associated Problems Recent Progress Patient-Stated? Author Hemoglobin A1c < 7 Result Component 8(03/06/2025 9:57 AM EDT) No Declan Kauffman documented as of this encounter Visit Diagnoses Diagnosis Type 2 diabetes mellitus with hyperlipidemia (CMS/HCC) (CMS/HCC) documented in this encounter Care Teams Slate Roofer Helper Relationship Specialty Start Date End Date Hilda Cline ANP [address] [place] [place] [address] PCP - General Family Medicine 11/17/20 Todd Figueroa, PharmD [address] [place] [address] [phone] Pharmacist Internal Medicine 11/24/23 documented as of this encounter
--- OUTSIDE RECORDS SUMMARY | 2025-04-16 15:20 | XMS_ITS | Encounter Summary ---
Author Organization [employer] Address 75 [facility] 7 [place] [address] Care Team Providers Care Associate Dean Name Role Phone Hilda Cline Primary Care Provider [phone] Todd Figueroa PharmD Unavailable [phone] Reason for Visit * Reason Comments Med Refill Encounter Details Date Type Department Care Team (Late st Contact Info) Description 03/31/2025 Refill [facility] MEDICINE 230 [place], [place] [phone] Hilda Cline ANP 230 [place] [address] Social History Tobacco Use Types Packs/Day Years [...] Description 05/13/2025 10:30 AM EDT Medication Management [facility] MEDICINE [address] [place] [phone] Todd Figueroa PharmD [address] [place] [phone] documented as of this encounter Goals Goal [...] documented as of this encounter Care Teams Associate Dean Relationship Specialty Start Date End Date Hilda Cline ANP [address] [place] [address] PCP - General Family Medicine 11/17/20 Todd Figueroa PharmD [address] [place] [phone] Pharmacist Internal Medicine 11/24/23 documented as of this encounter
--- OUTSIDE RECORDS SUMMARY | 2025-04-16 15:20 | XMS_ITS | Encounter Summary ---
Author Organization [employer] Address 75 [facility] 7 [place] [address] Care Team Providers Care Excelsior Machine Tender Name Role Phone Hilda Cline Primary Care Provider [phone] Todd Figueroa PharmD Unavailable [phone] Reason for Visit * Reason Comments Med Refill Encounter Details Date Type Department Care Team (Late st Contact Info) Description 10/10/2023 Refill [facility] MEDICINE 230 [place], [place] [phone] Hilda Cline ANP 230 [place], [place] [phone] Social History Tobacco Use Types Packs/Day Years [...] Description 05/13/2025 10:30 AM EDT Medication Management [facility] MEDICINE [address] [place] [address] Todd Figueroa, PharmD 230 [place] [address] documented as of this encounter Goals Goal Patient Goal Type Associated Problems Recent Progress Patient-Stated? Author Hemoglobin A1c < 7 Result Component 8(03/06/2025 9:57 AM EDT) No Declan Kauffman documented as of this encounter Visit Diagnoses Not on filedocumented in this encounter Care Teams Excelsior Machine Tender Relationship Specialty Start Date End Date Hilda Cline ANP [address] [place] [address] PCP - General Family Medicine 11/17/20 Todd Figueroa, PharmD [address] [place] [phone] Pharmacist Internal Medicine 11/24/23 documented as of this encounter
--- OUTSIDE RECORDS SUMMARY | 2025-04-16 15:20 | XMS_ITS | Encounter Summary ---
Author Organization [employer] Address 75 [facility] 7 [place] [address] Care Team Providers Care Multiple Slide Operator Name Role Phone Hilda Cline Primary Care Provider [phone] Todd Figueroa PharmD Unavailable [phone] Reason for Visit * Reason Onset Date Comments Med Refill 12/01/2023 Encounter Details Date Type Department Care Team (Late st Contact Info) Description 12/01/[address] [facility] MEDICINE 230 [place], [place] [phone] Hilda Cline ANP 230 [place], [place] [phone] Med Refill Social History Tobacco Use Types [...] 14 MG tablet To be sent to: [facility] - [place], [place] - [id number] - [place] - [address] [place] documented in this encounter Plan of Treatment Upcoming Encounters Date Type Department Care Team (Late st Contact Info) Description 05/13/2025 10:30 AM EDT Medication Management [facility] MEDICINE [address] [place] [address] Todd Figueroa PharmD 230 [place] [address] documented as of this encounter Goals Goal Patient Goal Type Associated Problems Recent Progress Patient-Stated? Author Blood Pressure < 140/90 Blood Pressure 118/65(2024 11:54 AM EDT) No Todd Figueroa, PharmD Hemoglobin A1c < 7 Result Component 8(03/06/2025 9:57 AM EDT) No Declan Kauffman documented as of this encounter Visit Diagnoses Not on filedocumented in this encounter Care Teams Multiple Slide Operator Relationship Specialty Start Date End Date Hilda Cline ANP 230 [place] [address] PCP - General Family Medicine 11/17/20 Todd Figueroa, PharmD [address] [place] [phone] Pharmacist Internal Medicine 11/24/23 documented as of this encounter
--- OUTSIDE RECORDS SUMMARY | 2025-04-16 15:20 | XMS_ITS | Clinical Summary ---
Author Organization [employer] Address [address] [place] [address] Care Team Providers Care Sticker Hand Name Role Phone Jovani Schmidt Primary Care Provider [phone] Todd Figueroa PharmD Unavailable [phone] Allergies No known active allergies Medications metoprolol [...] 100 g 023 Active Continuous Blood Gluc Bicycle I Assembler (ImmunovaccineStyle Mary 2 [place]) deviceIndications :Type 2 diabetes mellitus with hyperlipidemia (CMS/HCC) ([facility]) Scan sensor every 8 hours 1 each 023 Active Lasix 20 MG tablet Take 1 tablet by mouth if needed each day (weight gain of 2 pounds in one day or 5 pounds in 3 days). 024 Active rosuvastatin (Crestor) 40 MG tablet TAKE 1 TABLET BY MOUTH ONCE DAILY 30 tablet 8 024 Active glucose blood (FreeStyle Precision Claudio Test) test stripIndications: Type 2 diabetes mellitus with hyperlipidemia (CMS/HCC) ([facility]) USE TO TEST FINGER STICK BLOOD SUGAR NEEDED FOR hypoglycemia 50 strip 5 025 Active metFORMIN XR (Glucophage-XR) 500 MG 24 hr tabletIndications :Type 2 diabetes mellitus with hyperlipidemia ([facility]/HCC) ([facility]) Take one tablet by mouth twice daily. Do not crush, chew, or split. 180 tablet 3 025 Active insulin aspart FlexPen (NovoLOG) 100 UNIT/ML penIndications:Ty pe 2 diabetes mellitus with hyperlipidemia ([facility]/HCC) ([facility]) INJECT 9 UNITS SUBCUTANEOUSLY if bg > 200. +2 units for every 50 pts > 200. maximum 18 units daily 6 mL 5 025 Active Lancets (OneTouch Delica Plus [id number]) miscIndications:T ype 2 diabetes mellitus with hyperlipidemia ([facility]/HCC) ([facility]) USE TO TEST FINGER STICK BLOOD SUGAR 3 (THREE) TIMES A DAY 100 each 025 Active Arnuity Ellipta 100 MCG/ACT inhalerIndication s:Moderate persistent asthma without complication INHALE 1 PUFF BY MOUTH ONCE DAILY. rinse mouth and throat after use 30 each 025 Active Tirzepatide (Mounjaro) 7.5 MG/0.5ML solution auto-injectorIndi cations:Type 2 diabetes mellitus with hyperlipidemia ([facility]/HCC) ([facility]) Inject 7.5 mg under the skin 1 (one) time per week. 2 mL 025 Active lisinopril 40 MG tabletIndications :Hypertension associated with diabetes ([facility]) TAKE 1 TABLET BY MOUTH ONCE DAILY 30 tablet 025 Active albuterol 108 (90 Base) MCG/ACT inhaler INHALE 2 PUFF BY MOUTH EVERY 4 TO 6 HOURS NEEDED FOR SHORTNESS OF BREATH OR FOR WHEEZING 8.5 g 025 Active Umeclidinium Barnard 62.5 MCG/ACT aerosol powderIndications :Pulmonary emphysema, unspecified emphysema type ([facility]) Inhale 1 Act (62.5 mcg) Once daily. 30 each 025 Active tadalafil (Cialis) 10 MG tabletIndications :Vasculogenic erectile dysfunction, unspecified vasculogenic erectile dysfunction type Take 1 tab 60 minutes before sexual intercourse 20 tablet 025 Active empagliflozin (Jardiance) 25 MGIndications:Typ e 2 diabetes mellitus with hyperlipidemia ([facility]/HCC) ([facility]) Take 1 tablet (25 mg) by mouth Once daily. 90 tablet 3 025 2025 Active Alcohol Swabs (Alcohol Prep) 70 % pads USE DIRECTED two (2) times a day 100 each 11 025 Active BD Pen Needle Marichuy Ultrafine 32G X 4 MM misc USE FOR INJECT insulin 4 (FOUR) TIMES DAILY 100 each 8 025 Active Apixaban Starter Pack (Eliquis DVT/PE Starter Pack) 5 MG tablet therapy packIndications:C hronic deep vein thrombosis (DVT) of left popliteal vein ([facility]) Follow instructions on box, 10mg BID for 7d, then 5mg BID 60 each 025 Active Continuous Glucose Sensor (FreeStyle Mary 2 Sensor) miscIndications:T ype 2 diabetes mellitus with hyperlipidemia (CMS/HCC) ([facility]) USE 1 sensor EVERY 14 DAYS 2 each 5 025 Active cholecalciferol (Vitamin D-3) 1.25 MG (94117 UT) capsule TAKE 1 CAPSULE BY MOUTH EVERY WEEK 4 capsule 1 025 Active Aspirin Low Dose 81 MG EC tablet TAKE 1 TABLET BY MOUTH ONCE DAILY 30 tablet 1 025 Active omeprazole (PriLOSEC) [address] capsuleIndication s:Gastroesophagea l reflux disease, unspecified whether esophagitis present TAKE 1 CAPSULE BY MOUTH ONCE DAILY BEFORE BREAKFAST. do not crush or chew 90 capsule 1 025 Active insulin degludec (Tresiba FlexTouch) 100 UNIT/ML injectionIndicati ons:Type 2 diabetes mellitus with hyperlipidemia (CMS/HCC) ([facility]) INJECT 54 UNITS SUBCUTANEOUSLY ONCE DAILY 15 mL 2 025 Active Insulin Degludec FlexTouch 100 UNIT/ML solution pen-injectorIndic ations:Type 2 diabetes mellitus with hyperlipidemia (CMS/HCC) ([facility]) Inject 54 Units under the skin Once per day. 15 mL 5 025 2024 Discontinued Active Problems Problem Noted Date Diagnosed Date Diabetic nephropathy associa ajit with type 2 diabetes mellitus 03/04/2025 COPD (chronic obstructive pulmonary disease) wit h [...] of right ear 04/24/2019 Heart murmur 04/24/2019 CO, old 04/24/2019 Overview (10/21/2022): 2013 x3 with 2 stents placement Moderate persistent asthma without complication 04/24/2019 Vision loss 04/24/2019 Dystrophia unguium 10/19/2018 Onychomycosis 10/19/2018 Pain in toe 10/19/2018 Type 2 diabetes mellitus with hyperlipidemia (CM S/HCC) 10/19/2018 Callus of toe 10/19/2018 07/14/2023 Resolved Problems Problem Noted Date Diagnosed Date Resolved Date Moderate persistent asthma w ith acute exacerbation 07/14/2023 07/14/2023 11/28/2024 Overview (07/03/2024): [facility] ED visit 06/25/24 for SOB, wheezing. Dx'd w/ flu. Needs nebulizer for home use. Consider need for Arnuity initiation. Encounters Date Type Department Care Team Description 04/03/2025 Refill [facility] [address] [place] [address] Jovani Schmidt ANP 03/31/2025 Refill [facility] [address] [place] [address] Jovani Schmidt ANP 03/29/2025 Telephone [facility] [address] [place] [place] [address] Jovani Schmidt ANP 03/29/2025 Refill [facility] [address] [place] [address] Jovani Schmidt ANP 03/27/2025 Refill [facility] [address] [place] [address] Todd Figueroa, PharmD Type 2 diabetes mellitus with hyperlipidemia ([facility]) ([facility]) 03/06/2025 Orders Only GENERIC EXTERNAL DATA DEPARTMENT Provider, Generic External Data 03/05/2025 Telephone [facility] [address] [place] [address] Todd Figueroa, Ceferino 02/28/2025 Refill [facility] [address] [place] [address] Jovani Schmidt ANP Gastroesophageal reflux disease, unspecified whether esophagitis present 02/26/2025 Results Follow-Up [facility] [address] [place] [address] Jovani Schmidt ANP Urinalysis Complete, Basic Metabolic Panel, Phosphate (As Phosphorus), Additional followed-up results: 14 02/26/2025 Orders Only GENERIC EXTERNAL DATA DEPARTMENT Provider, Generic External Data 02/26/2025 Refill [facility] [address] [place] [phone] Lili Johnston MD 02/26/2025 Refill [facility] [address] [place] [address] Sheba Nielson NP Type 2 diabetes mellitus with hyperlipidemia (CMS/HCC) (CMS/[facility]) 02/22/2025 Results [facility]-Up [facility] [place] [address] Jovani Schmidt ANP CBC auto differential 02/22/2025 Results Follow-Up [facility] [place] [address] Jovani Schmidt ANP B Type Natriuretic Peptide (BNP), Hepatic Function Panel, Basic Metabolic Panel 02/15/[address] [facility] [place] [address] Jovani Schmidt ANP FYI 01/30/[address] [facility] [place] [address] Jovani Schmidt ANP Durable Medical Equipment 01/23/[address] 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 [place] [address] Jovani Schmidt ANP Chronic deep vein thrombosis (DVT) of left popliteal vein (CMS/HCC) (Primary Dx) 01/22/[address] [facility] [place] [address] Jovani Schmidt ANP Call Back Request 01/21/[address] [facility] [place] [address] Jovani Schmidt ANP Durable Medical Equipment 01/21/[address] [facility] [place] [address] Jovani Schmidt ANP 01/16/[address] [facility] [place] [address] Jovani Schmidt ANP 01/15/[address] [facility] [place] [address] Jovani Schmidt ANP 01/14/[address] [facility] [place] [address] Jovani Schmidt ANP called back needed from Last 3 Months Immunizations Immunization Administration [...] 12/04/2024 11:54 AM EDT Plan of Treatment Upcoming Encounters Date Type Department Care Team (Late st Contact Info) Description 05/13/2025 10:30 AM EDT Medication Management [facility] [address] [place] [address] Todd Figueroa, PharmD [address] [place] [address] Health Maintenance Due Date Last Done Comments CT Colonography 1955 FIT DNA/Cologuard 1955 FIT 1955 FOBT 1955 Sigmoidoscopy 1955 Hepatitis A Vaccines (1 of 2 - Risk 2-dose series) 1974 Zoster Vaccines (3 of 3) 11/03/2023 09/08/2023, 12/0 07/2015 Diabetes: Foot Exam 01/30/2025 01/31/2024, 01/31/2024, 01/31/2024 COVID-19 Vaccine ( season) 2025 10/28/2023, 01/12/2022, 04/29/2021, Additional history exists Influenza Vaccine (#1) 2025 , 04/24/2021, 04/24/2019, Additional history exists Diabetes: Hemoglobin A1C 06/06/2025 025, 12/04/2024, 10/08/2024, Additional history exists Depression Screening 07/03/2025 07/03/2024, 07/03/20 Lipid Panel 07/03/2025 07/03/2024, 03/26, 04/29/2021 Alcohol/Substance Use Screening 08/23/2025 08/23/2024 SDOH Screening 12/04/2025 12/04/2024 Tobacco Screening 03/01/2026 03/01/2025 Eye Exam 10/11/2026 10/11/2024, 09/13/2024 Colonoscopy 07/17/2029 07/17/2019 Colorectal Cancer Screening 07/17/2029 DTaP/Tdap/Td Vaccines (4 - Td or Tdap) 02/11/2032 02/10/2022, 04/24/2019, 01/15/2014 Pneumococcal Vaccine: 50+ Years Completed 08/04/2023, 04/24/2021, 07/30/2019, Additional history exists RSV Patients and Patients Aged 60 years or older Completed 09/08/2023 Hepatitis B Vaccines Completed 03/06/2024, 10/28/2023, 09/08/2023 Hepatitis C Screening Completed 02/26/2025, 021 HIB Vaccines Aged Out No longer eligi [...] 8(03/06/2025 9:57 AM EDT) No Declan Kauffman Procedures Procedure Name Priority Date/Time Associated Diagnosis Comments HEMOGLOBIN A1C Routine 03/06/2025 9:57 AM EDT URINALYSIS, COMPLETE Routine 03/06/2025 9:57 AM EDT BASIC METABOLIC PANEL Routine 03/06/2025 9:57 AM EDT Diabetic nephropathy associated with type 2 diabetes mellitus ([facility]) FERRITIN Routine 03/06/2025 9:57 AM EDT Anemia, unspecified type IRON AND TOTAL IRON BINDING CAPACITY Routine 03/06/2025 9:57 AM EDT Anemia, unspecified type KAPPA/LAMBDA LIGHT CHAINS FREE WITH RATIO, SERUM Routine 02/26/2025 10:19 AM EDT FACTOR V (LEIDEN) MUTATION ANALYSIS Routine 02/26/2025 10:19 AM EDT PSA, POST-PROSTATECTOMY Routine 02/26/2025 10:19 AM EDT PROTEIN, TOTAL AND PROTEIN ELECTROPHORESIS Routine 02/26/2025 10:19 AM EDT RAGHAVENDRA SCREEN, IFA, W/REFL TITER AND PATTERN Routine 02/26/2025 10:19 AM EDT ANCA VASCULITIDES Routine 02/26/2025 10: 19 AM EDT COMPLEMENT COMPONENT C4C Routine 02/26/2025 10:19 AM EDT COMPLEMENT COMPONENT C3C Routine 02/26/2025 10:19 AM EDT HIV 1/2 ANTIGEN/ANTIBODY, FOURTH GENERATION W/RFL Routine 02/26/2025 10:19 AM EDT HEPATITIS B, C PROFILE Routine 10:19 AM EDT VITAMIN D,25-OH,TOTAL,IA Routine 02/26/2025 10:19 AM EDT PTH, INTACT WITHOUT CALCIUM Routine 02/26/2025 10:19 AM EDT PHOSPHATE ( PHOSPHORUS) Routine 02/26/2025 10:19 AM EDT BASIC METABOLIC PANEL Routine 02/26/2025 10:19 AM EDT URINE PROTEIN, TOTAL, RANDOM (W/O CREATININE) Routine 02/26/2025 10:18 AM EDT ALBUMIN, RANDOM URINE W/CREATININE Routine 02/26/2025 10:18 AM EDT URINALYSIS, COMPLETE Routine 02/26/2025 10:18 AM EDT CBC WITH AUTO DIFFERENTIAL Routine 02/22/2025 10:04 AM EDT Coronary arteriosclerosis in patient with history of previous myocardial infarction BASIC METABOLIC PANEL Routine 02/22/2025 10:04 AM EDT Bilateral edema of lower extremity HEPATIC FUNCTION PANEL Routine 10:04 AM EDT Bilateral edema of lower extremity B TYPE NATRIURETIC PEPTIDE (BNP) Routine 02/22/2025 10:04 AM EDT Bilateral edema of lower extremity VASC US LOWER EXTREMITY VENOUS DUPLEX BILATERAL Routine 01/22/2025 1:50 PM EDT Bilateral edema of lower extremity LIPID PANEL, STANDARD Routine 07/03/2024 12:03 PM EST Type 2 diabetes mellitus with hyperlipidemia (CMS/HCC) HM COLONOSCOPY Routine 07/17/2019 from Last 3 Months or Most Recently Relevant to Health Maintenance Results * (ABNORMAL) Iron And Total Iron Binding Capacity (03/06/2025 9:57 AM EDT) Iron 48 45 - 160 mcg/dL [facility] Total Iron Binding Capacity 427 228 - 428 mcg/dL [facility] Percent Iron Saturation 11(L) 15 - 50 % [facility] Unsaturated Iron Binding 379 ug/dL [facility] Blood Venous blood specimen / Unknown 03/06/2025 9:57 AM EDT 03/06/2025 11:18 AM EDT [facility] LAB BLOOD ORDERABLES Final Resul t [facility] [address] [place] [phone] * (ABNORMAL) Urinalysis Complete (03/06/2025 9:57 AM EDT) Only the most recent of2 resultswithin the time period is included. Color Urine Yellow [facility] Appearance Urine Clear [facility] PH 6.0 5.0 - 9.0 [facility] Glucose Urine UA >=1000(A) Negative mg/dL [facility] Urine Blood Negative Negative [facility] Specific Electra - Urine 1.020 1.005 - 1.025 [facility] Urine Protein Negative Neg-Trace mg/dL [facility] Urine Ketones Negative Negative mg/dL [facility] Nitrite Urine Negative Negative [facility] Leukocyte Esterase Urine Negative Negative [facility] RBC Urine 0-2 0 - 2 /HPF [facility] Urine WBC 0-5 0 - 5 /HPF [facility] Urine Squamous Epithelial Cell 0-2 0 - 2 /HPF [facility] Urine Bacteria None Seen None Seen [facility] Hyaline Casts, Urine 0-2 0 - 2 /LPF [facility] 03/06/2025 9:57 AM EDT 03/06/2025 11:17 AM EDT us Generic External Data Provider LAB URINE ORDERAB LES Final Result Performing Organization Address City/[facility]/ZIP Co de Phone Number [facility] [address] [place] [phone] * (ABNORMAL) Hemoglobin A1c (03/06/2025 9:57 AM EDT) Hemoglobin A1c 8.0(H) <6.0 % [facility] Comment:Hemoglobin A1C Refer ence Range Adults: 4.8 - 6.0 % Non diabetic: < 6.0 % Goal: < 7.0 %Additional Action Suggested: > 8.0 %Note: Hemoglobin A1c results are invalid for patients with abnormal amounts of HbF. Blood transfusions may impact the HbA1c concentration in the patient sample. Estimated Average Glucose 183 mg/dL [facility] Comment:eAG = Estimated ave rage glucose which is %A1C expressed asaverage glucose, using the formula of the Z8K-ReglavqSjpebdw Glucose study (ADAG), Diabetes Care, Vol.31,#8,Feb. 2007 03/06/2025 9:57 AM EDT 03/06/2025 11:18 AM EDT us Generic External Data Provider LAB BLOOD ORDERAB LES Final Result Performing Organization Address City/[facility]/ZIP Co de Phone Number [facility] [address] [place] [address] [phone] * Ferritin (03/06/2025 9:57 AM EDT) Ferritin 31 20 - 250 ng/mL [facility] Blood Venous blood specimen / Unknown 03/06/2025 9:57 AM EDT 03/06/2025 11:18 AM EDT Jovani Schmidt [facility] LAB BLOOD ORDERABLES Final Resul t Performing Organization Address [facility] de Phone Number [facility] [address] [place] [phone] * (ABNORMAL) Basic Metabolic Panel (03/06/2025 9:57 AM EDT) Only the most recent of3 resultswithin the time period is included. Pathologist [facility] Sodium 141 135 - 145 mmol/L [facility] Potassium 4.9 3.3 - 5.1 mmol/L [facility] Chloride 110(H) 96 - 108 mmol/L [facility] Carbon Dioxide 22 22 - 29 mmol/L [facility] Anion Gap 14 12 - 20 [facility] Urea Nitrogen (BUN) 38(H) 9 - 16 mg/dL [facility] Creatinine, Serum 1.88(H) 0.5 - 1.4 mg/dL [facility] Estimated Glomerular Filt Rate 36 [facility] Comment:Chronic Kidney Disea se: Estimated GFR < 60 mL/min/1.70y9Kgtpgr Kidney Disease: Estimated GFR < 15 mL/min/1.73m2 Glucose 80 60 - 115 mg/dL [facility] Calcium 9.5 8.4 - 10.2 mg/dL [facility] Blood Venous blood specimen / Unknown 03/06/2025 9:57 AM EDT 03/06/2025 11:18 AM EDT Jovani Schmidt [facility] LAB BLOOD ORDERABLES Final Resul t Performing Organization Address [facility] Co de Phone Number [facility] [address] [place] [address] [phone] * Hepatitis B, C Profile (02/26/2025 10:19 AM EDT) Pathologist [facility] ~Hepatitis B Surface Antibody NONREACTIVE Nonreactive [facility] Comment:Nonreactive: < 8.00 mIU/mL Hepatitis B Core Antibody Nonreactive Nonreactive [facility] Hepatitis C Antibody Nonreactive Nonreactive [facility] Comment:Antibodies to HCV no t detected; does not exclude early acuteHCV infection. Hepatitis B Surface Ag Negative Negative [facility] 02/26/2025 10:1 9 AM EDT 02/26/2025 1:09 PM EDT us Generic External Data Provider LAB BLOOD ORDERAB LES Final Result [facility] [address] [place] [phone] [phone] * ANCA Vasculitides (02/26/2025 10:19 AM EDT) Myeloperoxidase Antibody <1.0 [facility] Comment:Value Interpretation ----- <1.0 No Antibody Detected > or = 1.0 Antibody DetectedAutoantibodies to myeloperoxidase (MPO) are commonlyassociated with the following small-vesselvasculitides: microscopic polyangiitis,polyarteritis nodosa, Churg-Ta syndrome,necrotizing and crescentic glomerulonephritis andoccasionally granulomatosis with polyangiitis(GPA, Alba's). The perinuclear IFA pattern,(p-ANCA) is based largely on autoantibody tomyeloperoxidase which serves as the primary antigen.These autoantibodies are present in active disease. Proteinase-3 Antibody <1.0 [facility] Comment:Value Interpretation ----- <1.0 No Antibody Detected > or = 1.0 Antibody DetectedAutoantibodies to proteinase-3 (MT-3) are accepted ascharacteristic for granulomatosis with polyangiitis(GPA, Alba's), and are detectable in 95% of thehistologically proven cases. The cytoplasmic IFApattern, (c-ANCA), is based largely on autoantibody toPR-3 which serves as the primary antigen.These autoantibodies are present in active disease.THIS TEST WAS PERFORMED AT:[facility] [place] [id number] XIAO MD 02/26/2025 10:1 9 AM EDT 02/26/2025 1:09 PM EDT us Generic External Data Provider LAB BLOOD ORDERAB LES Final Result Performing Organization Address [facility]/ZIP Co de Phone Number [facility] [address] [place] [address] [phone] * Vitamin D, 25-Hydroxy, Total, Immunoassay (02/26/2025 10:19 AM EDT) Vitamin D 25-OH Total 92.7 >30 ng/mL [facility] Comment: Health Based Reference Values*< 20 ng/mL Eltnbziud83-05 ng/mL Insufficient> 30 ng/mL Sufficient*Prince PASCUAL. N Engl J Med. 2007;357:266-280There is no well-established upper level of normal vitamin Dlevels. Some laboratories use 50 ng/mL as an upper limit ofnormal. However, toxicity is patient-dependent and may occurat any level. Careful correlation with the patient'spresentation is necessary and, if there is concern forvitamin D toxicity, treatment should be consideredirrespective of the serum level.Care must be taken in interpreting Vitamin D results fromdifferent laboratories and methodologies. Published datademonstrated that results from patients undergoinghemodialysis may show a negative bias when tested withvarious automated 25-OH vitamin D assays when compared toLC-MS/MS.When testing samples from patients whose predominant form ofVitamin D is Vitamin D2, such as patients receiving VitaminD2 supplementation, results that are subtherapeutic shouldbe confirmed with another method such as LC-MS/MS. 02/26/2025 10:1 9 AM EDT 02/26/2025 1:09 PM EDT us Generic External Data Provider LAB BLOOD ORDERAB LES Final Result Performing Organization Address [facility]/ZIP Co de Phone Number [facility] [address] [place] [address] [phone] * Blue Sky/Lambda Light Chains, Free with Ratio (02/26/2025 10:19 AM EDT) Blue Sky Light Chain, Free, Serum 235 176 - 443 mg/dL [facility] Lambda Light Chain, Free, Serum 168 91 - 240 mg/dL [facility] Blue Sky/Lambda Light Chains Free With Ratio, Serum 1.40 1.29 - 2.55 [facility] Comment:This assay provides a measurement of the total kappa and thetotal lambda light chains, ie., the amount of free(unattached) light chain in circulation and the amount oflight chain linked to heavy chain in intact immunoglobulinmolecules. Assays for serum free light chain only, kappa andlambda with ratio, may be more useful in evaluating andmanaging light chain gammopathies including those associatedwith myeloma, lymphoproliferative disorders, andamyloidosis.THIS TEST WAS PERFORMED AT:[email or web address] [id number] [facility]ITALJENNIFER ALTM[facility]IN[facility] [place] [id number] WALDEN MD,PHD,KADEN 02/26/2025 10:1 9 AM EDT 02/26/2025 1:09 PM EDT us Generic External Data Provider LAB BLOOD ORDERAB LES Final Result [facility] [address] [place] [phone] * PSA, Post Prostatectomy (02/26/2025 10:19 AM EDT) PSA, Post Prostatectomy 1.60 ng/mL [facility] Comment: UNTREATED RESULT = 1.56REFERENCE RANGES for PSA:LESS THAN 0.10 ng/mL AFTER RADICAL PROSTATECTOMY.4.0 ng/mL OR LESS IN HEALTHY MALES WITHOUT PROSTATECTOMY.PSA values obtained with different assay methods or kitscannot be used interchangeably.This test was performed using the [employer] DxImethod. PSA, ICMA is not to be used as a diagnosticprocedure without confirmation of the diagnosis by anotherestablished product or procedure.The lower limit of accurate quantification for this assay is0.02 ng/mL. PSA values less than 0.02 ng/mL cannot beaccurately measured and will be reported as less than 0.02ng/mL. Specimens with PSA levels below the lower limit ofaccurate quantification should be considered as negative. Inpatients with a negative result for post prostatectomy PSA,serial monitoring of PSA levels at regular intervals, alongwith physical examinations and other tests, may help todetect recurrent prostate cancer.THIS TEST WAS PERFORMED AT:[email or web address] [id number] [facility] [place] [address]ZTITITOMASZ WALDEN MD,PHD,KADEN 02/26/2025 10:1 9 AM EDT 02/26/2025 1:09 PM EDT us Generic External Data Provider LAB BLOOD ORDERAB LES Final Result [facility] [address] [place] [phone] * HIV-1/2 Antigen and Antibodies, Fourth Generation, with Reflexes (02/26/2025 10:19 AM EDT) HIV AB/AG Nonreactive Nonreactive [facility] Comment:HIV-1 p24 Ag and/or HIV-1/HIV-2 Ab not detected.A test result that is nonreactive does not exclude thepossibility of exposure to or infection with HIV-1 and/orHIV-2. Nonreactive results in this assay for individualswith prior exposure to HIV-1 and/or HIV-2 may be due toantigen and antibody levels that are below the limit ofdetection of this assay.The [employer] HIV Ag/Ab Combo assay result andsupplemental assay results should be interpreted inconjunction with the patient's clinical presentation,history and other laboratory results. If the results areinconsistent with clinical evidence, additional testing issuggested to confirm the result. 02/26/2025 10:1 9 AM EDT 02/26/2025 1:09 PM EDT us Generic External Data Provider LAB BLOOD ORDERAB LES Final Result [facility] [address] [place] [phone] [phone] * Factor V(Leiden) Mutation Analysis (02/26/2025 10:19 AM EDT) Factor V (Leiden) Mutation NEGATIVE [facility] Comment:FACTOR V LEIDEN (R50 6Q) VARIANT NOT DETECTED Interpretation See Below [facility] Comment: INTERPRETATION: This individual is negative (normal) for theFactor V Leiden (R506Q) variant in the Factor V gene.Increased risk of thrombophilia can be caused by a varietyof genetic and non-genetic factors not screened for by thisassay.Laboratory testing supervised and results monitored byIam Benitez, Ph.D., [facility], [facility], [facility].VARIANT ANALYSIS:The Factor V Leiden (R506Q) variant [[id number]:c.1601G>A(p.R534Q)] in the Factor V gene is one of the most commoncauses of inherited thrombophilia. This variant causesresistance to degradation of activated Factor V protein byactivated Protein C (APC).The Factor V Leiden (R506Q) variant is detected byamplification of the selected region of the Factor V gene bypolymerase chain reaction (PCR) and fluorescent probehybridization to the targeted region, followed by end-pointanalysis with a real time PCR system. Although rare, falsepositive or false negative results may occur. All resultsshould be interpreted in context of clinical findings,relevant history, and other laboratory data.Health care providers, please contact your local [employer] genetic counselor or call [employer]([phone]) for assistance with interpretation of theseresults.This test was developed and its analytical performancecharacteristics have been determined by [facility]. It has not beencleared or approved by the FDA. This assay has beenvalidated pursuant to the CLIA regulations and is used forclinical purposes.THIS TEST WAS PERFORMED AT:[employer]/[id number] [place] [address]VBHUETOMASZ WALDEN MD,PHD,KADEN 02/26/2025 10:1 9 AM EDT 02/26/2025 1:09 PM EDT us Generic External Data Provider LAB BLOOD ORDERAB LES Final Result Performing Organization Address City/[facility]/ZIP Co de Phone Number [facility] [address] [place] [phone] * Complement Component C3c (02/26/2025 10:19 AM EDT) Complement C3 176 82 - 185 mg/dL [facility] Comment:THIS TEST WAS PERFOR MED AT:[employer] [address] [id number] XIAO MD 02/26/2025 10:1 9 AM EDT 02/26/2025 1:32 PM EDT us Generic External Data Provider LAB BLOOD ORDERAB LES Final Result Performing Organization Address [facility] Co de Phone Number [facility] [address] [place] [phone] * Complement Component C4c (02/26/2025 10:19 AM EDT) Complement C4 24 15 - 53 mg/dL [facility] Comment:THIS TEST WAS PERFOR MED AT:[employer] [address] [id number] XIAO MD 02/26/2025 10:1 9 AM EDT 02/26/2025 1:32 PM EDT us Generic External Data Provider LAB BLOOD ORDERAB LES Final Result Performing Organization Address [facility]/ZIP Co de Phone Number [facility] [address] [place] [phone] * RAGHAVENDRA Screen,IFA, with Reflex to Titer and Pattern (02/26/2025 10:19 AM EDT) Anti Nuclear Antibody Screen NEGATIVE NEGATIVE [facility] Comment:RAGHAVENDRA IFA is a first l ine screen for detecting thepresence of up to approximately 150 autoantibodies invarious autoimmune diseases. A negative RAGHAVENDRA IFA resultsuggests an RAGHAVENDRA-associated autoimmune disease is notpresent at this time, but is not definitive. If thereis high clinical suspicion for Sjogren's syndrome,testing for anti-SS-A/Ro antibody should be considered.Anti-Priscilla-1 antibody should be considered for clinicallysuspected inflammatory myopathies.AC-0: NegativeInternational Consensus on RAGHAVENDRA Patterns(https://doi.org/10.1515/wspc-5222-2865)For additional information, please refer tohttp://education.[employer]/faq/YYY185(This link is being provided for informational/educational purposes only.)THIS TEST WAS PERFORMED AT:[facility] [place] [id number] XIAO MD RAGHAVENDRA Titer TNP [facility]AVENDRA Pattern [facility] RAGHAVENDRA TITER 2 (REF LAB) [facility]AVENDR[facility] Pattern [facility] RAGHAVENDRA TITER 3 [facility] RAGHAVENDRA PATTERN 3 [facility] 02/26/2025 10:1 9 AM EDT 02/26/2025 1:09 PM EDT us Generic External Data Provider LAB BLOOD ORDERAB LES Final Result [facility] [address] [place] [phone] * Protein, Total and Protein??Electrophoresis (02/26/2025 10:19 AM EDT) Prot Elec - Total Protein 6.8 6.1 - 8.1 g/dL [facility] Prot Elec - Albumin 3.9 3.8 - 4.8 g/dL [facility] Prot Elec - Alpha1 0.2 0.2 - 0.3 g/dL [facility] Prot Elec - Alpha2 0.7 0.5 - 0.9 g/dL [facility] Prot Elec - Beta 1 0.6 0.4 - 0.6 g/dL [facility] Prot Elec - Beta 2 0.4 0.2 - 0.5 g/dL [facility] Prot Elec - Gamma 1.0 0.8 - 1.7 g/dL [facility] PES - Abn Protein Band 1 TNP [facility] PES-Abn Protein Band 2 TNP [facility] PES-Abn Protein Band 3 [facility] Prot Elec - Interpretation SEE NOTE [facility] Comment:Normal Serum Protein Electrophoresis Pattern.No abnormal protein bands (M-protein) detected.THIS TEST WAS PERFORMED AT:[facility] [place] [id number] XIAO MD 02/26/2025 10:1 9 AM EDT 02/26/2025 1:09 PM EDT Generic External Data Provider LAB BLOOD ORDERAB LES Final Result Performing Organization Address City/[facility]/ZIP Co de Phone Number [facility] [address] [place] [phone] * (ABNORMAL) Phosphate (As Phosphorus) (02/26/2025 10:19 AM EDT) Phosphorus 2.3(L) 2.7 - 4.5 mg/dL [facility] 02/26/2025 10:1 9 AM EDT 02/26/2025 1:09 PM EDT us Generic External Data Provider LAB BLOOD ORDERAB LES Final Result Performing Organization Address City/[facility]/ZIP Co de Phone Number [facility] [address] [place] [phone] * PTH, Intact Without Calcium (02/26/2025 10:19 AM EDT) Parathyroid Hormone, Intact 55.8 8.7 - 77.1 pg/mL [facility] 02/26/2025 10:1 9 AM EDT 02/26/2025 1:09 PM EDT us Generic External Data Provider LAB BLOOD ORDERAB LES Final Result Performing Organization Address City/[facility]/ZIP Co de Phone Number [facility] [address] [place] [phone] * Albumin, Random Urine W/Creatinine (02/26/2025 10:18 AM EDT) Creatinine, Urine 85.29 mg/dL [facility] Microalbumin Urine 10.0 mg/L [facility] Microalbum Creatinine Ratio Ur 11.7 <30 ug/mg cr [facility] Comment:Albumin/Creatinine R atio Reference Ranges: Normal: < 30 ug/mg creatinine Microalbuminuria: 30 - 300 ug/mg creatinineClinical Albuminuria: > 300 ug/mg creatinine 02/26/2025 10:1 8 AM EDT 02/26/2025 1:05 PM EDT us Generic External Data Provider LAB URINE ORDERAB LES Final Result Performing Organization Address [facility] Co de Phone Number [facility] [address] [place] [phone] * Urine Protein, Total, Random without Creatinine (02/26/2025 10:18 AM EDT) Protein, Total, Random Urine <7 <12 mg/dL [facility] 02/26/2025 10:1 8 AM EDT 02/26/2025 1:05 PM EDT us Generic External Data Provider LAB URINE ORDERAB LES Final Result Performing Organization Address City/[facility]/ZIP Co de Phone Number [facility] [address] [place] [phone] * (ABNORMAL) CBC auto differential (02/22/2025 10:04 AM EDT) White Blood Count 7.3 4.8 - 10.8 X10*3/uL [facility] Red Blood Count 4.02(L) 4.60 - 5.80 X10*6/uL [facility] Hemoglobin 11.5(L) 14.0 - 18.0 g/dl [facility] Hematocrit 35.5(L) 42.0 - 52.0 % [facility] Mean Corpuscular Volume 88.3 80.0 - 98.0 fL [facility] Mean Corpuscular Hemoglobin 28.6 27.0 - 33.0 pg [facility] Mean Corpuscular HGB Conc 32.4 31.0 - 36.0 g/dl [facility] Red Cell Distribution Width 14.0 11.0 - 16.0 % [facility] Platelet Count 389 160 - 400 X10*3/uL [facility] Mean Platelet Volume 10.0 9.4 - 12.4 fL [facility] Neutrophils Percent Auto 64.5 45 - 73 % [facility] Imm Gran Pct Auto 0.3 0.0 - 0.4 % [facility] Lymphocytes Percent Auto 26.3 20 - 40 % [facility] Monocytes Percent Auto 6.2 2 - 11 % [facility] Eosinophils Percent Auto 1.5 0 - 4 % [facility] Basophils Percent Auto 1.2 0 - 2 % [facility] NRBC Pct Auto 0.0 0.0 - 0.2 /100WBC [facility] Neutrophils Absolute Auto 4.7 2.0 - 8.3 x10*3/uL [facility] Imm Gran Abs Auto 0.02 0.00 - 0.03 X10*3/uL [facility] Lymphocytes Absolute Auto 1.9 1.2 - 4.9 X10*3/uL [facility] Monocytes Absolute Auto 0.5 0.1 - 1.2 X10*3/uL [facility] Eosinophils Absolute Auto 0.1 0.0 - 0.4 X10*3/uL [facility] Basophils Absolute Auto 0.1 0.0 - 0.2 X10*3/uL [facility] NRBC Abs Auto 0.000 0.0 - 0.012 X10*3/uL [facility] Blood Venous blood specimen / Unknown 02/22/2025 10:04 AM EDT 02/22/2025 10:04 AM EDT Jovani Schmidt ANP LAB BLOOD ORDERABLES Final Resul t Performing Organization Address [facility]/ZIP Co de Phone Number [facility] [address] [place] [phone] * B Type Natriuretic Peptide (BNP) (02/22/2025 10:04 AM EDT) Pathologist [facility] B Type Natriuretic Peptide 19 <100 pg/mL [facility] Blood Venous blood specimen / Unknown 02/22/2025 10:04 AM EDT 02/22/2025 10:04 AM EDT Jovani Schmidt ANP LAB BLOOD ORDERABLES Final Resul t Performing Organization Address [facility] de Phone Number [facility] [address] [place] [phone] * Hepatic Function Panel (02/22/2025 10:04 AM EDT) Bilirubin, Total 0.2 0.0 - 1.0 mg/dL [facility] Bilirubin, Direct <0.2 0.0 - 0.5 mg/dL [facility] Aspartate Amino Transferase 32 5 - 37 U/L [facility] Alanine Aminotransferase 17 0 - 40 U/L [facility] Total Protein 7.3 6.5 - 8.0 g/dL [facility] Albumin Level 4.3 3.5 - 5.0 g/dL [facility] Alkaline Phosphatase 49 39 - 117 U/L [facility] Blood Venous blood specimen / Unknown 02/22/2025 10:04 AM EDT 02/22/2025 10:04 AM EDT us Jovani Schmidt ANP LAB BLOOD ORDERABLES Final Resul t [facility] [address] [place] [address] [phone] * VASC US Lower Extremity Venous Duplex Bilateral (01/22/2025 1:50 PM EDT) 01/22/2025 1:50 PM EDT Narrative [facility] - 01/22/2025 2:38 PM EDT [address] [address] Ultrasound Report Signed with Cameron Patient: David Gallagher MR#: [id number] 3 : 1955 Acct:[id number] Age/Sex: 69 / M ADM Date: 01/22/25 Loc: HO.US Attending Dr: Jovani Schmidt NP Ordering Physician: JOVANI SCHMIDT NP Date of Service: 01/22/25 Procedure(s): US venous duplex LE BI Accession Number(s): [id number] cc: JOVANI SCHMIDT NP ADDENDUM ADDENDUM #1 [...] MD Signed By: <Electronically signed by Jake tSory MD in OV> 01/22/25 1435 DD/ 1350 TD/TT: 01/22/25 1427 Reimbursement Specialist: Procedure Note Donotuseinterpreter, Image - 01/22/2025 [place] [address] Ultrasound Report Signed with Cameron Patient: Ismael Gallagher#: [id number] 3 : 5Acct:[id number] Age/Sex: 69 / MADM Date: 01/22/25 Loc: HO.US Attending Dr: Jovani Schmidt NP Ordering Physician: JOVANI SCHMIDT NP Date of Service: 01/22/25 Procedure(s): US venous duplex LE BI Accession Number(s): [id number] cc: JOVANI SCHMIDT NP ADDENDUM ADDENDUM #1 [...] OV> 01/22/25 1435 DD/ 49 TD/TT: 01/22/251426 Reimbursement Specialist: us Jovani RICHARDS CV VASCULAR PROCEDURES Edited Re sult - Final [facility] [address] [place] [phone] * (ABNORMAL) Lipid Panel, Standard (07/03/2024 12:03 PM EST) Triglycerides 148 <150 mg/dL [facility] Comment:Desirable Triglyceri de: less than 150 mg/dLBorderline High Triglyceride 150-199 mg/dLHigh Triglyceride: 200-499 mg/dLVery High Triglyceride: greater than or equal to 5OO mg/dL Cholesterol 113 <200 mg/dL [facility] Comment:Desirable Cholestero l: less than 200 mg/dLBorderline High Cholesterol: 200-239 mg/dLHigh Cholesterol: greater than 239 mg/dL LDL Cholesterol Calculated 49 <100 mg/dL [facility] Comment:Desirable LDL: less than 100 mg/dLNear Optimal/Above Optimal LDL: 110- 129 mg/dLBorderline High LDL: 130-159 mg/dLHigh LDL: 160-189 mg/dLVery High LDL: greater than or equal to 190 mg/dL HDL Cholesterol 35(L) >40 mg/dL [facility] Comment:Desirable HDL: great er than 40 mg/dL Note: This HDL assay may give artificially low results in patients with liver disease. Blood Venous blood specimen / Unknown 07/03/2024 12:03 PM EST 07/03/2024 1:03 PM EST Jovani Schmidt [facility] LAB BLOOD ORDERABLES Final Resul t [facility] [address] [place] [phone] * Colonoscopy (07/17/2019) Colonoscopy Normal Normal Historical Provider HEALTH MAINTENANCE Final Result from Last 3 Months or Most Recently Relevant to Health Maintenance Insurance [facility] Care Teams Sticker Hand Relationship Specialty Start Date End Date Jovani Schmidt ANP [address] [place] [phone] PCP - General Family Medicine 11/17/20 Todd Figueroa, LindsayD [address] [place] [phone] Pharmacist Internal Medicine 11/24/23
--- OUTSIDE RECORDS SUMMARY | 2025-04-16 15:20 | XMS_ITS | Encounter Summary ---
Author Organization [employer] Address [address] [facility] [address] [place] [address] Care Team Providers Care Patient Registration Clerk Name Role Phone Hilda Cline Primary Care Provider Todd Figueroa PharmD Unavailable [phone] Encounter Details Date Type Department Care Team (Latest Contact Info) Description 02/22/2025 Results Follow-Up [facility] [address] [place], [place] [phone] Hilda Cline ANP [address] [place] [address] CBC auto differential Social History Tobacco Use Types Packs/Day Years [...] as of this encounter Miscellaneous Notes * Result Encounter Note - MAURICE Thomson - 02/22/2025 12:44 PM EDT Add on iron studies. Suspect dt ckd. documented in this encounter Plan of Treatment Upcoming Encounters Date Type Department Care Team (Late st Contact Info) Description 05/13/2025 10:30 AM EDT Medication Management [facility] [address] [place] [address] Todd Figueroa PharmD [address] [place] [address] documented as of this encounter Goals Goal Patient Goal Type Associated Problems Recent Progress Patient-Stated? Author Blood Pressure < 140/90 Blood Pressure 118/65(2024 11:54 AM EDT) No Todd Figueroa, Ceferino Hemoglobin A1c < 7 Result Component 8(03/06/2025 9:57 AM EDT) No Declan Kauffman documented as of this encounter Procedures Procedure Name Priority Date/Time Associated Diagnosis Comments IRON AND TOTAL IRON BINDING CAPACITY Routine 03/06/2025 9:57 AM EDT Anemia, unspecified type FERRITIN Routine 03/06/2025 9:57 AM EDT Anemia, unspecified type documented in this encounter Results * Ferritin (03/06/2025 9:57 AM EDT) Ferritin 31 20 - 250 ng/mL [facility] Blood Venous blood specimen / Unknown 03/06/2025 9:57 AM EDT 03/06/2025 11:18 AM EDT Hilda Cline ANP LAB BLOOD ORDERABLES Final Resul t Performing Organization Address [facility] de Phone Number [facility] [address] [place] [phone] * (ABNORMAL) Iron And Total Iron Binding Capacity (03/06/2025 9:57 AM EDT) Iron 48 45 - 160 mcg/dL [facility] Total Iron Binding Capacity 427 228 - 428 mcg/dL [facility] Percent Iron Saturation 11(L) 15 - 50 % [facility] Unsaturated Iron Binding 379 ug/dL [facility] Blood Venous blood specimen / Unknown 03/06/2025 9:57 AM EDT 03/06/2025 11:18 AM EDT Hilda Cline ANP LAB BLOOD ORDERABLES Final Resul t Performing Organization Address City/[facility] de Phone Number [facility] [address] [place] [phone] documented in this encounter Visit Diagnoses Diagnosis Anemia, unspecified type- Primary documented in this encounter Additional Health Concerns Assessment Noted Time PHQ-9 Depression Total Score: 7 07/03/20 24 11:53 AM EST documented as of this encounter Care Teams Patient Registration Clerk Relationship Specialty Start Date End Date Hilda Cline ANP [address] [place] [phone] PCP - General Family Medicine 11/17/20 Todd Figueroa, PharmD [address] [facility] [place] [address] Pharmacist Internal Medicine 11/24/23 documented as of this encounter
== END 2025-04-16 13:17 | disposition home or self-care (01) ==
LOC: HO.HUSH 12:29
PROVIDERS: PCP Nurse Practitioner Primary Care; Visit Provider Nurse Practitioner Family
DX: E11.69 Type 2 diabetes mellitus with other specified complication (principal); N52.1 Erectile dysfunction due to diseases classified elsewhere
CPT/HCPCS: 99214

== ENCOUNTER 2025-05-28 09:53 | Outpatient (AMB) | payer OTHER, SELFPAY ==
--- NOTE | 2025-05-28 09:53 | MHC.OFFVIS ---
Intake Visit Reasons: Injection teaching Intake Note: Patient is present for Injection Teaching Urology Med: Antibiotic Allergy: None Blood Thinner: Aspirin, Eliquis Mail Handlers Supervisor Required: Yes Mail Handlers Supervisor Services: Mail Handlers Supervisor Present Mail Handlers Supervisor Name: [id number] Allergies No Known Allergies Allergy (Verified 05/28/25 21:17) Medication List - Last Reconciled 05/28/25 by LOLITA Mariee albuterol sulfate 90 mcg/actuation 2 puffs PO Q4-6H PRN alcohol swabs (BD Alcohol Swabs) 0 pad topical QID amlodipine 5 mg PO DAILY apixaban (Eliquis) 2.5 mg PO BID aspirin 81 mg PO DAILY 90 days blood sugar diagnostic (PollitoIngles Ultra Test strips) As directed blood-glucose sensor (Own Products Mary 2 Plus Sensor device) As directed dulaglutide (Trulicity) mg subcut empagliflozin (Jardiance) 25 mg PO DAILY fenofibrate nanocrystallized 145 mg PO DAILY 30 days insulin aspart U-100 (Novolog FlexPen U-100 Insulin aspart) subcut insulin degludec (Tresiba FlexTouch U-100 insulin) units subcut lancets (OneTouch Delica Lancets) As directed lisinopril 40 mg PO DAILY 90 days metformin ER 500 mg PO BID metoprolol succinate ER 25 mg PO DAILY omeprazole 40 mg PO QAM pen needle, diabetic (Comfort EZ Pen Phyllis) As directed rosuvastatin 40 mg PO DAILY 90 days HPI Comments Details: David is a 70 year old [place] speaking male patient of Dr. Cline who was accompanied by his daughter at todays office visit. He has a past medical history of COPD, adrenal adenoma, GERD, generalized ischemic myocardial dysfunction, obstructive sleep apnea, diverticulosis, CAD, moderate persistent asthma, hypertension, hyperlipidemia, and type 2 diabetes. He presents to the office today for penile injection teaching for his longstanding history of erectile dysfunction. Penile injection performed in the office Patient provided medication Good response to TriMix initial 30 units Sterile technique used Teaching provided for identification of injection sites CPT 95016 Education provided Erectile dysfunction Failed oral therapy Here for injectable therapy Good response to 30 units. Suggest 35 units of TriMix initial Labs are as follows: A1c 07/17 10.1, 03/18 8.0 PSA 07/17 1.6, 03/18 1.6 He denies any bothersome urinary issues. He denies urinary urgency, urinary frequency, incontinence, nocturia, hematuria, dysuria, foul smelling urine, changes to urinary stream, flank pain, fever, and or chills. He is happy with his current voiding parameters. We discussed at length the importance of lifestyle modifications to assist with ED as well as overall health and well-being. All questions were answered. He otherwise offers no other issues or concerns at this time. PFSH Medical History COPD (chronic obstructive pulmonary disease) Adrenal adenoma GERD (gastroesophageal reflux disease) Fracture of distal end of radius Generalized ischemic myocardial dysfunction Obstructive sleep apnea syndrome Steatosis of liver Diverticulosis Coronary arteriosclerosis in patient with history of previous myocardial infarction Vision loss Moderate persistent asthma without complication Heart murmur Hearing loss of right ear Callus of toe Pain in toe Onychomycosis Dystrophia unguium CAD (coronary artery disease) Old myocardial infarction History of ischemic cardiomyopathy LVH (left ventricular hypertrophy) HTN (hypertension) Hyperlipidemia Type 2 diabetes mellitus without complications Personal history of tobacco use Surgical History Stented coronary artery Hx of cardiac cath History of lung surgery Family History Father Bone cancer Mother No problems noted. Brother Heart problem Brother Heart problem Brother Diabetes Social History Household Members: None Patient Tobacco Use Status: Former Tobacco user Tobacco use type: Cigarette Years Smoked: onset 15yo, 1-2ppd x 41yrs, 60PYH - quit 2011 service: No Current occupational status: unemployed Review of Systems Const All systems reviewed & are unremarkable except as noted in HPI and below Physical Exam Const General: cooperative, healthy appearing, comfortable, no acute distress, well developed, alert and awake Orientation/consciousness: patient oriented x3 Limitations: language barrier HEENT Head: Yes normal to inspection Eyes General: appearance normal, both eyes and all related structures Neck Neck: Yes normal visual inspection Chest Chest palpation & inspection: normal inspection of the chest Resp Effort & Inspection: normal respiratory effort and able to speak in complete sentences Cardio Rate: regular rate GI Inspection: Yes normal to inspection Male General Exam: Yes normal external exam Penis: normal penis and uncircumcised Meatus: meatus normal Scrotum: scrotum normal Testes: Testes normal Skin General skin exam: no rashes or lesions noted Neuro General: patient oriented x3 Extrem General: Yes normal to inspection Psych Appearance: grossly normal and well kempt Speech and movement: Normal speech and movement present and Clear speech present Affect: normal affect Attitude: cooperative Thought process: Normal thought process present Thought content: Normal thought content present Insight: Fair insight present (Psych) Judgement: Fair judgement present (Psych) Office Procedures Post Void Residual Post Residual Void Post Void Residual (PVR): 0 [id number] Void Residual by ultrasound Results AMB Urinalysis, Automated UA Leukoctes 0 Jasper/uL Last Edit by Dara Rice [facility] on 05/28/25 10:08 UA Nitrite Negative Last Edit by Dara Rice [facility] on 05/28/25 10:08 UA Urobilinogen 0.2 mg/dL Last Edit by Dara Rice [facility] on 05/28/25 10:08 UA Protein 0 mg/dL Last Edit by Dara Rice [facility] on 05/28/25 10:08 UA pH 6.0 Last Edit by Dara Rice [facility] on 05/28/25 10:08 UA Blood 0 Oziel/uL Last Edit by Dara Rice [facility] on 05/28/25 10:08 UA Specific Shil[place] 1.010 Last Edit by Dara Rice [facility] on 05/28/25 10:08 UA Ketone Negative Last Edit by Dara Rice [facility] on 05/28/25 10:08 UA Bilirubin 0 mg/dL Last Edit by Dara Rice [facility] on 05/28/25 10:08 UA Glucose 1000 mg/dL Last Edit by Dara Rice [facility] on 05/28/25 10:08 Results Reviewed Results Reviewed: Laboratory Last Values Urine pH (Auto) 6.0 05/28/25 09:58 Specific [place]il[place] (Auto) 1.010 05/28/25 09:58 Urine Protein (Auto) 0 mg/dL 05/28/25 09:58 Glucose (UA)(Auto) 1000 mg/dL 05/28/25 09:58 Urine Ketones (Auto) Negative 05/28/25 09:58 Urine Blood (Auto) 0 Oziel/uL 05/28/25 09:58 Urine Nitrite (Auto) Negative 05/28/25 09:58 Urine Bilirubin (Auto) 0 mg/dL 05/28/25 09:58 Urine Urobilinogen (Auto) 0.2 mg/dL 05/28/25 09:58 Leukocyte Esterase (Auto) 0 Jasper/uL 05/28/25 09:58 Assessment & Plan Assessment & Plan (1) Erectile dysfunction associated with type 2 diabetes mellitus: Code(s): E11.69 - Type 2 diabetes mellitus with other specified complication; N52.1 - Erectile dysfunction due to diseases classified elsewhere Category: Medical Plan In office urinalysis results with the patient today; as noted above. Penile injection was performed. All questions were answered. Educational material was provided. He denies any bothersome urinary issues or concerns. We did discuss the importance of management and diabetes for improvement in urological health as well as overall health and well-being. He reports be happy with current voiding parameters. Follow-up in 4-6 months; or sooner with any issues, concerns, and or questions. Orders: Orders AMB Urinalysis Automated Today Z13.9 - Encounter for screening, unspecified AMB Post Void Residual by ultrasound Today R35.0 - Frequency of micturition Hemoglobin A1c 3 Months E11.9 - Type 2 diabetes mellitus without complications Patient Instructions: The patient had an opportunity to ask questions regarding the treatment plan. All questions were answered. Physical exam, labs, and imaging were discussed and reviewed in detail. As well as risks, benefits, and discussion of treatment choices. No major barriers to understanding were identified. The patient expressed understanding and agreement with the above treatment plan. The patient was made aware they should contact our office by phone for worsening of their current condition, the appearance of new symptoms, or with any questions or concerns. Compliance is encouraged with any medications and follow up testing that is ordered. It is a privilege to be allowed the opportunity to participate in? your urological care.? Again, if you have any questions or concerns If you have any questions or concerns please do not hesitate to contact me. The office is [phone]. This note is constructed using voice recognition software. While every effort has been made to ensure accuracy human development professor errors may have been included. Yours sincerely, LOLITA Mariee Coding Level of Care Code Est Pt Level 4 (17329) Complex EM visit Add On G2211 Diagnoses Erectile dysfunction associated with type 2 diabetes mellitus E11.69; N52.1 CPT Codes Post Residual Void - PVR CPT Code: 23678-Kcpr Void Residual by ultrasound ([id number]) Time Spent (min) 40
--- OUTSIDE RECORDS SUMMARY | 2025-05-28 11:22 | XMS_ITS | Clinical Summary ---
Author Organization [employer] Address [address] [facility] 7 [place] [address] Care Team Providers Care Mechanical Manufacturing Technician Name Role Phone Hilda Cline Primary Care Provider [phone] Todd Figueroa PharmD Unavailable [phone] Allergies No known active allergies Medications metoprolol [...] 100 g 023 Active Continuous Blood Gluc [employer] Supervisor (FreeStyle Mary 2 [place]) deviceIndications :Type 2 diabetes mellitus with hyperlipidemia (HCC) Scan sensor every 8 hours 1 each 023 Active Lasix 20 MG tablet Take 1 tablet by mouth if needed each day (weight gain of 2 pounds in one day or 5 pounds in 3 days). 024 Active glucose blood (FreeStyle Precision Claudio Test) test stripIndications: Type 2 diabetes mellitus with hyperlipidemia (HCC) USE TO TEST FINGER STICK BLOOD SUGAR NEEDED FOR hypoglycemia 50 strip 5 025 Active metFORMIN XR (Glucophage-XR) 500 MG 24 hr tabletIndications :Type 2 diabetes mellitus with hyperlipidemia (HCC) Take one tablet by mouth twice daily. Do not crush, chew, or split. 180 tablet 3 Active Lancets (OneTouch Delica Plus [id number]) miscIndications:T ype 2 diabetes mellitus with hyperlipidemia ([facility]) USE TO TEST FINGER STICK BLOOD SUGAR 3 (THREE) TIMES A DAY 100 each Active Arnuity Ellipta 100 MCG/ACT inhalerIndication s:Moderate persistent asthma without complication INHALE 1 PUFF BY MOUTH ONCE DAILY. rinse mouth and throat after use 30 each Active lisinopril 40 MG tabletIndications :Hypertension associated with diabetes ([facility]) TAKE 1 TABLET BY MOUTH ONCE DAILY 30 tablet 11 Active albuterol 108 (90 Base) MCG/ACT inhaler INHALE 2 PUFF BY MOUTH EVERY 4 TO 6 HOURS NEEDED FOR SHORTNESS OF BREATH OR FOR WHEEZING 8.5 g 5 Active Umeclidinium [place] 62.5 MCG/ACT aerosol powderIndications :Pulmonary emphysema, unspecified emphysema type Inhale 1 Act (62.5 mcg) Once daily. 30 each Active tadalafil (Cialis) 10 MG tabletIndications :Vasculogenic erectile dysfunction, unspecified vasculogenic erectile dysfunction type Take 1 tab 60 minutes before sexual intercourse 20 tablet Active empagliflozin (Jardiance) 25 MGIndications:Typ e 2 diabetes mellitus with hyperlipidemia ([facility]) Take 1 tablet (25 mg) by mouth Once daily. 90 tablet 3 2025 Active Alcohol Swabs (Alcohol Prep) 70 % pads USE DIRECTED two (2) times a day 100 each Active BD Pen Needle Marichuy Ultrafine 32G X 4 MM misc USE FOR INJECT insulin 4 (FOUR) TIMES DAILY 100 each Active Apixaban Starter Pack (Eliquis DVT/PE Starter Pack) 5 MG tablet therapy packIndications:C hronic deep vein thrombosis (DVT) of left popliteal vein (CMS/HCC) ([facility]) Follow instructions on box, 10mg BID for 7d, then 5mg BID 60 each Active Continuous Glucose Sensor (FreeStyle Mary 2 Sensor) miscIndications:T ype 2 diabetes mellitus with hyperlipidemia ([facility]) USE 1 sensor EVERY 14 DAYS 2 each 5 025 Active omeprazole (PriLOSEC) [address] capsuleIndication s:Gastroesophagea l reflux disease, unspecified whether esophagitis present TAKE 1 CAPSULE BY MOUTH ONCE DAILY BEFORE BREAKFAST. do not crush or chew 90 capsule 1 025 Active insulin degludec (Tresiba FlexTouch) 100 UNIT/ML injectionIndicati ons:Type 2 diabetes mellitus with hyperlipidemia (HCC) INJECT 54 UNITS SUBCUTANEOUSLY ONCE DAILY 15 mL 2 025 Active rosuvastatin (Crestor) 40 MG tablet TAKE 1 TABLET BY MOUTH ONCE DAILY 30 tablet 8 025 Active Tirzepatide (Mounjaro) 7.5 MG/0.5ML solution auto-injectorIndi cations:Type 2 diabetes mellitus with hyperlipidemia (HCC) INJECT THE CONTENT OF 1 syringe SUBCUTANEOUSLY EACH WEEK 2 mL 025 Active cholecalciferol (Vitamin D-3) 1.25 MG (14484 UT) capsule TAKE 1 CAPSULE BY MOUTH EVERY WEEK 4 capsule 8 025 Active Aspirin Low Dose 81 MG EC tablet TAKE 1 TABLET BY MOUTH ONCE DAILY 30 tablet 8 025 Active Continuous Glucose Sensor (FreeStyle Mary 2 Plus Sensor) miscIndications:T ype 2 diabetes mellitus with hyperlipidemia (HCC) 1 each every 15 days. Change sensor every 15 days 2 each 11 025 Active insulin aspart FlexPen (NovoLOG) 100 UNIT/ML penIndications:Ty pe 2 diabetes mellitus with hyperlipidemia (HCC) INJECT 9 UNITS SUBCUTANEOUSLY IF BG>200 +2 UNITS FOR EVERY 50 POINTS >200. MAXIMUM 18 UNITS DAILY 6 mL 5 025 Active rosuvastatin (Crestor) 40 MG tablet TAKE 1 TABLET BY MOUTH ONCE DAILY 30 tablet 8 024 2024 Discontinued insulin aspart FlexPen (NovoLOG) 100 UNIT/ML penIndications:Ty pe 2 diabetes mellitus with hyperlipidemia (HCC) INJECT 9 UNITS SUBCUTANEOUSLY if bg > 200. +2 units for every 50 pts > 200. maximum 18 units daily 6 mL 5 025 2024 Discontinued Tirzepatide (Mounjaro) 7.5 MG/0.5ML solution auto-injectorIndi cations:Type 2 diabetes mellitus with hyperlipidemia (HCC) Inject 7.5 mg under the skin 1 (one) time per week. 2 mL 5 025 2024 Discontinued cholecalciferol (Vitamin D-3) 1.25 MG (89800 UT) capsule TAKE 1 CAPSULE BY MOUTH EVERY WEEK 4 capsule 1 025 2024 Discontinued Aspirin Low Dose 81 MG EC tablet TAKE 1 TABLET BY MOUTH ONCE DAILY 30 tablet 1 025 2024 Discontinued Active Problems Problem Noted [...] of right ear 04/24/2019 Heart murmur 04/24/2019 [place], old 04/24/2019 Overview (10/21/2022): 2013 x3 with 2 stents placement Moderate persistent asthma without complication 04/24/2019 Vision loss 04/24/2019 Dystrophia unguium 10/19/2018 Onychomycosis 10/19/2018 Pain in toe 10/19/2018 Type 2 diabetes mellitus with hyperlipidemia (CM S/HCC) 10/19/2018 Callus of toe 10/19/2018 07/14/2023 Resolved Problems Problem Noted Date Diagnosed Date Resolved Date Moderate persistent asthma w ith acute exacerbation 07/14/2023 07/14/2023 11/28/2024 Overview (07/03/2024): [facility] ED visit 06/25/24 for SOB, wheezing. Dx'd w/ flu. Needs nebulizer for home use. Consider need for Arnuity initiation. Encounters Date Type Department Care Team Description 05/26/2025 Refill [facility] [address] [place] [address] Hilda Cline ANP Type 2 diabetes mellitus with hyperlipidemia (HCC) 05/07/2025 Refill [facility] [address] [place] [address] Laura Thurston, RN Type 2 diabetes mellitus with hyperlipidemia (CMS/HCC) (Primary Dx) 05/07/2025 Telephone [facility] [address] [place] [address] Hilda Cline ANP Appointment Request 05/02/2025 Refill [facility] [address] [place] [address] Hilda Cline ANP 04/29/2025 Refill [facility] [address] [place] [address] Todd Figueroa, PharmD Type 2 diabetes mellitus with hyperlipidemia (HCC) 04/29/2025 Refill [facility] [address] [place] [address] Hilda Cline ANP 04/03/2025 Refill [facility] [address] [place] [address] Hilda Cline ANP 03/31/2025 Refill [facility] [address] [place] [address] Hilda Cline ANP 03/29/2025 Telephone [facility] [address] [place] [address] Hilda Cline ANP 03/29/2025 Refill [facility] [address] [place] [address] Hilda Cline ANP 03/27/2025 Refill [facility] [address] [place] [address] Todd Figueroa, Ceferino Type 2 diabetes mellitus with hyperlipidemia (CMS/HCC) ([facility]) 03/06/2025 Orders Only GENERIC EXTERNAL DATA DEPARTMENT Provider, Generic External Data 03/05/2025 Telephone [facility] [address] [place] [address] Todd Figueroa PharmD 02/28/2025 Refill [facility] [address] [place] [address] Hilda Cline ANP Gastroesophageal reflux disease, unspecified whether esophagitis present 02/26/2025 Results Follow-Up [facility] [address] [place] [address] Hilda Cline ANP Urinalysis Complete, Basic Metabolic Panel, Phosphate (As Phosphorus), Additional followed-up results: 14 02/26/2025 Orders Only GENERIC EXTERNAL DATA DEPARTMENT Provider, Generic External Data 02/26/2025 Refill [facility] [address] [place] [address] Lili Johnston MD 02/26/2025 Refill [facility] [address] [place] [phone] Sheba Nielson NP Type 2 diabetes mellitus with hyperlipidemia ([facility]/HCC) ([facility]) from Last 3 Months Immunizations Immunization Administration [...] Care Team (Late st Contact Info) Description 05/30/2025 10:30 AM EST Medication Management [facility] [address] [place] [address] Todd Figueroa, PharmD [address] [place] [address] Health Maintenance Due Date Last Done Comments CT Colonography 1955 FIT DNA/Cologuard 1955 FIT 1955 FOBT 1955 Sigmoidoscopy 1955 Hepatitis A Vaccines (1 of 2 - Risk 2-dose series) 1974 Zoster Vaccines (3 of 3) 11/03/2023 09/08/2023, 12/0 07/2015 Diabetes: Foot Exam 01/30/2025 01/31/2024, 01/31/2024, 01/31/2024 COVID-19 Vaccine ( season) 2025 10/28/2023, 01/12/2022, 04/29/2021, Additional history exists Influenza Vaccine (#1) 2025 3, 04/24/2021, 04/24/2019, Additional history exists Diabetes: Hemoglobin A1C 06/06/2025 025, 12/04/2024, 10/08/2024, Additional history exists Depression Screening 07/03/2025 07/03/2024, 07/03/20 Lipid Panel 07/03/2025 07/03/2024, 092 07/2022, 04/29/2021 Alcohol/Substance Use Screening 08/23/2025 08/23/2024 [...] this topic Meningococcal Vaccine Aged Out No amrio corinna eligible based on patient's age to [...] 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) FERRITIN Routine 03/06/2025 9:57 AM EDT Anemia, [...] URINALYSIS, COMPLETE Routine 02/26/2025 10:18 AM EDT LIPID PANEL, STANDARD Routine 07/03/2024 12:03 PM EST Type 2 diabetes mellitus with hyperlipidemia (CMS/HCC) HM COLONOSCOPY Routine 07/17/2019 from Last 3 Months or Most Recently Relevant to Health Maintenance Results * (ABNORMAL) Iron And Total Iron Binding Capacity (03/06/2025 9:57 AM EDT) Iron 48 45 - 160 mcg/dL [facility] Total Iron Binding Capacity 427 228 - 428 mcg/dL [facility] Percent Iron Saturation 11(L) 15 - 50 % [facility] Unsaturated Iron Binding 379 ug/dL [facility] Blood Venous blood specimen / Unknown 03/06/2025 9:57 AM EDT 03/06/2025 11:18 AM EDT Hilda Cline [facility] LAB BLOOD ORDERABLES Final Resul t [facility] [address] [place] [address] [phone] * (ABNORMAL) Urinalysis Complete (03/06/2025 9:57 AM EDT) Only the most recent of2 resultswithin the time period is included. Color Urine Yellow [facility] Appearance Urine Clear [facility] PH 6.0 5.0 - 9.0 [facility] Glucose Urine UA >=1000(A) Negative mg/dL [facility] Urine Blood Negative Negative [facility] Specific [place] - Urine 1.020 1.005 - 1.025 [facility] Urine Protein Negative Neg-Trace mg/dL [facility] Urine Ketones Negative Negative mg/dL [facility] Nitrite Urine Negative Negative [facility] Leukocyte Esterase Urine Negative Negative [facility] RBC Urine 0-2 0 - 2 /HPF [facility] Urine WBC 0-5 0 - 5 /HPF [facility] Urine Squamous Epithelial Cell 0-2 0 - 2 /HPF [facility] Urine Bacteria None Seen None Seen [facility] Hyaline Casts, Urine 0-2 0 - 2 /LPF [facility] 03/06/2025 9:57 AM EDT 03/06/2025 11:17 AM EDT us Generic External Data Provider LAB URINE ORDERAB LES Final Result [facility] [address] [place] [phone] * (ABNORMAL) Hemoglobin A1c (03/06/2025 9:57 AM EDT) Hemoglobin A1c 8.0(H) <6.0 % [facility] Comment:Hemoglobin A1C Refer ence Range Adults: 4.8 - 6.0 % Non diabetic: < 6.0 % Goal: < 7.0 %Additional Action Suggested: > 8.0 %Note: Hemoglobin A1c results are invalid for patients with abnormal amounts of HbF. Blood transfusions may impact the HbA1c concentration in the patient sample. Estimated Average Glucose 183 mg/dL [facility] Comment:eAG = Estimated ave rage glucose which is %A1C expressed asaverage glucose, using the formula of the L9W-XwjocgsJmpjtkg Glucose study (ADAG), Diabetes Care, Vol.31,#8,Feb. 2007 03/06/2025 9:57 AM EDT 03/06/2025 11:18 AM EDT Generic External Data Provider LAB BLOOD ORDERAB LES Final Result Performing Organization Address [facility]/ZIP Co de Phone Number [facility] [address] [place] [phone] * Ferritin (03/06/2025 9:57 AM EDT) Pathologist [facility] Ferritin 31 20 - 250 ng/mL [facility] Blood Venous blood specimen / Unknown 03/06/2025 9:57 AM EDT 03/06/2025 11:18 AM EDT [facility] LAB BLOOD ORDERABLES Final Resul t Performing Organization Address [facility] de Phone Number [facility] [address] [place] [phone] * (ABNORMAL) Basic Metabolic Panel (03/06/2025 9:57 AM EDT) Only the most recent of2 resultswithin the time period is included. Pathologist [facility] Sodium 141 135 - 145 mmol/L [facility] Potassium 4.9 3.3 - 5.1 mmol/L [facility] Chloride 110(H) 96 - 108 mmol/L [facility] Carbon Dioxide 22 22 - 29 mmol/L [facility] Anion Gap 14 12 - 20 [facility] Urea Nitrogen (BUN) 38(H) 9 - 16 mg/dL [facility] Creatinine, Serum 1.88(H) 0.5 - 1.4 mg/dL [facility] Estimated Glomerular Filt Rate 36 [facility] Comment:Chronic Kidney Disea se: Estimated GFR < 60 mL/min/1.28j0Tpbwkx Kidney Disease: Estimated GFR < 15 mL/min/1.73m2 Glucose 80 60 - 115 mg/dL [facility] Calcium 9.5 8.4 - 10.2 mg/dL [facility] Blood Venous blood specimen / Unknown 03/06/2025 9:57 AM EDT 03/06/2025 11:18 AM EDT [facility] LAB BLOOD ORDERABLES Final Resul t Performing Organization Address [facility] de Phone Number [facility] [address] [place] [phone] * Hepatitis B, C Profile (02/26/2025 10:19 AM EDT) ~Hepatitis B Surface Antibody NONREACTIVE Nonreactive [facility] Comment:Nonreactive: < 8.00 mIU/mL Hepatitis B Core Antibody Nonreactive Nonreactive [facility] Hepatitis C Antibody Nonreactive Nonreactive [facility] Comment:Antibodies to HCV no t detected; does not exclude early acuteHCV infection. Hepatitis B Surface Ag Negative Negative [facility] 02/26/2025 10:1 9 AM EDT 02/26/2025 1:09 PM EDT [facility] External Data Provider LAB BLOOD ORDERAB LES Final Result Performing Organization Address [facility] de Phone Number [facility] [address] [place] [phone] * ANCA Vasculitides (02/26/2025 10:19 AM EDT) Myeloperoxidase Antibody <1.0 AI [facility] Comment:Value Interpretation ----- <1.0 No Antibody Detected > or = 1.0 Antibody DetectedAutoantibodies to myeloperoxidase (MPO) are commonlyassociated with the following small-vesselvasculitides: microscopic polyangiitis,polyarteritis nodosa, Churg-Ta syndrome,necrotizing and crescentic glomerulonephritis andoccasionally granulomatosis with polyangiitis(GPA, Alba's). The perinuclear IFA pattern,(p-ANCA) is based largely on autoantibody tomyeloperoxidase which serves as the primary antigen.These autoantibodies are present in active disease. Proteinase-3 Antibody <1.0 AI [facility] Comment:Value Interpretation ----- <1.0 No Antibody Detected > or = 1.0 Antibody DetectedAutoantibodies to proteinase-3 (MO-3) are accepted ascharacteristic for granulomatosis with polyangiitis(GPA, Alba's), and are detectable in 95% of thehistologically proven cases. The cytoplasmic IFApattern, (c-ANCA), is based largely on autoantibody toPR-3 which serves as the primary antigen.These autoantibodies are present in active disease.THIS TEST WAS PERFORMED AT:[employer] [place] [phone] XIAO MD 02/26/2025 10:1 9 AM EDT 02/26/2025 1:09 PM EDT us Generic External Data Provider LAB BLOOD ORDERAB LES Final Result [facility] [address] [place] [phone] * Vitamin D, 25-Hydroxy, Total, Immunoassay (02/26/2025 10:19 AM EDT) Vitamin D 25-OH Total 92.7 >30 ng/mL [facility] Comment: Health Based Reference Values*< 20 ng/mL Iaoueubzq45-27 ng/mL Insufficient> 30 ng/mL Sufficient*Prince PASCUAL. N [...] Provider LAB BLOOD ORDERAB LES Final Result [facility] [address] [place] [phone] * [place]/Lambda Light Chains, Free with Ratio (02/26/2025 10:19 AM EDT) [place] Light Chain, Free, Serum 235 176 - 443 mg/dL [facility] Lambda Light Chain, Free, Serum 168 91 - 240 mg/dL [facility] [place]/Lambda Light Chains Free With Ratio, Serum 1.40 1.29 - 2.55 [facility] Comment:This assay provides a measurement [...] myeloma, lymphoproliferative disorders, andamyloidosis.THIS TEST WAS PERFORMED AT:[employer] [id number] [place] [id number] WALDEN MD,PHD,KADEN 02/26/2025 10:1 9 AM EDT 02/26/2025 1:09 PM EDT us Generic External Data Provider LAB BLOOD ORDERAB LES Final Result Performing Organization Address City/[facility]/ZIP Co de Phone Number [facility] [address] [place] [phone] * PSA, Post Prostatectomy (02/26/2025 10:19 AM EDT) PSA, Post Prostatectomy 1.60 ng/mL [facility] Comment: UNTREATED RESULT = 1.56REFERENCE RANGES for PSA:LESS THAN 0.10 ng/mL AFTER RADICAL PROSTATECTOMY.4.0 ng/mL OR LESS IN HEALTHY MALES WITHOUT PROSTATECTOMY.PSA values obtained with different assay methods or kitscannot be used interchangeably.This test was performed using the [employer] DxImethod. PSA, ICMA is not to be [...] todetect recurrent prostate cancer.THIS TEST WAS PERFORMED AT:[employer] [id number] [facility] [place] [address]RFBLNTOMASZ WALDEN MD,PHD,KADEN 02/26/2025 10:1 9 AM EDT 02/26/2025 1:09 PM EDT us Generic External Data Provider LAB BLOOD ORDERAB LES Final Result Performing Organization Address [facility]/ZIP Co de Phone Number [facility] [address] [place] [phone] * HIV-1/2 Antigen and Antibodies, Fourth Generation, with Reflexes (02/26/2025 10:19 AM EDT) HIV AB/AG Nonreactive Nonreactive [facility] Comment:HIV-1 p24 Ag and/or HIV-1/HIV-2 Ab not detected.A test result that is nonreactive does not exclude thepossibility of exposure to or infection with HIV-1 and/orHIV-2. Nonreactive results in this assay for individualswith prior exposure to HIV-1 and/or HIV-2 may be due toantigen and antibody levels that are below the limit ofdetection of this assay.The [employer] HIV Ag/Ab Combo assay result andsupplemental assay results should be interpreted inconjunction with the patient's clinical presentation,history and other laboratory results. If the results areinconsistent with clinical evidence, additional testing issuggested to confirm the result. 02/26/2025 10:1 9 AM EDT 02/26/2025 1:09 PM EDT us Generic External Data Provider LAB BLOOD ORDERAB LES Final Result [facility] [address] [place] [phone] * Factor V(Leiden) Mutation Analysis (02/26/2025 10:19 AM EDT) [facility] Factor V (Leiden) Mutation NEGATIVE [facility] Comment:FACTOR V LEIDEN (R50 6Q) VARIANT NOT DETECTED Interpretation See Below [facility] Comment: INTERPRETATION: This individual is negative (normal) for theFactor V Leiden (R506Q) variant in the Factor V gene.Increased risk of thrombophilia can be caused by a varietyof genetic and non-genetic factors not screened for by thisassay.Laboratory testing supervised and results monitored byIam Benitez, Ph.D., FAC, FOR[facility]LY [facility], [facility].VARIANT ANALYSIS:The Factor V Leiden (R506Q) variant [[id number]:c.1601G>A(p.R534Q)] [...] data.Health care providers, please contact your local [employer] genetic counselor or call [employer]([phone]) for assistance with interpretation of theseresults.This test was developed and its analytical performancecharacteristics have been determined by [employer] [facility]. It has not beencleared or approved by the FDA. This assay has beenvalidated pursuant to the CLIA regulations and is used forclinical purposes.THIS TEST WAS PERFORMED AT:[employer] [id number] [place] [address]KISWQTOMASZ WALDEN MD,PHD,KADEN 02/26/2025 10:1 9 AM EDT 02/26/2025 1:09 PM EDT us Generic External Data Provider LAB BLOOD ORDERAB LES Final Result [facility] [address] [place] [phone] * Complement Component C3c (02/26/2025 10:19 AM EDT) Complement C3 176 82 - 185 mg/dL [facility] Comment:THIS TEST WAS PERFOR MED AT:[employer] [address] [id number] XIAO MD 02/26/2025 10:1 9 AM EDT 02/26/2025 1:32 PM EDT us Generic External Data Provider LAB BLOOD ORDERAB LES Final Result Performing Organization Address [facility]/ZIP Co de Phone Number [facility] [address] [place] [phone] [phone] * Complement Component C4c (02/26/2025 10:19 AM EDT) Pathologist [facility] Complement C4 24 15 - 53 mg/dL [facility] Comment:THIS TEST WAS PERFOR MED AT:[employer] [place] [id number] XIAO MD 02/26/2025 10:1 9 AM EDT 02/26/2025 1:32 PM EDT Generic External Data Provider LAB BLOOD ORDERAB LES Final Result Performing Organization Address [facility] Co de Phone Number [facility] [address] [place] [phone] * RAGHAVENDRA Screen,IFA, with Reflex to Titer and Pattern (02/26/2025 10:19 AM EDT) Pathologist [facility] Anti Nuclear Antibody Screen NEGATIVE NEGATIVE [facility] Comment:RAGHAVENDRA IFA is a first [...] clinicallysuspected inflammatory myopathies.AC-0: NegativeInternational Consensus on RAGHAVENDRA Patterns(https://doi.org/10.1515/cjkv-1995-9824)For additional information, please refer tohttp://education.[employer]/faq/FWV514(This link is being provided for informational/educational purposes only.)THIS TEST WAS PERFORMED AT:[employer] [address] [address]TCVHYRACHEL XIAO MD RAGHAVENDRA Titer TNP [facility] RAGHAVENDRA Pattern TNP [facility] RAGHAVENDRA Titer 2 [facility] RAGHAV[facility]DRA Pattern 2 TNP [facility] RAGHAVENDRA TITER 3 [facility] RAGHAVENDRA PATTERN 3 [facility] 02/26/2025 10:1 9 AM EDT 02/26/2025 1:09 PM EDT us Generic External Data Provider LAB BLOOD ORDERAB LES Final Result [facility] [address] [place] [address] [phone] * Protein, Total and Protein??Electrophoresis (02/26/2025 10:19 AM EDT) Prot Elec - Total Protein 6.8 6.1 - 8.1 g/dL [facility] Prot Elec - Albumin 3.9 3.8 - 4.8 g/dL [facility] Prot Elec - Alpha1 0.2 0.2 - 0.3 g/dL [facility] Prot Elec - Alpha2 0.7 0.5 - 0.9 g/dL [facility] Prot Elec - Beta 1 0.6 0.4 - 0.6 g/dL [facility] Prot Elec - Beta 2 0.4 0.2 - 0.5 g/dL [facility] Prot Elec - Gamma 1.0 0.8 - 1.7 g/dL [facility] PES - Abn Protein Band 1 [facility] PES-Abn Protein Band 2 [facility] PES-Abn Protein Band 3 [facility] Prot Elec - Interpretation SEE NOTE [facility] Comment:Normal Serum Protein Electrophoresis Pattern.No abnormal protein bands (M-protein) detected.THIS TEST WAS PERFORMED AT:[facility] [place] [id number] XIAO MD 02/26/2025 10:1 9 AM EDT 02/26/2025 1:09 PM EDT us Generic External Data Provider LAB BLOOD ORDERAB LES Final Result Performing Organization Address [facility] Co de Phone Number [facility] [address] [place] [phone] * (ABNORMAL) Phosphate (As Phosphorus) (02/26/2025 10:19 AM EDT) Phosphorus 2.3(L) 2.7 - 4.5 mg/dL [facility] 02/26/2025 10:1 9 AM EDT 02/26/2025 1:09 PM EDT Generic External Data Provider LAB BLOOD ORDERAB LES Final Result Performing Organization Address [facility] Co de Phone Number [facility] [address] [place] [address] [phone] * PTH, Intact Without Calcium (02/26/2025 10:19 AM EDT) Parathyroid Hormone, Intact 55.8 8.7 - 77.1 pg/mL [facility] 02/26/2025 10:1 9 AM EDT 02/26/2025 1:09 PM EDT Generic External Data Provider LAB BLOOD ORDERAB LES Final Result Performing Organization Address [facility] Co de Phone Number [facility] [address] [place] [phone] * Albumin, Random Urine W/Creatinine (02/26/2025 10:18 AM EDT) Creatinine, Urine 85.29 mg/dL [facility] Microalbumin Urine 10.0 mg/L [facility] Microalbum Creatinine Ratio Ur 11.7 <30 ug/mg cr [facility] Comment:Albumin/Creatinine R atio Reference Ranges: Normal: < 30 ug/mg creatinine Microalbuminuria: 30 - 300 ug/mg creatinineClinical Albuminuria: > 300 ug/mg creatinine 02/26/2025 10:1 8 AM EDT 02/26/2025 1:05 PM EDT us Generic External Data Provider LAB URINE ORDERAB LES Final Result Performing Organization Address City/[facility]/ZIP Co de Phone Number [facility] [address] [place] [phone] * Urine Protein, Total, Random without Creatinine (02/26/2025 10:18 AM EDT) Protein, Total, Random Urine <7 <12 mg/dL [facility] 02/26/2025 10:1 8 AM EDT 02/26/2025 1:05 PM EDT Generic External Data Provider LAB URINE ORDERAB LES Final Result Performing Organization Address [facility] Co de Phone Number [facility] [address] [place] [phone] * (ABNORMAL) Lipid Panel, Standard (07/03/2024 12:03 PM EST) Triglycerides 148 <150 mg/dL [facility] Comment:Desirable Triglyceri de: less than 150 mg/dLBorderline High Triglyceride 150-199 mg/dLHigh Triglyceride: 200-499 mg/dLVery High Triglyceride: greater than or equal to 5OO mg/dL Cholesterol 113 <200 mg/dL [facility] Comment:Desirable Cholestero l: less than 200 mg/dLBorderline High Cholesterol: 200-239 mg/dLHigh Cholesterol: greater than 239 mg/dL LDL Cholesterol Calculated 49 <100 mg/dL [facility] Comment:Desirable LDL: less than 100 mg/dLNear Optimal/Above Optimal LDL: 110- 129 mg/dLBorderline High LDL: 130-159 mg/dLHigh LDL: 160-189 mg/dLVery High LDL: greater than or equal to 190 mg/dL HDL Cholesterol 35(L) >40 mg/dL [facility] Comment:Desirable HDL: great er than 40 mg/dL Note: This HDL assay may give artificially low results in patients with liver disease. Blood Venous blood specimen / Unknown 07/03/2024 12:03 PM EST 07/03/2024 1:03 PM EST Hilda RICHARDS LAB BLOOD ORDERABLES Final Resul t [facility] [address] [place] [phone] [phone] * Colonoscopy (07/17/2019) [facility] Colonoscopy Normal Normal Historical Provider HEALTH MAINTENANCE Final Result from Last 3 Months or Most Recently Relevant to Health Maintenance Insurance [facility] CUSTODIAL OPTIONS (O D-SNP) [facility] STANDARD Care Teams Mechanical Manufacturing Technician Relationship Specialty Start Date End Date Hilda Cline ANP [address] [place] [address] PCP - General Family Medicine 11/17/20 Todd Figueroa, LindsayD [address] [place] [address] Pharmacist Internal Medicine 11/24/23
--- OUTSIDE RECORDS SUMMARY | 2025-05-28 11:22 | XMS_ITS | Data Portability ---
Author Organization [place] Address [address] [place] [address] Care Team Providers Care Hull And Deck Remover Name Role Phone JOVANI SCHMIDT Primary Care Provider [phone] HIM PABLO OTHER Assessment Encounter Date Assessment Date Assessment LastModified by Organization Details LastModified Time 07/05/2024 07/05/2024 I have reviewed and agree with the assessment and plan as documented by the weaving loom operator. I provided real-time medical direction for this encounter and was immediately available to provide additional phone-based assistance as needed. History as noted in EMR and by weaving loom operator. I would add / emphasize: Patient seen [...] Available No t Available Comfort EZ Pen [place] 32 gauge x 5/16 USE FOR INJECT [...] Available No t Available FreeStyle Mary [address] [place] USE DIRECTED EVERY 8 HOURS active Not [...] Updated DateTime 4 97 % 97 % 63793.7 44 g 97.6 [degF] 16 /min 76 /min 110/60 mm[Hg] Not Available [facility] - production 4 11:15:02 Social History None recorded. Functional Status None recorded. Mental Status None recorded. Family History Nothing Reported. Medical History No medical history recorded. Past Encounters Encounter ID Performer Location Encounter Start Date Encounter Closed Date Diagnosis/Indication Diagnosis SNOMED-CT Code Diagnosis ICD10 Code Diagnosis IMO Codes Diagnosis Note [id number] [place] Cuevas MD Main - [facility] [address] [place] [address] [phone] 07/05/2024 11:15:00 07/09/2024 11:32:59 Upper respiratory infection 97885262 J06.9 Health Concerns Section Related Observation LastModified by Organization Detai ls LastModified Time None Recorded Concern Status LastModified by Organization Details LastModified Time None Recorded Advance Directives Directive None Recorded Payers Insurance Date Sequence Insurance Name Policy Number Policy Whelan Covered Member ID Whelan Member ID Guarantor Name 07/05/2024 1 [facility] - DOS ON OR AFTER 2022 - DUAL ELIGIBLE - SENIOR LIVING OPTIONS AND ONE CARE (MEDICARE REPLACEMENT/ADV ANTAGE - HMO) David Mercado [id number] David Mercado Notes Date Note Type Note [...] cold symptoms, CoughPMH: Asthma, Myocardial InfarctionComments : Community Support Specialist verified the patient's name//address and phone number. [...] sentences at time of call, just in [place] . Education provided on the response time and the patient was advised to monitor reported s/s and seek emergency treatment if needed -Roxane Martinez RN .................. .................. .................. .................. .................. .................. .................. ............... Flood Control Engineer Note From Jayant Singh: Pt co continued cough and cold symptoms. Pt was seen in ER and given a care plan/antibiotics/i nhaler. Pt daughter s sts nebulizer machine and albuterol bullets are being picked up today. Pt able to speak in full sentences. Lungs clear bilaterally, good skin color and turgid, afebrile, baseline vitals assessed, WNL . [facility] contacted and advised to co time with current care plan. Pt and daughter educated on signs indicating the ER. Advised if symptoms persist to contact pcp. .................. .................. .................. .................. .................. .................. .................. ............... [facility] Consulted: [place] Cuevas .................. .................. .................. .................. .................. .................. .................. ............... Disposition: Fulfilled [place] Cuevas MD [address] [facility],[address], [place], [address], [employer], [employer] 07/08/2024 10:18:16
--- OUTSIDE RECORDS SUMMARY | 2025-05-28 11:23 | XMS_ITS | Encounter Summary ---
Author Organization [employer] Address 75 [facility] 7 [place] [address] Care Team Providers Care Event Planning Intern Name Role Phone Hilda Cline Primary Care Provider [phone] Todd Figueroa PharmD Unavailable [phone] Reason for Visit * Reason Comments Med Refill Encounter Details Date Type Department Care Team (Late st Contact Info) Description 03/29/2025 Refill [facility] [address] [place], [place] [phone] Hilda Cline ANP [address] [place] [address] Social History Tobacco Use Types Packs/Day Years [...] Description 05/30/2025 10:30 AM EST Medication Management [facility] [address] [place] [phone] Todd Figueroa PharmD [address] [place] [address] documented as of this encounter Goals Goal [...] documented as of this encounter Care Teams Event Planning Intern Relationship Specialty Start Date End Date Hilda Cline ANP [address] [place] [phone] PCP - General Family Medicine 11/17/20 Todd Figueroa PharmD [address] [place] [phone] Pharmacist Internal Medicine 11/24/23 documented as of this encounter
--- OUTSIDE RECORDS SUMMARY | 2025-05-28 11:23 | XMS_ITS | Encounter Summary ---
Author Organization [employer] Address 75 [facility] 7 [place] [address] Care Team Providers Care Utility Worker Film Processing Name Role Phone Hilda Cline Primary Care Provider [phone] Todd Figueroa PharmD Unavailable Reason for Visit * Reason Onset Date Comments Med Refill 12/01/2023 Encounter Details Date Type Department Care Team (Late st Contact Info) Description 12/01/2023 Telephone [facility] [address] [place], [place] [phone] Hilda Cline ANP [address] [place], [place] [phone] Med Refill Social History Tobacco Use Types [...] 14 MG tablet To be sent to: [facility] - [place], [place] - [phone] - [place] - [address] documented in this encounter Plan of Treatment Upcoming Encounters Date Type Department Care Team (Late st Contact Info) Description 05/30/2025 10:30 AM EST Medication Management [facility] [address] [place] [address] Todd Figueroa PharmD [address] [place] [address] documented as of this encounter Goals Goal Patient Goal Type Associated Problems Recent Progress Patient-Stated? Author Blood Pressure < 140/90 Blood Pressure 118/65(2024 11:54 AM EDT) No Todd Figueroa, Ceferino Hemoglobin A1c < 7 Result Component 8(03/06/2025 9:57 AM EDT) No Declan Kauffman documented as of this encounter Visit Diagnoses Not on filedocumented in this encounter Care Teams Utility Worker Film Processing Relationship Specialty Start Date End Date Hilda Cline ANP [address] [place] [address] PCP - General Family Medicine 11/17/20 Todd Figueroa, LindsayD [address] [place] [address] Pharmacist Internal Medicine 11/24/23 documented as of this encounter
--- OUTSIDE RECORDS SUMMARY | 2025-05-28 11:23 | XMS_ITS | Encounter Summary ---
Author Organization [employer] Address [address] [place] [address] [address], [place] [address] Care Team Providers Care Shuttle Spotter Name Role Phone Hilda Cline Primary Care Provider [phone] Todd Figueroa PharmD Unavailable [phone] Reason for Visit * Reason Onset Date Comments Med Refill 03/15/2024 Encounter Details Date Type Department Care Team (Late st Contact Info) Description 03/15/[address] [facility] [address] [place], [place] [phone] Lili Johnston MD [address] [place], [place] [phone] Hypertension associated with diabetes (CMS/HCC) ([facility]/HCC) Social History Tobacco Use Types Packs/Day [...] Description 05/30/2025 10:30 AM EST Medication Management [facility] [address] [place], [place] [phone] Todd Figueroa PharmD [address] [place] [address] documented as of this encounter Goals Goal Patient Goal Type Associated Problems Recent Progress Patient-Stated? Author Blood Pressure < 140/90 Blood Pressure 118/65(2024 11:54 AM EDT) No Todd Figueroa PharmD Hemoglobin A1c < 7 Result Component 8(03/06/2025 9:57 AM EDT) No Declan Kauffman documented as of this encounter Visit Diagnoses Diagnosis Hypertension associated with diabetes (HCC) Unspecified essential hypertension documented in this encounter Care Teams Shuttle Spotter Relationship Specialty Start Date End Date Hilda Cline ANP [address] [place] [address] [phone] PCP - General Family Medicine 11/17/20 Todd Figueroa, Ceferino [address] [place] [address] [phone] Pharmacist Internal Medicine 11/24/23 documented as of this encounter
--- OUTSIDE RECORDS SUMMARY | 2025-05-28 11:23 | XMS_ITS | Encounter Summary ---
Author Organization [employer] Address 75 [facility] 7 [place] [address] Care Team Providers Care Field Marketing Coordinator Name Role Phone Hilda Cline Primary Care Provider [phone] Todd Figueroa PharmD Unavailable [phone] Reason for Visit * Reason Onset Date Comments Med Refill 03/15/2024 Encounter Details Date Type Department Care Team (Late st Contact Info) Description 03/15/2024 Refill [facility] [address] [place], [place] [phone] Hilda Cline ANP [address] [place], [place] [phone] Type 2 diabetes mellitus with hyperlipidemia (CMS/HCC) ([facility]/HCC) Social History Tobacco Use Types Packs/Day [...] Description 05/30/2025 10:30 AM EST Medication Management [facility] [address] [place] [address] [phone] Todd Figueroa PharmD [address] [place] [phone] documented as of this encounter Goals Goal Patient Goal Type Associated Problems Recent Progress Patient-Stated? Author Blood Pressure < 140/90 Blood Pressure 118/65(2024 11:54 AM EDT) No Todd Figueroa PharmD Hemoglobin A1c < 7 Result Component 8(03/06/2025 9:57 AM EDT) No Declan Kauffman documented as of this encounter Visit Diagnoses Diagnosis Type 2 diabetes mellitus with hyperlipidemia (HCC) documented in this encounter Care Teams Field Marketing Coordinator Relationship Specialty Start Date End Date Hilda Cline ANP [address] [place] [address] [phone] PCP - General Family Medicine 11/17/20 Todd Figueroa, Ceferino [address] [place] [address] [phone] Pharmacist Internal Medicine 11/24/23 documented as of this encounter
--- OUTSIDE RECORDS SUMMARY | 2025-05-28 11:23 | XMS_ITS | Encounter Summary ---
Author Organization [employer] Address 75 [facility] 7 [place] [address] Care Team Providers Care Cornetist Name Role Phone Hilda Cline Primary Care Provider [phone] Todd Figueroa PharmD Unavailable [phone] Reason for Visit * Reason Onset Date Comments Med Refill 09/13/2023 Encounter Details Date Type Department Care Team (Late st Contact Info) Description 09/13/2023 Telephone [facility] [address] [place], [place] [phone] Hilda Cline ANP [address] [place], [place] [phone] Med Refill Social History Tobacco Use Types [...] Miscellaneous Notes * Telephone Encounter - Dara Ngerete LPN - 09/13/2023 9:36 AM EST Medication pended to PCP. * Telephone Encounter - Anahy Rodriguez - 09/13/2023 9:23 AM EST TC from pt requesting medication refill. Medications needing refill : semaglutide (Rybelsus) 7 MG tablet To be sent to: [facility] - [place], [place] - [phone] - [place] - [address] Blank from [facility] informs pt is out of meds and would like to know if medication can be sent out today to finish pt bubble pack . documented in this encounter Plan of Treatment Upcoming Encounters Date Type Department Care Team (Late st Contact Info) Description 05/30/2025 10:30 AM EST Medication Management [facility] [address] [place] [address] Todd Figueroa, PharmD [address] [place] [address] documented as of this encounter Goals Goal Patient Goal Type Associated Problems Recent Progress Patient-Stated? Author Hemoglobin A1c < 7 Result Component 8(03/06/2025 9:57 AM EDT) No Sampognaro, Declan documented as of this encounter Visit Diagnoses Not on filedocumented in this encounter Care Teams Cornetist Relationship Specialty Start Date End Date Hilda Cline ANP [address] [place] [address] PCP - General Family Medicine 11/17/20 Todd Figueroa PharmD [address] [place] [address] Pharmacist Internal Medicine 11/24/23 documented as of this encounter
--- OUTSIDE RECORDS SUMMARY | 2025-05-28 11:23 | XMS_ITS | Encounter Summary ---
Author Organization [employer] Address 75 [facility] 7 [place] [address] Care Team Providers Care Project Executive Name Role Phone Hilda Cline Primary Care Provider [phone] Todd Figueroa PharmD Unavailable [phone] Reason for Visit * Reason Comments Med Refill Encounter Details Date Type Department Care Team ([facility] st Contact Info) Description 09/12/2023 Refill [facility] [address] [place], [place] [phone] Hilda Cline ANP [address] [place], [place] [phone] Type 2 diabetes mellitus with hyperlipidemia ([facility]/HCC) Social History Tobacco Use Types Packs/Day [...] Description 05/30/2025 10:30 AM EST Medication Management [facility] [address] [place] [address] Todd Figueroa, Ceferino [address] [place] [address] documented as of this encounter Goals Goal Patient Goal Type Associated Problems Recent Progress Patient-Stated? Author Hemoglobin A1c < 7 Result Component 8(03/06/2025 9:57 AM EDT) No Declan Kauffman documented as of this encounter Visit Diagnoses Diagnosis Type 2 diabetes mellitus with hyperlipidemia (HCC) documented in this encounter Care Teams Project Executive Relationship Specialty Start Date End Date Hilda Cline ANP [address] [place] [phone] PCP - General Family Medicine 11/17/20 Todd Figueroa, PharmD [address] [place] [address] [phone] Pharmacist Internal Medicine 11/24/23 documented as of this encounter
--- OUTSIDE RECORDS SUMMARY | 2025-05-28 11:23 | XMS_ITS | Encounter Summary ---
Author Organization [employer] Address 75 [facility] 7 [place] [address] Care Team Providers Care Butter Melter Name Role Phone Hilda Cline Primary Care Provider [phone] Todd Figueroa PharmD Unavailable Reason for Visit * Reason Comments Med Refill Encounter Details Date Type Department Care Team ([facility] st Contact Info) Description 04/03/2025 Refill [facility] [address] [place], [place] [phone] Hilda Cline ANP [address] [place] [address] Social History Tobacco Use Types Packs/Day Years [...] Description 05/30/2025 10:30 AM EST Medication Management [facility] [address] [place] [address] Todd Figueroa PharmD [address] [place] [phone] documented as of this encounter Goals Goal [...] documented as of this encounter Care Teams Butter Melter Relationship Specialty Start Date End Date Hilda Cline ANP [address] [place] [phone] PCP - General Family Medicine 11/17/20 Todd Figueroa PharmD [address] [place] [phone] Pharmacist Internal Medicine 11/24/23 documented as of this encounter
--- OUTSIDE RECORDS SUMMARY | 2025-05-28 11:23 | XMS_ITS | Encounter Summary ---
Author Organization [employer] Address 75 [facility] 7 [place] [address] Care Team Providers Care Side Door Worker Name Role Phone Hilda Cline Primary Care Provider Todd Figueroa PharmD Unavailable [phone] Reason for Visit * Reason Comments Med Refill Encounter Details Date Type Department Care Team (Late st Contact Info) Description 03/31/2025 Refill [facility] [address] [place], [place] [phone] Hilda Cline ANP [address] [place] [address] Social History Tobacco Use Types Packs/Day Years [...] Description 05/30/2025 10:30 AM EST Medication Management [facility] [address] [place] [phone] Todd Figueroa PharmD [address] [place] [phone] documented as of this encounter Goals Goal [...] documented as of this encounter Care Teams Side Door Worker Relationship Specialty Start Date End Date Hilda Cline ANP [address] [place] [phone] PCP - General Family Medicine 11/17/20 Todd Figueroa PharmD [address] [place] [phone] Pharmacist Internal Medicine 11/24/23 documented as of this encounter
--- OUTSIDE RECORDS SUMMARY | 2025-05-28 11:23 | XMS_ITS | Encounter Summary ---
Author Organization [employer] Address 75 [facility] 7 [place] [address] Care Team Providers Care Print Line Operator Name Role Phone Hilda Cline Primary Care Provider [phone] Todd Figueroa PharmD Unavailable [phone] Reason for Visit * Reason Comments Med Refill Encounter Details Date Type Department Care Team (Late st Contact Info) Description 02/13/2024 Refill [facility] [address] [place], [place] [phone] Hilda Cline ANP [address] [place], [place] [phone] Type 2 diabetes mellitus with hyperlipidemia ([facility]/HCC) ([facility]) Social History Tobacco Use Types Packs/Day [...] Description 05/30/2025 10:30 AM EST Medication Management [facility] [address] [place] [address] Todd Figueroa PharmD [address] [place] [phone] documented as of this encounter Goals Goal [...] (HCC) documented in this encounter Care Teams Print Line Operator Relationship Specialty Start Date End Date Hilda Cline ANP [address] [place] [address] [phone] PCP - General Family Medicine 11/17/20 Todd Figueroa PharmD [address] [place] [address] [phone] Pharmacist Internal Medicine 11/24/23 documented as of this encounter
--- OUTSIDE RECORDS SUMMARY | 2025-05-28 11:23 | XMS_ITS | Encounter Summary ---
Author Organization [employer] Address 75 [facility] 7 [place] [address] Care Team Providers Care Newspaper Publisher Name Role Phone Hilda Cline Primary Care Provider [phone] Todd Figueroa PharmD Unavailable [phone] Reason for Visit * Reason Comments Med Refill Encounter Details Date Type Department Care Team ([facility] st Contact Info) Description 05/26/2025 Refill [facility] [address] [place], [place] [phone] Hilda Cline ANP [address] [place] [address] Type 2 diabetes mellitus with hyperlipidemia (HCC) Social History Tobacco Use Types Packs/Day Years [...] Description 05/30/2025 10:30 AM EST Medication Management [facility] [address] [place] [address] Todd Figueroa PharmD [address] [place] [address] documented as of this encounter Goals Goal Patient Goal Type Associated Problems Recent Progress Patient-Stated? Author Blood Pressure < 140/90 Blood Pressure 118/65(2024 11:54 AM EDT) No Todd Figueroa, Ceferino Hemoglobin A1c < 7 Result Component 8(03/06/2025 9:57 AM EDT) No Declan Kauffman documented as of this encounter Visit Diagnoses Diagnosis Type 2 diabetes mellitus with hyperlipidemia (HCC) documented in this encounter Additional Health Concerns Assessment Noted Time PHQ-9 Depression Total Score: 7 07/03/20 24 11:53 AM EST documented as of this encounter Care Teams Newspaper Publisher Relationship Specialty Start Date End Date Hilda Cline ANP [address] [place] [address] PCP - General Family Medicine 11/17/20 Todd Figueroa, PharmD [address] [place] [address] Pharmacist Internal Medicine 11/24/23 documented as of this encounter
--- OUTSIDE RECORDS SUMMARY | 2025-05-28 11:23 | XMS_ITS | Clinical Summary ---
Author Organization [facility] Address [address] [place] [address] Care Team Providers Care Heavy Coil Winder Name Role Phone Unavailable Primary Care Provider [...] complication, with long-term current use of insulin Inject 74 Units into the skin once daily 24 mL 5 9 Active fluticasone propionate (FLOVENT HFA) 110 mcg/actuation inhalerIndication s:Moderate persistent asthma without complication Inhale 1 Puff into the lungs 2 (two) times daily 1 Inhaler 3 9 Active insulin lispro (ADMELOG SOLOSTAR U-100 INSULIN) 100 unit/mL injectionIndicati ons:Type 2 diabetes mellitus without complication, with long-term current use of insulin 10 Syringe 3 9 Active canagliflozin 100 mg tabIndications:Ty pe 2 diabetes mellitus without complication, with long-term current use of insulin Take 300 mg by mouth every morning 30 Tab 3 0 Active aspirin [address] tabletIndications :Coronary artery disease of [place] heart with stable angina pectoris, unspecified vessel or lesion type,[place], old TAKE ONE TABLET BY MOUTH DAILY [...] asthma without complication 04/24/2019 Heart murmur 04/24/2019 [place], old 04/24/2019 Overview (04/24/2019): 2013 x3 with 2 stents placement Type 2 diabetes mellitus wit hout complication, with long-term current use of insulin 04/24/2019 Hearing loss of right ear 04/24/2019 [...]
--- OUTSIDE RECORDS SUMMARY | 2025-05-28 11:23 | XMS_ITS | Encounter Summary ---
Author Organization [employer] Address [address] [place] [address] [address], [place] [address] Care Team Providers Care Manufacturing Production Manager Name Role Phone Hilda Cline Primary Care Provider [phone] Todd Figueroa PharmD Unavailable [phone] Reason for Visit * Reason Comments Med Refill Encounter Details Date Type Department Care Team (Late st Contact Info) Description 11/22/[address] [facility] MEDICINE [address] [place] [address] Hilda Cline ANP [address] [place] [address] Social History Tobacco Use Types Packs/Day Years [...] 10:30 AM EST Medication Management [facility] MEDICINE [address] [place] [address] Todd Figueroa, PharmD [address] [place] [address] documented as of this encounter Visit Diagnoses Not on filedocumented in this encounter Care Teams Manufacturing Production Manager Relationship Specialty Start Date End Date Hilda Cline ANP [address] [place], [place] [phone] PCP - General Family Medicine 11/17/20 Todd Figueroa PharmD [address] [place] [address] Pharmacist Internal Medicine 11/24/23 documented as of this encounter
--- OUTSIDE RECORDS SUMMARY | 2025-05-28 11:23 | XMS_ITS | Encounter Summary ---
Author Organization [employer] Address 75 [facility] 7 [place] [address] Care Team Providers Care Student Life Dean Name Role Phone Hilda Cline Primary Care Provider Todd Figueroa PharmD Unavailable [phone] Reason for Visit * Reason Onset Date Comments Appointment Request 05/07/2025 Encounter Details Date Type Department Care Team ([facility] st Contact Info) Description 05/07/2025 Telephone [facility] MEDICINE 230 [place], [place] [phone] Hilda Cline ANP [address] [place], [place] [phone] Appointment Request Social History Tobacco Use Types Packs/Day Years [...] encounter Miscellaneous Notes * Telephone Encounter - Elizabeth Mayers - 05/07/2025 11:12 AM EDT Tc from pt daughter requesting to reschedule CDTM apt that was scheduled on 05/13 Contact pt at [phone] (mauritanian) documented in this encounter Plan of Treatment Upcoming Encounters Date Type Department Care Team (Late st Contact Info) Description 05/30/2025 10:30 AM EST Medication Management [facility] MEDICINE [address] [place] [address] Todd Figueroa PharmD [address] [place] [address] documented as of this encounter Goals Goal [...] documented as of this encounter Care Teams Student Life Dean Relationship Specialty Start Date End Date Hilda Cline ANP [address] [place] [address] PCP - General Family Medicine 11/17/20 Todd Figueroa PharmD [address] [place] [address] Pharmacist Internal Medicine 11/24/23 documented as of this encounter
--- OUTSIDE RECORDS SUMMARY | 2025-05-28 11:23 | XMS_ITS | Encounter Summary ---
Author Organization [employer] Address 75 [facility] 7 [place] [address] Care Team Providers Care Gate Person Name Role Phone Hilda Cline Primary Care Provider [phone] Todd Figueroa PharmD Unavailable [phone] Reason for Visit * Reason Comments Med Refill Encounter Details Date Type Department Care Team ([facility] st Contact Info) Description 05/02/2025 Refill [facility] MEDICINE 230 [place], [place] [phone] Hilda Cline ANP 230 [place] [address] Social History Tobacco Use Types Packs/Day Years [...] Description 05/30/2025 10:30 AM EST Medication Management [facility] MEDICINE [address] [place] [address] Todd Figueroa PharmD [address] [place] [address] documented as of this encounter Goals Goal [...] documented as of this encounter Care Teams Gate Person Relationship Specialty Start Date End Date Hilda Cline ANP [address] [place] [address] PCP - General Family Medicine 11/17/20 Todd Figueroa PharmD [address] [place] [address] Pharmacist Internal Medicine 11/24/23 documented as of this encounter
--- OUTSIDE RECORDS SUMMARY | 2025-05-28 11:23 | XMS_ITS | Encounter Summary ---
Author Organization [employer] Address 75 [facility] 7 [place] [address] Care Team Providers Care Electrician Supervisor Substation Name Role Phone Hilda Cline Primary Care Provider [phone] Todd Figueroa PharmD Unavailable [phone] Reason for Visit * Reason Comments Med Refill Encounter Details Date Type Department Care Team (Late st Contact Info) Description 10/10/2023 Refill [facility] MEDICINE 230 [place], [place] [phone] Hilda Cline ANP 230 [place], [place] [phone] Social History Tobacco Use Types Packs/Day Years [...] Description 05/30/2025 10:30 AM EST Medication Management [facility] MEDICINE [address] [place] [address] Todd Figueroa, PharmD [address] [place] [address] documented as of this encounter Goals Goal Patient Goal Type Associated Problems Recent Progress Patient-Stated? Author Hemoglobin A1c < 7 Result Component 8(03/06/2025 9:57 AM EDT) No Declan Kauffman documented as of this encounter Visit Diagnoses Not on filedocumented in this encounter Care Teams Electrician Supervisor Substation Relationship Specialty Start Date End Date Hilda Cline ANP [address] [place] [address] PCP - General Family Medicine 11/17/20 Todd Figueroa, PharmD [address] [place] [address] Pharmacist Internal Medicine 11/24/23 documented as of this encounter
== END 2025-05-28 10:38 | disposition home or self-care (01) ==
LOC: HO.HUSH 09:53
PROVIDERS: PCP Nurse Practitioner Primary Care; Visit Provider Nurse Practitioner Family
DX: E11.69 Type 2 diabetes mellitus with other specified complication (principal); N52.1 Erectile dysfunction due to diseases classified elsewhere; Z13.9 Encounter for screening, unspecified
CPT/HCPCS: 99214; G2211

== ENCOUNTER → 2025-05-28 09:53 | Outpatient (BNVA) | payer OTHER, SELFPAY | PROVIDERS: PCP Nurse Practitioner Primary Care; Visit Provider Nurse Practitioner Family | DX: E11.69 Type 2 diabetes mellitus with other specified complication (principal); N52.1 Erectile dysfunction due to diseases classified elsewhere | CPT/HCPCS: 51798; 81003; 99212 ==

== ENCOUNTER 2025-06-07 09:35 | Outpatient (REF) | payer OTHER, SELFPAY ==
--- OUTSIDE RECORDS SUMMARY | 2025-06-07 10:39 | XMS_ITS | Encounter Summary ---
Author Organization [employer] Address 75 [facility] 7t [place] [address] Care Team Providers Care Director Day Care Center Name Role Phone Hilda Cline Primary Care Provider [phone] Todd Figueroa PharmD Unavailable [phone] Encounter Details Date Type Department Care Team (Latest Contact Info) Description 06/04/2025 Travel Social History Tobacco Use Types Packs/Day [...] the past 12 months, has t he [employer], gas, oil or water [employer] threatened to shut off services in your [...] Care Team (Late st Contact Info) Description 07/04/2025 10:30 AM EST Medication Management [facility] MEDICINE 230 [place] [address] Todd Figueroa PharmD 230 [place] [address] documented as of this encounter Goals Goal Patient Goal Type Associated Problems Recent Progress Patient-Stated? Author Blood Pressure < 140/90 Blood Pressure 122/58(2024 10:28 AM EST) No Todd Figueroa PharmD Hemoglobin A1c < 7 Result Component 8.8( 10:40 AM EST) No Declan Kauffman documented as of this encounter Visit Diagnoses Not on filedocumented in this encounter Additional Health Concerns Assessment Noted Time PHQ-9 Depression Total Score: 7 07/03/20 24 11:53 AM EST documented as of this encounter Care Teams Director Day Care Center Relationship Specialty Start Date End Date Hilda Cline, MAURICE [address] [place] [address] PCP - General Family Medicine 11/17/20 Todd Figueroa, LindsayD [address] [place] [address] Pharmacist Internal Medicine 11/24/23 documented as of this encounter
--- OUTSIDE RECORDS SUMMARY | 2025-06-07 10:39 | XMS_ITS | Encounter Summary ---
Author Organization [employer] Address 75 [facility] 7 [place] [address] Care Team Providers Care Vp Organizational Development Name Role Phone Hilda Cline Primary Care Provider [phone] Todd Figueroa PharmD Unavailable [phone] Reason for Visit * Reason Comments Med Refill Encounter Details Date Type Department Care Team ([facility] st Contact Info) Description 05/02/2025 Refill [facility] MEDICINE 230 [place], [place] [phone] Hilda Cline ANP 230 [place] [address] Social History Tobacco Use Types Packs/Day Years [...] Description 07/04/2025 10:30 AM EST Medication Management [facility] MEDICINE [address] [place] [address] Todd Figueroa PharmD [address] [place] [address] documented as of this encounter Goals Goal [...] documented as of this encounter Care Teams Vp Organizational Development Relationship Specialty Start Date End Date Hilda Cline ANP [address] [place] [address] PCP - General Family Medicine 11/17/20 Todd Figueroa PharmD [address] [place] [address] Pharmacist Internal Medicine 11/24/23 documented as of this encounter
--- OUTSIDE RECORDS SUMMARY | 2025-06-07 10:39 | XMS_ITS | Encounter Summary ---
Author Organization [employer] Address [address] [place] [address], [place] [address] Care Team Providers Care Coke Crane Operator Name Role Phone Hilda Cline Primary Care Provider [phone] Todd Figueroa PharmD Unavailable [phone] Reason for Visit * Reason Comments Med Refill Encounter Details Date Type Department Care Team (Late st Contact Info) Description 11/22/2022 Refill [facility] MEDICINE [address] [place] [address] Hilda Cline ANP 230 [place] [address] Social History Tobacco Use Types Packs/Day Years [...] Description 07/04/2025 10:30 AM EST Medication Management [facility] MEDICINE [address] [place] [address] Todd Figueroa, PharmD 230 [place] [address] documented as of this encounter Visit Diagnoses Not on filedocumented in this encounter Care Teams Coke Crane Operator Relationship Specialty Start Date End Date Hilda Cline ANP [address] [place], [place] [phone] PCP - General Family Medicine 11/17/20 Todd Figueroa PharmD 230 [place] [address] Pharmacist Internal Medicine 11/24/23 documented as of this encounter
--- OUTSIDE RECORDS SUMMARY | 2025-06-07 10:39 | XMS_ITS | Encounter Summary ---
Author Organization [employer] Address 75 [facility] 7 [place] [address] Care Team Providers Care Auto Damage Insurance Appraiser Name Role Phone Hilda Cline Primary Care Provider [phone] Todd Figueroa PharmD Unavailable [phone] Reason for Visit * Reason Onset Date Comments Appointment Request 05/07/2025 Encounter Details Date Type Department Care Team ([facility] st Contact Info) Description 05/07/2025 Telephone [facility] MEDICINE 230 [place], [place] [phone] Hilda Cline ANP [address] [place], [place] [phone] Appointment Request Social History Tobacco Use Types [...] was scheduled on 05/13 Contact pt at [phone] (maori) documented in this encounter Plan of Treatment Upcoming Encounters Date Type Department Care Team (Late st Contact Info) Description 07/04/2025 10:30 AM EST Medication Management [facility] MEDICINE [address] [place] [address] Todd Figueroa PharmD [address] [place] [address] documented as of this encounter Goals Goal [...] documented as of this encounter Care Teams Auto Damage Insurance Appraiser Relationship Specialty Start Date End Date Hilda Cline ANP [address] [place] [address] PCP - General Family Medicine 11/17/20 Todd Figueroa PharmD [address] [place] [address] Pharmacist Internal Medicine 11/24/23 documented as of this encounter
--- OUTSIDE RECORDS SUMMARY | 2025-06-07 10:39 | XMS_ITS | Encounter Summary ---
Author Organization [employer] Address 75 [facility] 7 [place] [address] Care Team Providers Care Marketing Analytics Analyst Name Role Phone Hilda Cline Primary Care Provider [phone] Todd Figueroa PharmD Unavailable [phone] Reason for Visit * Reason Onset Date Comments Med Refill 03/15/2024 Encounter Details Date Type Department Care Team (Late st Contact Info) Description 03/15/2024 Refill [facility] MEDICINE 230 [place], [place] [phone] Hilda Cline ANP 230 [place], [place] [phone] Type 2 diabetes mellitus with hyperlipidemia (CMS/HCC) ([facility]/HCC) Social History Tobacco Use Types Packs/Day Years [...] Description 07/04/2025 10:30 AM EST Medication Management [facility] MEDICINE [address] [place] [address] Todd Figueroa PharmD 230 [place] [address] documented as of this encounter Goals Goal [...] (HCC) documented in this encounter Care Teams Marketing Analytics Analyst Relationship Specialty Start Date End Date Hilda Cline ANP [address] [place] [address] [phone] PCP - General Family Medicine 11/17/20 Todd Figueroa, Ceferino [address] [place] [address] Pharmacist Internal Medicine 11/24/23 documented as of this encounter
--- OUTSIDE RECORDS SUMMARY | 2025-06-07 10:39 | XMS_ITS | Encounter Summary ---
Author Organization [employer] Address [address] [place] [address] Care Team Providers Care Manager Med Surg Name Role Phone Hilda Cline Primary Care Provider [phone] Todd Figueroa PharmD Unavailable [phone] Reason for Referral * Medications - Closed Specialty Diagnoses / Procedures Referred By Contac t Referred To Contact Diagnoses Type 2 diabetes mellitus with hyperlipidemia (HCC) Todd Figueroa PharmD [address] [place], [place] Phone: tel: fax: Referral ID Status Reason Start Date Expiration Date Visits Re quested Visits Authorized [id number] Closed 1 1 * Medications - Closed Specialty Diagnoses / Procedures Referred By Contasael t Referred To Contact Diagnoses Type 2 diabetes mellitus with hyperlipidemia (HCC) Todd Figueroa, PharmD [address] [place] [address] Phone: tel: fax: Referral ID Status Reason Start Date Expiration Date Visits Re quested Visits Authorized [id number] Closed 1 1 Encounter Details Date Type Department Care Team (Late st Contact Info) Description 06/03/2025 Telephone [facility] MEDICINE [address] [place], [place] [phone] Todd Figueroa PharmPranay [address] [place], [place] Social History Tobacco Use Types Packs/Day Years [...] Miscellaneous Notes * Telephone Encounter - Todd Figueroa, PharmD - 06/03/2025 1:25 PM EST Pharmacist prescribing Omnipod 5 Mary Intro kit and pod refills in order to submit prior authorization to [facility]. Once approved pharmacist will send prescriptions for Insulin vials before teaching appointment. documented in this encounter Plan of Treatment Upcoming Encounters Date Type Department Care Team (Late st Contact Info) Description 07/04/2025 10:30 AM EST Medication Management [facility] MEDICINE 230 [place] [address] Todd Figueroa PharmD 230 [place] [address] documented as of this encounter Goals Goal Patient Goal Type Associated Problems Recent Progress Patient-Stated? Author Blood Pressure < 140/90 Blood Pressure 122/58(2024 10:28 AM EST) No Todd Figueroa PharmD Hemoglobin A1c < 7 Result Component 8.8( 10:40 AM EST) No Declan Kauffman documented as of this encounter Visit Diagnoses Diagnosis Type 2 diabetes mellitus with hyperlipidemia (HCC)- Primary documented in this encounter Additional Health Concerns Assessment Noted Time PHQ-9 Depression Total Score: 7 07/03/20 24 11:53 AM EST documented as of this encounter Care Teams Manager Med Surg Relationship Specialty Start Date End Date Hilda Cline ANP [address] [place] [address] PCP - General Family Medicine 11/17/20 Todd Figueroa PharmD [address] [place] [address] Pharmacist Internal Medicine 11/24/23 documented as of this encounter
--- OUTSIDE RECORDS SUMMARY | 2025-06-07 10:39 | XMS_ITS | Encounter Summary ---
Author Organization [employer] Address 75 [facility] 7 [place] [address] Care Team Providers Care Police Patrol Officer Name Role Phone Hilda Cline Primary Care Provider [phone] Todd Figueroa PharmD Unavailable [phone] Reason for Visit * Reason Comments Med Refill Encounter Details Date Type Department Care Team ([facility] st Contact Info) Description 04/03/2025 Refill [facility] MEDICINE 230 [place], [place] [phone] Hilda Cline ANP [address] [place] [address] Social History Tobacco Use Types Packs/Day Years [...] Description 07/04/2025 10:30 AM EST Medication Management [facility] MEDICINE [address] [place] [address] Todd Figueroa PharmD [address] [place] [address] documented as of this encounter Goals Goal [...] documented as of this encounter Care Teams Police Patrol Officer Relationship Specialty Start Date End Date Hilda Cline ANP [address] [place] [address] PCP - General Family Medicine 11/17/20 Todd Figueroa PharmD [address] [place] [address] Pharmacist Internal Medicine 11/24/23 documented as of this encounter
--- OUTSIDE RECORDS SUMMARY | 2025-06-07 10:39 | XMS_ITS | Encounter Summary ---
Author Organization [employer] Address [address] [place] [address] [address], [place] [address] Care Team Providers Care Marketing Technology Specialist Name Role Phone Hilda Cline Primary Care Provider Todd Figueroa PharmD Unavailable [phone] Reason for Visit * Reason Onset Date Comments Med Refill 03/15/2024 Encounter Details Date Type Department Care Team (Late st Contact Info) Description 03/15/2024 Refill [facility] MEDICINE 230 [place], [place] [phone] Lili Johnston MD 230 [place], [place] [phone] Hypertension associated with diabetes (CMS/HCC) ([facility]/HCC) Social History Tobacco Use Types Packs/Day [...] Description 07/04/2025 10:30 AM EST Medication Management [facility] MEDICINE [address] [place], [place] [phone] Todd Figueroa PharmD [address] [place] [address] documented as of this encounter Goals Goal [...] hypertension documented in this encounter Care Teams Marketing Technology Specialist Relationship Specialty Start Date End Date Hilda Cline ANP [address] [place] [address] [phone] PCP - General Family Medicine 11/17/20 Todd Figueroa, Ceferino [address] [place] [address] [phone] Pharmacist Internal Medicine 11/24/23 documented as of this encounter
--- OUTSIDE RECORDS SUMMARY | 2025-06-07 10:39 | XMS_ITS | Data Portability ---
Author Organization [employer] Address [address] [place] [address] Care Team Providers Care Car Pick Up Driver Name Role Phone JOVANI SCHMIDT Primary Care Provider HIM PABLO OTHER Assessment Encounter Date Assessment Date Assessment LastModified by Organization Details LastModified Time 07/05/2024 07/05/2024 I have reviewed and agree with the assessment and plan as documented by the payroll bookkeeper. I provided real-time medical direction for this encounter and was immediately available to provide additional phone-based assistance as needed. History as noted in EMR and by payroll bookkeeper. I would add / emphasize: Patient seen [...] Available No t Available Comfort EZ Pen [place] 32 gauge x 5/16 USE FOR INJECT [...] Available No t Available FreeStyle Mary 2 [place] USE DIRECTED EVERY 8 HOURS active Not [...] Updated DateTime 4 97 % 97 % 65211.7 44 g 97.6 [degF] 16 /min 76 /min 110/60 mm[Hg] Not Available [employer] - production 4 11:15:02 Social History None recorded. Functional Status None recorded. Mental Status None recorded. Family History Nothing Reported. Medical History No medical history recorded. Past Encounters Encounter ID Performer Location Encounter Start Date Encounter Closed Date Diagnosis/Indication Diagnosis SNOMED-CT Code Diagnosis ICD10 Code Diagnosis IMO Codes Diagnosis Note [id number] Adams Cuevas MD Main - [facility] [address] [place] [phone] 07/05/2024 11:15:00 07/09/2024 11:32:59 Upper respiratory infection 70668901 J06.9 Health Concerns Section Related Observation LastModified by Organization Detai ls LastModified Time None Recorded Concern Status LastModified by Organization Details LastModified Time None Recorded Advance Directives Directive None Recorded Payers Insurance Date Sequence Insurance Name Policy Number Policy Whelan Covered Member ID Whelan Member ID Guarantor Name 07/05/2024 1 [facility] - DOS ON OR AFTER 2022 - DUAL ELIGIBLE - RESIDENTIAL OPTIONS AND ONE CARE (MEDICARE REPLACEMENT/ADV ANTAGE - HMO) David Mercado [id number] David Mercado Notes Date Note Type Note [...] cold symptoms, CoughPMH: Asthma, Myocardial InfarctionComments : Silver Recovery Operator verified the patient's name//address and phone number. [...] sentences at time of call, just in [place] . Education provided on the response time and the patient was advised to monitor reported s/s and seek emergency treatment if needed -Roxane Martinez RN .................. .................. .................. .................. .................. .................. .................. ............... Principle Software Engineer Note From Jayant Singh: Pt co continued cough and cold symptoms. Pt was seen in ER and given a care plan/antibiotics/i nhaler. Pt daughter s sts nebulizer machine and albuterol bullets are being picked up today. Pt able to speak in full sentences. Lungs clear bilaterally, good skin color and turgid, afebrile, baseline vitals assessed, WNL . [facility] contacted and advised to co time with current care plan. Pt and daughter educated on signs indicating the ER. Advised if symptoms persist to contact pcp. .................. .................. .................. .................. .................. .................. .................. ............... [facility] Consulted: Adams Cuevas .................. .................. .................. .................. .................. .................. .................. ............... Disposition: Fulfilled Adams Cuevas MD [address] [facility],[address], [place], [address], [employer], [employer] 07/08/2024 10:18:16
--- OUTSIDE RECORDS SUMMARY | 2025-06-07 10:39 | XMS_ITS | Clinical Summary ---
Author Organization [facility] Address [address] [place] [address] Care Team Providers Care Certified Home Health Aide Name Role Phone Unavailable Primary Care Provider [...] mg DR tabletIndications :Coronary artery disease of [place] heart with stable angina pectoris, unspecified vessel or lesion type,[place], old TAKE ONE TABLET BY MOUTH DAILY [...] asthma without complication 04/24/2019 Heart murmur 04/24/2019 [place], old 04/24/2019 Overview (04/24/2019): 2013 x3 with [...]
--- OUTSIDE RECORDS SUMMARY | 2025-06-07 10:39 | XMS_ITS | Encounter Summary ---
Author Organization [employer] Address 75 [facility] 7 [place] [address] Care Team Providers Care Needle Loom Operator Helper Name Role Phone Hilda Cline Primary Care Provider [phone] Todd Figueroa PharmD Unavailable [phone] Reason for Visit * Reason Comments Med Refill Encounter Details Date Type Department Care Team (Late st Contact Info) Description 03/31/2025 Refill [facility] MEDICINE [address] [place], [place] [phone] Hilda Cline ANP [address] [place] [address] Social History Tobacco Use Types Packs/Day Years [...] Description 07/04/2025 10:30 AM EST Medication Management [facility] MEDICINE [address] [place] [phone] Todd Figueroa PharmD [address] [place] [phone] documented as of this encounter Goals Goal [...] documented as of this encounter Care Teams Needle Loom Operator Helper Relationship Specialty Start Date End Date Hilda Cline ANP [address] [place] [address] PCP - General Family Medicine 11/17/20 Todd Figueroa PharmD [address] [place] [phone] Pharmacist Internal Medicine 11/24/23 documented as of this encounter
--- OUTSIDE RECORDS SUMMARY | 2025-06-07 10:39 | XMS_ITS | Encounter Summary ---
Author Organization [employer] Address 75 [facility] 7 [place] [address] Care Team Providers Care Sales And Business Development Manager Name Role Phone Hilda Cline Primary Care Provider [phone] Todd Figueroa PharmD Unavailable [phone] Reason for Visit * Reason Comments Med Refill Encounter Details Date Type Department Care Team (Late st Contact Info) Description 02/13/2024 Refill [facility] MEDICINE 230 [place], [place] [phone] Hilda Cline ANP 230 [place], [place] [phone] Type 2 diabetes mellitus with hyperlipidemia ([facility]/HCC) ([facility]) Social History Tobacco Use Types Packs/Day [...] EST Medication Management [facility] MEDICINE [address] [place] [phone] Todd Figueroa PharmD [address] [place] [phone] documented as of this encounter Goals Goal [...] (HCC) documented in this encounter Care Teams Sales And Business Development Manager Relationship Specialty Start Date End Date Hilda Cline ANP [address] [place] [address] [phone] PCP - General Family Medicine 11/17/20 Todd Figueroa, LindsayD [address] [place] [address] [phone] Pharmacist Internal Medicine 11/24/23 documented as of this encounter
--- OUTSIDE RECORDS SUMMARY | 2025-06-07 10:39 | XMS_ITS | Clinical Summary ---
Author Organization [employer] Address 75 [facility] 7 [place] [address] Care Team Providers Care Celery Wrapper Name Role Phone Hilda Cline Primary Care Provider [phone] Todd Figueroa PharmD Unavailable [phone] Allergies No known active allergies Medications metoprolol [...] 100 g 023 Active Continuous Blood Gluc Addiction Counselor (FreeStyle Mary 2 [place]) deviceIndication s:Type 2 diabetes mellitus with hyperlipidemia (HCC) Scan sensor every 8 hours 1 each 023 Active glucose blood (FreeStyle Precision Claudio Test) test stripIndications :Type 2 diabetes mellitus with hyperlipidemia (HCC) USE TO TEST FINGER STICK BLOOD SUGAR NEEDED FOR hypoglycemia 50 strip 5 025 Active metFORMIN XR (Glucophage-XR) 500 MG 24 hr tabletIndication s:Type 2 diabetes mellitus with hyperlipidemia (HCC) Take one tablet by mouth twice daily. Do not crush, chew, or split. 180 tablet 3 06/05/20 25 9:33 AM EST 025 Active Lancets (OneTouch Delica Plus [id number]) miscIndications: Type 2 diabetes mellitus with hyperlipidemia (HCC) USE TO TEST FINGER STICK BLOOD SUGAR 3 (THREE) TIMES A DAY 100 each 025 Active Arnuity Ellipta 100 MCG/ACT inhalerIndicatio ns:Moderate persistent asthma without complication INHALE 1 PUFF BY MOUTH ONCE DAILY. rinse mouth and throat after use 30 each 06/05/20 25 9:33 AM EST 025 Active lisinopril 40 MG tabletIndication s:Hypertension associated with diabetes (HCC) TAKE 1 TABLET BY MOUTH ONCE DAILY 30 tablet Active albuterol 108 (90 Base) MCG/ACT inhaler INHALE 2 PUFF BY MOUTH EVERY 4 TO 6 HOURS NEEDED FOR SHORTNESS OF BREATH OR FOR WHEEZING 8.5 g 5 06/05/20 9:33 AM EST 025 Active Umeclidinium [place] 62.5 MCG/ACT aerosol powderIndication s:Pulmonary emphysema, unspecified emphysema type Inhale 1 Act (62.5 mcg) Once daily. 30 each 06/05/20 9:33 AM EST 025 Active tadalafil (Cialis) 10 MG tabletIndication s:Vasculogenic erectile dysfunction, unspecified vasculogenic erectile dysfunction type Take 1 tab 60 minutes before sexual intercourse 20 tablet 025 Active empagliflozin (Jardiance) 25 MGIndications:Ty pe 2 diabetes mellitus with hyperlipidemia (HCC) Take 1 tablet (25 mg) by mouth Once daily. 90 tablet 3 06/05/20 9:33 AM EST 025 2025 Active Alcohol Swabs (Alcohol Prep) 70 % pads USE DIRECTED two (2) times a day 100 each 025 Active BD Pen Needle [place] Ultrafine 32G X 4 MM misc USE FOR INJECT insulin 4 (FOUR) TIMES DAILY 100 each 025 Active omeprazole (PriLOSEC) [address] capsuleIndicatio ns:Gastroesophag eal reflux disease, unspecified whether esophagitis present TAKE 1 CAPSULE BY MOUTH ONCE DAILY BEFORE BREAKFAST. do not crush or chew 90 capsule 1 06/05/20 9:33 AM EST 025 Active insulin degludec (Tresiba FlexTouch) 100 UNIT/ML injectionIndicat ions:Type 2 diabetes mellitus with hyperlipidemia (HCC) INJECT 54 UNITS SUBCUTANEOUSLY ONCE DAILY 15 mL 2 06/05/20 25 9:33 AM EST 025 Active rosuvastatin (Crestor) 40 MG tablet TAKE 1 TABLET BY MOUTH ONCE DAILY 30 tablet 8 Active cholecalciferol (Vitamin D-3) 1.25 MG (77640 UT) capsule TAKE 1 CAPSULE BY MOUTH EVERY WEEK 4 capsule 8 Active Aspirin Low Dose 81 MG EC tablet TAKE 1 TABLET BY MOUTH ONCE DAILY 30 tablet 8 Active Continuous Glucose Sensor (FreeStyle Mary 2 Plus Sensor) miscIndications: Type 2 diabetes mellitus with hyperlipidemia (HCC) 1 each every 15 days. Change sensor every 15 days 2 each Active insulin aspart FlexPen (NovoLOG) 100 UNIT/ML penIndications:T ype 2 diabetes mellitus with hyperlipidemia (HCC) INJECT 9 UNITS SUBCUTANEOUSLY IF BG>200 +2 UNITS FOR EVERY 50 POINTS >200. MAXIMUM 18 UNITS DAILY 6 mL 5 Active Eliquis 2.5 MG tablet Take 2.5 mg by mouth 2 times daily. 025 Active Tirzepatide (Mounjaro) 10 MG/0.5ML solution auto-injectorInd ications:Type 2 diabetes mellitus with hyperlipidemia (HCC) Inject 10 mg under the skin 1 (one) time per week. 2 mL 5 06/05/20 25 9:33 AM EST 025 Active Insulin Disposable Pump (Omnipod 5 Libre2 G6 Intro G5) kitIndications:T ype 2 diabetes mellitus with hyperlipidemia (HCC) 1 Device Once per day. Use as directed for insulin administration. One kit = 30 day supply. 1 kit 025 Active Insulin Disposable Pump (Omnipod 5 Libre2 Plus G6 Pods) miscIndications: Type 2 diabetes mellitus with hyperlipidemia (HCC) 1 Device every 3 (three) days. Wear daily for insulin administration. Apply a new pod every 72 hours as directed.) 10 each 11 025 Active Lasix 20 MG tablet Take 1 tablet by mouth if needed each day (weight gain of 2 pounds in one day or 5 pounds in 3 days). 024 2024 Discontinued(M ed list cleanup (will not trigger notification to Pharmacy)) insulin aspart FlexPen (NovoLOG) 100 UNIT/ML penIndications:T ype 2 diabetes mellitus with hyperlipidemia (HCC) INJECT 9 UNITS SUBCUTANEOUSLY if bg > 200. +2 units for every 50 pts > 200. maximum 18 units daily 6 mL 5 025 2024 Discontinued Apixaban Starter Pack (Eliquis DVT/PE Starter Pack) 5 MG tablet therapy packIndications: Chronic deep vein thrombosis (DVT) of left popliteal vein (CMS/HCC) (HCC) Follow instructions on box, 10mg BID for 7d, then 5mg BID 60 each 025 2024 Discontinued(M ed list cleanup (will not trigger notification to Pharmacy)) Continuous Glucose Sensor (FreeStyle Mary 2 Sensor) miscIndications: Type 2 diabetes mellitus with hyperlipidemia (HCC) USE 1 sensor EVERY 14 DAYS 2 each 5 025 2024 Discontinued(M ed list cleanup (will not trigger notification to Pharmacy)) Tirzepatide (Mounjaro) 7.5 MG/0.5ML solution auto-injectorInd ications:Type 2 diabetes mellitus with hyperlipidemia (HCC) INJECT THE CONTENT OF 1 syringe SUBCUTANEOUSLY EACH WEEK 2 mL 025 2024 Discontinued(D ose adjustment) Active Problems Problem Noted Date Diagnosed Date [...] of right ear 04/24/2019 Heart murmur 04/24/2019 SC, old 04/24/2019 Overview (10/21/2022): 2013 x3 with 2 stents placement Moderate persistent asthma without complication 04/24/2019 Vision loss 04/24/2019 Dystrophia unguium 10/19/2018 Onychomycosis 10/19/2018 Pain in toe 10/19/2018 Type 2 diabetes mellitus with hyperlipidemia ([facility]/HCC) 10/19/2018 Callus of toe 10/19/2018 07/14/2023 Resolved Problems Problem Noted Date Diagnosed Date Resolved Date Moderate persistent asthma w ith acute exacerbation 07/14/2023 07/14/2023 11/28/2024 Overview (07/03/2024): [facility] ED visit 06/25/24 for SOB, wheezing. Dx'd w/ flu. Needs nebulizer for home use. Consider need for Arnuity initiation. Encounters Date Type Department Care Team Description 06/04/2025 Travel 06/03/[address] [facility] MEDICINE [address] [place] [address] Todd Figueroa, PharmD 05/30/2025 Travel 05/26/[address] [facility] MEDICINE [address] [place], [place] [phone] Hilda Cline, ANP Type 2 diabetes mellitus with hyperlipidemia (HCC) 05/07/2025 Refill [facility] [address] [place], [place] [address] Laura Thurston, RN Type 2 diabetes mellitus with hyperlipidemia ([facility]) (Primary Dx) 05/07/2025 Telephone [facility] MEDICINE [address], [place] [address] Hilda Cline, ANP Appointment Request 05/02/2025 Refill [facility] [address] [place] [address] Hilda Cline, ANP 04/29/2025 Refill [facility] [address], [place] [address] Todd Figueroa, Ceferino Type 2 diabetes mellitus with hyperlipidemia (HCC) 04/29/2025 Refill [facility] [address], [place] [address] Hilda Cline, ANP 04/03/2025 Refill [facility] [address], [place] [address] Hilda Cline, ANP 03/31/2025 Refill [facility] [address] [place] [address] Hilda Cline, ANP 03/29/2025 Telephone [facility] [address], [place] [address] Hilda Cline, ANP 03/29/2025 Refill [facility] [address], [place] [address] Hilda Cline, ANP 03/27/2025 Refill [facility] [address], [place] [address] Todd Figueroa, Ceferino Type 2 diabetes mellitus with hyperlipidemia ([facility]/HCC) ([facility]) from Last 3 Months Immunizations Immunization Administration Dates Next Due Hep B, adult 03/06/2024,10/28/2023,09/08/2023 Influenza High-dose Quadriva lent Preservative Free 05/06/2023,04/24/2021 Influenza injectable quadriv alent preservative free 04/24/2019 Influenza, High Dose Seasona l, Preservative Free 05/30/2025 Influenza, IIV3, injectable 05/17/2018,0 10/18/2017,06/24/2016,05/09,05/17/2014,10/06/2013 Pfizer Covid-19 Vaccine 12+ 10/28/2023 Pneumococcal Conjugate PCV 13 04/24/2021, 016 Pneumococcal Conjugate PCV 20 08/04/2023 Pneumococcal Polysaccharide PPSV23 07/30/2019, RSV Bivalent 09/08/2023 Tdap 02/10/2022,04/24/2019,01/15/2014 Zoster, Recombinant 06/04/2025,09/08/2023 Zoster, live 06/24/2016 Family History Medical History [...] Sign Reading Time Taken Comments Blood Pressure 122/58 05/30/2025 10:28 AM EST Pulse 73 05/30/2025 10:28 AM EST Temperature 35.4 C (95.7 F) 08/23/2024 11:14 AM EST Respiratory Rate 16 12/04/2024 11:54 AM EDT Oxygen Saturation 98% 08/23/2024 11:14 AM EST Inhaled Oxygen Concentration - - Weight 82.4 kg (181 lb 9.6 oz) 05/30/2025 10:29 AM EST Height 167.6 cm (5' 6 ) 12/04/2024 11:54 AM EDT Body Mass Index 29.31 12/04/2024 11:54 AM EDT Plan of Treatment Upcoming Encounters Date Type Department Care Team (Late st Contact Info) Description 07/04/2025 10:30 AM EST Medication Management [facility] MEDICINE [address] [place] [address] Todd Figueroa, PharmD [address] [place] [address] Health Maintenance Due Date Last Done Comments CT Colonography 1955 FIT DNA/Cologuard 1955 FIT 1955 FOBT 1955 Sigmoidoscopy 1955 Hepatitis A Vaccines (1 of 2 - Risk 2-dose series) 1974 Diabetes: Foot Exam 01/30/2025 01/31/2024, 01/31/2024, 01/31/2024 COVID-19 Vaccine ( season) 2025 10/28/2023, 01/12/2022, 04/29/2021, Additional history exists Depression Screening 07/03/2025 07/03/2024, 07/03/20 24 Lipid Panel 07/03/2025 07/03/2024, 03/26, 04/29/2021 Alcohol/Substance Use Screening 08/23/2025 08/23/2024 Diabetes: Hemoglobin A1C 08/30/2025 025, 03/06/2025, 12/04/2024, Additional history exists SDOH Screening 12/04/2025 12/04/2024 Tobacco Screening 03/01/2026 [...] 09/08/2023 Hepatitis C Screening Completed 02/26/2025, 021 Influenza Vaccine Completed 05/30/2025, , 04/24/2021, Additional history exists Zoster Vaccines Completed 06/04/2025, 08/25, 06/24/2016 HIB Vaccines Aged Out No longer eligi [...] Pressure 122/58(2024 10:28 AM EST) No Todd Figueroa, PharmD Hemoglobin A1c < 7 Result Component 8.8( 10:40 AM EST) No Declan Kauffman Procedures Procedure Name Priority Date/Time Associated Diagnosis Comments POCT GLYCATED HEMOGLOBIN, TOTAL Routine 05/30/2025 10:40 AM EST Type 2 diabetes mellitus with hyperlipidemia (HCC) HEPATITIS B, C PROFILE Routine 02/26/2025 10:19 AM EDT LIPID PANEL, STANDARD Routine 07/03/2024 12:03 PM EST Type 2 diabetes mellitus with hyperlipidemia (CMS/HCC) HM COLONOSCOPY Routine 07/17/2019 from Last 3 Months or Most Recently Relevant to Health Maintenance Results * (ABNORMAL) POCT Hgb A1c (05/30/2025 10:40 AM EST) Hemoglobin A1C 8.8(A) 4.0 - 5.7 % QC Media Lot # [id number] Lot# Expiration Date [id number] Blood 05/30/2025 10:4 0 AM EST us Hilda [facility] POINT OF CARE TEST ENTER/EDIT OR DERABLES Final Result * Hepatitis B, C Profile (02/26/2025 10:19 AM EDT) ~Hepatitis B Surface Antibody NONREACTIVE Nonreactive [facility] Comment:Nonreactive: < 8.00 mIU/mL Hepatitis B Core Antibody Nonreactive Nonreactive [facility] Hepatitis C Antibody Nonreactive Nonreactive [facility] Comment:Antibodies to HCV no t detected; does not exclude early acuteHCV infection. Hepatitis B Surface Ag Negative Negative [facility] 02/26/2025 10:1 9 AM EDT 02/26/2025 1:09 PM EDT Generic External Data Provider LAB BLOOD ORDERAB LES Final Result [facility] [address] [place] [address] [phone] * (ABNORMAL) Lipid Panel, Standard (07/03/2024 12:03 PM EST) Triglycerides 148 <150 mg/dL [facility] Comment:Desirable Triglyceri de: less than 150 mg/dLBorderline High Triglyceride 150-199 mg/dLHigh Triglyceride: 200-499 mg/dLVery High Triglyceride: greater than or equal to 5OO mg/dL Cholesterol 113 <200 mg/dL [facility] Comment:Desirable Cholestero l: less than 200 mg/dLBorderline High Cholesterol: 200-239 mg/dLHigh Cholesterol: greater than 239 mg/dL LDL Cholesterol Calculated 49 <100 mg/dL [facility] Comment:Desirable LDL: less than 100 mg/dLNear Optimal/Above Optimal LDL: 110- 129 mg/dLBorderline High LDL: 130-159 mg/dLHigh LDL: 160-189 mg/dLVery High LDL: greater than or equal to 190 mg/dL HDL Cholesterol 35(L) >40 mg/dL [facility] Comment:Desirable HDL: great er than 40 mg/dL Note: This HDL assay may give artificially low results in patients with liver disease. Blood Venous blood specimen / Unknown 07/03/2024 12:03 PM EST 07/03/2024 1:03 PM EST [facility] LAB BLOOD ORDERABLES Final Resul t [facility] [address] [place] [address] [phone] * Hm Colonoscopy (07/17/2019) Colonoscopy Normal Normal Historical Provider HEALTH MAINTENANCE Final Result from Last 3 Months or Most Recently Relevant to Health Maintenance Insurance [facility] OPTIONS (HMO D-SNP) [facility] STANDARD Care Teams Celery Wrapper Relationship Specialty Start Date End Date Hilda Cline ANP [address] [place] [phone] PCP - General Family Medicine 11/17/20 Todd Figueroa, PharmD [address] [place] [address] Pharmacist Internal Medicine 11/24/23
--- OUTSIDE RECORDS SUMMARY | 2025-06-07 10:39 | XMS_ITS | Encounter Summary ---
Author Organization [employer] Address 75 [facility] 7 [place] [address] Care Team Providers Care Air Transport Professionals Name Role Phone Hilda Cline Primary Care Provider [phone] Todd Figueroa PharmD Unavailable [phone] Reason for Visit * Reason Onset Date Comments Med Refill 12/01/2023 Encounter Details Date Type Department Care Team (Late st Contact Info) Description 12/01/2023 Telephone [facility] MEDICINE [address] [place], [place] [phone] Hilda Cline ANP [address] [place], [place] [phone] Med Refill Social History Tobacco Use Types [...] 14 MG tablet To be sent to: [facility] - [place], [place] - [id number] - [place] - [address] documented in this encounter Plan of Treatment Upcoming Encounters Date Type Department Care Team (Late st Contact Info) Description 07/04/2025 10:30 AM EST Medication Management [facility] MEDICINE [address] [place] [address] Todd Figueroa PharmD [address] [place] [address] documented as of this encounter Goals Goal Patient Goal Type Associated Problems Recent Progress Patient-Stated? Author Blood Pressure < 140/90 Blood Pressure 122/58(2024 10:28 AM EST) No Todd Figueroa, Ceferino Hemoglobin A1c < 7 Result Component 8.8( 5 10:40 AM EST) No Declan Kauffman documented as of this encounter Visit Diagnoses Not on filedocumented in this encounter Care Teams Air Transport Professionals Relationship Specialty Start Date End Date Hilda Cline ANP [address] [place] [address] PCP - General Family Medicine 11/17/20 Todd Figueroa, Ceferino [address] [place] [phone] Pharmacist Internal Medicine 11/24/23 documented as of this encounter
--- OUTSIDE RECORDS SUMMARY | 2025-06-07 10:40 | XMS_ITS | Encounter Summary ---
Author Organization [employer] Address 75 [facility] 7 [place] [address] Care Team Providers Care Demolition Specialist Name Role Phone Hilda Cline Primary Care Provider [phone] Todd Figueroa PharmD Unavailable Reason for Visit * Reason Onset Date Comments Med Refill 09/13/2023 Encounter Details Date Type Department Care Team (Late st Contact Info) Description 09/13/2023 Telephone [facility] MEDICINE [address] [place], [place] [phone] Hilda Cline ANP [address] [place], [place] [phone] Med Refill Social History Tobacco Use Types [...] 7 MG tablet To be sent to: [facility] - [place], [place] - [id number] - [place] - [address] Blank from [facility] informs pt is out of meds and would like to know if medication can be sent out today to finish pt bubble pack . documented in this encounter Plan of Treatment Upcoming Encounters Date Type Department Care Team (Late st Contact Info) Description 07/04/2025 10:30 AM EST Medication Management [facility] MEDICINE [address] [place] [address] Todd Figueroa, PharmD [address] [place] [address] documented as of this encounter Goals Goal Patient Goal Type Associated Problems Recent Progress Patient-Stated? Author Hemoglobin A1c < 7 Result Component 8.8(05/30/2025 10:40 AM EST) No Declan Kauffman documented as of this encounter Visit Diagnoses Not on filedocumented in this encounter Care Teams Demolition Specialist Relationship Specialty Start Date End Date Hilda Cline ANP [address] [place] [address] PCP - General Family Medicine 11/17/20 Todd Figueroa PharmD [address] [place] [address] Pharmacist Internal Medicine 11/24/23 documented as of this encounter
--- OUTSIDE RECORDS SUMMARY | 2025-06-07 10:40 | XMS_ITS | Encounter Summary ---
Author Organization [employer] Address 75 [facility] 7 [place] [address] Care Team Providers Care Flight Coordinator Name Role Phone Hilda Cline Primary Care Provider [phone] Todd Figueroa PharmD Unavailable [phone] Reason for Visit * Reason Comments Med Refill Encounter Details Date Type Department Care Team ([facility] st Contact Info) Description 09/12/2023 Refill [facility] MEDICINE [address] [place], [place] [phone] Hilda Cline ANP [address] [place], [place] [phone] Type 2 diabetes mellitus with hyperlipidemia ([facility]/HCC) Social History Tobacco [...] Description 07/04/2025 10:30 AM EST Medication Management [facility] MEDICINE [address] [place] [address] Todd Figueroa, Ceferino [address] [place] [address] documented as of this encounter Goals Goal Patient Goal Type Associated Problems Recent Progress Patient-Stated? Author Hemoglobin A1c < 7 Result Component 8.8(05/30/2025 10:40 AM EST) No Declan Kauffman documented as of this encounter Visit Diagnoses Diagnosis Type 2 diabetes mellitus with hyperlipidemia (HCC) documented in this encounter Care Teams Flight Coordinator Relationship Specialty Start Date End Date Hilda Cline ANP [address] [place] [phone] PCP - General Family Medicine 11/17/20 Todd Figueroa, PharmD [address] [place] [address] [phone] Pharmacist Internal Medicine 11/24/23 documented as of this encounter
--- OUTSIDE RECORDS SUMMARY | 2025-06-07 10:40 | XMS_ITS | Encounter Summary ---
Author Organization [employer] Address 75 [facility] 7 [place] [address] Care Team Providers Care Atmospheric Drier Tender Name Role Phone Hilda Cline Primary Care Provider [phone] Todd Figueroa PharmD Unavailable [phone] Reason for Visit * Reason Comments Med Refill Encounter Details Date Type Department Care Team (Late st Contact Info) Description 10/10/2023 Refill [facility] MEDICINE [address] [place], [place] [phone] Hilda Cline ANP [address] [place], [place] [phone] Social History Tobacco Use Types Packs/Day Years [...] Description 07/04/2025 10:30 AM EST Medication Management [facility] MEDICINE [address] [place] [phone] Todd Figueroa, LindsayD [address] [place] [address] documented as of this encounter Goals Goal Patient Goal Type Associated Problems Recent Progress Patient-Stated? Author Hemoglobin A1c < 7 Result Component 8.8(05/30/2025 10:40 AM EST) No Declan Kauffman documented as of this encounter Visit Diagnoses Not on filedocumented in this encounter Care Teams Atmospheric Drier Tender Relationship Specialty Start Date End Date Hilda Cline ANP [address] [place] [phone] PCP - General Family Medicine 11/17/20 Todd Figueroa, PharmD [address] [place] [phone] Pharmacist Internal Medicine 11/24/23 documented as of this encounter
--- OUTSIDE RECORDS SUMMARY | 2025-06-07 10:40 | XMS_ITS | Encounter Summary ---
Author Organization [employer] Address [address] [facility] [address] [place] [address] Care Team Providers Care Powertrain Engineer Name Role Phone Hilda Cline Primary Care Provider [phone] Todd Figueroa PharmD Unavailable [phone] Reason for Visit * Reason Comments Med Refill Encounter Details Date Type Department Care Team (Late st Contact Info) Description 03/29/2025 Refill [facility] [address] [place], [place] [phone] Hilda Cline ANP [address] [place] [address] Social History Tobacco Use Types Packs/Day Years [...] Description 07/04/2025 10:30 AM EST Medication Management [facility] [address] [place] [id number] Todd Figueroa PharmD [address] [place] [id number] documented as of this encounter Goals Goal [...] documented as of this encounter Care Teams Powertrain Engineer Relationship Specialty Start Date End Date Hilda Cline ANP [address] [place] [id number] PCP - General Family Medicine 11/17/20 Todd Figueroa PharmD [address] [place] [phone] Pharmacist Internal Medicine 11/24/23 documented as of this encounter
[2025-06-07 13:10] LABS: Appearance Urine Clear; Glucose Urine UA >=1000 mg/dL (Negative); PH 5.5 (5.0-9.0); Specific Gravity - Urine >= 1.030 (1.005-1.025); UMIC TRIGGER UA YES
[2025-06-07 14:07] LABS: Anion Gap 12 (12-20); Blood Urea Nitrogen 27 mg/dL (9-16); Calcium 9.7 mg/dL (8.4-10.2); Carbon Dioxide 24 mmol/L (22-29); Chloride 111 mmol/L (96-108); Estimated Glomerular Filt Rate 38; Potassium 4.4 mmol/L (3.3-5.1); Sodium 143 mmol/L (135-145)
[2025-06-07 14:24] LABS: Microalbum/Creatinine Ratio Ur 9.8 ug/mg cr (<30); Total Protein Urine Random < 7 mg/dL (<12)
== END 2025-06-07 09:36 | disposition home or self-care (01) ==
LOC: HO.HKASLDS 09:35
PROVIDERS: PCP Nurse Practitioner Primary Care; Visit Provider Internal Medicine Critical Care Medicine
DX: I12.9 Hypertensive chronic kidney disease with stage 1 through stage 4 chronic kidney disease, or unspecified chronic kidney disease (principal); E11.22 Type 2 diabetes mellitus with diabetic chronic kidney disease; N18.9 Chronic kidney disease, unspecified; I25.10 Atherosclerotic heart disease of native coronary artery without angina pectoris
CPT/HCPCS: 36415; 80048; 81001; 81003; 82043; 82570; 84156

== ENCOUNTER 2025-06-10 14:38 | Outpatient (AMB) | payer OTHER, SELFPAY ==
--- NOTE | 2025-06-10 14:46 | HO.NEPHOV_ITS ---
Vital Signs 06/10/25 14:49 Height 5 ft 6 in Weight 185 lb 6 oz BMI 29.9 BP 92/50 L Blood Pressure Location Lt brachial Position Sitting Pulse 75 Pulse Source Pulse Oximeter Pulse Oximetry (%) 98 Oxygen Delivery Method Room Air Intake Visit Reasons: 3mon f/u w/labs-Conf Battery Hand Required: Yes Battery Hand Language: Answering Service Telephone Operator Services: Battery Hand Present Battery Hand Name: Herman [id number] Information Interpreted: clinical only Accompanied by: Self / Same As Patient Allergies No Known Allergies Allergy (Verified 06/10/25 14:48) HPI Comments Details: 69-year-old gentleman with past medical history of hypertension, diabetes mellitus, coronary artery disease is here for followup of CKD. Here with daughter Fabiola. Hypertension: on metoprolol succinate 25, lisinopril 40 and amlodipine 5 Diabetes mellitus: since 2011, on degludec and aspart along with metformin. Doesnt check sugars at home, dont have a HbA1c on file. Says the sugars are crazy Coronary artery disease: cardiac catherterization in 2023 showed non obstructive CAD. TTE in 2022 showed EF 50-55%, akinetic apex, mild hypokinetic other fong. DVT: in January 2025, on apixaban 2.5mg He enjoys fishing alot and spends most of summer fishing. PFSH Medical History COPD (chronic obstructive pulmonary disease) Adrenal adenoma GERD (gastroesophageal reflux disease) Fracture of distal end of radius Generalized ischemic myocardial dysfunction Obstructive sleep apnea syndrome Steatosis of liver Diverticulosis Coronary arteriosclerosis in patient with history of previous myocardial infarction Vision loss Moderate persistent asthma without complication Heart murmur Hearing loss of right ear Callus of toe Pain in toe Onychomycosis Dystrophia unguium CAD (coronary artery disease) Old myocardial infarction History of ischemic cardiomyopathy LVH (left ventricular hypertrophy) HTN (hypertension) Hyperlipidemia Type 2 diabetes mellitus without complications Personal history of tobacco use Surgical History Stented coronary artery Hx of cardiac cath History of lung surgery Family History Father Bone cancer Mother No problems noted. Brother Heart problem Brother Heart problem Brother Diabetes Social History Household Members: None Patient Tobacco Use Status: Former Tobacco user Tobacco use type: Cigarette Years Smoked: onset 15yo, 1-2ppd x 41yrs, 60PYH - quit 2011 service: No Current occupational status: unemployed Review of Systems Const Details: Const : no body aches, no chills, no excessive sweating and no fatigue Eyes: no blurry vision and no change in vision ENT: no bleeding gums and no change in voice, no dizziness Card: no chest pain, no shortness of breath, no orthopnea, no PND Resp: no cough, no excessive phlegm production, no SOB GI: no abdominal pain and no nausea, no vomiting : no hematuria, no urinary frequency and no difficulty voiding Musc: no abnormal gait, no bone pain Neuro: no abnormal movements, no weakness Psych: no behavioral changes and no change in appetite Endo: no change in body appearance, no cold intolerance, no excessive sweating and no fatigue Physical Exam General: not in any acute distress, comfortable, sitting on the chair Nutritional Appearance: well nourished and weight Eyes: normal position, no icterus Neck: No lymphadenopathy, no thyromegaly Resp: bilateral air entry equal, no added sounds present Cardio: normal S1, S2 heard, no murmur heard, no edema GI: soft, nontender, no guarding, no hepatosplenomegaly : bladder normal to inspection, bladder normal to palpation, no renal angle tenderness Skin: no rashes or lesions noted and elasticity normal Neuro: oriented to person, oriented to place, oriented to time and moves all extremities Results Reviewed Nephrology Results: Hgb, (14.0-18.0) 11.5 g/dl L 02/22/25 WBC, (4.8-10.8) 7.3 X10*3/uL 02/22/25 Plt Count, (160-400) 389 X10*3/uL 02/22/25 Sodium, (135-145) 143 mmol/L 06/07/25 Potassium, (3.3-5.1) 4.4 mmol/L 06/07/25 Chloride, (96-108) 111 mmol/L H 06/07/25 Carbon Dioxide, (22-29) 24 mmol/L 06/07/25 BUN, (9-16) 27 mg/dL H 06/07/25 Creatinine, (0.5-1.4) 1.79 mg/dL H 06/07/25 Calcium, (8.4-10.2) 9.7 mg/dL 06/07/25 Phosphorus, (2.7-4.5) 2.3 mg/dL L 02/26/25 PTH Intact, (8.7-77.1) 55.8 pg/mL 02/26/25 Urine Protein, (Neg-Trace) Negative mg/dL 06/07/25 Urine Creatinine 70.78 mg/dL 06/07/25 Assessment & Plan Assessment & Plan (1) HTN (hypertension): Code(s): I10 - Essential (primary) hypertension Category: Medical (2) Chronic kidney disease: Code(s): N18.9 - Chronic kidney disease, unspecified Category: Medical Plan Chronic kidney disease stage IIIb : possibly secondary to atherosclerotic vascular disease vs diabetic tubulointerstitial disease - mother, 2 brother had kidney problems but all of them had diabetes too, no history of renal stones in the past, NSAID use. - creatinine 1.79 , GFR 38 - urine microalbumin creatinine ratio: 9.8mg/gm; UPCR <100mg/gm - Urinalysis clean - avoid nephrotoxic medications not limited to NSAIDs, contrast etc. - importance of diet, weight loss, adequate blood pressure control, well explained to patient; stopped smoking 2011. - Negative hepatitis panel, HIV, RAGHAVENDRA, ANCA, complements, SPEP, UPEP, serum free light chains - continue Jardiance 25 for renal protection. Hypertension: - target blood pressures less than 130/90 mm Hg, on lower side this afternoon - compliance: good - continue on lisinopril 40mg, amlodipine 5mg, metoprolol succinate ER 25 - will stop amlodipine and decrease dose of lisinopril to 20mg. Prescription sent to pharmacy Anemia of chronic kidney disease: - Hb 11.5 - TS 11, ferritin levels 31 - will send iron prescription to pharmacy - will talk to him about coloscopy next visit Mineral bone disease: - vitamin-D 92.7 and PTH levels 55.8 Total time spent in the clinic is about 40 minutes, 10 minutes on chart review, review of data, 20 minutes on encounter, physical examination, counseling, answering all the questions, 10 minutes on documentation. Orders: Orders Basic Metabolic Panel 4 Months I10 - Essential (primary) hypertension, N18.9 - Chronic kidney disease, unspecified Total Protein Urine Random 4 Months I10 - Essential (primary) hypertension, N18.9 - Chronic kidney disease, unspecified IRON PROFILE 4 Months I10 - Essential (primary) hypertension, N18.9 - Chronic kidney disease, unspecified UA and rflx microscopic 4 Months I10 - Essential (primary) hypertension, N18.9 - Chronic kidney disease, unspecified Microalbumin, Random (w Creat) 4 Months I10 - Essential (primary) hypertension, N18.9 - Chronic kidney disease, unspecified Complete Blood Count no Diff 4 Months I10 - Essential (primary) hypertension, N18.9 - Chronic kidney disease, unspecified Medications: New lisinopril 20 mg PO DAILY 30 tabs 2RF Discontinued lisinopril Discontinued Reason: Doctor's Order 40 mg PO DAILY 90 days 90 tabs 3RF Coding Level of Care Code Est Pt Level 4 (98532) Diagnoses HTN (hypertension) I10 Chronic kidney disease N18.9
[2025-06-10 14:49] VITALS: BP 92/50; PULSE 75; O2SAT 98; BMI 29.9
== END 2025-06-10 16:19 | disposition home or self-care (01) ==
LOC: HO.HKAS 14:39
PROVIDERS: PCP Nurse Practitioner Primary Care; Visit Provider Internal Medicine Critical Care Medicine
DX: I12.9 Hypertensive chronic kidney disease with stage 1 through stage 4 chronic kidney disease, or unspecified chronic kidney disease (principal); N18.9 Chronic kidney disease, unspecified
CPT/HCPCS: 99214

== ENCOUNTER → 2025-06-10 14:38 | Outpatient (BNVA) | payer OTHER, SELFPAY | PROVIDERS: PCP Nurse Practitioner Primary Care; Visit Provider Internal Medicine Critical Care Medicine | DX: I10 Essential (primary) hypertension (principal); N18.32 Chronic kidney disease, stage 3b; D63.1 Anemia in chronic kidney disease; M85.9 Disorder of bone density and structure, unspecified | CPT/HCPCS: 99212 ==

== ENCOUNTER 2025-07-11 09:50 | Outpatient (REF) | payer OTHER, SELFPAY ==
--- NOTE | ~2025-07-11 | CT_ITS ---
EXAMINATION: CT LOW-DOSE SCREENING CHEST WITHOUT CONTRAST CLINICAL INFORMATION: 70-year-old male, history of smoking, quit 13 years ago, 41 pack years. COMPARISON: 01/31/2024, 10/28/2023. TECHNIQUE: Multidetector volumetric CT imaging of the chest is performed on a Siemens SOMATOM Definition scanner without contrast using low dose technique. Additional 2D coronal and sagittal reformatted images and axial 3D maximum intensity projection (MIP) images are generated on the CT workstation. This CT examination was performed using dose optimization techniques as appropriate, variously including the following: *Automated exposure control *Adjustment of mA and/or kV according to patient size (this includes techniques or standardized protocols for targeted exams where dose is matched to indication/reason for exam; i.e. extremities or head) *Use of iterative reconstruction technique FINDINGS: PULMONARY NODULES: Calcified granuloma right upper lobe mid aspect, unchanged. This is benign. Focus of plaque-like density measuring 12 x 5 mm (series 4, image 62), unchanged and benign. 4 mm subpleural nodule left lower lobe posteriorly (series 4, image 83), unchanged. There are no new or enlarging pulmonary nodules. LUNGS: Mild to moderate centrilobular emphysema with upper lobe predominance, unchanged. Mild scarring in the lingula, and medial left lower lobe, also unchanged. Mild thickening of the small airways suggesting chronic bronchitis. Central airways are patent, with a small amount of mucus present in the right distal trachea. MEDIASTINUM: Normal thyroid. No mediastinal adenopathy or mass. Aorta is mildly calcified and has a normal caliber and course. There is no aneurysm. 2 vessel branching pattern. The pulmonary trunk is normal in size. The esophagus is normal. The heart size is normal. There is no pericardial effusion. CORONARY ARTERY CALCIFICATION: Heavy. CHEST WALL/AXILLA: No abnormal lymph nodes or masses. UPPER ABDOMEN: There is a stable left adrenal adenoma measuring 2.1 cm, unchanged when measured similarly. There is associated hyperplasia of the left adrenal. Very mild fatty infiltration of the liver noted. Mild focal fatty sparing abutting the gallbladder fossa. No focal hepatic lesion. There is moderate to severe fatty atrophy of the pancreas. The remainder of the upper abdominal contents appear normal. OSSEOUS STRUCTURES: There are no suspicious liver or blastic bone lesions evident. Moderate degenerative changes throughout the spine with ventral bridging disc osteophytes, with features suggesting underlying DISH. CT/CT lung screening IMPRESSION: 1. A few scattered stable nodules are present measuring up to 4 mm. No new or enlarging pulmonary nodules. 2. A previously questioned 12 x 5 mm focus of pleural nodularity in the right upper lobe region is an entirely unchanged and benign. 3. Mild to moderate centrilobular emphysema. Mild thickening of the small airways is noted suggesting possible chronic bronchitis. 4. Stable left adrenal adenoma. ASSESSMENT: 1. Lung-RADS Category 2: Benign appearance or behavior of nodules. 2. Lung-RADS Category S: None. RECOMMENDATION: Continued routine annual low-dose CT lung screening in 1 year is recommended. An order for CT CHEST LOW DOSE CANCER SCREENING ([id number]) can be placed. Electronically signed by: Jose Rodrigez MD 07/11/2025 10:48 AM [facility]
--- OUTSIDE RECORDS SUMMARY | 2025-07-11 11:56 | XMS_ITS | Clinical Summary ---
Author Organization [employer] Address [address] [place] [address] 7 [place] [address] Care Team Providers Care Crystal Gazer Name Role Phone Jovani Schmidt Primary Care Provider Todd Figueroa PharmD Unavailable [phone] Allergies No known active allergies Medications metoprolol succinate XL (Toprol-XL) 25 MG 24 hr tablet metoprolol succinate ER 25 mg tablet,extended release 24 hr 021 Active fenofibrate (Tricor) 145 MG tablet Take 145 mg by mouth in the morning. 023 Active Diclofenac Sodium 1 % gel APPLY 2gramos TOPICALLY 4 (FOUR) TIMES DAILY NEEDED FOR PAIN 100 g 023 Active Continuous Blood Gluc Director Pharmacology (FreeStyle Mary 2 [place]) deviceIndication s:Type 2 diabetes mellitus with hyperlipidemia [...] crush, chew, or split. 180 tablet 3 07/03/20 25 9:42 AM EST 025 Active Lancets (OneTouch Delica Plus [id number]) miscIndications: Type 2 diabetes mellitus with hyperlipidemia (HCC) USE TO TEST FINGER STICK BLOOD SUGAR 3 (THREE) TIMES A DAY 100 each 025 Active Arnuity Ellipta 100 MCG/ACT inhalerIndicatio ns:Moderate persistent asthma without complication INHALE 1 PUFF BY MOUTH ONCE DAILY. rinse mouth and throat after use 30 each 07/03/20 25 9:42 AM EST 025 Active Umeclidinium [place] 62.5 MCG/ACT aerosol powderIndication s:Pulmonary emphysema, unspecified emphysema type Inhale 1 Act (62.5 mcg) Once daily. 30 each 07/03/20 25 9:42 AM EST 025 Active tadalafil (Cialis) 10 MG tabletIndication s:Vasculogenic erectile dysfunction, unspecified vasculogenic erectile dysfunction type Take 1 tab 60 minutes before sexual intercourse 20 tablet 025 Active empagliflozin (Jardiance) 25 MGIndications:Ty pe 2 diabetes mellitus with hyperlipidemia (HCC) Take 1 tablet (25 mg) by mouth Once daily. 90 tablet 3 07/03/20 9:42 AM EST 025 2025 Active Alcohol Swabs [...] not crush or chew 90 capsule 1 07/03/20 25 9:42 AM EST 025 Active insulin degludec (Tresiba FlexTouch) 100 UNIT/ML injectionIndicat ions:Type 2 diabetes mellitus with hyperlipidemia (HCC) INJECT 54 UNITS SUBCUTANEOUSLY ONCE DAILY 15 mL 2 06/05/20 9:33 AM EST 025 Active rosuvastatin (Crestor) 40 MG tablet TAKE 1 TABLET BY MOUTH ONCE DAILY 30 tablet 8 025 Active cholecalciferol (Vitamin D-3) 1.25 MG (46328 UT) capsule TAKE 1 CAPSULE BY MOUTH EVERY WEEK 4 capsule 8 025 Active Aspirin Low Dose 81 MG EC tablet TAKE 1 TABLET BY MOUTH ONCE DAILY 30 tablet 8 025 Active Continuous Glucose Sensor (FreeStyle Mary 2 Plus Sensor) miscIndications: Type 2 diabetes mellitus with hyperlipidemia (HCC) 1 each every 15 days. Change sensor every 15 days 2 each 07/02/20 11:10 AM EST 025 Active insulin aspart FlexPen (NovoLOG) 100 UNIT/ML penIndications:T ype 2 diabetes mellitus with hyperlipidemia (HCC) INJECT 9 UNITS SUBCUTANEOUSLY IF BG>200 +2 UNITS FOR EVERY 50 POINTS >200. MAXIMUM 18 UNITS DAILY 6 mL 5 Active Eliquis 2.5 MG tablet Take 2.5 mg by mouth 2 times daily. Active Tirzepatide (Mounjaro) 10 MG/0.5ML solution auto-injectorInd ications:Type 2 diabetes mellitus with hyperlipidemia (HCC) Inject 10 mg under the skin 1 (one) time per week. 2 mL 5 07/03/20 9:42 AM EST 025 Active Insulin Disposable Pump (Omnipod 5 Libre2 G6 Intro G5) kitIndications:T ype 2 diabetes mellitus with hyperlipidemia (HCC) 1 Device Once per day. Use as directed for insulin administration. One kit = 30 day supply. 1 kit 06/25/20 10:06 AM EST 025 Active Insulin Disposable Pump (Omnipod 5 Libre2 Plus G6 Pods) miscIndications: Type 2 diabetes mellitus with hyperlipidemia (HCC) 1 Device every 3 (three) days. Wear daily for insulin administration. Apply a new pod every 72 hours as directed.) 10 each 06/13/20 25 9:37 AM EST 025 Active albuterol 108 (90 Base) MCG/ACT inhaler INHALE 2 PUFF BY MOUTH EVERY 4 TO 6 HOURS NEEDED FOR SHORTNESS OF BREATH OR FOR WHEEZING 8.5 g 5 07/03/20 25 9:42 AM EST 025 Active lisinopril 20 MG tablet Take 20 mg by mouth Once per day. 025 Active Insulin Aspart 100 UNIT/ML solutionIndicati ons:Type 2 diabetes mellitus with hyperlipidemia (HCC) 2 mL (200 Units) every 3rd (third) day. Use to fill Omnipod 5 pods with 2 mL every 3 days as directed. 20 mL Active amLODIPine (Norvasc) 5 MG tablet Take 5 mg by mouth in the morning. 023 2024 Discontinued(M ed list cleanup (will not trigger notification to Pharmacy)) lisinopril 40 MG tabletIndication s:Hypertension associated with diabetes (HCC) TAKE 1 TABLET BY MOUTH ONCE DAILY 30 tablet 11 025 2024 Discontinued(M ed list cleanup (will not trigger notification to Pharmacy)) Insulin Aspart 100 UNIT/ML solutionIndicati ons:Type 2 diabetes mellitus with hyperlipidemia (HCC) 2 mL (200 Units) every 3rd (third) day. Use to fill Omnipod 5 pods with 2 mL every 3 days as directed. 20 mL 025 2024 Discontinued(R eorder (will not trigger notification to Pharmacy)) Insulin Aspart 100 UNIT/ML solutionIndicati ons:Type 2 diabetes mellitus with hyperlipidemia (HCC) 2 mL (200 Units) every 3rd (third) day. Use to fill Omnipod 5 pods with 2 mL every 3 days as directed. 20 mL 06/25/20 25 10:06 AM EST 025 2024 Discontinued(R eorder (will not trigger notification to Pharmacy)) Active Problems Problem Noted Date Diagnosed Date [...] of right ear 04/24/2019 Heart murmur 04/24/2019 CT, old 04/24/2019 Overview (10/21/2022): 2013 x3 with 2 stents placement Moderate persistent asthma without complication 04/24/2019 Vision loss 04/24/2019 Dystrophia unguium 10/19/2018 Onychomycosis 10/19/2018 Pain in toe 10/19/2018 Type 2 diabetes mellitus with hyperlipidemia (CM S/HCC) 10/19/2018 Callus of toe 10/19/2018 07/14/2023 Resolved Problems Problem Noted Date Diagnosed Date Resolved Date Moderate persistent asthma w ith acute exacerbation 07/14/2023 07/14/2023 11/28/2024 Overview (07/03/2024): [facility] ED visit 06/25/24 for SOB, wheezing. Dx'd w/ flu. Needs nebulizer for home use. Consider need for Arnuity initiation. Encounters Date Type Department Care Team Description 07/05/2025 10:00 AM EST Telemedicine [facility] [address] [place], [place] [phone] Todd Figueroa, LindsayD Type 2 diabetes mellitus with hyperlipidemia (HCC) (Primary Dx) 07/03/2025 Telephone [facility] [address] [place], [place] [phone] Jovani Schmidt ANP Med Refill 07/02/2025 Orders Only [facility] [address] [place], [place] [phone] Constantino Carson MD Type 2 diabetes mellitus with hyperlipidemia (CMS/HCC) (Primary Dx) 07/02/2025 Refill [facility] [address] [facility] [place] [address] Jovani Schmidt ANP 06/28/2025 2:30 PM EST Telemedicine [facility] [address] [facility] [place] [address] Todd Figueroa, Ceferino Type 2 diabetes mellitus with hyperlipidemia (HCC) (Primary Dx) 06/21/2025 Refill [facility] [address] [facility] [place] [address] Todd Figueroa, Ceferino Type 2 diabetes mellitus with hyperlipidemia (HCC) 06/13/2025 Telephone [facility] [address] [facility] [place] [address] Todd Figueroa, Ceferino 06/10/2025 Refill [facility] [address] [place] [address] Jovani Schmidt ANP 06/07/2025 Orders Only GENERIC EXTERNAL DATA DEPARTMENT Provider, Generic External Data 06/04/2025 Travel 06/03/2025 Telephone [facility] [address] [facility] [place] [address] Todd Figueroa, PharmPranay 05/30/2025 Travel 05/26/2025 Refill [facility] [address] [facility] [place] [address] Jovani Schmidt ANP Type 2 diabetes mellitus with hyperlipidemia (HCC) 05/07/2025 Refill [facility] [address] [facility] [place] [address] Laura Thurston, COCO Type 2 diabetes mellitus with hyperlipidemia (CMS/HCC) (Primary Dx) 05/07/2025 Telephone [facility] [address] [facility] [place] [address] Jovani Schmidt ANP Appointment Request 05/02/2025 Refill [facility] [address] [facility] [place] [address] Jovani Schmidt ANP 04/29/2025 Refill [facility] [address] [place] [address] Todd Figueroa, Ceferino Type 2 diabetes mellitus with hyperlipidemia (HCC) 04/29/2025 Refill [facility] [address] [place] [address] Jovani Schmidt ANP from Last 3 Months Immunizations Immunization Administration [...] Care Team (Late st Contact Info) Description 07/22/2025 11:30 AM EST Telemedicine [facility] [address] [place], [place] [phone] Todd Figueroa, PharmD [address] [place] [address] Health Maintenance Due Date Last Done Comments [...] 8.8( 10:40 AM EST) No Declan Kauffman Help patients manage their type 2 diabetes Care Plan Help patients manage their type 2 diabetes No Todd Figueroa, PharmD Weekly blood pressure task Care Plan Weekly blood pressure task No Todd Figueroa, PharmD Help patients manage their type 2 diabetes Care Plan Help patients manage their type 2 diabetes No Todd Figueroa, PharmD Patient has chronic kidney disease Care Plan Patient has chronic kidney disease No FigueroaTodd, PharmD Weekly blood pressure task Care Plan Weekly blood pressure task No FigueroaTodd, PharmD Patient has chronic kidney disease Care Plan Patient has chronic kidney disease No FigueroaTodd, PharmD Weekly blood pressure task Care Plan Weekly blood pressure task No FigueroaTodd, PharmD Weekly blood pressure task Care Plan Weekly blood pressure task No FigueroaTodd, PharmD Patient has chronic kidney disease Care Plan Patient has chronic kidney disease No FigueroaTodd, PharmD Patient has chronic kidney disease Care Plan Patient has chronic kidney disease No FigueroaMeryTodd, PharmD Weekly blood pressure task Care Plan Weekly blood pressure task No FigueroaMeryTodd, PharmD Weekly blood pressure task Care Plan Weekly blood pressure task No FigueroaMeryTodd, PharmD Patient has chronic kidney disease Care Plan Patient has chronic kidney disease No FigueroaMeryTodd, PharmD Patient has chronic kidney disease Care Plan Patient has chronic kidney disease No FigueroaTodd, PharmD Weekly blood pressure task Care Plan Weekly blood pressure task No FigueroaTodd, PharmD Weekly blood pressure task Care Plan Weekly blood pressure task No Todd Figueroa PharmD Patient has chronic kidney disease Care Plan Patient has chronic kidney disease No Todd Figueroa PharmD Patient has chronic kidney disease Care Plan Patient has chronic kidney disease No Todd Figueroa PharmD Weekly blood pressure task Care Plan Weekly blood pressure task No Constantino Carson MD Weekly blood pressure task Care Plan Weekly blood pressure task No Constantino Carson MD Patient has chronic kidney disease Care Plan Patient has chronic kidney disease No Constantino Carson MD Patient has chronic kidney disease Care Plan Patient has chronic kidney disease No Constantino Carson MD Weekly blood pressure task Care Plan Weekly blood pressure task No Gutierrez, Jenny, [place] P[place] Weekly blood pressure task Care Plan Weekly blood pressure task No Gutierrez Jenny, [place] [employer] Patient has chronic kidney disease Care Plan Patient has chronic kidney disease No Gutierrez, Jenny, [place] Patient has chronic kidney disease Care Plan Patient has chronic kidney disease No Gutierrez Jenny, [place] [employer] Weekly blood pressure task Care Plan Weekly blood pressure task No Todd Figueroa PharmD Weekly blood pressure task Care Plan Weekly blood pressure task No Todd Figueroa PharmD Patient has chronic kidney disease Care Plan Patient has chronic kidney disease No Todd Figueroa PharmD Patient has chronic kidney disease Care Plan Patient has chronic kidney disease No Todd Figueroa PharmD Procedures Procedure Name Priority Date/Time Associated Diagnosis Comments LDCT LUNG SCREENING Routine 07/11/2025 1 0:11 AM EST URINE PROTEIN, TOTAL, RANDOM (W/O CREATININE) Routine 06/07/2025 9:42 AM EST ALBUMIN, RANDOM URINE W/CREATININE Routine 06/07/2025 9:42 AM EST BASIC METABOLIC PANEL Routine 06/07/2025 9:42 AM EST URINALYSIS, COMPLETE (INCLUDES MACRO AND MICRO) Routine 06/07/2025 9:42 AM EST POCT GLYCATED HEMOGLOBIN, TOTAL Routine 05/30/2025 10:40 AM EST Type 2 diabetes mellitus with hyperlipidemia (HCC) HEPATITIS B, C PROFILE Routine 02/26/2025 10:19 AM EDT LIPID PANEL, STANDARD Routine 07/03/2024 12:03 PM EST Type 2 diabetes mellitus with hyperlipidemia (CMS/HCC) HM COLONOSCOPY Routine 07/17/2019 from Last 3 Months or Most Recently Relevant to Health Maintenance Results * CT Lung Screening Low dose (07/11/2025 10:11 AM EST) Anatomical Region Laterality Modality Lung Computed Tomogra phy 07/11/2025 10:1 1 AM EST Narrative 07/11/2025 10:51 AM EST [place] [id number] CT Scan Report Signed Patient: David Gallagher MR#: [id number] 3 : 1955 Acct:[id number] Age/Sex: 70 / M ADM Date: 07/11/25 Loc: HO.CT Attending Dr: Cortney Carrera PA-C Ordering Physician: Cortney Carrera PA-C Date of Service: 07/11/25 Procedure(s): CT lung screening Accession Number(s): [id number] cc: Cortney Carrera PA-C; JOVANI SCHMIDT NP Report Number: [id number]: Total DLP = 57.00 mGy-cm Reason for Exam: Z87.891 - Personal history of nicotine dependence EXAMINATION: CT LOW-DOSE SCREENING CHEST WITHOUT CONTRAST CLINICAL INFORMATION: 70-year-old male, history of smoking, quit 13 years ago, 41 pack years. COMPARISON: 01/31/2024, 10/28/2023. TECHNIQUE: Multidetector volumetric CT imaging of the chest is performed on a Siemens SOMATOM Definition scanner without contrast using low dose technique. Additional 2D coronal and sagittal reformatted images and axial 3D maximum intensity projection (MIP) images are generated on the CT workstation. This CT examination was performed using dose optimization techniques as appropriate, variously including the following: *Automated exposure control *Adjustment of mA and/or kV according to patient size (this includes techniques or standardized protocols for targeted exams where dose is matched to indication/reason for exam; i.e. extremities or head) *Use of iterative reconstruction technique FINDINGS: PULMONARY NODULES: Calcified granuloma right upper lobe mid aspect, unchanged. This is benign. Focus of plaque-like density measuring 12 x 5 mm (series 4, image 62), unchanged and benign. 4 mm subpleural nodule left lower lobe posteriorly (series 4, image 83), unchanged. There are no new or enlarging pulmonary nodules. LUNGS: Mild to moderate centrilobular emphysema with upper lobe predominance, unchanged. Mild scarring in the lingula, and medial left lower lobe, also unchanged. Mild thickening of the small airways suggesting chronic bronchitis. Central airways are patent, with a small amount of mucus present in the right distal trachea. MEDIASTINUM: Normal thyroid. No mediastinal adenopathy or mass. Aorta is mildly calcified and has a normal caliber and course. There is no aneurysm. 2 vessel branching pattern. The pulmonary trunk is normal in size. The esophagus is normal. The heart size is normal. There is no pericardial effusion. CORONARY ARTERY CALCIFICATION: Heavy. CHEST WALL/AXILLA: No abnormal lymph nodes or masses. UPPER ABDOMEN: There is a stable left adrenal adenoma measuring 2.1 cm, unchanged when measured similarly. There is associated hyperplasia of the left adrenal. Very mild fatty infiltration of the liver noted. Mild focal fatty sparing abutting the gallbladder fossa. No focal hepatic lesion. There is moderate to severe fatty atrophy of the pancreas. The remainder of the upper abdominal contents appear normal. OSSEOUS STRUCTURES: There are no suspicious liver or blastic bone lesions evident. Moderate degenerative changes throughout the spine with ventral bridging disc osteophytes, with features suggesting underlying DISH. CT/CT lung screening IMPRESSION: 1. A few scattered stable nodules are present measuring up to 4 mm. No new or enlarging pulmonary nodules. 2. A previously questioned 12 x 5 mm focus of pleural nodularity in the right upper lobe region is an entirely unchanged and benign. 3. Mild to moderate centrilobular emphysema. Mild thickening of the small airways is noted suggesting possible chronic bronchitis. 4. Stable left adrenal adenoma. ASSESSMENT: 1. Lung-RADS Category 2: Benign appearance or behavior of nodules. 2. Lung-RADS Category S: None. RECOMMENDATION: Continued routine annual low-dose CT lung screening in 1 year is recommended. An order for CT CHEST LOW DOSE CANCER SCREENING ([id number]) can be placed. 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 Note Donotuseinterpreter, Image - 07/11/[address] [place] [id number] [address] Scan Report Signed Patient: Ismael Gallagher#: [id number] 3 : 5Acct:[id number] Age/Sex: 70 / MADM Date: 07/11/25 Loc: .CT Attending Dr: Cortney Carrera PA-C Ordering Physician: Cortney Carrera PA-C Date of Service: 07/11/25 Procedure(s): CT lung screening Accession Number(s): [id number] cc: Cortney Carrera PA-C; JOVANI SCHMIDT NP Report Number: [id number]: Total DLP = 57.00 mGy-cm Reason for Exam: Z87.891 - Personal history of nicotine dependence EXAMINATION: CT LOW-DOSE SCREENING CHEST WITHOUT CONTRAST CLINICAL INFORMATION: 70-year-old male, history of smoking, quit 13 years ago, 41 pack years. COMPARISON: 01/31/2024, 10/28/2023. TECHNIQUE: Multidetector volumetric CT imaging of the chest is performed on a Siemens SOMATOM Definition scanner without contrast using low dose technique. Additional 2D coronal and sagittal reformatted images and axial 3D maximum intensity projection (MIP) images are generated on the CT workstation. This CT examination was performed using dose optimization techniques as appropriate, variously including the following: *Automated exposure control *Adjustment of mA and/or kV according to patient size (this includes techniques or standardized protocols for targeted exams where dose is matched to indication/reason for exam; i.e. extremities or head) *Use of iterative reconstruction technique FINDINGS: PULMONARY NODULES: Calcified granuloma right upper lobe mid aspect, unchanged. This is benign. Focus of plaque-like density measuring 12 x 5 mm (series 4, image 62), unchanged and benign. 4 mm subpleural nodule left lower lobe posteriorly (series 4, image 83), unchanged. There are no new or enlarging pulmonary nodules. LUNGS: Mild to moderate centrilobular emphysema with upper lobe predominance, unchanged. Mild scarring in the lingula, and medial left lower lobe, also unchanged. Mild thickening of the small airways suggesting chronic bronchitis. Central airways are patent, with a small amount of mucus present in the right distal trachea. MEDIASTINUM: Normal thyroid. No mediastinal adenopathy or mass. Aorta is mildly calcified and has a normal caliber and course. There is no aneurysm. 2 vessel branching pattern. The pulmonary trunk is normal in size. The esophagus is normal. The heart size is normal. There is no pericardial effusion. CORONARY ARTERY CALCIFICATION: Heavy. CHEST WALL/AXILLA: No abnormal lymph nodes or masses. UPPER ABDOMEN: There is a stable left adrenal adenoma measuring 2.1 cm, unchanged when measured similarly. There is associated hyperplasia of the left adrenal. Very mild fatty infiltration of the liver noted. Mild focal fatty sparing abutting the gallbladder fossa. No focal hepatic lesion. There is moderate to severe fatty atrophy of the pancreas. The remainder of the upper abdominal contents appear normal. OSSEOUS STRUCTURES: There are no suspicious liver or blastic bone lesions evident. Moderate degenerative changes throughout the spine with ventral bridging disc osteophytes, with features suggesting underlying DISH. CT/CT lung screening IMPRESSION: 1. A few scattered stable nodules are present measuring up to 4 mm. No new or enlarging pulmonary nodules. 2. A previously questioned 12 x 5 mm focus of pleural nodularity in the right upper lobe region is an entirely unchanged and benign. 3. Mild to moderate centrilobular emphysema. Mild thickening of the small airways is noted suggesting possible chronic bronchitis. 4. Stable left adrenal adenoma. ASSESSMENT: 1. Lung-RADS Category 2: Benign appearance or behavior of nodules. 2. Lung-RADS Category S: None. RECOMMENDATION: Continued routine annual low-dose CT lung screening in 1 year is recommended. An order for CT CHEST LOW DOSE CANCER SCREENING ([id number]) can be placed. 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 [facility] External Provider IMG CT PROCEDURES Edited Result - Final * Albumin, Random Urine W/Creatinine (06/07/2025 9:42 AM EST) Creatinine, Urine 70.78 mg/dL [facility] Microalbumin Urine 7.0 mg/L [facility] Microalbum Creatinine Ratio Ur 9.8 <30 ug/mg cr [facility] Comment:Albumin/Creatinine R atio Reference Ranges: Normal: < 30 ug/mg creatinine Microalbuminuria: 30 - 300 ug/mg creatinineClinical Albuminuria: > 300 ug/mg creatinine 06/07/2025 9:42 AM EST 06/07/2025 12:52 PM EST Generic External Data Provider LAB URINE ORDERAB LES Final Result Performing Organization Address [facility] Co de Phone Number [facility] [address] [place] [phone] * Urine Protein, Total, Random without Creatinine (06/07/2025 9:42 AM EST) Protein, Total, Random Urine <7 <12 mg/dL [facility] 06/07/2025 9:42 AM EST 06/07/2025 12:52 PM EST Generic External Data Provider LAB URINE ORDERAB LES Final Result Performing Organization Address [facility] Co de Phone Number [facility] [address] [place] [phone] * (ABNORMAL) Urinalysis Complete (06/07/2025 9:42 AM EST) Color Urine Yellow [facility] Appearance Urine Clear [facility] PH 5.5 5.0 - 9.0 [facility] Glucose Urine UA >=1000(A) Negative mg/dL [facility] Urine Blood Negative Negative [facility] Specific [place] - Urine >=1.030(H) 1.005 - 1.025 [facility] Urine Protein Negative Neg-Trace mg/dL [facility] Urine Ketones Negative Negative mg/dL [facility] Nitrite Urine Negative Negative [facility] Leukocyte Esterase Urine Negative Negative [facility] RBC Urine 0-2 0 - 2 /HPF [facility] Urine WBC 0-5 0 - 5 /HPF [facility] Urine Squamous Epithelial Cell 0-2 0 - 2 /HPF [facility] Urine Bacteria None Seen None Seen [facility] Hyaline Casts, Urine 0-2 0 - 2 /LPF [facility] 06/07/2025 9:42 AM EST 06/07/2025 12:52 PM EST us Generic External Data Provider LAB URINE ORDERAB LES Final Result Performing Organization Address City/State/[facility] Co de Phone Number [facility] [address] [place] [phone] * (ABNORMAL) Basic Metabolic Panel (06/07/2025 9:42 AM EST) Pathologist [facility] Sodium 143 135 - 145 mmol/L [facility] Potassium 4.4 3.3 - 5.1 mmol/L [facility] Chloride 111(H) 96 - 108 mmol/L [facility] Carbon Dioxide 24 22 - 29 mmol/L [facility] Anion Gap 12 12 - 20 [facility] Urea Nitrogen (BUN) 27(H) 9 - 16 mg/dL [facility] Creatinine, Serum 1.79(H) 0.5 - 1.4 mg/dL [facility] Estimated Glomerular Filt Rate 38 [facility] Comment:Chronic Kidney Disea se: Estimated GFR < 60 mL/min/[id number] Kidney Disease: Estimated GFR < 15 mL/min/1.73m2 Glucose 211(H) 60 - 115 mg/dL [facility] Calcium 9.7 8.4 - 10.2 mg/dL [facility] 06/07/2025 9:42 AM EST 06/07/2025 1:21 PM EST Generic External Data Provider LAB BLOOD ORDERAB LES Final Result Performing Organization Address [facility]/ZIP Co de Phone Number [facility] [address] [place] [phone] * (ABNORMAL) POCT Hgb A1c (05/30/2025 10:40 AM EST) Pathologist [facility] Hemoglobin A1C 8.8(A) 4.0 - 5.7 % QC Media Lot # [id number] Lot# Expiration Date Blood 05/30/2025 10:4 0 AM EST us Jovani Schmidt ANP POINT OF CARE TEST ENTER/EDIT OR DERABLES Final Result * Hepatitis B, C Profile (02/26/2025 10:19 AM EDT) Pathologist [facility] ~Hepatitis B Surface Antibody NONREACTIVE Nonreactive [facility] Comment:Nonreactive: < 8.00 mIU/mL Hepatitis B Core Antibody Nonreactive Nonreactive [facility] Hepatitis C Antibody Nonreactive Nonreactive [facility] Comment:Antibodies to HCV no t detected; does not exclude early acuteHCV infection. Hepatitis B Surface Ag Negative Negative [facility] 02/26/2025 10:1 9 AM EDT 02/26/2025 1:09 PM EDT Generic External Data Provider LAB BLOOD ORDERAB LES Final Result Performing Organization Address [facility]/ZIP Co de Phone Number [facility] [address] [place] [phone] * (ABNORMAL) Lipid Panel, Standard (07/03/2024 12:03 PM EST) Triglycerides 148 <150 mg/dL [facility] Comment:Desirable Triglyceri de: less than 150 mg/dLBorderline High Triglyceride 150-199 mg/dLHigh Triglyceride: 200-499 mg/dLVery High Triglyceride: greater than or equal to 5OO mg/dL Cholesterol 113 <200 mg/dL [facility] Comment:Desirable Cholestero l: less than 200 mg/dLBorderline High Cholesterol: 200-239 mg/dLHigh Cholesterol: greater than 239 mg/dL LDL Cholesterol Calculated 49 <100 mg/dL [facility] Comment:Desirable LDL: less than 100 mg/dLNear Optimal/Above Optimal LDL: 110- 129 mg/dLBorderline High LDL: 130-159 mg/dLHigh LDL: 160-189 mg/dLVery High LDL: greater than or equal to 190 mg/dL HDL Cholesterol 35(L) >40 mg/dL [facility] Comment:Desirable HDL: great er than 40 mg/dL Note: This HDL assay may give artificially low results in patients with liver disease. Blood Venous blood specimen / Unknown 07/03/2024 12:03 PM EST 07/03/2024 1:03 PM EST [facility] LAB BLOOD ORDERABLES Final Resul t [facility] [address] [place] [address] [phone] * Hm Colonoscopy (07/17/2019) Colonoscopy Normal Normal Historical Provider MD HEALTH MAINTENANCE Final Result from Last 3 Months or Most Recently Relevant to Health Maintenance Additional Health Concerns Active Problems Noted Date Diagnosed Date Help patients manage their type 2 diabetes 06/13 Weekly blood pressure task 06/13/2025 Help patients manage their type 2 diabetes 06/13 Patient has chronic kidney disease 06/13/2025 Weekly blood pressure task 06/13/2025 Patient has chronic kidney disease 06/13/2025 Weekly blood pressure task 06/24/2025 Weekly blood pressure task 06/24/2025 Patient has chronic kidney disease 06/24/2025 Patient has chronic kidney disease 06/24/2025 Weekly blood pressure task 06/25/2025 Weekly blood pressure task 06/25/2025 Patient has chronic kidney disease 06/25/2025 Patient has chronic kidney disease 06/25/2025 Weekly blood pressure task 06/28/2025 Weekly blood pressure task 06/28/2025 Patient has chronic kidney disease 06/28/2025 Patient has chronic kidney disease 06/28/2025 Weekly blood pressure task 07/02/2025 Weekly blood pressure task 07/02/2025 Patient has chronic kidney disease 07/02/2025 Patient has chronic kidney disease 07/02/2025 Weekly blood pressure task 07/03/2025 Weekly blood pressure task 07/03/2025 Patient has chronic kidney disease 07/03/2025 Patient has chronic kidney disease 07/03/2025 Weekly blood pressure task 07/05/2025 Weekly blood pressure task 07/05/2025 Patient has chronic kidney disease 07/05/2025 Patient has chronic kidney disease 07/05/2025 Insurance [id number] SKILLED NURSING OPTIONS (O D-SNP) [place] [id number] [facility] Care Teams Crystal Gazer Relationship Specialty Start Date End Date Jovani Schmidt ANP [address] [place] [address] PCP - General Family Medicine 11/17/20 Todd Figueroa, LindsayD [address] [place] [address] Pharmacist Internal Medicine 11/24/23
--- OUTSIDE RECORDS SUMMARY | 2025-07-11 11:56 | XMS_ITS | Encounter Summary ---
Author Organization [employer] Address 75 [facility] 7 [place] [address] Care Team Providers Care Archives Technician Name Role Phone Hilda Cline Primary Care Provider [phone] Todd Figueroa PharmD Unavailable [phone] Reason for Visit * Reason Comments Med Refill Encounter Details Date Type Department Care Team ([facility] st Contact Info) Description 07/02/2025 Refill [facility] [address] [place], [place] [phone] Hilda Cline ANP [address] [place] [address] Social History Tobacco Use Types Packs/Day Years [...] Info) Description 07/22/2025 11:30 AM EST Telemedicine [facility] [address] [place] [address] Todd Fgiueroa PharmD [address] [place] [address] documented as of this encounter Goals Goal Patient Goal Type Associated Problems Recent Progress Patient-Stated? Author Blood Pressure < 140/90 Blood Pressure 122/58(2024 10:28 AM EST) No Todd Figueroa PharmD Hemoglobin A1c < 7 Result Component 8.8( 10:40 AM EST) No Declan Kauffman Help patients manage their type 2 diabetes Care Plan Help patients manage their type 2 diabetes No Todd Figueroa PharmPranay Weekly blood pressure task Care Plan Weekly blood pressure task No Todd Figueroa PharmPranay Help patients manage their type 2 diabetes Care Plan Help patients manage their type 2 diabetes No Todd Figueroa, PharmD Patient has chronic kidney disease Care Plan Patient has chronic kidney disease No Todd Figueroa, PharmD Weekly blood pressure task Care Plan Weekly blood pressure task No Todd Figueroa PharmPranay Patient has chronic kidney disease Care Plan Patient has chronic kidney disease No Todd Figueroa PharmPranay Weekly blood pressure task Care Plan Weekly blood pressure task No Todd Figueroa PharmD Weekly blood pressure task Care Plan Weekly blood pressure task No Todd Figueroa PharmD Patient has chronic kidney disease Care Plan Patient has chronic kidney disease No Todd Figueroa PharmD Patient has chronic kidney disease Care Plan Patient has chronic kidney disease No FigueroaTodd vallejo, PharmD Weekly blood pressure task Care Plan [...] has chronic kidney disease No Todd Figueroa PharmPranay Patient has chronic kidney disease Care Plan Patient has chronic kidney disease No Todd Figueroa PharmPranay Weekly blood pressure task Care Plan Weekly blood pressure task No Constantino Carson MD Weekly blood pressure task Care Plan Weekly blood pressure task No Constantino Carson MD Patient has chronic kidney disease Care Plan Patient has chronic kidney disease No Constantino Carson MD Patient has chronic kidney disease Care Plan Patient has chronic kidney disease No Constantino Carson MD documented as of this encounter Visit Diagnoses Not on filedocumented in this encounter Additional Health Concerns Active Problems Noted Date [...] 07/02/2025 Patient has chronic kidney disease 07/02/2025 Assessment Noted Time PHQ-9 Depression Total Score: 7 07/03/20 24 11:53 AM EST documented as of this encounter Care Teams Archives Technician Relationship Specialty Start Date End Date Hilda Cline ANP [address] [place] [address] PCP - General Family Medicine 11/17/20 Todd Figueroa, LindsayD [address] [place] [address] Pharmacist Internal Medicine 11/24/23 documented as of this encounter
--- OUTSIDE RECORDS SUMMARY | 2025-07-11 11:56 | XMS_ITS | Encounter Summary ---
Author Organization [employer] Address 75 [facility] 7 [place] [address] Care Team Providers Care Director Of Business Operations Name Role Phone Hilda Cline Primary Care Provider [phone] Todd Figueroa PharmD Unavailable [phone] Reason for Visit * Reason Comments Med Refill Encounter Details Date Type Department Care Team ([facility] st Contact Info) Description 05/02/2025 Refill [facility] 230 [place], [place] [phone] Hilda Cline ANP [address] [place] [address] Social History Tobacco Use Types Packs/Day Years [...] Info) Description 07/22/2025 11:30 AM EST Telemedicine [facility] [address] [place] [phone] Todd Figueroa PharmD [address] [place] [address] documented as of this encounter Goals Goal [...] as of this encounter Care Teams Director Of Business Operations Relationship Specialty Start Date End Date Hilda Cline ANP [address] [place] [address] PCP - General Family Medicine 11/17/20 Todd Figueroa PharmD [address] [place] [address] Pharmacist Internal Medicine 11/24/23 documented as of this encounter
--- OUTSIDE RECORDS SUMMARY | 2025-07-11 11:56 | XMS_ITS | Encounter Summary ---
Author Organization [email or web address] Address 75 [facility] 7 [place] [address] Care Team Providers Care Rn Pain Management Name Role Phone Hilda Cline Primary Care Provider [phone] Todd Figueroa PharmD Unavailable Reason for Visit * Reason Comments Med Refill Encounter Details Date Type Department Care Team ([facility] st Contact Info) Description 04/03/2025 Refill [facility] [address] [place], [place] [phone] Hilda Cline ANP [address] [place] [address] Social History Tobacco Use Types Packs/Day Years [...] Info) Description 07/22/2025 11:30 AM EST Telemedicine [facility] [address] [place] [phone] Todd Figueroa PharmD [address] [place] [address] documented as of this encounter Goals Goal [...] documented as of this encounter Care Teams Rn Pain Management Relationship Specialty Start Date End Date Hilda Cline ANP [address] [place] [address] PCP - General Family Medicine 11/17/20 Todd Figueroa PharmD [address] [place] [address] Pharmacist Internal Medicine 11/24/23 documented as of this encounter
--- OUTSIDE RECORDS SUMMARY | 2025-07-11 11:56 | XMS_ITS | Encounter Summary ---
Author Organization [employer] Address [address] [place] [address], [place] [address] Care Team Providers Care Sash Assembler Name Role Phone Hilda Cline Primary Care Provider [phone] Todd Figueroa PharmD Unavailable [phone] Reason for Visit * Reason Comments Med Refill Encounter Details Date Type Department Care Team (Late st Contact Info) Description 11/22/2022 Refill [facility] [address] [place] [address] Hilda Cline ANP [address] [place] [address] Social History Tobacco Use Types Packs/Day Years [...] Info) Description 07/22/2025 11:30 AM EST Telemedicine [facility] [address] [place] [address] Todd Figueroa, PharmD [address] [place] [address] documented as of this encounter Visit Diagnoses Not on filedocumented in this encounter Care Teams Sash Assembler Relationship Specialty Start Date End Date Hilda Cline ANP [address] [place], [place] [phone] PCP - General Family Medicine 11/17/20 Todd Figueroa PharmD [address] [place] [address] Pharmacist Internal Medicine 11/24/23 documented as of this encounter
--- OUTSIDE RECORDS SUMMARY | 2025-07-11 11:57 | XMS_ITS | Encounter Summary ---
Author Organization [employer] Address 75 [facility] 7 [place] [address] Care Team Providers Care Water Hauler Name Role Phone Hilda Cline Primary Care Provider [phone] Todd Figueroa PharmD Unavailable [phone] Reason for Visit * Reason Comments Med Refill Encounter Details Date Type Department Care Team (Late st Contact Info) Description 10/10/2023 Refill [facility] 230 [place], [place] [phone] Hilda Cilne ANP 230 [place], [place] [phone] Social History Tobacco Use Types Packs/Day Years [...] Info) Description 07/22/2025 11:30 AM EST Telemedicine [facility] [address] [place] [phone] Todd Figueroa, LindsayD [address] [place] [address] documented as of this encounter Goals Goal Patient Goal Type Associated Problems Recent Progress Patient-Stated? Author Hemoglobin A1c < 7 Result Component 8.8(05/30/2025 10:40 AM EST) No Declan Kauffman documented as of this encounter Visit Diagnoses Not on filedocumented in this encounter Care Teams Water Hauler Relationship Specialty Start Date End Date Hilda Cline ANP [address] [place] [address] PCP - General Family Medicine 11/17/20 Todd Figueroa, PharmD [address] [place] [address] Pharmacist Internal Medicine 11/24/23 documented as of this encounter
--- OUTSIDE RECORDS SUMMARY | 2025-07-11 11:57 | XMS_ITS | Encounter Summary ---
Author Organization [employer] Address 75 [facility] 7 [place] [address] Care Team Providers Care Heel Slugger Name Role Phone Hilda Cline Primary Care Provider [phone] Todd Figueroa PharmD Unavailable Reason for Visit * Reason Onset Date Comments Med Refill 09/13/2023 Encounter Details Date Type Department Care Team (Late st Contact Info) Description 09/13/2023 Telephone [facility] 230 [place], [place] [phone] Hilda Cline ANP [address] [place], [place] [phone] Med Refill Social History Tobacco Use Types [...] 7 MG tablet To be sent to: [facility] - [place], [place] - [phone] [place] - [address] Blank from [facility] informs pt is out of meds and would like to know if medication can be sent out today to finish pt bubble pack . documented in this encounter Plan of Treatment Upcoming Encounters Date Type Department Care Team (Late st Contact Info) Description 07/22/2025 11:30 AM EST Telemedicine [facility] [address] [place] [address] Todd Figueroa, PharmD [address] [place] [address] documented as of this encounter Goals Goal Patient Goal Type Associated Problems Recent Progress Patient-Stated? Author Hemoglobin A1c < 7 Result Component 8.8(05/30/2025 10:40 AM EST) No Sampognaro, Declan documented as of this encounter Visit Diagnoses Not on filedocumented in this encounter Care Teams Heel Slugger Relationship Specialty Start Date End Date Hilda Cline ANP [address] [place] [address] PCP - General Family Medicine 11/17/20 Todd Figueroa PharmD [address] [place] [address] Pharmacist Internal Medicine 11/24/23 documented as of this encounter
--- OUTSIDE RECORDS SUMMARY | 2025-07-11 11:57 | XMS_ITS | Encounter Summary ---
Author Organization [employer] Address 75 [facility] 7 [place] [address] Care Team Providers Care Marine Diver Name Role Phone Hilda Cline Primary Care Provider [phone] Todd Figueroa PharmD Unavailable [phone] Reason for Visit * Reason Onset Date Comments Med Refill 12/01/2023 Encounter Details Date Type Department Care Team (Late st Contact Info) Description 12/01/2023 Telephone [facility] [address] [place], [place] [phone] Hilda Cline ANP [address] [place], [place] [phone] Med Refill Social History Tobacco Use Types [...] 14 MG tablet To be sent to: [facility] - [place], [place] - [id number] - [place] - [address] documented in this encounter Plan of Treatment Upcoming Encounters Date Type Department Care Team (Late st Contact Info) Description 07/22/2025 11:30 AM EST Telemedicine [facility] [address] [place] [address] Todd Figueroa PharmD [address] [place] [address] documented as of this encounter Goals Goal Patient Goal Type Associated Problems Recent Progress Patient-Stated? Author Blood Pressure < 140/90 Blood Pressure 122/58(2024 10:28 AM EST) No Todd Figueroa PharmD Hemoglobin A1c < 7 Result Component 8.8( 5 10:40 AM EST) No Declan Kauffman documented as of this encounter Visit Diagnoses Not on filedocumented in this encounter Care Teams Marine Diver Relationship Specialty Start Date End Date Hilda Cline ANP [address] [place] [address] PCP - General Family Medicine 11/17/20 Todd Figueroa PharmD [address] [place] [address] Pharmacist Internal Medicine 11/24/23 documented as of this encounter
--- OUTSIDE RECORDS SUMMARY | 2025-07-11 11:57 | XMS_ITS | Encounter Summary ---
Author Organization [employer] Address 75 [facility] 7 [place] [address] Care Team Providers Care Welding Machine Operator Helper Arc Name Role Phone Hilda Cline Primary Care Provider [phone] Todd Figueroa PharmD Unavailable [phone] Reason for Visit * Reason Comments Med Refill Encounter Details Date Type Department Care Team (Late st Contact Info) Description 03/29/2025 Refill [facility] 230 [place], [place] [phone] Hilda Cline ANP [address] [place] [address] Social History Tobacco Use Types Packs/Day Years [...] Info) Description 07/22/2025 11:30 AM EST Telemedicine [facility] [address] [place] [address] Todd Figueroa PharmD [address] [place] [address] documented as of this encounter Goals Goal [...] documented as of this encounter Care Teams Welding Machine Operator Helper Arc Relationship Specialty Start Date End Date Hilda Cline ANP [address] [place] [address] PCP - General Family Medicine 11/17/20 Todd Figueroa PharmD [address] [place] [address] Pharmacist Internal Medicine 11/24/23 documented as of this encounter
--- OUTSIDE RECORDS SUMMARY | 2025-07-11 11:57 | XMS_ITS | Encounter Summary ---
Author Organization [employer] Address 75 [facility] 7 [place] [address] Care Team Providers Care Carbon Plant Grinder Name Role Phone Hilda Cline Primary Care Provider [phone] Todd Figueroa PharmD Unavailable [phone] Reason for Visit * Reason Comments Med Refill Encounter Details Date Type Department Care Team (Late st Contact Info) Description 02/13/2024 Refill [facility] 230 [place], [place] [phone] Hilda Cline ANP [address] [place], [place] [phone] Type 2 diabetes mellitus with hyperlipidemia ([facility]/HCC) ([facility]) Social History Tobacco Use [...] Info) Description 07/22/2025 11:30 AM EST Telemedicine [facility] [address] [place] [address] Todd Figueroa PharmD [address] [place] [address] documented as of this encounter Goals Goal [...] (HCC) documented in this encounter Care Teams Carbon Plant Grinder Relationship Specialty Start Date End Date Hilda Cline ANP [address] [place] [address] PCP - General Family Medicine 11/17/20 Todd Figueroa, LindsayD [address] [place] [address] [phone] Pharmacist Internal Medicine 11/24/23 documented as of this encounter
--- OUTSIDE RECORDS SUMMARY | 2025-07-11 11:57 | XMS_ITS | Encounter Summary ---
Author Organization [employer] Address [address] [place] [address] Care Team Providers Care Still Cleaner Tube Name Role Phone Hilda Cline Primary Care Provider [phone] Todd Figueroa PharmD Unavailable [phone] Reason for Visit * Reason Onset Date Comments Med Refill 03/15/2024 Encounter Details Date Type Department Care Team (Late st Contact Info) Description 03/15/[address] [facility] 230 [place], [place] [phone] Lili Johnston MD 230 [place], [place] [phone] Hypertension associated with diabetes (CMS/HCC) ([facility]/HCC) Social History Tobacco Use Types Packs/Day Years [...] Info) Description 07/22/2025 11:[address] [facility] [address] [place] [address] Todd Figueroa PharmD [address] [place] [address] documented as of this encounter Goals Goal [...] hypertension documented in this encounter Care Teams Still Cleaner Tube Relationship Specialty Start Date End Date Hilda Cline ANP [address] [place] [address] [phone] PCP - General Family Medicine 11/17/20 Todd Figueroa, Ceferino [address] [place] [address] Pharmacist Internal Medicine 11/24/23 documented as of this encounter
--- OUTSIDE RECORDS SUMMARY | 2025-07-11 11:57 | XMS_ITS | Encounter Summary ---
Author Organization [employer] Address 75 [facility] 7 [place] [address] Care Team Providers Care Director Of Regulatory Affairs Name Role Phone Hilda Cline Primary Care Provider [phone] Todd Figueroa PharmD Unavailable [phone] Reason for Visit * Reason Comments Med Refill Encounter Details Date Type Department Care Team (Late st Contact Info) Description 03/31/2025 Refill [facility] 230 [place], [place] [phone] Hilda Cline ANP [address] [place] [address] Social History Tobacco Use Types Packs/Day Years [...] Info) Description 07/22/2025 11:30 AM EST Telemedicine [facility] [address] [place] [address] Todd Figueroa PharmD [address] [place] [address] documented as of this encounter Goals Goal [...] of this encounter Care Teams Director Of Regulatory Affairs Relationship Specialty Start Date End Date Hilda Cline ANP [address] [place] [address] PCP - General Family Medicine 11/17/20 Todd Figueroa PharmD [address] [place] [address] Pharmacist Internal Medicine 11/24/23 documented as of this encounter
--- OUTSIDE RECORDS SUMMARY | 2025-07-11 11:57 | XMS_ITS | Encounter Summary ---
Author Organization [employer] Address 75 [facility] 7 [place] [address] Care Team Providers Care Head Greenskeeper Name Role Phone Hilda Cline Primary Care Provider [phone] Todd Figueroa PharmD Unavailable [phone] Reason for Visit * Reason Comments Med Refill Encounter Details Date Type Department Care Team ([facility] st Contact Info) Description 09/12/2023 Refill [facility] 230 [place], [place] [phone] Hilda Cline ANP 230 [place], [place] [phone] Type 2 diabetes mellitus with hyperlipidemia ([facility]/HCC) Social History Tobacco Use Types Packs/Day [...] Info) Description 07/22/2025 11:30 AM EST Telemedicine [facility] 230 [place] [address] Todd Figueroa, Ceferino [address] [place] [address] documented as of this encounter Goals Goal Patient Goal Type Associated Problems Recent Progress Patient-Stated? Author Hemoglobin A1c < 7 Result Component 8.8(05/30/2025 10:40 AM EST) No Declan Kauffman documented as of this encounter Visit Diagnoses Diagnosis Type 2 diabetes mellitus with hyperlipidemia (HCC) documented in this encounter Care Teams Head Greenskeeper Relationship Specialty Start Date End Date Hilda Cline ANP [address] [place] [phone] PCP - General Family Medicine 11/17/20 Todd Figueroa, PharmD [address] [place] [address] [phone] Pharmacist Internal Medicine 11/24/23 documented as of this encounter
--- OUTSIDE RECORDS SUMMARY | 2025-07-11 11:57 | XMS_ITS | Encounter Summary ---
Author Organization [employer] Address [address] [place] [address] Care Team Providers Care Hospitality Specialist Name Role Phone Hilda Cline Primary Care Provider [phone] Todd Figueroa PharmD Unavailable Reason for Visit * Reason Onset Date Comments Med Refill 03/15/2024 Encounter Details Date Type Department Care Team (Late st Contact Info) Description 03/15/2024 Refill [facility] MEDICINE [address], [place] [phone] Hilda Cline ANP [address] [place], [place] [phone] Type 2 diabetes mellitus with hyperlipidemia (CMS/HCC) ([facility]/HCC) Social History Tobacco Use Types Packs/Day [...] Description 07/22/2025 11:30 AM EST Telemedicine [facility] MEDICINE [address] [place] [phone] Todd Figueroa PharmD [address] [place] [phone] documented as of this encounter Goals Goal [...] (HCC) documented in this encounter Care Teams Hospitality Specialist Relationship Specialty Start Date End Date Hilda Cline ANP [address] [place] [phone] PCP - General Family Medicine 11/17/20 Todd Figueroa, Ceferino [address] [place] [id number] Pharmacist Internal Medicine 11/24/23 documented as of this encounter
== END 2025-07-11 09:51 | disposition home or self-care (01) ==
LOC: HO.CT 09:50
PROVIDERS: PCP Nurse Practitioner Primary Care; Visit Provider Physician Assistant Medical
DX: Z87.891 Personal history of nicotine dependence (principal)
CPT/HCPCS: 71271

== ENCOUNTER → 2025-07-11 09:53 | Outpatient (BNV) | payer OTHER, SELFPAY | PROVIDERS: PCP Nurse Practitioner Primary Care; Visit Provider Radiology Diagnostic Radiology | DX: Z87.891 Personal history of nicotine dependence (principal) | CPT/HCPCS: 71271 ==